=== PATIENT | male | born 1955 | race Caucasian/White ===

== ENCOUNTER 2024-05-04 18:49 | Inpatient (IN) | payer MEDICARE, SELFPAY ==
[2024-05-04] VITALS (12 sets, daily range): BP systolic 90–147; BP diastolic 61–101; PULSE 63–91; RESP 12–20; TEMP 36.3–36.8; O2SAT 90–100; BMI 18.3; BMI 17.1
[2024-05-04 19:29] LABS: Allen Test Positive; Base Excess -2 mmol/L (-2 to +2); Bicarbonate 22.1 mmol/L (22-26); Blood Gas Specimen Type ART; Mode Not entered; O2 Delivery Device Room Air; PO2 69 mmHG (75-100); SITE R Radial; SO2 94 % (95-99); Total Carbon Dioxide 23 mmol/L; pCO2 33.9 mmHg (35-45); pH 7.42 (7.35-7.45)
[2024-05-04 19:29] LABS: Absolute Lymphocyte Count 1.73 X10^3/uL (0.83-4.51); Absolute Neutrophil Count 7.8 X10^3/uL (2.0-7.7); Basophil# 0.06 X10^3/uL; Basophil% 0.6 % (0-1); Eosinophil# 0.08 X10^3/uL; Eosinophils% 0.8 % (0-5); Hematocrit 47.6 % (40-54); Hemoglobin 15.4 g/dL (13.0-16.5); Lymphocyte # 1.73 X10^3/ul (0.83-4.51); Lymphocyte % 16.5 % (19-41); Mean Corp Hgb Conc 32.4 g/dL (32-36); Mean Corpuscular Volume 89.6 fL (80-94); Mean Platelet Vol. 10.5 fl (6.2-12.0); Monocyte# 0.84 X10^3/uL; NRBC Flagged by Analyzer 0 % (0-5); Neutrophil # 7.75 X10^3/uL (2.7-7.7); Neutrophil % 73.6 % (47-70); Platelet Count 233 K/mm3 (150-450); RBC Distribution Width CV 13.9 % (11.6-14.6); RBC Distribution Width SD 45.2 fl (35.1-43.9); Red Blood Count 5.31 M/mm3 (4.6-6.2); White Blood Count 10.5 K/mm3 (4.4-11.0)
[2024-05-04 19:45] LABS: International Normalized Ratio 1.1; Partial Thromboplast Time 25.8 Seconds (24.1-36.2)
[2024-05-04 19:53] LABS: ALB/GLOB Ratio 1.3 RATIO (0.9-2.4); AST(SGOT) 21 U/L (15-37); Alanine Aminotransfer ALT/SGPT 19 U/L (16-61); Albumin, Serum 3.7 g/dL (3.2-5.0); Alkaline Phosphatase 70 U/L (45-117); Anion Gap 9 (5-15); BUN 18 mg/dL (7-18); BUN/Creat Ratio 13.5 RATIO (10-20); Calcium,Total 9.2 mg/dL (8.5-10.1); Chloride 103 mmol/L (98-107); Creatinine, Serum 1.33 mg/dL (0.70-1.30); EST Glomerular Filtration Rate 56 mL/min (>60); Est Glom Filt Rate - Afr Amer 68 mL/min (>60); Estimated Creatinine Clearance 40.49 ml/min; Globulin 2.9 g/dL (2.2-4.2); Glucose 109 mg/dL (74-106); Potassium 4.2 mmol/L (3.5-5.1); Protein, Total 6.6 g/dL (6.4-8.2); Sodium Level 137 mmol/L (136-145); Troponin-I HS (w/2H Reflex) 160 pg/mL (3.0-78.0)
[2024-05-04 20:00] LABS: D-Dimer Quantitative (DVT/PE) 0.27 FEU/ug/m (0.27-0.49)
[2024-05-04 20:16] LABS: Lactic Acid 2.9 mmol/L (0.4-1.9)
[2024-05-04 21:25] LABS: Reflex Troponin-HS? (from REC) Y
[2024-05-04] MEDS: Heparin Injection (Vial) 5,000 UNIT/ML VIAL 3500 UNIT IV (22:03)
[2024-05-04 22:04] LABS: Troponin-I HS 169 pg/mL (3.0-78.0)
[2024-05-04 22:23] LABS: International Normalized Ratio 1.1; Partial Thromboplast Time 26.6 Seconds (24.1-36.2); Prothrombin Time (Protime)PT. 14.2 SECONDS (11.7-14.9)
[2024-05-04] MEDS: HEPARIN/D5w 25,000 UNITS 25,000 UNITS/250 ML IV.SOLN. 7 UNITS CONT INF (22:39)
[2024-05-04 23:25] LABS: Reflex Lactate? Y
[2024-05-04] MEDS: Aspirin 81 MG TAB.CHEW PO (23:39)
[2024-05-04] MEDS: Atorvastatin Calcium 80 MG Tablet PO (23:39)
[2024-05-04] MEDS: Clopidogrel Bisulfate 75 MG Tablet PO (23:39)
[2024-05-05] VITALS (7 sets, daily range): BP systolic 92–131; BP diastolic 59–68; PULSE 47–74; RESP 15–18; TEMP 36.4–36.5; O2SAT 93–99
[2024-05-05 00:14] LABS: Lactic Acid 2.3 mmol/L (0.4-1.9)
[2024-05-05 02:26] LABS: Troponin-I HS 176 pg/mL (3.0-78.0)
[2024-05-05 03:41] LABS: Reflex Lactate? Y
[2024-05-05 07:07] LABS: Hematocrit 45.3 % (40-54); Hemoglobin 14.5 g/dL (13.0-16.5); Mean Corpuscular Hgb 28.7 pg (27.0-32.0); Mean Corpuscular Volume 89.5 fL (80-94); Mean Platelet Vol. 9.4 fl (6.2-12.0); Platelet Count 216 K/mm3 (150-450); RBC Distribution Width CV 13.9 % (11.6-14.6); RBC Distribution Width SD 45.7 fl (35.1-43.9); Red Blood Count 5.06 M/mm3 (4.6-6.2); White Blood Count 8.1 K/mm3 (4.4-11.0)
[2024-05-05] MEDS: Ipratropium/Albuterol Sulfate 3 ML AMPUL.NEB INHALATION ×3 (07:16→19:26)
[2024-05-05] MEDS: Budesonide Respules 0.5 MG/2 ML AMPUL.NEB. INHALATION ×2 (07:16→19:26)
[2024-05-05 08:45] LABS: ALB/GLOB Ratio 1.2 RATIO (0.9-2.4); AST(SGOT) 24 U/L (15-37); Alanine Aminotransfer ALT/SGPT 20 U/L (16-61); Albumin, Serum 3.2 g/dL (3.2-5.0); Alkaline Phosphatase 62 U/L (45-117); Anion Gap 10 (5-15); BUN 21 mg/dL (7-18); BUN/Creat Ratio 21.4 RATIO (10-20); Chloride 104 mmol/L (98-107); Cholesterol 156 mg/dL (200); Creatinine, Serum 0.98 mg/dL (0.70-1.30); EST Glomerular Filtration Rate 80 mL/min (>60); Est Glom Filt Rate - Afr Amer 97 mL/min (>60); Estimated Creatinine Clearance 51.44 ml/min; Globulin 2.7 g/dL (2.2-4.2); Glucose 76 mg/dL (74-106); High Density Lipoprotein 82 mg/dL; Potassium 4.4 mmol/L (3.5-5.1); Protein, Total 5.9 g/dL (6.4-8.2); Sodium Level 137 mmol/L (136-145); Triglycerides 47 mg/dL; Very Low Density Lipoprotein 9 mg/dL (5-40)
[2024-05-05 08:50] LABS: Lactic Acid 1.4 mmol/L (0.4-1.9)
[2024-05-05 09:19] LABS: Partial Thromboplast Time 97.4 Seconds (24.1-36.2)
[2024-05-05] MEDS: Aspirin 81 MG TAB.CHEW PO (11:06)
[2024-05-05 16:17] LABS: Partial Thromboplast Time 38.2 Seconds (24.1-36.2)
[2024-05-05] MEDS: Heparin Injection (Vial) 5,000 UNIT/ML VIAL IV (16:46)
[2024-05-05] MEDS: Ensure Plus High Protein 120 ML LIQUID PO ×2 (18:08→21:11)
[2024-05-05] MEDS: Atorvastatin Calcium 80 MG Tablet PO (21:09)
[2024-05-05 23:16] LABS: Partial Thromboplast Time 49.4 Seconds (24.1-36.2)
[2024-05-06] VITALS (7 sets, daily range): BP systolic 97–116; BP diastolic 67–89; PULSE 54–73; RESP 16–18; TEMP 36.4–36.6; O2SAT 94–98
[2024-05-06 06:21] LABS: Partial Thromboplast Time 77.5 Seconds (24.1-36.2)
[2024-05-06] MEDS: Ipratropium/Albuterol Sulfate 3 ML AMPUL.NEB INHALATION ×3 (06:29→18:51)
[2024-05-06] MEDS: Budesonide Respules 0.5 MG/2 ML AMPUL.NEB. INHALATION ×2 (06:29→18:51)
[2024-05-06] MEDS: Aspirin 81 MG TAB.CHEW PO (09:30)
[2024-05-06] MEDS: Ensure Plus High Protein 120 ML LIQUID PO ×3 (09:31→22:14)
[2024-05-06] MEDS: HEPARIN/D5w 25,000 UNITS 25,000 UNITS/250 ML IV.SOLN. 7 UNITS CONT INF (12:35)
[2024-05-06 12:37] LABS: Partial Thromboplast Time 52.5 Seconds (24.1-36.2)
[2024-05-06 18:54] LABS: Partial Thromboplast Time 48.8 Seconds (24.1-36.2)
[2024-05-06] MEDS: Atorvastatin Calcium 80 MG Tablet PO (22:14)
[2024-05-07] VITALS (10 sets, daily range): BP systolic 97–138; BP diastolic 56–82; PULSE 47–85; RESP 16; TEMP 36.4–36.5; O2SAT 92–100
[2024-05-07 01:51] LABS: Partial Thromboplast Time 73.5 Seconds (24.1-36.2)
[2024-05-07] MEDS: Aspirin 81 MG TAB.CHEW PO (05:36)
[2024-05-07 06:49] LABS: Absolute Lymphocyte Count 1.07 X10^3/uL (0.83-4.51); Absolute Neutrophil Count 5.5 X10^3/uL (2.0-7.7); Basophil# 0.05 X10^3/uL; Basophil% 0.7 % (0-1); Eosinophil# 0.15 X10^3/uL; Hematocrit 45.1 % (40-54); Hemoglobin 14.7 g/dL (13.0-16.5); Lymphocyte # 1.07 X10^3/ul (0.83-4.51); Lymphocyte % 14.1 % (19-41); Mean Corp Hgb Conc 32.6 g/dL (32-36); Mean Corpuscular Hgb 29.2 pg (27.0-32.0); Mean Corpuscular Volume 89.5 fL (80-94); Mean Platelet Vol. 10.1 fl (6.2-12.0); Monocyte# 0.83 X10^3/uL; Monocyte% 10.9 % (0-10); NRBC Flagged by Analyzer 0 % (0-5); Neutrophil # 5.46 X10^3/uL (2.7-7.7); Neutrophil % 71.8 % (47-70); Platelet Count 204 K/mm3 (150-450); RBC Distribution Width CV 14.2 % (11.6-14.6); RBC Distribution Width SD 46.1 fl (35.1-43.9); Red Blood Count 5.04 M/mm3 (4.6-6.2); White Blood Count 7.6 K/mm3 (4.4-11.0)
[2024-05-07] MEDS: Budesonide Respules 0.5 MG/2 ML AMPUL.NEB. INHALATION (07:07)
[2024-05-07] MEDS: Ipratropium/Albuterol Sulfate 3 ML AMPUL.NEB INHALATION ×2 (07:07→13:03)
[2024-05-07 07:47] LABS: Anion Gap 8 (5-15); BUN 19 mg/dL (7-18); BUN/Creat Ratio 22.5 RATIO (10-20); Calcium,Total 9.4 mg/dL (8.5-10.1); Chloride 106 mmol/L (98-107); Creatinine, Serum 0.84 mg/dL (0.70-1.30); EST Glomerular Filtration Rate 95 mL/min (>60); Est Glom Filt Rate - Afr Amer 115 mL/min (>60); Estimated Creatinine Clearance 60.01 ml/min; Glucose 98 mg/dL (74-106); Potassium 4.4 mmol/L (3.5-5.1); Sodium Level 139 mmol/L (136-145)
[2024-05-07] MEDS: 0.9% Normal Saline (1000mL) 1,000 ML 150 ML IV (09:50)
== END 2024-05-07 16:49 | disposition home or self-care (01) | DRG 287 ==
LOC: ED 21:42 → PCU 21:54
PROVIDERS: Internal Medicine; Admitting Provider Internal Medicine; Emergency Provider Emergency Medicine; Referring Provider Emergency Medicine; Visit Provider Student in an Organized Health Care Education/Training Program
DX: I25.10 Atherosclerotic heart disease of native coronary artery without angina pectoris (principal); E44.0 Moderate protein-calorie malnutrition; Z68.1 Body mass index [BMI] 19.9 or less, adult; J44.9 Chronic obstructive pulmonary disease, unspecified; E80.7 Disorder of bilirubin metabolism, unspecified; R55 Syncope and collapse; Z79.51 Long term (current) use of inhaled steroids; Z87.891 Personal history of nicotine dependence
CPT/HCPCS: 36415; 36600; 70450; 71046; 80048; 80053; 80061; 82803; 83605; 84443; 84484; 85025; 85027; 85379; 85610; 85730; 93005; 93306; 93454; 94640; 97802; 99152; 99153; 99285; J7030; Q9967; A4216; C1769; C1894; J3490

== ENCOUNTER 2024-05-17 07:02 | Day surgery (SDC) | payer MEDICARE, SELFPAY ==
[2024-05-16 11:49] VITALS: BMI 16.9
--- OUTSIDE RECORDS SUMMARY | 2024-05-17 07:21 | XMS RPT_ITS | CCD ---
Author Organization 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 Name Role Phone LilaChristine peres Unavailable Unavailable PROVIDER, UNKNOWN Unavailable Unavailable Xavier Bravo Unavailable Unavailable PCP, NONE Primary Care Unavailable RO SEVILLA Attending Unavailable PHYSICIAN, NONE Primary Care Physician Unavailab Zina Burleson Unavailable Unavailable Unavailable Unavailable Primary Care Provider Unavailabl e Unavailable Primary Care Provider Unavailabl e Unavailable Primary Care Provider Unavailabl e Sandip Chavez DO Unavailable Sherri Hemphill Unavailable RAPAKA, EDUARDA Attending Unavailable RAPAKA, EDUARDA Attending Unavailable Wiggers DO, Salazar B Primary Care Provider GISELA HSU MD Attending Unavailable NO FAMILY PHYSICIAN, 837 Primary Care Unavail able MARGARET PLASCENCIA MD Attending Unavailable NO FAMILY PHYSICIAN, 837 Primary Care Unavail able SAWYER ELLISON, JIM Consulting Unavailable EASTON LOERA DO Admitting Unavailable Wiggers DO, Salazar B Primary Care Provider [phone] SUREKHA MENSAH Attending Unavailable Eduarda Felix MD Unavailable WIGGERS, SALAZAR B Primary Care Unavailable RAPAKA, EDUARDA Attending Unavailable WIGGERS, SALAZAR B Primary Care Unavailable RAPAKA, EDUARDA Attending Unavailable Unavailable Primary Care Provider Unavailabl e RAPAKA, EDUARDA Referring Unavailable WIGGERS, SALAZAR B Primary Care Unavailable RAPAKA, EDAURDA Referring Unavailable WIGGERS, SALAZAR B Primary Care Unavailable WIGGERS, SALAZAR B Attending Unavailable WIGGERS, SALAZAR B Primary Care Unavailable WIGGERS, SALAZAR B Referring Unavailable WIGGERS, SALAZAR B Primary Care Unavailable Florencio MARADIAGA, Roula Lackey Unavailable Allergies Allergy Classification Reported Allergen(s) Allergy Type Date of Onset Reaction(s) Facility (20 sources) Bacitracin; Translations: [Bacitracin OINT] Drug Allergy 0 Rash [facility] (4 sources) Bacitracin; Translations: [BACITRACIN] Drug Allergy 0 [facility] (1 source) Sulfonamides (Antibiotic); Translations: [SULFA (SULFONAMIDE ANTIBIOTICS)] Propensity to adverse reactions to drug (disorder) 9 [facility] 3 Repository (1 source) NEOMYCIN-BACITRAC IN-POLYMYXIN; Translations: [NEOMYCIN-BACITRA ANN-MARIE-POLYMYXIN] Propensity to adverse reactions to drug (disorder) 9 [facility] 3 Repository Medications Current Medications Medication Drug Class(es) Dates Sig (Normalized) Sig (Original) [id number] 200 actuat albuterol 0.09 mg/actuat metered dose inhaler (20 sources) beta2-Adrenergic Agonist Start: 05-02-2023 take 2 puff(s) by inhalation every four hours as needed for wheezing albuterol HFA (PROAIR HFA) 90 mcg/actuation inhaler Indications: Pulmonary emphysema, unspecified emphysema type (HCC) 2 Puffs every 4 hours as needed for wheezing/shortness of breath. Take as directed 17 g 5 05/02/2023 Active Start: 06-30-2021 take 2 puff(s) by mo uth every four hours Albuterol Sulfate HFA 108 (90 Base) MCG/ACT Inhalation Aerosol Solution inhale 2 puffs by mouth every 4 hours if needed Quantity: 1 Refills: 3 Ordered: 30-Jun-2021 Zina Jain Start : 30-Jun-2021 Active Start: 12-23-2020 End: 05-02-2023 take 2 puff(s) by inhalation every four hours as needed for wheezing albuterol HFA (PROAIR HFA) 90 mcg/actuation inhaler Indications: Pulmonary emphysema, unspecified emphysema type (HCC) 2 Puffs every 4 hours as needed for wheezing/shortness of breath. Take as directed 25.5 g 1 12/23/2020 10/22/2021 Discontinued Start: 01-20-2020 End: 12-23-2020 take 2 puff(s) by inhalation every six hours as needed for wheezing albuterol HFA (PROAIR HFA) 90 mcg/actuation inhaler 2 Puffs every 6 hours as needed for Wheezing/Shortness of Breath. Take as directed 3 Inhaler 01/20/2020 12/23/2020 Discontinued Albuterol 0.63 m g/3 mL (0.021%) inhalation solution Comment on above: 2 Puffs every 4 hour s as needed for wheezing/shortness of breath. Take as directed albuterol 0.833 mg/ml / ipratropium bromide 0.167 mg/ml inhalation solution (20 sources) Anticholinergic, beta2-Adrenergic Agonist Start: 023 take 3 mL by inhalation every six hours as needed ipratropium-albut jyoti (DUONEB) 0.5 mg-3 mg(2.5 mg base)/3 mL nebu Inhale 3 mL as instructed every 6 hours as needed for wheezing/shortnes s of breath. 120 Each 3 01/31/2023 Active Start: 11-09-2021 End: 01-27-2023 take 3 mL by inhalation every six hours as needed ipratropium-albuterol (DUONEB) 0.5 mg-3 mg(2.5 mg base)/3 mL nebu Inhale 3 mL as instructed every 6 hours as needed for wheezing/shortness of breath. 120 Vial 3 11/09/2021 01/27/2023 Discontinued Comment on above: Inhale 3 mL as instr ucted every 6 hours as needed for wheezing/shortness of breath. albuterol MDI (90 mcg/inh) CFC free inhalation aerosol (1 source) Start: take 2 puff(s) by inhalation every four hours albuterol MDI (90 mcg/inh) CFC free inhalation aerosol 2 puff(s), Inhalation, q4h, # 1 EA, 0 Refill(s) Start Date: 07/19/17 Status: Ordered amoxicillin 875 mg / clavulanate 125 mg oral tablet (2 sources) Penicillin-class Antibacterial Start: End: take 1 tablet by mouth twice daily amoxicillin-clavu lanate potassium (AUGMENTIN) 875-125 mg per tablet Take 1 tablet by mouth two times a day for 7 days. 14 tablet 0 10/31/2023 11/07/2023 Active Start: 05-08-2023 Amoxicillin-cl avulanate 875 mg-125 mg oral tablet Comment on above: Take 1 tablet by [facility] two times a day for 7 days. aspirin 81 mg oral tablet (1 source) Platelet Aggregation Inhibitor, Nonsteroidal Anti-inflammatory Drug take 1 capsule by mouth once daily aspirin 81 mg cap Take 81 mg by mouth once daily. From [facility] Active Breo Ellipta 200 mcg-25 mcg/inh inhalation powder (1 source) Start: 04-05-20 Breo Ellipta 200 mcg-25 mcg/inh inhalation powder 0 Refill(s) Start Date: 04/05/20 Status: Ordered cephalexin 500 mg oral capsule (1 source) Cephalosporin Antibacterial Start: 02-09-20 End: 02-14-20 take 1 capsule by mouth four times daily cephALEXin (KEFLEX) 500 mg capsule Indications: Cellulitis of skin Take 1 capsule by mouth four times daily for 5 days. 20 capsule 0 02/08/2022 02/13/2022 Active Comment on above: Take 1 capsule by [facility] four times daily for 5 days. enteric contrast (will be provided with radiology test) (1 source) Start: 03-16-20 End: 03-17-20 enteric contrast (will be provided with radiology test) Indications: Complicated unilateral incarcerated femoral hernia For CT ABD/PEL W IVCON Routine order Administer, As Directed One Time Only, via Oral, Rectal, both Oral and Rectal, Enteric Tube, Stoma or Indwelling Catheter, Enteric Contrast as designated per enteric contrast guidelines 1 Each 0 03/16/2023 03/17/2023 Active Comment on above: For CT ABD/PEL W IVC ON Routine order Administer, As Directed One Time Only, via Oral, Rectal, both Oral and Rectal, Enteric Tube, Stoma or Indwelling Catheter, Enteric Contrast as designated per enteric contrast guidelines 30 actuat fluticasone furoate 0.2 mg/actuat / vilanterol 0.025 mg/actuat dry powder inhaler (20 sources) Corticosteroid, beta2-Adrenergic Agonist Start: 11-13-19 End: 10-31-19 24 fluticasone-vilanter ol (BREO ELLIPTA) 200-25 mcg/dose inhaler Indications: Pulmonary emphysema, unspecified emphysema type (HCC) , Ex-smoker USE 1 INHALATION DAILY INSTRUCTED 3 Each 3 10/31/2023 Active Start: 11-04-2021 fluticasone-vi lanterol (BREO ELLIPTA) 200-25 mcg/dose inhaler Indications: Pulmonary emphysema, unspecified emphysema type (HCC) , Ex-smoker Inhale 1 Inhalation as instructed once daily. 180 Each 3 11/04/2021 Active Start: 10-22-2021 take 1 dose by inhal ation once daily fluticasone-vilanterol (BREO ELLIPTA) 200-25 mcg/dose inhaler Indications: Pulmonary emphysema, unspecified emphysema type (HCC) , Ex-smoker Inhale 1 Inhalation as instructed once daily. 1 Each 5 10/22/2021 Active Start: 06-30-2021 take 1 puff(s) by in halation once daily Breo Ellipta 200-25 MCG/INH Inhalation Aerosol Powder Breath Activated INHALE 1 PUFFS Daily Quantity: 1 Refills: 0 Ordered: 30-Jun-2021 Zina Jain Start : 30-Jun-2021 Active Start: 04-13-2021 End: 10-22-2021 take 1 dose by inhalation once daily BREO ELLIPTA 200-25 mcg/dose inhaler Indications: Pulmonary emphysema, unspecified emphysema type (HCC) , Ex-smoker USE 1 INHALATION DAILY INSTRUCTED 1 Each 5 04/13/2021 10/22/2021 Discontinued Start: 04-08-2020 End: 04-13-2021 fluticasone-vilanterol (BREO ELLIPTA) 200-25 mcg/dose inhaler Indications: Pulmonary emphysema, unspecified emphysema type (HCC) , Ex-smoker Inhale 1 Inhalation as instructed once daily. 3 Each 3 04/08/2020 04/13/2021 Discontinued Comment on above: Inhale 1 Inhalation as instructed once daily. USE 1 INHALATION LUPIS LY INSTRUCTED Gentamicin Sulfate (RESIDENTIAL) (1 source) Start: End: apply 1 dose into the eye(s) once daily gentamicin 0.3% ophthalmic ointment Dose = 0.5 in, Eyes, both, 6x/Day, X 7 day(s), # 3.5 gram(s), 0 Refill(s), Iritis Start Date: 05/06/21 Stop Date: 05/13/21 Status: Ordered iv contrast (will be provided with radiology test) (1 source) Start: End: iv contrast (will be provided with radiology test) Indications: Complicated unilateral incarcerated femoral hernia CT ABD/PEL -Inject, intravenously, once for 1 dose.No IV access, insert saline lock prior to the beginning of sedation, infusion, injection of imaging exam. Discontinue saline lock post exam. If Pt. has a central line or IVAD, may access for administration according to line specific nursing protocol. Once exam is complete flush line and de-access according to line specific nursing protocol in the CT contrast administration guidelines link. 1 Each 0 03/16/2023 03/17/2023 Active Comment on above: CT ABD/PEL -Inject, intravenously, once for 1 dose.No IV access, insert saline lock prior to the beginning of sedation, infusion, injection of imaging exam. Discontinue saline lock post exam. If Pt. has a central line or IVAD, may access for administration according to line specific nursing protocol. Once exam is complete flush line and de-access according to line specific nursing protocol in the CT contrast administration guidelines link. tiotropium 0.018 mg inhalation powder (20 sources) Anticholinergic Start: End: take 1 capsule by inhalation once daily tiotropium (SPIRIVA WITH HANDIHALER) 18 mcg inhalation capsule Indications: Pulmonary emphysema, unspecified emphysema type (HCC) INHALE THE CONTENTS OF 1 CAPSULE DAILY INSTRUCTED 90 capsule 3 10/31/2023 Active Start: 11-04-2021 take 1 capsule by in halation once daily tiotropium (SPIRIVA WITH HANDIHALER) 18 mcg inhalation capsule Indications: Pulmonary emphysema, unspecified emphysema type (HCC) Inhale 1 capsule as instructed once daily. 90 capsule 3 11/04/2021 Active Start: 10-22-2021 take 1 capsule by in halation once daily tiotropium (SPIRIVA WITH HANDIHALER) 18 mcg inhalation capsule Indications: Pulmonary emphysema, unspecified emphysema type (HCC) Inhale 1 capsule as instructed once daily. 30 capsule 5 10/22/2021 Active Start: 08-12-2021 End: 10-22-2021 take 1 capsule by inhalation once daily SPIRIVA WITH HANDIHALER 18 mcg inhalation capsule Indications: Pulmonary emphysema, unspecified emphysema type (HCC) INHALE THE CONTENTS OF 1 CAPSULE ONCE DAILY INSTRUCTED. USE WITH HANDIHALER 90 capsule 3 08/12/2021 10/22/2021 Discontinued Start: 04-08-2020 End: 08-12-2021 take 1 capsule by inhalation once daily tiotropium (SPIRIVA WITH HANDIHALER) 18 mcg inhalation capsule Indications: Pulmonary emphysema, unspecified emphysema type (HCC) Inhale 1 capsule as instructed once daily. Use with HandiHaler. 90 capsule 3 12/23/2020 08/12/2021 Discontinued Start: 04-05-2020 Spiriva HandiH aler 18 mcg inhalation capsule 0 Refill(s) Start Date: 04/05/20 Status: Ordered Comment on above: Inhale 1 capsule as instructed once daily. INHALE THE CONTENTS OF 1 CAPSULE ONCE DAILY INSTRUCTED. USE WITH HANDIHALER INHALE THE CONTENTS OF 1 CAPSULE DAILY INSTRUCTED traMADol hydrochloride 50 mg oral tablet (1 source) Opioid Agonist Start: 05-06-2021 End: 05-09-2021 Ultram 50 mg oral tablet Dose : 50 mg = 1 tab(s), PO, q6-8hr, PRN as needed for pain, X 3 day(s), # 12 tab(s), 0 Refill(s), 05/09/21 0:09:00 EDT, Iritis, 54.5 Start Date: 05/06/21 Stop Date: 05/09/21 Status: Ordered Triamcinolone (20 sources) Corticosteroid TRIAMCINOLONE AC ETONIDE TOPICAL Apply 0.5 % to affected area. Cream As needed Active TRIAMCINOLONE AC ETONIDE TOPICAL Apply 0.5 % to affected area. cream 0 Active Comment on above: Apply 0.5 % to affec adin area. cream Completed/Discontinued Medications Medication Drug Class(es) Dates Sig (Normalized) Sig (Original) azithromycin 250 mg oral tablet (16 sources) Macrolide Antimicrobial Start: 10-20-2022 End: 05-02-2023 azithromycin (ZITHROMAX) 250 mg tablet Take 2 tabs on the first day, then one tab daily for 4 days. 6 tablet 0 01/10/2023 05/02/2023 Discontinued Start: 06-30-2021 Azithromycin 2 50 MG Oral Tablet TAKE 2 TABLETS ON DAY 1 THEN TAKE 1 TABLET A DAY FOR 4 DAYS. Quantity: 1 Refills: 0 Ordered: 30-Jun-2021 Zina Jain Start : 30-Jun-2021 Active Comment on above: Take 2 tabs on the irst day, then one tab daily for 4 days. methylPREDNISolone 4 MG Oral Tablet Therapy Pack (4 sources) Start: methylPREDNISolone 4 MG Oral Tablet Therapy Pack Take as directed per pharmacy Quantity: 1 Refills: 1 Ordered: 30-Jun-2021 Zina Jain Start : 30-Jun-2021 Active pantoprazole 40 mg delayed release oral tablet (4 sources) Proton Pump Inhibitor Start: take 1 tablet by mouth once daily Pantoprazole Sodium 40 MG Oral Tablet Delayed Release TAKE 1 TABLET BY MOUTH EVERY DAY Quantity: 30 Refills: 3 Ordered: 30-Jun-2021 Zina Jain Start : 30-Jun-2021 Active predniSONE 10 mg oral tablet (20 sources) Start: End: take 1 tablet by mouth once daily predniSONE (DELTASONE) 10 mg tablet Take 1 tablet by mouth once daily. 30 tablet 1 05/02/2023 03/19/2024 Discontinued Start: 01-10-2023 End: 05-02-2023 predniSONE (DELTASONE) 10 mg tablet Take 4 pills daily for 4 days, Then 3 pills daily for 4 days, Then 2 pills daily for 4 days, Then 1 pill daily for 4 days, Then stop. 40 tablet 0 01/10/2023 05/02/2023 Discontinued Start: 06-07-2022 End: 01-10-2023 take 1 tablet by mouth once daily predniSONE (DELTASONE) 10 mg tablet Indications: Chronic obstructive pulmonary disease, unspecified COPD type (HCC) Take 1 tablet by mouth once daily. 30 tablet 2 10/20/2022 01/10/2023 Discontinued Start: 10-22-2021 End: 10-20-2022 predniSONE (DELTASONE) 10 mg tablet Take 4 tabs daily for 4 days, 3 tabs daily for 4 days, 2 tabs daily for 4 days and 1 tab daily for 4 days 40 tablet 0 10/22/2021 10/20/2022 Discontinued PredniSONE 20 mg oral tablet Comment on above: Take 4 tabs daily fo r 4 days, 3 tabs daily for 4 days, 2 tabs daily for 4 days and 1 tab daily for 4 days Take 1 tablet by basil th once daily. Take 4 pills daily f or 4 days, Then 3 pills daily for 4 days, Then 2 pills daily for 4 days, Then 1 pill daily for 4 days, Then stop. roflumilast 0.25 mg oral tablet (4 sources) Phosphodiesterase 4 Inhibitor Start: 10-21-19 End: 01-11-20 take 1 tablet by mouth once daily roflumilast (DALIRESP) 250 mcg tablet Take 1 tablet (250 mcg) by mouth once daily. 30 tablet 0 10/20/2022 01/10/2023 Discontinued Comment on above: Take 1 tablet (250 m cg) by mouth once daily. Problems Active Problems Problem Classification Problem Date Documented Da te Episodic/Chronic Acute bronchitis (1 source) Acute bronchitis; Translations: [Acute bronchitis, unspecified] 11-01-2023 Episodic Asthma (20 sources) Asthma; Translations: [Asthma, unspecified type, unspecified] Onset: 2 10-22-2021 Chronic Chronic obstructive pulmonary disease and bronchiectasis (20 sources) Chronic obstructive pulmonary disease, unspecified; Translations: [Chronic obstructive lung disease] Onset: 8 01-18-2020 Chronic Coagulation and hemorrhagic disorders (1 source) Finding related to bruising; Translations: [Spontaneous ecchymoses] 03-16-2023 Episodic Diabetes mellitus without complication (1 source) Hyperglycemia; Translations: [Hyperglycemia, unspecified] 04-04-2023 Episodic Esophageal disorders (20 sources) Gastroesophageal reflux disease; Translations: [Esophageal reflux] Onset: 2 10-22-2021 Chronic Hyperplasia of prostate (11 sources) Benign prostatic hypertrophy with outflow obstruction; Translations: [Benign prostatic hyperplasia with lower urinary tract symptoms] Onset: 3 04-04-2023 Chronic Immunizations and screening for infectious disease (1 source) Viral screening status; Translations: [Encounter for screening for other viral diseases] 04-04-2023 Episodic Lymphadenitis (3 sources) Mediastinal lymphadenopathy; Translations: [Localized enlarged lymph nodes] Episodic Malaise and fatigue (1 source) Fatigue; Translations: [Other fatigue] 03-16-2023 Episodic Open wounds of extremities (2 sources) Laceration without foreign body of left index finger without damage to nail, initial encounter; Translations: [Laceration without foreign body of left index finger without damage to nail, initial encounter] Onset: 4 Episodic Other aftercare (1 source) Post-discharge follow-up; Translations: [Encounter for follow-up examination after completed treatment for conditions other than malignant neoplasm] Episodic Other gastrointestinal disorders (20 sources) Irritable bowel syndrome; Translations: [Irritable bowel syndrome without diarrhea] Onset: 2 01-18-2020 Chronic Other lower respiratory disease (7 sources) Multiple nodules of lung; Translations: [Other nonspecific abnormal finding of lung field] Episodic Other lower respiratory disease (15 sources) Nodule of lung; Translations: [Solitary pulmonary nodule] Onset: 3 Episodic Other lower respiratory disease (2 sources) Cough; Translations: [Cough] 04-02-2021 Episodic Other lower respiratory disease (2 sources) Solitary pulmonary nodule; Translations: [Lung nodule] Onset: 3 Episodic Other skin disorders (1 source) Eruption; Translations: [Rash and other nonspecific skin eruption] Episodic Other upper respiratory infections (1 source) Viral upper respiratory tract infection; Translations: [Acute upper respiratory infection, unspecified] 03-25-2021 Episodic Pneumonia (except that caused by tuberculosis or sexually transmitted disease) (2 sources) Bacterial pneumonia; Translations: [Unspecified bacterial pneumonia] Episodic Respiratory failure; insufficiency; arrest (adult) (2 sources) Acute respiratory failure; Translations: [Acute respiratory failure with hypoxia] Episodic Screening and history of mental health and substance abuse codes (13 sources) Ex-smoker; Translations: [Personal history of nicotine dependence] Episodic Skin and subcutaneous tissue infections (1 source) Cellulitis of skin; Translations: [Cellulitis, unspecified] Episodic Unclassified (2 sources) Acute cough; Translations: [Acute cough] Onset: 3 Past or Other Problems Problem Classification Problem Date Documented Date Episodic/Chronic Abdominal hernia (11 sources) Complicated femoral hernia; Translations: [Unilateral femoral hernia, with obstruction, without gangrene, not specified as recurrent] Onset: 06-29-2023 03-16-2023 Episodic Allergic reactions (20 sources) Dermatitis, unspecified; Translations: [Inflammatory dermatosis] Onset: 08-29-2018 Resolved: 06-29-2023 12-24-2020 Episodic Inflammation; infection of eye (except that caused by tuberculosis or sexually transmitteddisease) (20 sources) Iridocyclitis; Translations: [Unspecified iridocyclitis] Onset: 05-06-2021 Episodic Nonspecific chest pain (20 sources) Chest pain; Translations: [Chest pain, unspecified] Onset: 01-17-2020 Resolved: 06-29-2023 01-18-2020 Episodic Other liver diseases (9 sources) Large liver; Translations: [Hepatomegaly, not elsewhere classified] Onset: 06-29-2023 04-04-2023 Episodic Other liver diseases (1 source) Hepatomegaly, not elsewhere classified; Translations: [Hepatomegaly] Onset: 06-29-2023 Episodic Other lower respiratory disease (20 sources) Dyspnea on exertion; Translations: [Shortness of breath] Onset: 01-18-2020 Resolved: 06-29-2023 01-18-2020 Episodic Other lower respiratory disease (2 sources) Other nonspecific abnormal finding of lung field; Translations: [Lung nodules] Onset: 05-02-2023 Episodic Other screening for suspected conditions (not mental disorders or infectious disease) (11 sources) Patient encounter status; Translations: [Encounter for screening for cardiovascular disorders] Onset: 07-04-2023 03-16-2023 Episodic Results Test Name Value Interpretation Reference Range Facility [facility] 03-19-2024 CNOV Office Visit (PULMGR ) -- SARABJIT LEACH ([id number]) 1955 M DEF Date Time Provider Department 03/19/24 10:00 AM EDUARDA FELIX PULMGR During your visit today, we recorded the following information about you: Temperature Pulse Respiration Blood pressure 97.7 degrees 69/minute 16/minute 112/75 Weight Height 54.7 kg 1.753 m Anna Clemens 03/19/2024 10:00 AM Signed 03/19/2024 PULM COPD ASSESSMENT TEST (CAT) SCORE Cough 1 Phlegm 0 Chest tightness 3 When walking uphill or flight of steps 5 Activities at home 5 Leaving home despite lung condition 0 Sleeping 5 Energy 3 Total Score 22 Eduarda Felix MD 03/19/2024 1:12 PM Signed Respiratory [place] [facility] established patient follow-up note SERVICE DATE: 03/19/2024 PRIMARY CARE PHYSICIAN: Salazar Stallworth DO COMMUNICATION WILL BE SENT VIA SHARED MEDICAL RECORDS OR US MAIL. SUBJECTIVE HPI:Sarabjit Leach is a 68 year old male here for follow appointment for COPD and lung nodules. Routine visit and past visit reviewed. Patient is currently on a Breo Ellipta and the Spiriva and as needed albuterol. Also has a DuoNebs at home. Continues to have significant shortness of breath. States that he is using albuterol at least 5-6 times a day. Using the DuoNebs only when he is very sick. Denies any fever chills or night sweats. Has a some cough with minimal phlegm production. Denies any fever chills or night sweats. He was on prednisone in the past but stopped using it as he did not notice any difference. 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 Follow up in future anticipated. Discussed with patient. SOCIAL HISTORY: Social History Tobacco Use Smoking status: Former Current packs/day: 0.00 Average packs/day: 1.5 packs/day for 48.0 years (72.0 ttl pk-yrs) Types: Cigarettes Start date: 1966 Quit date: 2015 Years since quittin.6 Smokeless tobacco: Never Vaping Use Vaping status: Never Used Substance Use Topics Alcohol use: No Comment: quit in 1981 Drug use: No MEDICATIONS: Prior to Admission Medications (Not in a hospital admission) tiotropium (SPIRIVA WITH HANDIHALER) 18 mcg inhalation capsule INHALE THE CONTENTS OF 1 CAPSULE DAILY INSTRUCTED fluticasone-vilanterol (BREO ELLIPTA) 200-25 mcg/dose inhaler USE 1 INHALATION DAILY INSTRUCTED albuterol HFA (PROAIR HFA) 90 mcg/actuation inhaler 2 Puffs every 4 hours as needed for wheezing/shortness of breath. Take as directed ipratropium-albuterol (DUONEB) 0.5 mg-3 mg(2.5 mg base)/3 mL nebu Inhale 3 mL as instructed every 6 hours as needed for wheezing/shortness of breath. TRIAMCINOLONE ACETONIDE TOPICAL Apply 0.5 % to affected area. Cream As needed predniSONE (DELTASONE) 10 mg tablet Take 1 tablet by mouth once daily. (Patient not taking: Reported on 03/19/2024) CURRENT ALLERGIES: ALLERGIES Allergen Reactions Bacitracin Rash REVIEW OF SYSTEMS Constitutional:NO EVIDENCE OF ACUTE DISTRESS HEENT:Negative for frequent or significant headaches RESPIRATORY: Dyspnea, Shortness of breath CARDIOVASCULAR: Decreasing exercise tolerence, Cough, Shortness of breath GASTROINTESTINAL: Negative for abdominal discomfort, blood in stools or black stools or change in bowel habits GENITOURINARY: No history of dysuria, frequency or incontinence ENVIRONMENTAL TEST TECHNICIAN: NA MUSCULOSKELETAL: Negative for joint pain or swelling, back pain or muscle pain. NEUROLOGIC:Negative for focal numbness or weakness, headaches and dizziness or syncope. SKIN:Negative for lesions, rash, and itching. PSYCHIATRIC: Negative for sleep disturbance, mood disorder and recent psychosocial stressors. HEMATOLOGIC/LYMPHATIC/IMMU NOLOGIC:{HEMATOLOGY/LYMPHA TIC/IMMUNOLO ENDOCRINE: Negative for cold or heat intolerance, polyuria, polydipsia and goiter. The remainder of the ROS was negative. PHYSICAL EXAMINATION: VITAL SIGNS: BP 112/75 Pulse 69 Temp 97.7 Resp 16 Ht 5' 9 (1.75m) Wt 120 lb 8 oz (54.7kg) SpO2 93% BMI 17.79 kg/(m2). General appearance: well appearing, alert, and in no acute distress Skin: skin color, texture, turgor normal, no rashes or lesions Eyes: Anicteric sclera. Pupils are equally round and reactive to light. Extraocular movements are intact. ENT: No oral or nasal erythema, bleeding, lesions, striae Heme/Lymph:Negative Lungs: diminished BS b/l, no wheezing or rhonchi Heart: RRR without murmur, gallop, or rubs. No ectopy GI: Normal abdominal exam Musculoskeletal: Extremities normal. No deformities, edema, or skin discoloration. Good capillary refill. Psych: no history of psychiatric problems Neuro: Gait normal. Reflexes normal and symmetric. Sensation grossly intact. DATA: Vaccines as noted EMR Diagnostic tests reviewed for today's visit: Labs: CBC with diff: WBC 9.34 06/29/2023 RBC 4.98 06/29/2023 HGB 14.7 12 (more content not included)... [facility] CNPNon 01-10-2024 CNPN Telephone (PULMGR) -- SARABJIT LEACH ([id number]) 1955 M DEF Date Time Provider Department 01/10/24 EDUARDA FELIX PULMGR During your visit today, we recorded the following information about you: Nora Freire 01/10/2024 3:35 PM Signed Patient said he got a msg to r/s his January appt with Dr. Felix. He r/s in Feb. Wants to know if he is due for another CT scan. Please call him at [phone]. Ok to leave . Eduarda Felix MD 01/11/2024 4:28 PM Signed Reschedule appointment for a CT chest in April Elmira Pham MA 01/13/2024 2:45 PM Signed PT IS SCHEDULED FOR 05/09/[address] SCAN Allergies As of Date: 01/10/2024 Noted Allergy Reaction BACITRACIN 01/19/2020 2 - Rash Date Reviewed: 10/31/2023 Reviewed by: Elmira Pham MA - Fully Assessed Reason for Visit: CT question [Other] Primary Visit Diagnosis:Lung nodule [R91.1] Order(s):CT CHEST WO BILLON [[id number]] Order #: [id number] FUTURE Prescriptions as of 01/13/2024 - tiotropium (SPIRIVA WITH HANDIHALER) 18 mcg inhalation capsule INHALE THE CONTENTS OF 1 CAPSULE DAILY INSTRUCTED - fluticasone-vilanterol (BREO ELLIPTA) 200-25 mcg/dose inhaler USE 1 INHALATION DAILY INSTRUCTED - predniSONE (DELTASONE) 10 mg tablet Take 1 tablet by mouth once daily. - albuterol HFA (PROAIR HFA) 90 mcg/actuation inhaler 2 Puffs every 4 hours as needed for wheezing/shortness of breath. Take as directed - ipratropium-albuterol (DUONEB) 0.5 mg-3 mg(2.5 mg base)/3 mL nebu Inhale 3 mL as instructed every 6 hours as needed for wheezing/shortness of breath. - TRIAMCINOLONE ACETONIDE TOPICAL Apply 0.5 % to affected area. 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 Irritable bowel syndrome [K58.9] 12/03/2021 Hepatomegaly [R16.0] 06/29/2023 Benign localized prostatic hyperplasia with low*06/29/2023 Pulmonary nodule [R91.1] 06/29/2023 Unilateral femoral hernia without obstruction o*06/29/2023 Elevated PSA [R97.20] 07/04/2023 Encounter Status:Closed by ELMIRA PHAM on 01/13/24 [facility] CNCOon 10-31-2023 CNCO Letter Text [facility] CNOVon 10-31-2023 CNOV Office Visit (PULMGR ) -- SARABJIT LEACH ([id number]) 1955 M DEF Date Time Provider Department 10/31/23 1:50 PM EDUARDA FELIX PULMGR During your visit today, we recorded the following information about you: Temperature Pulse Respiration Blood pressure 97.4 degrees 97/minute 16/minute 93/71 Weight Height 52.2 kg 1.753 m Elmira Pham MA 10/31/2023 1:27 PM Signed 10/31/2023 PULM COPD ASSESSMENT TEST (CAT) SCORE Cough 3 Phlegm 4 Chest tightness 4 When walking uphill or flight of steps 5 Activities at home 0 Leaving home despite lung condition 0 Sleeping 5 Energy 4 Total Score 25 Eduarda Felix MD 11/01/2023 4:22 PM Signed [facility] [place] [facility] established patient follow-up note SERVICE DATE: 10/31/2023 PRIMARY CARE PHYSICIAN: Salazar Stallworth DO COMMUNICATION WILL BE SENT VIA SHARED MEDICAL RECORDS OR US MAIL. SUBJECTIVE HPI:Sarabjit Leach is a 68 year old male here for follow appointment for COPD. Routine visit and past visit reviewed. Patient states that he woke up Matt morning feeling sick and has severe throat pain. Feels hot and cold but did not check his temperature. Also has a cough and is bringing up green phlegm and has been feeling more short of breath. Feels like he cannot breathe or take deep breaths. He is currently on a Breo and the Spiriva and as needed albuterol and remains on 10 mg of prednisone. He recently had a CT chest and comes in for follow-up Follow up in future anticipated. Discussed with patient. SOCIAL HISTORY: Social History Tobacco Use Smoking status: Former Packs/day: 1.50 Years: 48.00 Additional pack years: 0.00 Total pack years: 72.00 Types: Cigarettes Quit date: 2014 Years since quittin.2 Smokeless tobacco: Never Vaping Use Vaping Use: Never used Substance Use Topics Alcohol use: No Comment: quit in 1981 Drug use: No MEDICATIONS: Prior to Admission Medications (Not in a hospital admission) tiotropium (SPIRIVA WITH HANDIHALER) 18 mcg inhalation capsule INHALE THE CONTENTS OF 1 CAPSULE DAILY INSTRUCTED fluticasone-vilanterol (BREO ELLIPTA) 200-25 mcg/dose inhaler USE 1 INHALATION DAILY INSTRUCTED predniSONE (DELTASONE) 10 mg tablet Take 1 tablet by mouth once daily. albuterol HFA (PROAIR HFA) 90 mcg/actuation inhaler 2 Puffs every 4 hours as needed for wheezing/shortness of breath. Take as directed ipratropium-albuterol (DUONEB) 0.5 mg-3 mg(2.5 mg base)/3 mL nebu Inhale 3 mL as instructed every 6 hours as needed for wheezing/shortness of breath. TRIAMCINOLONE ACETONIDE TOPICAL Apply 0.5 % to affected area. cream CURRENT ALLERGIES: ALLERGIES Allergen Reactions Bacitracin Rash REVIEW OF SYSTEMS Constitutional:NO EVIDENCE OF ACUTE DISTRESS HEENT:Negative for frequent or significant headaches, No changes in hearing or vision, no nose bleeds or other nasal problems RESPIRATORY: Cough; moist, productive with yellow, green sputum, Dyspnea CARDIOVASCULAR: Negative for chest pain, leg swelling or palpitations. GASTROINTESTINAL: Negative for abdominal discomfort, blood in stools or black stools or change in bowel habits GENITOURINARY: No history of dysuria, frequency or incontinence ENVIRONMENTAL TEST TECHNICIAN: NA MUSCULOSKELETAL: Negative for joint pain or swelling, back pain or muscle pain. NEUROLOGIC:Negative for focal numbness or weakness, headaches and dizziness or syncope. SKIN:Negative for lesions, rash, and itching. PSYCHIATRIC: Negative for sleep disturbance, mood disorder and recent psychosocial stressors. HEMATOLOGIC/LYMPHATIC/IMMU NOLOGIC:{HEMATOLOGY/LYMPHA TIC/IMMUNOLO ENDOCRINE: Negative for cold or heat intolerance, polyuria, polydipsia and goiter. The remainder of the ROS was negative. PHYSICAL EXAMINATION: VITAL SIGNS: BP 93/71 Pulse 97 Temp 97.4 Resp 16 Ht 5' 9 (1.75m) Wt 115 lb (52.2kg) SpO2 92% BMI 16.97 kg/(m2). General appearance: well appearing, alert, and in no acute distress Skin: skin color, texture, turgor normal, no rashes or lesions Eyes: Anicteric sclera. Pupils are equally round and reactive to light. Extraocular movements are intact. ENT: No oral or nasal erythema, bleeding, lesions, striae Heme/Lymph:Negative Lungs: very diminished BS b/l no wheezing or rhonchi Heart: RRR without murmur, gallop, or rubs. No ectopy GI: Normal abdominal exam Musculoskeletal: Extremities normal. No deformities, edema, or skin discoloration. Good capillary refill. Psych: no history of psychiatric problems, no history of depression Neuro: Gait normal. Reflexes normal and symmetric. Sensation grossly intact. DATA: Vaccines as noted EMR Diagnostic tests reviewed for today's visit: Labs: CBC with diff: WBC 9.34 06/29/2023 RBC 4.98 06/29/2023 HGB 14.7 06/29/2023 Hematocrit 45.6 06/29/2023 MCV 91.6 06/29/2023 MCH 29.5 06/29/2023 MCHC 32.2 06/29/2023 RDW-CV 14.7 06/29/2023 (more content not included)... [facility] CT CHEST WO IVCONon 10-27-19 CT CHEST WO IVCON * * *Final Report* * * DATE OF EXAM: Oct 27 2023 3:16PM [facility] 0541 - CT CHEST WO IVCON / PROCEDURE REASON: Lung nodules * * * * Physician Interpretation * * * * EXAMINATION: CHEST CT WITHOUT CONTRAST CLINICAL HISTORY: Lung nodule Technique: Spiral CT acquisition of the chest from the thoracic inlet to the upper abdomen without contrast. MQ: [id number] CT Radiation dose: Integrated Dose-length product (DLP) for this visit = 131 mGy*cm CT Dose Reduction Employed: mAs-kVp adjusted based on patient size-age Comparison: Chest CT April 22, 2023, September 29, 2022, October 12, 2021 and May 02, 2020 RESULT: Limitations: None. Lines, tubes, and devices: None. Lung parenchyma and airways: Severe emphysematous changes. No areas of consolidation. Central airways are patent. Lung nodules: -Stellate nodule right upper lobe measuring 1.4 x 0.6 cm decreased in size compared to prior CT of April 22, 2023. -New 6 mm nodule left upper lobe (4:46). -Stable 6 mm irregular shaped nodule left upper lobe (4:62 Pleural space: No pleural effusion. No pleural thickening. Lower neck, lymph nodes, and mediastinum: The imaged thyroid gland is normal. No lymphadenopathy in the supraclavicular, axillary, mediastinal, or hilar regions. Heart, pericardium, and thoracic vessels: The thoracic aorta and main pulmonary artery are normal in caliber. The cardiac chambers are normal in size. No coronary artery atherosclerotic calcifications are noted, although the study is not optimized for coronary assessment. No pericardial effusion or thickening. Bones and soft tissues: No destructive bone lesion. Chest wall is unremarkable. Upper abdomen: No abnormality in the imaged upper abdomen. District Medical Examiner (topogram) images: No additional findings. IMPRESSION: There is a new 6 mm nodule in the left upper lobe. A follow-up chest CT in 6 months is recommended to assess for stability of this nodule. Stellate nodule in the right upper lobe measuring 1.4 cm decreased in size compared with prior chest CT. Severe emphysematous changes. ACTIONABLE RESULT: FOLLOW-UP Acuity: Actionable Findings: Thoracic-Lung nodules Routing code: RI_1 Recommendation: CT Chest WO IVCON Time Frame: 3-6 months COMMUNICATION: Results will be communicated with the ordering provider via [employer] staff message or phone message by [facility] within 2 business days of report finalization. --END OF FINDING-- Linotype Machinist: ARNOLD Transcribe Date/Time: Nov 01 2023 9:30A Dictated by : RENÉE GIBBONS MD This examination was interpreted and the report reviewed and electronically signed by: RENÉE GIBBONS MD on Nov 01 2023 9:43AM EST [id number] ACTIONABLE Invalid Interpretation Code [facility] Aerosol Treatmenton 10-12-19 24 Aerosol Treatment RT Aerosol Therapy E ntered On: 10/12/2023 7:33 EDT Performed On: 10/12/2023 7:33 EDT by Judy Lino CRT Aerosol Therapy Aerosol Delivery Device : Small volume nebulizer Aerosol Treatment Route : Mouth piece Cough : Occasional Juyd Lino CRT - 10/12/2023 7:54 EDT Pre and Post Tx Assessment Aerosol Post Treatment grid KAREN : Clear, Diminished RUL : Clear, Diminished RML : Clear, Diminished LLL : Clear, Diminished RLL : Clear, Diminished Judy Lino CRT - 10/12/2023 8:22 EDT Respiratory Treatment Response Aerosol : Unchanged breath sounds Annie Lino CRTca - 10/12/2023 8:22 EDT Annie Lino CRTca - 10/12/2023 8:22 EDT Aerosol Pre Treatment grid KAREN : Clear, Diminished RUL : Clear, Diminished RML : Clear, Diminished LLL : Clear, Diminished RLL : Clear, Diminished Zoie SHARMA, Judy - 10/12/2023 7:54 EDT RT Aerosol Therapy Pre/Post GRID RT Aerosol Post RT Aerosol Pre Heart Rate Monitored : 47 bpm (LOW) 45 bpm (LOW) Respiratory Rate : 18 br/min 18 br/min SpO2 : 97 % 95 % Zoie SHARED SERVICES AND OUTSOURCING MANAGER, Judy - 10/12/2023 8:22 EDT Zoie SHARED SERVICES AND OUTSOURCING MANAGER, Judy - 10/12/2023 7:54 EDT Education Responsible Learner/s Present : Discharge To: Home Independently Performed by: Loli Santiago RN - 10/10/2023 17:00 Barriers to Learning : None evident TeachBack Methodology : Explanation Zoie SHARMA, Judy - 10/12/2023 7:33 EDT Respiratory Therapy Charges Respiratory Therapy [place] Charges : Aerosol Treatment [place] Charges Complete? : Yes Zoie SHARMA, Judy - 10/12/2023 7:33 EDT [facility] Inpatient Patient Summaryon 10-12-2023 Inpatient Patient Summary [facility] Discharge Instructions [address] [place] [address] (Patient Copy) Name: SARABJIT LEACH : 1955 Diagnosis: Chest pain; Elevated troponin Allergies: No Known Medication Allergies Registration Date: 10/10/23 [facility]#: [id number] Current Date Time: 10/12/2023 12:09:44 Address: [address] [place] [id number] Primary Care Provider: Name: NO FAMILY PHYSICIAN, [phone] Phone: Thank you for choosing [facility] for your care. You are very important to us. Our goal is to demonstrate our high quality medical care and provide you with a very good patient experience. You may receive a survey about our service. Please take the time to complete the survey and return it so we can continue to enhance our service. Thank you again for allowing [facility] to care for your medical needs. If you have any questions about your care or follow up information please contact your doctor. Follow-up Instructions The following Appointments have been made for you: Please Note: the first letters listed in the order is the location code, followed by the appointment date, and scheduled provider Future Appointments No Future Appointments Scheduled Provider Follow Ups: With: Address: When: LEE MIKE, Gastroenterology [address], [address] [place] [address] Business (1) Within 5 to 7 days If you have had an intravenous catheter (IV) during your stay, keep the dressing dry and do not remove it from the site for at least 24 hours or as instructed by your provider to prevent problems. Medication Information Only Take The Medicines On This List. Keep This List and Bring It To Your Next Appointment. Medicines To Take At Home: Medicine Name (Generic Name) Amount to Take How to Take it How Often to Take it Additional Instructions Next Dose Due Breo Ellipta 200 mcg-25 mcg/inh inhalation powder (fluticasone-vilanterol) 1 puffs Inhalation DAILY Protonix 40 mg oral delayed release tablet * (pantoprazole) 40 mg By Mouth DAILY Spiriva HandiHaler 18 mcg inhalation capsule (tiotropium) 18 mcg Inhalation DAILY Understanding your home medicine is important to keeping you healthy. If you are taking medications that are not on the preceding list, please call your doctor to see if you are to continue taking that medication. It is important that you do not skip or make up doses. If you are ordered an antibiotic, finish taking all the medicine unless your doctor tells you otherwise. Call your doctor if you have any questions or problems. Take the medicine list with you to all follow up appointments. Patient education materials, if any, will display below Gastroesophageal Reflux Disease (GERD): Care Instructions Overview Gastroesophageal reflux disease (GERD) is the backward flow of stomach acid into the esophagus. The esophagus is the tube that leads from your throat to your stomach. A one-way valve prevents the stomach acid from backing up into this tube. But when you have GERD, this valve does not close tightly enough. This can also cause pain and swelling in your esophagus. (This is called esophagitis.) If you have mild GERD symptoms including heartburn, you may be able to control the problem with antacids or vcol-loo-tzgoecu medicine. You can also make lifestyle changes to help reduce your symptoms. These include changing your diet and eating habits, such as not eating late at night and losing weight. Follow-up care is a smith part of your treatment and safety. Be sure to make and go to all appointments, and call your doctor if you are having problems. It's also a good idea to know your test results and keep a list of the medicines you take. How can you care for yourself at home? ? Take your medicines exactly as prescribed. Call your doctor if you think you are having a problem with your medicine. ? Your doctor may recommend myrp-pgf-wuwzsnj medicine. For mild or occasional indigestion, antacids, such as Tums, Gaviscon, Mylanta, or Maalox, may help. Your doctor also may recommend agkw-vsf-kktudgi acid reducers, such as famotidine (Pepcid AC), cimetidine (Tagamet HB), or omeprazole (Prilosec). Read and follow all instructions on the label. If you use these medicines often, talk with your doctor. ? Change your eating habits. ? It's best to eat several small meals instead of two or three large meals. ? After you eat, wait 2 to 3 hours before you lie down. ? Avoid foods that make your symptoms worse. These may include chocolate, mint, alcohol, pepper, spicy foods, high-fat foods, or drinks with caffeine in them, such as tea, coffee, jeff, or energy drinks. If your symptoms are worse after you eat a certain food, you may want to stop eating it to see if your symptoms get better. ? Do not smoke or chew tobacco. Smoking can make GERD worse. If you need help quitting, talk to yo (more content not included)... [facility] Nursing Clinical Noteon 03-[address] Plascencia in room to see patient 0949 Assumed patient care, received report from RN. Patient resting in bed comfortably with IV fluids infusing. A&Ox3 but is very STEBBINS, patient states he has off and on chest discomfort, like heartburn, denies any sob or dizziness, no other complaints or needs verbalized at this time. on case monitor, no distress noted. Plan for today: IVF, monitor labs and vs, rest, see consulting MD, discharge planning and safety Full Assessment completed and charted. Patient took all medications without any issues No questions or concerns at this time. safety measures in place, call light within reach, will continue to monitor. [facility] Nursing Clinical Note 21:31- Pt resting in bed, AOX3 on room air, lung sounds are clear, heart sounds regular, pt very tired tonight, T-BAND site is dry and intact. call light within reach instructed to call for assistance. [facility] Sales Support Coordinator Detailson 2023 Sales Support Coordinator Details Sales Support Coordinator Details Entered On: 10/12/2023 1:04 EDT Performed On: 10/12/2023 1:04 EDT by Lyla Hahn Sales Support Coordinator Details Transport Mode Order Detail EV : Wheelchair Isolation Precautions RTF : Communication CONSTANT Order, 10/12/2023 08:00:00 EDT, Constant Order, Check PLT count on Day 2 after initiation of Heparin or Lovenox, Notify Physician if PLTs less than 100,000 Repeat PLT count every 3 days., Ordered Communication CONSTANT Order, 10/11/2023 14:29:00 EDT, Constant Order, Check with Supercharger Mechanic, before administering any medication containing Metformin (including Glucophage, Glucovance, Avandamet), Ordered Oxygen Therapy, 10/11/2023 14:29:00 EDT, Nasal Cannula, 3-5L, PRN, for chest pain. If patient smokes or has known COPD, use 2 liters per minute, Ordered Post Procedure Location of Care, 10/11/2023 14:29:00 EDT, Medical Unit, Medical, Ordered Level of Care Order, 10/10/2023 13:27:00 EDT, Medical Outpatient with Observation Services, FRANCISCO JAVIER ELLISON, ELIDIA JOHNSON, Ordered Transfer Care of Patient to Attending, 10/10/2023 13:27:00 EDT, Upon discharge from the ED, all continued medications and orders become the responsibility of the admitting/attending physician., Ordered Communication CONSTANT Order, 10/10/2023 13:26:00 EDT, Constant Order, If patient is unable to take oral aspirin, Discontinue (delete) the oral aspirin order, go to CARD Acute ST Elevation TX STEMI Orderset in the order navigation tree, view excluded components (lightbulb icon), o..., Ordered Communication CONSTANT Order, 10/10/2023 13:26:00 EDT, Constant Order, STAT EKG for Chest Pain, STAT ABGs for Acute Respiratory Distress, STAT Potassium/Magnesium for any significant change in condition/rhythm, Ordered Communication CONSTANT Order, 10/10/2023 13:26:00 EDT, Constant Order, Current ACLS Provider may, Initiate [employer] Advanced Cardiac Life support Algorithm per patient code status, Ordered Oxygen Therapy, 10/10/2023 13:26:00 EDT, Nasal Cannula, Constant Order, 2 to 5 L PRN (If patient has COPD, oxygen at 2 L NC), Ordered Misc Nutrition Task to Nursing, 10/10/2023 11:22:00 EDT, Constant Order, NPO, Ordered Isolation Precaution Order Detail EV : NONE IV Order Detail - EV : Yes Oxygen Order Detail EV : No Order Detail EV : No Pacemaker Order Detail : 0 Sales Support Coordinator Details Review Status : Reviewed, no changes Nurse Collects Blood Specimens : No Lyla Hahn - 10/12/2023 1:04 EDT [facility] Comment on above: Order Comment: Order entered secondary to admission Utilization Review Noteon Utilization Review Note OBS ordered for chest pain & elevated troponin-OBS appropriate S/P CARDIAC CATH. DISCHARGE WRITTEN. DC 2 HOURS POST PROCEDURE IF CRITERIA MET. DC PLAN HOME. ED UM TO FOLLOW. DC PER CARDIOLOGY. PENDING ATTENDING. ED UM TO FOLLOW. Pt is not DCtonight. Does nto have a ride home (lives in [place]). In am he will be given a lift to his car, but can not DC him to his car today as he should not drive. His car is in [place]. DISCHARGED 12:32 [facility] Aerosol Treatmenton 10-11-19 24 Aerosol Treatment RT Aerosol Therapy E ntered On: 10/11/2023 19:58 EDT Performed On: 10/11/2023 19:58 EDT by Reddy Porras RRT Aerosol Therapy Aerosol Delivery Device : Small volume nebulizer Aerosol Treatment Route : Mouth piece Procedure Start Time : 10/11/2023 19:58 EDT Cough : Non-Productive Reddy Porras RRT - 10/11/2023 19:58 EDT Education Responsible Learner/s Present : Discharge To: Home Independently Performed by: Loli Santiago RN - 10/10/2023 17:00 Barriers to Learning : None evident TeachBack Methodology : Explanation Reddy Porras RRT - 10/11/2023 19:58 EDT Respiratory Therapy Charges Respiratory Therapy [place] Charges : Aerosol Treatment [place] Charges Complete? : Yes Reddy Porras RRT - 10/11/2023 19:58 EDT [facility] Aerosol Treatment RT Aerosol Therapy E ntered On: 10/11/2023 7:31 EDT Performed On: 10/11/2023 7:29 EDT by Juaquin Joshua RRT Aerosol Estephanie Aerosol Delivery Device : Small volume nebulizer Aerosol Treatment Route : Mouth piece Cough : Non-Productive Juaquin Joshua RRT - 10/11/2023 7:31 EDT Pre and Post Tx Assessment Additional Information : Pt. unavailable post.tx. Juaquin Joshua RRT - 10/11/2023 7:47 EDT Juaquin Joshua RRT - 10/11/2023 7:47 EDT Aerosol Pre Treatment grid KAREN : Diminished RUL : Diminished RML : Diminished LLL : Diminished RLL : Diminished Juaquin Joshua RRT - 10/11/2023 7:31 EDT RT Aerosol Therapy Pre/Post GRID RT Aerosol Pre Heart Rate Monitored : 51 bpm (LOW) Respiratory Rate : 20 br/min SpO2 : 95 % O2 Lpm : 0 Juaquin Joshua RRT - 10/11/2023 7:31 EDT Education Responsible Learner/s Present : Discharge To: Home Independently Performed by: Loli Santiago RN - 10/10/2023 17:00 Barriers to Learning : None evident TeachBack Methodology : Explanation Tres CARMELAJuaquinLesli - 10/11/2023 7:31 EDT Respiratory Therapy Charges Respiratory Therapy [place] Charges : Aerosol Treatment [place] Charges Complete? : Yes Toniojarred CASEY Juaquin R. - 10/11/2023 7:31 EDT Normal [facility] BASICMETAon 10-11-2023 Calcium [Mass/Vol] 9.0 mg/dL Normal 8.7-10.4 [facility] Comment on above: Performed By: #### 1 30874, [id number], [id number] ####[facility] [address] [place] [address] Medical Director: Jeremias Garcia MD Chloride [Moles/Vol] 107 mmol/L Normal 98-107 [facility] Comment on above: Performed By: #### 1 06853, 031341, [id number] ####[facility] [address]preqcc[address] [place] [address] Medical Director: Jeremias Garcia MD CO2 [Moles/Vol] 28.0 mmol/L Normal 20.0-31.0 [facility] Comment on above: Performed By: #### 1 68473, 431883, [id number] ####[facility] [address] [place] [address] Medical Director: Jeremias Garcia MD Creatinine [Mass/Vol] 0.9 mg/dL Normal 0.6-1.1 [facility] Comment on above: Performed By: #### 1 49513, 116282, [id number] ####[facility] [address] [place] [address] Medical Director: Jeremias Garcia MD GFR AA >60 Normal [facility] Comment on above: Result Comment: Afri can Haitian GFR Calc Medical judgement is necessary to interpret GFR. The calculated GFR may not accurately reflect renal status in patients >70 years, women, acutely ill hospitalized patients and patients with acute renal failure or known renal disease. The MDRD GFR formula is valid only for adults greater than 18 years of age. Note: Creatinine clearance (not GFR) should be used for drug dosing. Performed By: #### 1 70823, 983965, [id number] ####[facility] [address] [place] [address] Medical Director: Jeremias Garcia MD Glomerular Filtration Rate >60 Normal [facility] Comment on above: Result Comment: Non- GFR Calc Medical judgement is necessary to interpret GFR. The calculated GFR may not accurately reflect renal status in patients >70 years, women, acutely ill hospitalized patients and patients with acute renal failure or known renal disease. The MDRD GFR formula is valid only for adults greater than 18 years of age. Note: Creatinine clearance (not GFR) should be used for drug dosing. Performed By: #### 1 88473, 428292, [id number] ####[facility] [address] [place], [place] [id number]) [phone] Director: Jeremias Garcia MD Glucose [Mass/Vol] 83 mg/dL Normal 74-106 [facility] Comment on above: Performed By: #### 1 51205, 501597, 5802475 ####[facility] [address] [place], [place] [id number]) [phone] Director: Jeremias Garcia MD Osmolality [Osmolality] 281 mosm/kg Normal 275-295 [facility] Comment on above: Performed By: #### 1 31572, 160954, [id number] ####[facility] [address]gcowsm[address] [place] [address] Medical Director: Jeremias Garcia MD Potassium [Moles/Vol] 4.9 mmol/L Normal 3.5-5.1 [facility] Comment on above: Performed By: #### 1 59132, 895592, [id number] ####[facility] [address]fz[address] [place] [address] Medical Director: Jeremias Garcia MD Sodium [Moles/Vol] 140 mmol/L Normal 135-145 [facility] Comment on above: Performed By: #### 1 35703, 375676, 7781825 ####[facility] [address]kntt[address] [place] [address] Medical Director: Jeremias Garcia MD Urea nitrogen [Mass/Vol] 18 mg/dL Normal 9-23 [facility] Comment on above: Result Comment: - Ve nipuncture should occur prior to N-Acetyl Cysteine (NAC) or Metamizole (Sulpyrine) administration due to the potential for falsely depressed results. - Blood samples from some patients with monoclonal gammopathies may produce falsely elevated results Performed By: #### 1 34817, 986180, [id number] ####[facility] [address] [place], [place] [address] Medical Director: Jeremias Garcia MD Urea nitrogen/Creatinine [Mass ratio] 20.0 mg/mg Normal [facility] Comment on above: Performed By: #### 1 17279, 650820, 4158649 ####[facility] [address]mpllc826[address] [place] [address] Medical Director: Jeremias Garcia MD Bedreston 10-11-2023 Bedrest Bedrest Entered On: 10/11/2023 20:21 EDT Performed On: 10/11/2023 16:50 EDT by Ivelisse Santos RN Bedrest Bedrest Initiated : 10/11/2023 14:40 EDT Time on Bedrest : 3 hours Bedrest Details : Postprocedure bedrest per physician order Ivelisse Santos RN - 10/11/2023 20:21 EDT Normal [facility] CBCNDon 10-11-2023 Erythrocyte distribution width (RBC) [Ratio] 14.5 % Normal 11.5-14.5 [facility] Comment on above: Performed By: #### 1 67335, 631361, 6661768 ####[facility] [address] [place], [place] [id number]) [phone] Director: Jeremias Garcia MD Hematocrit (Bld) [Volume fraction] 44.4 % Normal 41.0-52.0 [facility] Comment on above: Performed By: #### 1 48664, 219252, 2373876 ####[facility] [address] [place], [place] [address] Medical Director: Jeremias Garcia MD Hemoglobin (Bld) [Mass/Vol] 14.6 g/dL Normal 13.5-17.5 [facility] Comment on above: Performed By: #### 1 39556, 741160, 0611054 ####[facility] [address] [place], [place] [id number]) [phone] Director: Jeremias Garcia MD Instr WBC ND 7.3 Normal [facility] Comment on above: Performed By: #### 1 39417, 032047, 5794415 ####[facility] [address] [place], [place] [address] [facility] Director: Jeremias Garcia MD MCH (RBC) [Entitic mass] 29.5 pg Normal 27.0-34.0 [facility] Comment on above: Performed By: #### 1 75939, 050777, 1521658 ####[facility] [address] [place] [id number]) [phone] Director: Jeremias Garcia MD MCHC (RBC) [Mass/Vol] 32.9 g/dL Normal 32.0-37.0 [facility] Comment on above: Performed By: #### 1 85225, 697621, 7819082 ####[facility] [address] [place] [id number]) [phone] Director: Jeremias Garcia MD MCV (RBC) [Entitic vol] 89.8 fL Normal 80.0-100.0 [facility] Comment on above: Performed By: #### 1 86664, 218673, 9229805 ####[facility] [address]kfsbsbr30278 [place] [address] Medical Director: Jeremias Garcia MD Platelet 195 x10 Normal 150-450 [facility] Comment on above: Performed By: #### 1 68590, 901667, 5448390 ####[facility] [address]ufac[address] [place] [address] Medical Director: Jeremias Garcia MD Platelet mean volume (Bld) [Entitic vol] 8.4 fL Normal 7.4-10.4 [facility] Comment on above: Performed By: #### 1 96212, 562224, 7068676 ####[facility] [address]qlas[address] [place] [address] [facility] Director: Jeremias Garcia MD RBC 4.95 x10 Normal 4.70-6.10 [facility] Comment on above: Result Comment: Note : RBC morphology is normal unless otherwise stated. Evaluation performed only if differential is requested. Performed By: #### 1 75494, 030122, [id number] ####[facility] [address]du364[address] [place] [address] Medical Director: Jeremias Garcia MD WBC 7.3 x10 Normal 4.5-11.0 [facility] Comment on above: Performed By: #### 1 10769, 668307, 3675402 ####[facility] [address] [place] [address] Medical Director: Jeremias Garcia MD Cardiac Catheterization-Repo rton 10-11-2023 Cardiac Catheterization-Repo rt Patient: SARABJIT LEACH Age: 68 years Sex: Male : 1955 Associated Diagnoses: None Author: DEXTER MONTES MD Wrapper Layer: Dexter Montes MD Stock Crane Operator: None Preprocedure Diagnosis: Chest pain Postprocedure Diagnosis: Chest pain Indication: 68-year-old man with multiple cardiac risk factors presenting with chest pain syndrome and borderline troponin elevation. Heart cath therefore recommended. Procedure: After informed consent was obtained, the patient was brought to the cardiac Fig Bar Machine Operator. He was prepped and draped in the usual sterile fashion. The right radial area was anesthetized with 2% Xylocaine solution. A 6 Malay vascular sheath was inserted into the right radial artery using Seldinger technique with no difficulty. Diagnostic coronary angiography was performed using JL 3.5 catheter to image the left coronary and a JR4 catheter to image the right coronary artery. The JR4 catheter was used to perform left heart catheterization. The patient tolerated the procedure well and there were no complications. Following the procedure, the vascular sheath was removed and hemostasis obtained using a radial band. The patient was transferred to the recovery area in stable condition. Findings: [Fluoroscopy demonstrates mild calcification of the coronary tree.] Left main: No significant disease LAD: No significant disease Left circumflex: No significant disease Right coronary artery: Large dominant vessel. No significant disease. Left heart catheterization: LVEDP measures 6 mmHg. Left ventricular angiography not performed. No gradient across aortic valve upon pullback. Complications: None Estimated Blood Loss: Minimal Catheter/Drains: None Specimen obtained: None Conclusions: 1. Angiographically normal coronary arteries. 2. Normal LVEDP. Normal [facility] LIPID PNLon 10-11-2023 Calculated LDL Cholesterol 96 mg/dL Normal 60-130 [facility] Comment on above: Order Comment: 12 ho ur fasting, if not done within the last 6 months Result Comment: <100 mg/dl Optimal 100-129 mg/dl Near Optimal 130-159 mg/dl Borderline High 160-189 mg/dl High >=190 mg/dl Very High Performed By: #### 1 87854, 556018, [id number] ####[facility] [address] [place] [address] Medical Director: Jeremias Garcia MD Cholesterol [Mass/Vol] 184 mg/dL Normal 100-200 [facility] Comment on above: Order Comment: 12 ho ur fasting, if not done within the last 6 months Result Comment: Itzel puncture should occur prior to N-Acetyl Cysteine (NAC) or Metamizole (Sulpyrine) administration due to the potential for falsely depressed results. Performed By: #### 1 30086, 884967, 4244010 ####[facility] [address] [place] [address] Medical Director: Jeremias Garcia MD Cholesterol in HDL [Mass/Vol] 71 mg/dL High 40-60 [facility] Comment on above: Order Comment: 12 ho ur fasting, if not done within the last 6 months Result Comment: Dire ct HDL Venipuncture should occur prior to metamizole (sulpyrine) administration due to the potential for falsely depressed results Performed By: #### 1 07540, 192432, 1083540 ####[facility] [address] [place] [address] Medical Director: Jeremias Garcia MD Total Chol/HDL Chol Ratio 2.6 Normal [facility] Comment on above: Order Comment: 12 ho ur fasting, if not done within the last 6 months Performed By: #### 1 43952, 556200, [id number] ####[facility] [address] [place], [place] [address] Medical Director: Jeremias Garcia MD Triglyceride [Mass/Vol] 85 mg/dL Normal 30-150 [facility] Comment on above: Order Comment: 12 ho ur fasting, if not done within the last 6 months Result Comment: - Ve nipuncture should occur prior to N-Acetyl Cysteine (NAC) or Metamizole (Sulpyrine) administration due to the potential for falsely depressed results - Use of this assay is not recommended for patients being treated with etamsylate because it causes falsely decreased results Performed By: #### 1 51006, 415631, [id number] ####[facility] [address] [place] [address] Medical Director: Jeremias Garcia MD Nursing Clinical Noteon 09-22 Nursing Clinical Note Patient found stable and safe. Patient has c/o mild to moderate CP that waxes and wanes and has only mildly improved since arriving to ED. Patient states his CP is a dull, aching to occasional burning that does not radiate and is mildly affected by cold weather. Patient has no current c/o nausea, vomiting, diarrhea, weakness, dizziness, headache, vision changes or SOB. Patient assessment completed and AM medications administered. Patient has no further questions or concerns at this time. Patient left in stable and safe condition. 13:55 - Patient off unit to cardiac cath in stable and safe condition. 14:40 - Patient returned from cardiac cath in stable and safe condition. Patient on bedrest for 2 hours per post catheter protocol. R wrist Tband in place with no bleeding at site. Patient's BP low but stable and patient is asymptomatic. RN will continue to monitor per protocol. Patient remains in stable and safe condition. 15:55 - RN attempted to remove Tband, however patient still has bleeding at the site. Tband reinflated per protocol. VS improving. Patient remains in stable and safe condition. 16:50 - RN removed patient's Tband per protocol. Patient has no current bleeding at site. Patient educated on signs and symptoms to monitor for bleeding. Patient receptive of information. Patient's VS remain stable. Patient remains in stable and safe condition. Normal [facility] Sales Support Coordinator Detailson 2023 Sales Support Coordinator Details Sales Support Coordinator Details Entered On: 10/11/2023 0:52 EDT Performed On: 10/11/2023 0:52 EDT by Scar Jones RN Sales Support Coordinator Details Transport Mode Order Detail EV : Wheelchair Isolation Precautions RTF : Communication CONSTANT Order, 10/12/2023 08:00:00 EDT, Constant Order, Check PLT count on Day 2 after initiation of Heparin or Lovenox, Notify Physician if PLTs less than 100,000 Repeat PLT count every 3 days., Ordered Level of Care Order, 10/10/2023 13:27:00 EDT, Medical Outpatient with Observation Services, FRANCISCO JAVIER ELLISON, ELIDIA JOHNSON trop, Ordered Transfer Care of Patient to Attending, 10/10/2023 13:27:00 EDT, Upon discharge from the ED, all continued medications and orders become the responsibility of the admitting/attending physician., Ordered Communication CONSTANT Order, 10/10/2023 13:26:00 EDT, Constant Order, STAT EKG for Chest Pain, STAT ABGs for Acute Respiratory Distress, STAT Potassium/Magnesium for any significant change in condition/rhythm, Ordered Communication CONSTANT Order, 10/10/2023 13:26:00 EDT, Constant Order, Current ACLS Provider may, Initiate [employer] Advanced Cardiac Life support Algorithm per patient code status, Ordered Communication CONSTANT Order, 10/10/2023 13:26:00 EDT, Constant Order, If patient is unable to take oral aspirin, Discontinue (delete) the oral aspirin order, go to CARD Acute ST Elevation TX STEMI Orderset in the order navigation tree, view excluded components (lightbulb icon), o..., Ordered Consult Physician, 10/10/2023 13:26:00 EDT, SAWYER ELLISON, JIM, positive troponin, Completed Oxygen Therapy, 10/10/2023 13:26:00 EDT, Nasal Cannula, Constant Order, 2 to 5 L PRN (If patient has COPD, oxygen at 2 L NC), Ordered [facility] Task to Nursing, 10/10/2023 11:22:00 EDT, Constant Order, NPO, Ordered Isolation Precaution Order Detail EV : NONE IV Order Detail - EV : No Oxygen Order Detail EV : No Order Detail EV : No Pacemaker Order Detail : 0 Sales Support Coordinator Details Review Status : Reviewed, no changes Nurse Collects Blood Specimens : No Scar Jones RN - 10/11/2023 0:52 EDT Normal [facility] Comment on above: Order Comment: Order entered secondary to admission Pharmacy Clinical Interventi ons-Texton 10-11-2023 Pharmacy Clinical Interventions-Text Pharmacy Clinical Interventions Entered On: 10/11/2023 15:08 EDT Performed On: 10/11/2023 15:06 EDT by Ranulfo Slaughter RPh Intervention Type Pharmacy : Discharge Med Rec Review Pharmacy Order Initiated By : Pharmacist Clinical Importance Pharmacy : Potentially major Prescriber Response Pharmacy : Accepted Patient Clinical Outcome Pharmacy : Avoided potential risk Pharmacist Intervention Time : 30 Pharmacy Additional Information : 10/10 mds- patient presented to [facility] with chest pain, positive troponin, sob, pleuritic pain x 3-4 days. meds added: protonix, sent to [facility]. no meds changed or stopped. lovenox will be stopped after cath. ef 55-60%. patient okay to be discharged home per pharmacy perspective. Ranulfo Slaughter RPh - 10/11/2023 15:06 EDT Normal [facility] Progress Note-Physiciantheresa Progress Note-Physician SARABJIT LEACH :1955 Registration Date:10/10/2023 Subjective Patient seen and examined, still complains of chest pain which she described as burning, not related to food, no shortness of breath, his vitals are stable. Objective Vitals & Measurements T: 36.6 ?C (Oral) TMIN: 36.4 ?C (Oral) TMAX: 36.6 ?C (Oral) HR: 70 (Monitored) RR: 16 BP: 99/65 SpO2: 94% WT: 53.7 kg WT: 53 kg (Dosing) BMI: 17.48 Physical Exam Physical Examination: General: Alert and oriented, No acute distress. HENT: Normocephalic, Normal hearing, Oral mucosa is moist. Respiratory: Lungs are clear to auscultation, Respirations are non-labored, Breath sounds are equal, No chest wall tenderness. Cardiovascular: Normal rate, Regular rhythm, No murmur, No edema. Gastrointestinal: Soft, Non-tender, Non-distended, Normal bowel sounds. Musculoskeletal: Normal range of motion, Normal strength. Neurologic: Alert, Oriented, Normal motor function, No focal deficits. Cognition and Speech: Oriented, Speech clear and coherent. Psychiatric: Cooperative, Appropriate mood & affect. Medications Inpatient acetaminophen, 650 mg= 2 tabs, ORAL, [id number], PRN acetaminophen, 650 mg= 2 tabs, ORAL, [id number], PRN acetaminophen, 650 mg= 2 tabs, ORAL, [id number], PRN arformoterol(Brovana), 15 mcg= 2 mL, Inhalation, BID RESPIRATORY aspirin, 81 mg= 1 tabs, ORAL, DAILY WITH BREAKFAST budesonide(Pulmicort 0.5mg/2ml), 0.5 mg= 2 mL, Inhalation, BID RESPIRATORY enoxaparin, 50 mg= 0.5 mL, 1 mg/kg, Subcutaneous, [id number] melatonin, 5 mg= 1 tabs, ORAL, [id number], PRN morphine, 2 mg= 1 mL, IV Push, Q5MIN, PRN naloxone = Narcan, 0.4 mg= 1 mL, IV Push, PRN, PRN nitroglycerin, 0.4 mg= 1 tabs, Sublingual, Q5MIN, PRN revefenacin, 175 mcg= 3 mL, Inhalation, DAILY RESPIRATORY sodium chloride(Saline Flush), 3 mL, IV Push, [id number] sodium chloride(Saline Flush), 3 mL, IV Push, PRN, PRN Lab Results Test Name Test Result Date/Time BUN 18 mg/dL 10/11/2023 06:02 EDT Na 140 mmol/L 10/11/2023 06:02 EDT K4.9 mmol/L 10/11/2023 06:02 EDT Chloride 107 mmol/L 10/11/2023 06:02 EDT CO2, venous 28.0 mmol/L 10/11/2023 06:02 EDT Glucose 83 mg/dL 10/11/2023 06:02 EDT Creatinine 0.9 mg/dL 10/11/2023 06:02 EDT Estimated Creatinine Clearance 76.37 mL/min 10/11/2023 08:32 EDT Calcium 9.0 mg/dL 10/11/2023 06:02 EDT Cholesterol 184 mg/dL 10/11/2023 06:02 EDT Triglycerides 85 mg/dL 10/11/2023 06:02 EDT HDL Cholesterol 71 mg/dL 10/11/2023 06:02 EDT Calculated LDL Cholesterol 96 mg/dL 10/11/2023 06:02 EDT Total Chol/HDL Chol Ratio 2.6 10/11/2023 06:02 EDT BUN/Creat Ratio 20.0 10/11/2023 06:02 EDT Calculated Osmolality 281 mOsm/kg 10/11/2023 06:02 EDT Troponin HS 6 Hr 95 pg/mL 10/10/2023 16:47 EDT Delta Troponin 6 Hr 2 pg/mL 10/10/2023 16:47 EDT Glomerular Filtration Rate >60 mL/min/1.73m? 10/11/2023 06:02 EDT GFR AA >60 10/11/2023 06:02 EDT WBC 7.3 x103/uL 10/11/2023 06:02 EDT RBC 4.95 x106/uL 10/11/2023 06:02 EDT HGB 14.6 g/dL 10/11/2023 06:02 EDT HCT 44.4 % 10/11/2023 06:02 EDT MCV 89.8 fL 10/11/2023 06:02 EDT MCH 29.5 pg 10/11/2023 06:02 EDT MCHC 32.9 g/dL 10/11/2023 06:02 EDT RDW 14.5 % 10/11/2023 06:02 EDT Platelet 195 x103/uL 10/11/2023 06:02 EDT MPV 8.4 fL 10/11/2023 06:02 EDT Assessment/Plan Atypical Chest Pain Positive Troponin - Echo reviewed, await cardiology recommendations - continue with asa, statin until evaluated by cardiology -If cleared by cardiology will add PPI and need to follow-up with GI outpatient COPD - at baseline, continue home rx Full Code [1] Admission H & P; ALEX MCINTYRE MD 10/10/2023 19:08 EDT Normal [facility] SDOH Screening Assessment - Texton 10-11-2023 SDOH Screening Assessment - Text Social Determinants of Health Screening Assessment Entered On: 10/11/2023 13:18 EDT Performed On: 10/11/2023 13:18 EDT by Mary Cain Social Determinants of Health (SDOH) - screen 1. Is the patient agreeable to providing responses to the SDOH Screening Assessment? : Yes Responses obtained from : Patient Mary Cain - 10/11/2023 13:18 EDT Social Determinants of Health (SDOH) - assessment 2. What is your living situation? : I have a steady place to live 3. Within the past 12 months, the food you bought just didn't last and you didn't have money to get more? : No 4. Within the past 12 months, you worried that your food would run out before you got money to buy more? : No 5. In the past 12 months has, the electric, gas, oil, or water company threatened to shut off services to your home? : No 6. In the past 12 months, has lack of reliable transportation kept you from medical appointments? : No 7. In the past 12 months, has lack of reliable transportation kept you from meetings, work, or getting things needed for daily living? : No 8. How hard is it for you to pay for your prescriptions? : Not hard at all 9. If for any reason you need help with day-to-day activities such as bathing, preparing meals, shopping, managing finances, etc., do you get the help you need? : Don't need help Is the patient an Ambulatory patient type? : No Does the patient agree with the above consent? : Yes Mary Cain - 10/11/2023 13:18 EDT Normal [facility] Social Work/Care Mgmt Assess ment-Texton 10-11-2023 Social Work/Care Mgmt Assessment-Text Social Work/Case Management Assessment Entered On: 10/11/2023 13:21 EDT Performed On: 10/11/2023 13:18 EDT by Mary Cain CM/SW Assessment Reason for Referral : Discharge Planning Working Diagnosis from Physician Note : CP-pleuritic, SOB, elevated troponin, COPD Advanced Directive : Pt has not requested information about Advance Directive Social Determinants of Health : None Identified History of Mental Health : No History of Substance Abuse : No Do You Feel Safe At Home : Yes History of Abuse or Trauma? : No Patient Goal(s) at Discharge : Home Patient Agreeable to Follow-Up Appointment : No Anticipate Home Health Care : No Mary Cain - 10/11/2023 13:18 EDT Progress Note Discharge Disposition : Home Impression needs have been identified / Documentation completed: : Progress Note completed by Social Work and/or Care Mgmt. Will continue to follow in areas of identified need. Ensure your note includes the following: : Progress Note : KIMANI met with 68 y/o male pt who is currently in observation with c/o SOB. Pt lives alone in a trailer with 3 steps to enter. Pt does not have a PCP currently and he does have the list at bedside. He has a nebulizer and inhaler, but denies any other current dme use. He is independent in care and manages his own personal affairs. He has a sister and her family in the area. He has prescription coverage and does not have advanced directives. Pt denies any homegoing needs. A. Discharge Plan: Home independently. Pt denies needs. B. DME required at discharge: No C. Who the discharge plan has been discussed with: Patient D. Transportation needed at discharge: No E. Barriers to discharge: Medical clearance F. Handoff to whom: N/A Mary HARMAN - 10/11/2023 13:21 EDT Normal [facility] APTTon 10-10-2023 aPTT Coag (Bld) [Time] 28.4 s Normal 27.0-38.0 [facility] Comment on above: Result Comment: APTT Interpretation: This test has not been validated to monitor heparin therapy. APTT test is used as an initial test for suspected bleeding disorder. Anti-Xa UFH test is used to monitor heparin therapy. Performed By: #### C D:[id number], [id number], [id number], 367155, [id number], [id number] ####[facility] [address] [place] [address] Medical Director: Jeremias Garcia MD AUTO DIFFon 10-10-2023 Baso Count 0.09 x1000 Normal 0.00-0.20 [facility] Comment on above: Performed By: #### C D:[id number], [id number], [id number], 778636, [id number], [id number] ####[facility] [address] [place] [address] Medical Director: Jeremias Garcia MD Basos % 0.8 % Normal [facility] Comment on above: Performed By: #### C D:[id number], 432159, 9859340, 624348, 193716, 049922 ####[facility] [address] [place] [address] Medical Director: Jeremias Garcia MD Eos Count 0.20 x1000 Normal 0.00-0.50 [facility] Comment on above: Performed By: #### C D:[id number], 612167, 0469901, 342913, 644778, 266428 ####[facility] [address] [place] [address] Medical Director: Jeremias Garcia MD Eosinophils/100 WBC (Bld) 1.8 % Normal [facility] Comment on above: Performed By: #### C D:[id number], 465029, 3524074, 655104, 340763, 551571 ####[facility] [address] [place] [address] Medical Director: Jeremias Garcia MD Lymph Count 1.12 x1000 Low 1.20-4.80 [facility] Comment on above: Performed By: #### C D:[id number], 309286, 5087049, 182602, 225525, 041835 ####[facility] [address] [place] [address] Medical Director: Jeremias Garcia MD Lymphocytes/100 WBC (Bld) 9.8 % Normal [facility] Comment on above: Performed By: #### C D:[id number], 203508, 0444914, 444751, 831922, 020685 ####[facility] [address] [place] [address] Medical Director: Jeremias Garcia MD [place] Count 0.70 x1000 Normal 0.10-1.00 [facility] Comment on above: Performed By: #### C D:[id number], 425281, 1417982, 459715, 914901, 333963 ####[facility] [address] [place] [address] Medical Director: Jeremias Garcia MD Monocytes/100 WBC (Bld) 6.1 % Normal [facility] Comment on above: Performed By: #### C D:[id number], 299237, 4707861, 613157, 140072, 960892 ####[facility] [address] [place] [address] Medical Director: Jeremias Garcia MD Neutrophil Count (ANC) 9.32 x1000 High 1.40-8.80 [facility] Comment on above: Performed By: #### C D:[id number], 602651, 4308325, 789875, 967452, 624344 ####[facility] [address] [place] [address] Medical Director: Jeremias Garcia MD Neutrophils/100 WBC (Bld) 81.5 % Normal [facility] Comment on above: Performed By: #### C D:[id number], 701266, 7119534, 383192, 560543, 136307 ####[facility] [address] [place], [place] [address] Medical Director: Jeremias Garcia MD Aerosol Treatmenton 10-10-19 Aerosol Treatment RT Aerosol Therapy E ntered On: 10/10/2023 20:24 EDT Performed On: 10/10/2023 20:01 EDT by Jennifer Rizvi CRT Aerosol Estephanie Aerosol Delivery Device : Small volume nebulizer Aerosol Treatment Route : Mouth piece Suction : None Cough : None Jennifer Rizvi CRT - 10/10/2023 20:23 EDT Education Responsible Learner/s Present : Discharge To: Home Independently Performed by: Loli Santiago RN - 10/10/2023 17:00 Barriers to Learning : None evident TeachBack Methodology : Explanation Jennifer Rizvi CRT - 10/10/2023 20:23 EDT Respiratory Therapy Charges Respiratory Therapy [place] Charges : Aerosol Treatment [place] Charges Complete? : Yes Jennifer Rizvi CRT - 10/10/2023 20:23 EDT Normal [facility] Basic Admission Informationo n 10-10-2023 Basic Admission Information Basic Admission Information Entered On: 10/10/2023 18:39 EDT Performed On: 10/10/2023 18:38 EDT by Gogo De Santiago Admission Height/Weight Height/Length Measured : 175.26 cm(Converted to: 5.75 ft, 69.00 in) Height/Length Dosing : 175.26 cm(Converted to: 5.75 ft, 69.00 in) Weight Measured : 53.7 kg(Converted to: 118 lb 6 oz, 118.388 lb) Weight Dosing : 53 kg(Converted to: 1,869.520 oz, 116.845 lb) BSA Measured : 1.62 BSA Dosing : 1.61 Body Mass Index Measured : 17.48 kg/m2 Body Mass Index Dosing : 17 Weight Measured Type of Scale : Bed Scale (digital) Last Documented Height/Length : Height/Length Dosin.26 cm 10/10/23 10:40:00 Height/Length Estimated: No results available. Height/Length Measured: No results available. Last Documented Weight and Type of Scale Used : Weight Measured Type of Scale: Standing Scale 10/10/23 10:40:00 Weight Dosin kg 10/10/23 10:40:00 Weight Measured: No results available. Gogo De Santiago - 10/10/2023 18:38 EDT Belongings Valuables/Belongings Grid Valuables at Bedside Clothes : Jacket, Pants, Shirt, Shoes, Undergarments Gogo De Santiago - 10/10/2023 18:43 EDT Normal [facility] Comment on above: Order Comment: Order entered secondary to admission COMPMETAon 10-10-2023 Albumin [Mass/Vol] 3.2 g/dL Low 3.4-5.0 [facility] Comment on above: Performed By: #### 1 68275, 503449, 7517104, 032907, CD:[id number] #### [facility] [address] [place], [place] [address] Underwriting Consultant: Jeremias Garcia MD Albumin/Globulin [Mass ratio] 1.2 {ratio} Normal [facility] Comment on above: Performed By: #### 1 65965, 381447, 2693939, 040663, CD:[id number] #### [facility] [address] [place], [place] [address] Underwriting Consultant: Jeremias Garcia MD Alk Phos 70 unit/L Normal 45-117 [facility] Comment on above: Performed By: #### 1 73816, 163717, 5777991, 354090, CD:[id number] #### [facility] [address] [place] [address] Underwriting Consultant: Jeremias Garcia MD Bilirubin [Mass/Vol] 0.80 mg/dL Normal 0.30-1.20 [facility] Comment on above: Result Comment: Use of this assay is not recommended for patients undergoing treatment with eltrombopag due to the potential for falsely elevated results. Performed By: #### 1 68001, 135396, 8722978, 931749, CD:[id number] #### [facility] [address] [place] [address] Underwriting Consultant: Jeremias Garcia MD Calcium [Mass/Vol] 8.9 mg/dL Normal 8.7-10.4 [facility] Comment on above: Performed By: #### 1 39324, 693636, 1635576, 420276, CD:[id number] #### [facility] [address] [place] [address] Underwriting Consultant: Jeremias Garcia MD Chloride [Moles/Vol] 108 mmol/L High 98-107 [facility] Comment on above: Performed By: #### 1 07583, 161072, 2401298, 004514, CD:[id number] #### [facility] [address] [place] [address] Underwriting Consultant: Jeremias Garcia MD CO2 [Moles/Vol] 27.0 mmol/L Normal 20.0-31.0 [facility] Comment on above: Performed By: #### 1 99861, 250140, 9246805, 401931, CD:[id number] #### [facility] [address] [place] [address] Underwriting Consultant: Jeremias Garcia MD Creatinine [Mass/Vol] 0.8 mg/dL Normal 0.6-1.1 [facility] Comment on above: Performed By: #### 1 82388, 930414, 0436623, 323706, CD:[id number] #### [facility] [address] [place] [address] Underwriting Consultant: Jeremias Garcia MD GFR AA >60 Normal [facility] Comment on above: Result Comment: Afri can Haitian GFR Calc Medical judgement is necessary to interpret GFR. The calculated GFR may not accurately reflect renal status in patients >70 years, women, acutely ill hospitalized patients and patients with acute renal failure or known renal disease. The MDRD GFR formula is valid only for adults greater than 18 years of age. Note: Creatinine clearance (not GFR) should be used for drug dosing. Performed By: #### 1 02694, 494685, 5747652, 330015, CD:[id number] #### [facility] [address] [place] [address] Underwriting Consultant: Jeremias Garcia MD Globulin (S) [Mass/Vol] 2.6 g/dL Normal [facility] Comment on above: Performed By: #### 1 39647, 311349, 7160889, 161280, CD:[id number] #### [facility] [address] [place] [address] Underwriting Consultant: Jeremias Garcia MD Glomerular Filtration Rate >60 Normal [facility] Comment on above: Result Comment: Non- GFR Calc Medical judgement is necessary to interpret GFR. The calculated GFR may not accurately reflect renal status in patients >70 years, women, acutely ill hospitalized patients and patients with acute renal failure or known renal disease. The MDRD GFR formula is valid only for adults greater than 18 years of age. Note: Creatinine clearance (not GFR) should be used for drug dosing. Performed By: #### 1 04106, 131748, 5711111, 571734, CD:[id number] #### [facility] [address] [place] [address] Underwriting Consultant: Jeremias Garcia MD Glucose [Mass/Vol] 86 mg/dL Normal 74-106 [facility] Comment on above: Performed By: #### 1 33677, 517058, 4101377, 225994, CD:[id number] #### [facility] [address] [place] [address] Underwriting Consultant: Jeremias Garcia MD GOT 25 unit/L Normal 15-37 [facility] Comment on above: Performed By: #### 1 70879, 265622, 0344249, 442239, CD:[id number] #### [facility] [address] [place] [address] Underwriting Consultant: Jeremias Garcia MD GPT 18 unit/L Normal 10-49 [facility] Comment on above: Performed By: #### 1 88903, 869043, 0331720, 097729, CD:[id number] #### [facility] [address] [place] [address] Underwriting Consultant: Jeremias Garcia MD Osmolality [Osmolality] 285 mosm/kg Normal 275-295 [facility] Comment on above: Performed By: #### 1 24931, 428900, 0239293, 693775, CD:[id number] #### [facility] [address] [place] [address] Underwriting Consultant: Jeremias Garcia MD Potassium [Moles/Vol] 4.4 mmol/L Normal 3.5-5.1 [facility] Comment on above: Performed By: #### 1 45123, 825812, 2189611, 502888, CD:[id number] #### [facility] [address] [place] [address] Underwriting Consultant: Jeremias Garcia MD Protein [Mass/Vol] 5.8 g/dL Normal 5.7-8.2 [facility] Comment on above: Result Comment: Tota l Protein results may be increased in patients receiving dextran as a blood volume turret lathe tender Performed By: #### 1 05798, 747007, 5001702, 238757, CD:[id number] #### [facility] [address] [place] [address] Underwriting Consultant: Jeremias Garcia MD Sodium [Moles/Vol] 142 mmol/L Normal 135-145 [facility] Comment on above: Performed By: #### 1 75840, 961384, 3634786, 532275, CD:[id number] #### [facility] [address] [place] [address] Underwriting Consultant: Jeremias Garcia MD Urea nitrogen [Mass/Vol] 21 mg/dL Normal 9-23 [facility] Comment on above: Result Comment: - Ve nipuncture should occur prior to N-Acetyl Cysteine (NAC) or Metamizole (Sulpyrine) administration due to the potential for falsely depressed results. - Blood samples from some patients with monoclonal gammopathies may produce falsely elevated results Performed By: #### 1 26507, 573598, 3433368, 952156, CD:[id number] #### [facility] [address] [place] [address] Underwriting Consultant: Jeremias Garcia MD Urea nitrogen/Creatinine [Mass ratio] 26.2 mg/mg Normal [facility] Comment on above: Performed By: #### 1 12119, 741253, 1457159, 356571, CD:[id number] #### [facility] [address] [place] [address] Underwriting Consultant: Jeremias Garcia MD COVID-19 Molecular SWEDon SARS-CoV-2 (COVID-19) RNA BLANCA+probe Ql (Unsp spec) Negative Normal Negative [facility] Comment on above: Result Comment: This assay is designed to detect the RdRp target of SARS-CoV-2 using rapid molecular isothermal amplification technology. A Negative result does not preclude the possibility of COVID 19 infection since the adequacy of sample collection and/or low viral burden may result in the presence of viral nucleic acids below the analytical sensitivity of this test method. Test results should be used along with other clinical and laboratory data in making the diagnosis. This testing was performed in the [facility] laboratory located at [[facility] [address]] Performed By: #### 1 07796, 574188, 4020278, 660170, CD:[id number] #### [facility] [address] [place] [address] Underwriting Consultant: Jeremias Garcia MD Consult Reporton 10-10-2023 Consult Report Patient: VINCE LEACH Age: 68 years Sex: Male : 1955 Associated Diagnoses: None Author: ROSA PERRY, [facility] Consult Note IMPRESSION: Chest pain Shortness of breath COPD, Emphysema PLAN: Chest pain: Initial troponin elevated at 100. Patient continues to report chest pain 4/10. EKG without acute changes. Plan for echocardiogram. Continue to trend troponin. Plan for possible cardiac catheterization tomorrow. Will start therapeutic lovenox. Hold morning dose 10/11/23 for potential cardiac catheterization. --- Reason for Consult: Chest pain HPI: 68 year old male with a history of COPD, Emphysema, asthma admitted to the hospital with constant left sided chest pain and shortness of breath over the last 2 days. Currently rates pain 4/10, pain is located left side of chest and midsternal. Pain does not otherwise radiate. Pain is constant. He chronically has worsening shortness of breath with activity. Of note patient was hospitalized in [place] in 2019, at that time had echo and stress test that he was told were okay. He denies history of CHF, CAD/TX MEDS: Medications (13) Active Scheduled: (3) ASPIRIN EC 81MG TAB 81 mg 1 tabs, ORAL, DAILY WITH BREAKFAST ENOXAPARIN 40MG/0.4ML INJ 40 mg 0.4 mL, Subcutaneous, QHS SODIUM CHLORIDE SYR/VIAL 10ML 3 mL, IV Push, [id number] Continuous: (0) PRN: (10) ACETAMINOPHEN 325 MG TAB 650 mg 2 tabs, ORAL, [id number] ACETAMINOPHEN 325 MG TAB 650 mg 2 tabs, ORAL, [id number] ACETAMINOPHEN 325 MG TAB 650 mg 2 tabs, ORAL, [id number] MELATONIN 5MG TAB 5 mg 1 tabs, ORAL, QHS/[id number] MorPHINE 2MG/1ML INJ 2 mg 1 mL, IV Push, Q5MIN NALOXONE 0.4MG/1ML INJ 0.4 mg 1 mL, IV Push, PRN NITROGLYCERIN 0.4MG SL TABLET 0.4 mg 1 tabs, Sublingual, Q5MIN PERFLUTREN 2 ML INJ 2 ML, IV Push, PRN SODIUM CHLORIDE SYR/VIAL 10ML 3 mL, IV Push, PRN SODIUM CHLORIDE SYR/VIAL 10ML 8 mL, IV Push, PRN PMH: Emphysema COPD Asthma FMH: Noncontributory SOCIAL: Denies alcohol use Previous smoker, stopped 10 years ago ROS: Constitutional: Negative unless noted in HPI Eyes: Negative unless noted in HPI EMNT: Negative unless noted in HPI CV: As noted in HPI Pulm: Negative unless noted in HPI GI: Negative unless noted in HPI : Negative unless noted in HPI Heme: Negative unless noted in HPI Endo: Negative unless noted in HPI Neuro: Negative unless noted in HPI PHYSICAL EXAM: Vital Signs (last 24 hrs) Last Charted Heart Rate Peripheral 60 bpm (OCT 09 10:40) Resp Rate 13 br/min (OCT 09 12:00) SBP 117 mmHg (OCT 09 12:00) DBP 66 mmHg (OCT 09 12:00) General: Stable, with no apparent distress. Neck: No JVD CV: Bradycardic. Normal s1,s2 Lungs: Diminished bilaterally Abdomen: Benign. Extremities: No edema noted ECG/Telemetry: EKG sinus bradycardia Radiology: CXR no acute process Labs (Last four charted values) WBC H 11.4 (OCT 09) Hgb 14.4 (OCT 09) Hct 44.0 (OCT 09) Plt 214 (OCT 09) Na 142 (OCT 09) K 4.4 (OCT 09) CO2 27.0 (OCT 09) Cl H 108 (OCT 09) Cr 0.8 (OCT 09) BUN 21 (OCT 09) Glucose Random 86 (OCT 09) Ca 8.9 (OCT 09) INR 1.1 (OCT 09) Troponin HS 0 Hr: 100 pg/mL Critical (10/10/23 10:58:00) I personally performed a face to face evaluation of the patient, and agree with the assessment and plan created by EDGARDO LEE CNP. My findings are below. 68-year-old male with history of COPD who is admitted with complaints of chest pain which describes a burning pain in the midepigastrium as well as some atypical pain along the left breast. He states the pain is constant with waxing waning nature and there is no aggravating relieving factors. Denies any nausea vomiting syncope loss of conscious function swelling. States this is different from his COPD exacerbations. ECG shows sinus Amalia no acute ischemic changes. His troponin is elevated at 100. Patient's chest pain has both typical atypical features EKG with no ischemic changes however patient has burning pain which may be an anginal equivalent with mildly elevated troponin therefore would proceed with left heart catheterization to like the coronary artery. If heart catheterization is negative then patient would warrant further GI workup and evaluation. Normal [facility] ED Adult Data - Texton 10-09 ED Adult Data - Text ED Adult Data Enter ed On: 10/10/2023 11:49 EDT Performed On: 10/10/2023 10:27 EDT by Mariya Friedman RN Arrival Information Referral Source ED : Home [facility] Mode of Arrival : Car / Walk-In Mariya Friedman RN - 10/10/2023 11:47 EDT Screening-General Meds Triage : NA Accept Blood Products if Necessary : Yes Immunizations Current : Unknown Last Tetanus : Unknown Currently or : Not Applicable Mariya Friedman RN - 10/10/2023 11:47 EDT Depression Screening Patient able to verbalize? : Yes Feeling Down, Depressed, Hopeless : Not at all Little Interest - Pleasure in Activities : Not at all Initial Depression Screen Score : 0 Depression Screening Score 0 : No IP Pt being evaluated or treated for BH conditions : No Mariya Friedman RN - 10/10/2023 11:47 EDT Screening-Safety Abuse/Violence Concerns? : Patient denies Does the patient have a medically restricted extremity? : No Mariya Friedman RN - 10/10/2023 11:47 EDT Problem List Problem List obtained from : Patient Mariya Friedman RN - 10/10/2023 11:47 EDT (As Of: 10/10/2023 11:49:16 EDT) Problems(Active) COPD (chronic obstructive pulmonary disease) (SNOMED CT :06226976 ) Name of Problem: COPD (chronic obstructive pulmonary disease) ; Recorder: Carline Márquez RN; Confirmation: Confirmed ; Classification: Medical ; Code: [id number] ; Contributor System: Alset Wellen ; Last Updated: 03/28/2023 15:42 EDT ; Life Cycle Date: 03/28/2023 ; Life Cycle Status: Active ; Vocabulary: Thompson SCI CT Diagnoses(Active) Chest pain - Pleuritic Date: 10/10/2023 ; Diagnosis Type: Reason For Visit ; Confirmation: Confirmed ; Clinical Dx: Chest pain - Pleuritic ; Classification: Medical ; Clinical Service: Non-Specified ; Code: PNED ; Probability: 0 ; Diagnosis Code: [id number] Shortness of breath Date: 10/10/2023 ; Diagnosis Type: Reason For Visit ; Confirmation: Confirmed ; Clinical Dx: Shortness of breath ; Classification: Medical ; Clinical Service: Non-Specified ; Code: PNED ; Probability: 0 ; Diagnosis Code: [id number] Procedure History ED Devices Present on Arrival To ED : None Urinary Catheter Present on Admit to ED : No Mariya Friedman RN - 10/10/2023 11:47 EDT - Procedure History (As Of: 10/10/2023 11:49:16 EDT) Social History Does pt have any alcohol,drugs or tobacco : No Do you consume Alcohol : No Social History obtained from : Patient Mariya Friedman RN - 10/10/2023 11:47 EDT Social History (As Of: 10/10/2023 11:49:16 EDT) Alcohol: Denies Alcohol Use (Last Updated: 10/10/2023 11:48:42 EDT by Mariya Friedman RN ) Tobacco: Denies Tobacco Use (Last Updated: 10/10/2023 11:48:43 EDT by Mariya Friedman RN ) Substance Abuse: Denies Substance Abuse (Last Updated: 10/10/2023 11:48:44 EDT by Mariya Friedman RN ) Infection Screening Travel outside of [place] States within past 21 days? : No Positive COVID test in the last 10 days? : No Exposure to and/or close contact with a person who has a laboratory-confirmed COVID test within the last 48 hours. : No Coronavirus New Symptoms w/o Cause : Yes Mariya Friedman RN - 10/10/2023 11:47 EDT Normal [facility] ED Discharge Educationon ED Discharge Education Normal [facility] ED Emergency Severity Index Adult-Texton 10-10-2023 ED Emergency Severity Index Adult-Text MISAEL - Adult Entered On: 10/10/2023 10:40 EDT Performed On: 10/10/2023 10:40 EDT by Keli Scott RN DCP GENERIC CODE Visit Reason : sob, pleuritic pain x 3-4 days Tracking Triage Date/Time : 10/10/2023 10:40 EDT Tracking Reg Status : Requested Tracking Acuity : 2-Emergent Tracking Group : [facility] Tracking Keli Scott RN - 10/10/2023 10:40 EDT Normal [facility] ED Nrsing Adlt Triage Sep Sc rning - Texton 10-10-2023 ED Nrsing Adlt Triage Sep Scrning - Text ED Nursing Adult Triage Sepsis Screening Tool Entered On: 10/10/2023 10:40 EDT Performed On: 10/10/2023 10:40 EDT by Keli Scott RN Adult Sepsis Screening Sepsis Infection Screening ED : No Keli Scott RN - 10/10/2023 10:40 EDT Normal [facility] ED Patient Summaryon 024 ED Patient Summary [facility] Emergency Department Discharge Instructions [address] [place] [address] (Patient Copy) Name: SARABJIT LEACH : 1955 Allergies: No Known Medication Allergies Diagnosis: Chest pain; Elevated troponin Visit Date: 10/10/2023 10:27:31 Current Date Time: 10/10/2023 17:28:18 Address: [address] [place] [address] Primary Care Provider: Name: NO FAMILY PHYSICIAN, 837 Phone: Emergency Department Care Providers: Primary Physician: ALEX MCINTYRE MD Thank you for choosing [facility] for your emergency care. You are very important to us. Our goal is to demonstrate our high quality medical care, and provide you with a very good patient experience. You may receive a survey about our service. Please take the time to complete the survey and return it so we can continue to enhance our service. Thank you again for allowing the [facility] Emergency Department to care for your medical needs. If you have questions about your care or follow up information please contact us at [phone]. Follow-Up Instructions SARABJIT LEACH has been given these follow-up instructions: Patient Education Materials SARABJIT LEACH has been given the following patient education materials: BEFORE YOU LEAVE Set up your [facility] [employer] account! [employer] is a secure, online health management tool that connects you to portions of your hospital-based electronic medical record, allowing you to see test results, manage appointments, access discharge care instructions and much more. You can access [employer] from a computer, tablet or smartphone. Enrollment/registration is required. If you do not have a [employer] account, please provide us with an email address before you leave so that we may set up an account for you. New to [employer]! You may now securely connect some of the health management apps you use (e.g., fitness trackers, dietary trackers, etc.) to your health record in [facility] [employer]. This new feature provides expanded access to your health and wellness data, which will help you and your care team make informed decisions about your health care. If you are interested in using a health management dalila not currently connected to [employer], contact a District Attorney at [phone] or [email or web address]. We will determine if the dalila meets the technical requirements to connect to [facility] [employer] and assure the security of your private health information. Medication Information SARABJIT LEACH has been given the following medication information: No Discharge Medications. Understanding your home medicine is important to keeping you healthy. If you are taking medications that are not on the preceding list, please call your doctor to see if you are to continue that medication. It is important that you do not skip or make up doses. If you are ordered an antibiotic, finish taking all the medicine, unless your doctor tells you otherwise. Call your doctor if you have questions or problems. Take the medicine list with you to all follow up appointments. If you or a loved one is struggling with a mental health or substance abuse issue, please call [facility] at [phone] or the National Suicide Prevention Lifeline at . ISIERRA JAMES, have received the follow-up provider(s) list, medication information and patient education materials/instructions and have verbalized understanding. Patient Signature Date Time Provider Signature Date Time Normal [facility] ED Physician Reporton 2023 ED Physician Report SARABJIT LEACH :1955 Registration Date:10/10/2023 Basic Information Time Seen: [] Arrival Mode: Walk-In [] History Source: Patient _ _ [] History limitation: None [] History of Present Illness Patient presents to ED complaining of chest pain. He said it started last night and was a little bit worse this morning. He said it feels like a burning in the center of his chest. No nausea vomiting. He does also complain of shortness of breath. He has a history of COPD and congestive heart failure. He said most of his stuff is done at the [facility] but he was frustrated with his doctor so he wanted to come here instead. He was seen at [facility] about a year ago for similar scenario and had an elevated troponin at that time. He said they wanted to keep him but he did not want to stay at that time. He said he has a nodule on his lung and [facility] does not seem concerned about it so he wants another opinion about that. He is alert and oriented resting comfortably in the bed in no acute distress at this time. Review of Systems ROS negative as otherwise stated above in HPI Physical Exam Vitals & Measurements Initial: T: 36.8 ?C (Oral) HR: 60 (Peripheral) BP: 96/64 RR: 18 SpO2: 93% O2 Therapy: Room air WT: 53 kg (Dosing) Latest: HR: 55 (Monitored) BP: 114/74 RR: 16 SpO2: 96% Time Seen: [] Vital Signs: [Per nurse's notes.] General: [Alert] Skin: [Warm, dry, no rash.] Head: [Normocephalic, atraumatic.] Neck: [Supple, trachea midline.] Eye: [Pupils are equal, round and reactive to light, extraocular movements are intact, normal conjunctiva.] Ears, nose, mouth and throat: [Tympanic membranes clear, oral mucosa moist.] Cardiovascular: [Regular rate and rhythm, no murmur.] Respiratory: [Lungs are diminished bilaterally respirations are non-labored, breath sounds are equal.] Chest wall: [No tenderness, no deformity.] Gastrointestinal: [Soft, nontender, non distended, normal bowel sounds.] MSK: 5 out of 5 muscle strength x 4 extremities Lymphatics: [No lymphadenopathy.] Psychiatric: [Cooperative, appropriate mood & affect.] Neurological: [Alert and oriented to person, place, time, and situation, no focal neurological deficit observed.] Procedure HEART SCORE History: Moderately suspicious: 1 EKG: Normal: 0 Age: Greater than 65: 2 Risk Factors: 1-2 risk factors: 1 (risk factors: DM, HTN, HLP, smoker, obesity, family history) Initial Troponin: Greater 3x normal limit: 2 Total: []6 Medical Decision Making Patient's labs show an elevated troponin at 100. 2-hour troponin 97. Given the fact that he is having chest pain and an elevated troponin he will be admitted for further care. I spoke to Dr. Mcintyre who will admit the patient for further care. Patient said his pain is not too bad at this time. He is comfortable with care plan for admission. Reexamination/Reevaluation Systolic Blood Pressure: 114 mmHg Diastolic Blood Pressure: 74 mmHg Temperature Oral: 36.8 degC Heart Rate Monitored: 55 bpm Low Respiratory Rate: 16 br/min Mean Arterial Pressure, Cuff: 86 mmHg SpO2: 96 % Oxygen Therapy: Room air Peripheral Pulse Rate: 60 bpm Weight Dosin kg Discharge/Plan *Discharge Disposition Level of Care Order - Ordered -- 10/10/2023 13:27:00 EDT, Medical Outpatient with Observation Services, FRANCISCO JAVIER ELLISON, ELIDIA JOHNSON elevated trop Assessment This Visit Diagnosis Chest pain R07.9 Elevated troponin R79.89 Orders: APTT, STAT, 10/10/2023 11:22:00 EDT CBCWD, STAT, 10/10/2023 11:22:00 EDT COMPMETA, STAT, 10/10/2023 11:22:00 EDT COVID-19 Molecular SWED, STAT, 10/10/2023 11:46:00 EDT, Specimen type: HELICOPTER TECHNICIAN Swab EKG ER, 10/10/2023 11:22:00 EDT, Chest Pain, Cart, Heart Meds Unknown at this time, STAT, No EKG/[place] Requested Level of Care Order, 10/10/2023 13:27:00 EDT, Medical Outpatient with Observation Services, FRANCISCO JAVIER ELLISON, ELIDIA JOHNSON elevated trop Misc Nutrition Task to Nursing, 10/10/2023 11:22:00 EDT, Constant Order, NPO Peripheral IV Insertion, 10/10/2023 11:22:00 EDT PT INR, STAT, 10/10/2023 11:22:00 EDT RAP FLU A AND B(RAPID INFLUENZA A AND B ANTIGEN TEST), STAT, 10/10/2023 11:46:00 EDT, Specimen type: HELICOPTER TECHNICIAN Swab Request for Bed Placement, 10/10/2023 13:27:00 EDT, Medical, Outpatient with Observation Services, FRANCISCO JAVIER ELLISON, ELIDIA JOHNSON elevated trop Resuscitation Status, Resuscitation Status: Full Code, Discussed With: Patient, 10/10/2023 13:27:00 EDT Saline Lock, Saline Lock, added with Flush Order, Constant Order Telemetry, Reason for Telemetry Chest pain, Constant Order, CM Telemetry Transfer Care of Patient to Attending, 10/10/2023 13:27:00 EDT, Upon discharge from the ED, all continued medications and orders become the responsibility of the admitting/attending physician. TROPONIN HS 0HR, STAT, 10/10/2023 11:22:00 EDT TROPONIN HS 2HR, TIMED STUDY, 10/10/2023 13:22:00 EDT TROPONIN HS 6HR, TIMED STUDY, (more content not included)... Normal [facility] ED Progress Noteon ED Progress Note Pt arrived from home with c/o SOB, pleuretic CP, heartburn for the past 2-3 days. States hx of COPD, CHF, asthma, former smoker. Pt AOX3 but very STEBBINS. Labs, swabs, EKG obtained, IV placed. MD at bedside. Pt bradycardic on monitor, MD notified. Report given to Loli OROZCO Pt to the floor with transport Normal [facility] ED Triage Adult-Texton 10-09 ED Triage Adult-Text ED Triage Entered O n: 10/10/2023 10:41 EDT Performed On: 10/10/2023 10:40 EDT by Keli Scott RN Triage (As Of: 10/10/2023 10:41:11 EDT) Problems(Active) COPD (chronic obstructive pulmonary disease) (SNOMED CT :91943911 ) Name of Problem: COPD (chronic obstructive pulmonary disease) ; Recorder: Carline Márquez RN; Confirmation: Confirmed ; Classification: Medical ; Code: [id number] ; Contributor System: Alset Wellen ; Last Updated: 03/28/2023 15:42 EDT ; Life Cycle Date: 03/28/2023 ; Life Cycle Status: Active ; Vocabulary: [place] AcquisitionOMED CT Diagnoses(Active) Chest pain - Pleuritic Date: 10/10/2023 ; Diagnosis Type: Reason For Visit ; Confirmation: Confirmed ; Clinical Dx: Chest pain - Pleuritic ; Classification: Medical ; Clinical Service: Non-Specified ; Code: PNED ; Probability: 0 ; Diagnosis Code: [id number] Shortness of breath Date: 10/10/2023 ; Diagnosis Type: Reason For Visit ; Confirmation: Confirmed ; Clinical Dx: Shortness of breath ; Classification: Medical ; Clinical Service: Non-Specified ; Code: PNED ; Probability: 0 ; Diagnosis Code: [id number] (As Of: 10/10/2023 10:41:12 EDT) Allergies (Active) No Known Medication Allergies Estimated Onset Date: Unspecified ; Created By: Carline Márquez RN; Reaction Status: Active ; Category: Drug ; Substance: No Known Medication Allergies ; Type: Allergy ; Updated By: Carline Márquez RN; Reviewed Date: 03/28/2023 15:42 EDT Vitals/Ht/Wt Temperature Oral : 36.8 degC Pulse Rate : 60 bpm Respiratory Rate : 18 br/min Systolic Blood Pressure : 96 mmHg Diastolic Blood Pressure : 64 mmHg SpO2 : 93 % (LOW) Oxygen Therapy : Room air Pain Symptoms : Yes Numeric Pain Scale : 4 = Moderate Pain VAS Pain Scale Age : VAS (8 yrs & older) Height/Length Dosing : 175.26 cm(Converted to: 5.75 ft, 69.00 in) Weight Measured Type of Scale : Standing Scale Weight Dosing : 53 kg(Converted to: 1,869.520 oz, 116.845 lb) Body Mass Index Dosing : 17 Keli Scott RN - 10/10/2023 10:40 EDT Normal [facility] HEMOon 10-10-2023 DIFF? No Normal [facility] Comment on above: Performed By: #### C D:[id number], 968837, 3052222, 309975, 774961, 488118 ####[facility] [address] [place] [address] Medical Director: Jeremias Garcia MD Erythrocyte distribution width (RBC) [Ratio] 14.6 % High 11.5-14.5 [facility] Comment on above: Performed By: #### C D:[id number], 726941, 3614403, 890180, 244017, 179113 ####[facility] [address] [place] [address] Medical Director: Jeremias Garcia MD Hematocrit (Bld) [Volume fraction] 44.0 % Normal 41.0-52.0 [facility] Comment on above: Performed By: #### C D:[id number], 994733, 0676846, 421470, 973848, 484637 ####[facility] [address] [place] [address] Medical Director: Jeremias Garcia MD Hemoglobin (Bld) [Mass/Vol] 14.4 g/dL Normal 13.5-17.5 [facility] Comment on above: Performed By: #### C D:[id number], 517653, 8883814, 452024, 415532, 461541 ####[facility] [address] [place] [address] Medical Director: Jeremias Garcia MD Instr WBC 11.4 Normal [facility] Comment on above: Performed By: #### C D:[id number], 811671, 5683347, 233348, 762983, 503678 ####[facility] [address] [place] [address] Medical Director: Jeremias Garcia MD MCH (RBC) [Entitic mass] 29.5 pg Normal 27.0-34.0 [facility] Comment on above: Performed By: #### C D:[id number], 124807, 8838816, 910312, 218110, 942844 ####[facility] [address] [place] [address] Medical Director: Jeremias Garcia MD MCHC (RBC) [Mass/Vol] 32.7 g/dL Normal 32.0-37.0 [facility] Comment on above: Performed By: #### C D:[id number], 120330, 6664046, 859217, 153518, 635867 ####[facility] [address] [place] [address] Medical Director: Jeremias Garcia MD MCV (RBC) [Entitic vol] 90.2 fL Normal 80.0-100.0 [facility] Comment on above: Performed By: #### C D:[id number], 224628, 6095713, 738193, 482384, 813570 ####[facility] [address] [place] [address] Medical Director: Jeremias Garcia MD MDW 16.46 Normal 13.98-20.00 [facility] Comment on above: Result Comment: MDW Interpretation: - For adults age 18-89 in ED, MDW >20.0 may be associated with a higher risk of Sepsis during the first 12 hours of hospital admission. - The predictive value of MDW for identifying Sepsis in patients with hematological abnormalities has not been established. - Interpret with caution when immature granulocytes, variant lymphs, or blast cells are noted on the differential. - Confirm patient age is within intended use population (18-89 years) for MDW. - For ED adults suspected of Sepsis, MDW less than or equal to 20.0 does not rule out Sepsis or the risk of Sepsis. Performed By: #### C D:[id number], 468350, 1608927, 161866, 783729, 245174 ####[facility] [address] [place] [address] Medical Director: Jeremias Garcia MD Nucleated RBC 0 /100WBC Normal [facility] Comment on above: Performed By: #### C D:[id number], 116620, 9810978, 587813, 572904, 260030 ####[facility] [address] [place] [address] Medical Director: Jeremias Garcia MD Platelet 214 x10 Normal 150-450 [facility] Comment on above: Performed By: #### C D:[id number], 768910, 7317651, 373614, 408610, 922195 ####[facility] [address] [place] [address] Medical Director: Jeremias Garcia MD Platelet mean volume (Bld) [Entitic vol] 8.5 fL Normal 7.4-10.4 [facility] Comment on above: Performed By: #### C D:[id number], 218722, 6161022, 735823, 090990, 385273 ####[facility] [address] [place] [address] Medical Director: Jeremias Garcia MD RBC 4.88 x10 Normal 4.70-6.10 [facility] Comment on above: Result Comment: Note : RBC morphology is normal unless otherwise stated. Evaluation performed only if differential is requested. Performed By: #### C D:[id number], 442085, 4400602, 122516, 406452, 217523 ####[facility] [address] [place] [address] Medical Director: Jeremias Garcia MD WBC 11.4 x10 High 4.5-11.0 [facility] Comment on above: Performed By: #### C D:521482580, 300125, 6829907, 676117, 900411, 655719 ####[facility] [address] [place] [address] Medical Director: Jeremias Garcia MD Nursing Clinical Noteon 09-22 Nursing Clinical Note Photo taken by: Loli Santiago RN Nursing unit: 1 CAILIN Attending: Francisco Javier Wound Present on admission: yes General location of wound: right foot Pressure Injury: Yes If Pressure injury, further documentation will be located in the WO documentation photos Missing Attachment 2023-10-10 17:41:54 can be viewed in source system Missing Attachment 2023-10-10 17:41:54 can be viewed in source system Normal [facility] Sales Support Coordinator Detailson 2023 Sales Support Coordinator Details Sales Support Coordinator Details Entered On: 10/10/2023 17:46 EDT Performed On: 10/10/2023 17:45 EDT by Loli Santiago RN Sales Support Coordinator Details Transport Mode Order Detail EV : Wheelchair Isolation Precautions RTF : Communication CONSTANT Order, 10/12/2023 08:00:00 EDT, Constant Order, Check PLT count on Day 2 after initiation of Heparin or Lovenox, Notify Physician if PLTs less than 100,000 Repeat PLT count every 3 days., Ordered Level of Care Order, 10/10/2023 13:27:00 EDT, Medical Outpatient with Observation Services, FRANCISCO JAIVER ELLISON, ALEX, ELIDIA elevated trop, Ordered Transfer Care of Patient to Attending, 10/10/2023 13:27:00 EDT, Upon discharge from the ED, all continued medications and orders become the responsibility of the admitting/attending physician., Ordered Communication CONSTANT Order, 10/10/2023 13:26:00 EDT, Constant Order, STAT EKG for Chest Pain, STAT ABGs for Acute Respiratory Distress, STAT Potassium/Magnesium for any significant change in condition/rhythm, Ordered Communication CONSTANT Order, 10/10/2023 13:26:00 EDT, Constant Order, Current ACLS Provider may, Initiate [employer] Advanced Cardiac Life support Algorithm per patient code status, Ordered Communication CONSTANT Order, 10/10/2023 13:26:00 EDT, Constant Order, If patient is unable to take oral aspirin, Discontinue (delete) the oral aspirin order, go to CARD Acute ST Elevation TX STEMI Orderset in the order navigation tree, view excluded components (lightbulb icon), o..., Ordered Consult Physician, 10/10/2023 13:26:00 EDT, SAWYER ELLISON, JIM, positive troponin, Completed Oxygen Therapy, 10/10/2023 13:26:00 EDT, Nasal Cannula, Constant Order, 2 to 5 L PRN (If patient has COPD, oxygen at 2 L NC), Ordered Misc Nutrition Task to Nursing, 10/10/2023 11:22:00 EDT, Constant Order, NPO, Ordered Isolation Precaution Order Detail EV : NONE IV Order Detail - EV : No Oxygen Order Detail EV : No Order Detail EV : No Pacemaker Order Detail : 0 Sales Support Coordinator Details Review Status : Initial Review Nurse Collects Blood Specimens : Chiquita Santiago RN, Loli - 10/10/2023 17:45 EDT Normal [facility] Comment on above: Order Comment: Order entered secondary to admission PT INRon 10-10-2023 INR Coag (PPP) [Relative time] 1.1 {INR} Normal [facility] Comment on above: Result Comment: INR Reference Range: Normal reference range for INR on patients not on anticoagulant therapy: 0.9-1.1 General therapeutic range for patients on anticoagulant therapy: 2.0-3.5 Performed By: #### 1 12141, 922377, 9922095, 278421, [id number] #### [facility] [address] [place] [address] Underwriting Consultant: Jeremias Garcia MD Protime Patient 12.0 seconds Normal 9.8-12.8 [facility] Comment on above: Performed By: #### 1 43960, 645057, 3285839, 381421, [id number] #### [facility] [address] [place] [address] Underwriting Consultant: Jeremias Garcia MD Pharmacy Clinical Interventi ons-Texton 10-10-2023 Pharmacy Clinical Interventions-Text Pharmacy Clinical Interventions Entered On: 10/10/2023 11:32 EDT Performed On: 10/10/2023 11:31 EDT by Beckie López CPhT Interventions Intervention Type Pharmacy : Medication history Pharmacy Order Initiated By : [employer] Clinical Importance Pharmacy : Potentially minor Prescriber Response Pharmacy : Corrected prior to contact Patient Clinical Outcome Pharmacy : Avoided potential risk Pharmacist Intervention Time : 45 Pharmacy Additional Information : updated med list wiht pt unable [facility] unsure which spiriva pt on Beckie López CPhT - 10/10/2023 11:31 EDT Normal [facility] RAP FLU A AND Bon 10-10-2023 Rapid Influenza A Antigen Test Negative Normal [facility] Comment on above: Result Comment: A po sitive Rapid Influenza A Antigen Test indicates the presence of Influenza A. This is a screening test only and should be correlated with the patient's clinical symptoms. Performed By: #### 5 [id number] ####[facility] [address] [place] [address] Medical Director: Jeremias Garcia MD Rapid Influenza B Antigen Test Negative Normal [facility] Comment on above: Result Comment: A po sitive Rapid Influenza B Antigen Test indicates the presence of Influenza B. This is a screening test only and should be correlated with the patients's clinical symptoms. Performed By: #### 5 017761 ####[facility] [address] [place] [address] Medical Director: Jeremias Garcia MD RFAB INT QC Present Normal [facility] Comment on above: Performed By: #### 5 252504 ####[facility] [address] [place] [address] Medical Director: Jeremias Garcia MD TROPONIN HS 0HRon 10-10-2023 Troponin HS 0 Hr 100 pg/mL Critically abnormal -53 [facility] Comment on above: Result Comment: Crit ical Result(s) called at: 12:44:46 on 10/10/2023 by: Christine delgado, RBR to: sn Specimens from some individuals with pathologically high gamma globulin levels may demonstrate depressed troponin values Performed By: #### 1 41285, 443986, 3674771, 471844, [id number] #### [facility] [address] [place] [address] Underwriting Consultant: Jeremias Garcia MD TROPONIN HS 2HRon 10-10-2023 Delta Troponin 2 Hr 3 pg/mL Normal 0-14 [facility] Comment on above: Result Comment: The term acute myocardial infarction should be used when there is acute myocardial injury with clinical evidence of acute myocardial ischemia and the rise or fall of serial Troponin HS values (delta troponin) greater than or equal to 15 pg/mL with at least one Troponin HS value above the 99th percentile reference range Performed By: #### C D:[id number] ####[facility] [address] [place], [place] [address] Medical Director: Jeremias Garcia MD Troponin HS 2 Hr 97 pg/mL Critically abnormal -53 [facility] Comment on above: Result Comment: Crit ical Result(s) called at: 14:42:33 on 10/10/2023 by: Isis delgado, RBR to: KR Specimens from some individuals with pathologically high gamma globulin levels may demonstrate depressed troponin values Performed By: #### C D:[id number] ####[facility] [address] [place], [place] [address] Medical Director: Jeremias Garcia MD TROPONIN HS 6HRon 10-10-2023 Delta Troponin 6 Hr 2 pg/mL Normal 0-14 [facility] Comment on above: Result Comment: The term acute myocardial infarction should be used when there is acute myocardial injury with clinical evidence of acute myocardial ischemia and the rise or fall of serial Troponin HS values (delta troponin) greater than or equal to 15 pg/mL with at least one Troponin HS value above the 99th percentile reference range Performed By: #### C D:[id number] #### [facility] [address] [place] [address] Underwriting Consultant: Jeremias Garcia MD Troponin HS 6 Hr 95 pg/mL Critically abnormal 3-53 [facility] Comment on above: Result Comment: Crit ical Result(s) called at: 18:22:15 on 10/10/2023 by: Shayla Hood rechecked, RBR to: ON 1DOU Specimens from some individuals with pathologically high gamma globulin levels may demonstrate depressed troponin values Performed By: #### C D:[id number] #### [facility] [address] [place] [address] Underwriting Consultant: Jeremias Garcia MD XR CHEST PORTABLEon 10-10-19 XR CHEST PORTABLE CXR Chest portable u [facility] CLINICAL HISTORY: CHEST PAIN, Comparison: None Findings: No consolidation, pneumothorax, pleural fluid, or vascular congestion is seen. Heart size and mediastinal contours are within normal limits for age and projection. No acute skeletal abnormality. Mild calcification of aorta. Question background of emphysema. Suspect bilateral cervical ribs. IMPRESSION: No acute cardiopulmonary process. Electronically signed by: Italo Meek MD 10/10/2023 12:04 PM EDT Technologist: EB Dictated By: ITALO MEEK MD Signed By: ITALO MEEK MD Signed Out: 10/10/23 12:04:21 Normal [facility] CBC W Auto Differential pane l (Bld)on 06-29-2023 Basophils (Bld) [#/Vol] 0.08 10*3/uL Normal <0.11 [facility] Comment on above: Order Comment: Speci men Type: BLOOD SPECIMEN Ordering Facility: [facility] Address: [address] [place] [address] Performed By: #### 5 7021-8 #### [facility] CLIA [id number] [address] [place] [address] [place] Basophils/100 WBC (Bld) 0.9 % Normal [facility] Comment on above: Order Comment: Speci men Type: BLOOD SPECIMEN Ordering Facility: [facility] Address: [address] [place] [address] Performed By: #### 5 7021-8 #### [facility] CLIA [id number] [address] Differential cell count method Nom (Bld) Auto Normal [facility] Comment on above: Order Comment: Speci men Type: BLOOD SPECIMEN Ordering Facility: [facility] Address: [address] [place] [address] Performed By: #### 5 7021-8 #### [facility] CLIA [id number] [address] Eosinophils (Bld) [#/Vol] 0.25 10*3/uL Normal <0.46 [facility] Comment on above: Order Comment: Speci men Type: BLOOD SPECIMEN Ordering Facility: [facility] Address: [address] [place] [address] Performed By: #### 5 7021-8 #### [facility] CLIA [id number] [address] Eosinophils/100 WBC (Bld) 2.7 % Normal [facility] Comment on above: Order Comment: Speci men Type: BLOOD SPECIMEN Ordering Facility: [facility] Address: [address] [place] [address] Performed By: #### 5 7021-8 #### [facility] CLIA [id number] [address] Erythrocyte distribution width (RBC) [Ratio] 14.7 % Normal 11.5-15.0 [facility] Comment on above: Order Comment: Speci men Type: BLOOD SPECIMEN Ordering Facility: [facility] Address: [address] [place] [address] Performed By: #### 5 7021-8 #### [facility] CLIA [id number] [address] Hematocrit (Bld) [Volume fraction] 45.6 % Normal 39.0-51.0 [facility] Comment on above: Order Comment: Speci men Type: BLOOD SPECIMEN Ordering Facility: [facility] Address: [address] [place] [address] Performed By: #### 5 7021-8 #### [facility] CLIA [id number] [address] [place] Hemoglobin (Bld) [Mass/Vol] 14.7 g/dL Normal 13.0-17.0 [facility] Comment on above: Order Comment: Speci men Type: BLOOD SPECIMEN Ordering Facility: [facility] Address: [address] [place] [address] Performed By: #### 5 7021-8 #### [facility] CLIA [id number] [address] [place] Immature granulocytes (Bld) [#/Vol] 0.05 10*3/uL Normal <0.10 [facility] Comment on above: Order Comment: Speci men Type: BLOOD SPECIMEN Ordering Facility: [facility] Address: [address] [place] [address] Performed By: #### 5 7021-8 #### [facility] CLIA [id number] [address] [place] Immature granulocytes/100 WBC (Bld) 0.5 % Normal [facility] Comment on above: Order Comment: Speci men Type: BLOOD SPECIMEN Ordering Facility: [facility] Address: [address] [place], [place] [address] Performed By: #### 5 7021-8 #### [facility] CLIA [id number] 1 [place] [address] [place] Lymphocytes (Bld) [#/Vol] 1.52 10*3/uL Normal 1.00-4.00 [facility] Comment on above: Order Comment: Speci men Type: BLOOD SPECIMEN [facility] Address: [address] [place] [address] Performed By: #### 5 7021-8 #### [facility] CLIA [id number] [address] Lymphocytes/100 WBC (Bld) 16.3 % Normal [facility] Comment on above: Order Comment: Speci men Type: BLOOD SPECIMEN [facility]ing Facility: [facility] Address: [address] [place] [address] Performed By: #### 5 7021-8 #### [facility] CLIA [id number] [address] MCH (RBC) [Entitic mass] 29.5 pg Normal 26.0-34.0 [facility] Comment on above: Order Comment: Speci men Type: BLOOD SPECIMEN [facility] Address: [address] [place] [address] Performed By: #### 5 7021-8 #### [facility] CLIA [id number] [address] MCHC (RBC) [Mass/Vol] 32.2 g/dL Normal 30.5-36.0 [facility] Comment on above: Order Comment: Speci men Type: BLOOD SPECIMEN [facility] Address: [address] [place] [address] Performed By: #### 5 7021-8 #### [facility] CLIA [id number] [address] MCV (RBC) [Entitic vol] 91.6 fL Normal 80.0-100.0 [facility] Comment on above: Order Comment: Speci men Type: BLOOD SPECIMEN [facility] Address: [address] [place] [address] Performed By: #### 5 7021-8 #### [facility] CLIA [id number] [address] Monocytes (Bld) [#/Vol] 0.88 10*3/uL High <0.87 [facility] Comment on above: Order Comment: Speci men Type: BLOOD SPECIMEN [facility] Address: [address] [place] [address] Performed By: #### 5 7021-8 #### [facility] CLIA [id number] [address] [place] Monocytes/100 WBC (Bld) 9.4 % Normal [facility] Comment on above: Order Comment: Speci men Type: BLOOD SPECIMEN [facility] Address: [address] [place] [address] Performed By: #### 5 7021-8 #### [facility] CLIA [id number] [address] [place] [address] [place] Neutrophils (Bld) [#/Vol] 6.56 10*3/uL Normal 1.45-7.50 [facility] Comment on above: Order Comment: Speci men Type: BLOOD SPECIMEN [facility] Address: [address] [place] [address] Performed By: #### 5 7021-8 #### [facility] CLIA [id number] [address] [place] Neutrophils/100 WBC (Bld) 70.2 % Normal [facility] Comment on above: Order Comment: Speci men Type: BLOOD SPECIMEN [facility] Address: [address] [place] [address] Performed By: #### 5 7021-8 #### [facility] CLIA [id number] [address] [place] Nucleated RBC (Bld) [#/Vol] 10*3/uL Normal <0.01 [facility] Comment on above: Order Comment: Speci men Type: BLOOD SPECIMEN [facility] Address: [address] [place] [address] Performed By: #### 5 7021-8 #### [facility] CLIA [id number] [address] [place] Nucleated RBC/100 WBC (Bld) [Ratio] 0.0 /100 WBC Normal [facility] Comment on above: Order Comment: Speci men Type: BLOOD SPECIMEN [facility] Address: [address] [place] [address] Performed By: #### 5 7021-8 #### [facility] CLIA [id number] [address] Platelet mean volume (Bld) [Entitic vol] 10.2 fL Normal 9.0-12.7 [facility] Comment on above: Order Comment: Speci men Type: BLOOD SPECIMEN [facility] Address: [address] [place] [address] Performed By: #### 5 7021-8 #### [facility] CLIA [id number] [address] [place] Platelets (Bld) [#/Vol] 261 10*3/uL Normal 150-400 [facility] Comment on above: Order Comment: Speci men Type: BLOOD SPECIMEN [facility] Address: [address] [place] [address] Performed By: #### 5 7021-8 #### [facility] CLIA [id number] [address] RBC (Bld) [#/Vol] 4.98 10*6/uL Normal 4.20-6.00 [facility] Comment on above: Order Comment: Speci men Type: BLOOD SPECIMEN [facility] Address: [address] [place] [address] Performed By: #### 5 7021-8 #### [facility] CLIA [id number] [address] WBC (Bld) [#/Vol] 9.34 10*3/uL Normal 3.70-11.00 [facility] Comment on above: Order Comment: Speci men Type: BLOOD SPECIMEN [facility] Address: [address] [place] [address] Performed By: #### 5 7021-8 #### [facility] CLIA [id number] [address] CNOVon 06-29-2023 CNOV Office Visit ([facility]) -- SARABJIT LEACH ([id number]) 1955 M DEF Date Time Provider Department 06/29/23 8:20 AM SALAZAR STALLWORTHMAC During your visit today, we recorded the following information about you: Temperature Pulse Blood pressure Weight 97.6 degrees 64/minute 100/68 52.6 kg Height 1.753 m Salazar Stallworth DO 06/29/2023 9:05 AM Signed Today's Plan 1) we will help you to schedule with general surgeon for hernia repair 2) help to schedule with urology 3) help to schedule US liver due to enlargement 4) help to schedule lung biopsy. Salazar Stallworth DO 06/29/2023 9:22 AM Signed Salazar Stallworth DO Board Certified Internal Medicine, Lipidology, Metabolic Medicine and Lifestyle Medicine [facility] Date of Evaluation: 06/29/2023 Patient Name: Sarabjit Leach : 1955 IMPRESSION: This is a 68 year old male with self admitted poor lifetime memory presents for follow up on a number of issues. He has not yet accomplished management goals since last visit. I have asked our discharge staff to work with him to obtain all suggested referrals and testing. ASSESSMENT/PLAN (J44.1) COPD exacerbation (HCC) (primary encounter diagnosis) Comment: No change in plan at this time. (K41.90) Non-recurrent unilateral femoral hernia without obstruction or gangrene Comment: scheduling today with general surgeon (R16.0) Hepatomegaly Comment: scheduling today for liver ultrasound Plan: CBC + DIFF, COMP METABOLIC PANEL (N40.1) Benign localized prostatic hyperplasia with lower urinary tract symptoms (LUTS) Comment: noted an elevated PSA in 2008 and again 2018. Recommend recheck and scheduling today with urology Plan: PSA/PROSTSPECAG DIAG, URINALYSIS, WITH MICROSCOPIC (R91.1) Pulmonary nodule Comment: follow with pulmonology. Patient had requested biopsy in April but he did not schedule. Will help with scheduling today. Salazar Stallworth DO Chief Complaint: Patient presents with: Follow Up Subjective Mr. Leach is a 68 year old male who presents for a number of issues. HPI Reports he continues to have with symptomatic femoral hernia with RLQ abdominal pain radiating into right groin. Has not yet seen surgeon or accomplished US liver. Denies N/V/D/C Presents for COPD management. Reports compliance with medication. Denies any side effects. Breathing improved with prednisone. Following with pulmonology. Denies any wheezing, excessive cough, inability to expectorate mucous, SOBOE or SOB. Reports he does have issues with completely emptying bladder and poor stream. Has not yet scheduled with urology. Related he has had elevated PSA in past. PAST MEDICAL HISTORY Diagnosis Date Asthma Chronic obstructive pulmonary disease (COPD) (HCC) GERD (gastroesophageal reflux disease) ALLERGIES Allergen Reactions Bacitracin Rash Social History Tobacco Use Smoking status: Former Packs/day: 1.50 Years: 48.00 Additional pack years: 0.00 Total pack years: 72.00 Types: Cigarettes Quit date: 2014 Years since quittin.9 Smokeless tobacco: Never Vaping Use Vaping Use: Never used Substance Use Topics Alcohol use: No Comment: quit in 1981 Drug use: No Current Outpatient Medications Medication Sig tiotropium (SPIRIVA WITH HANDIHALER) 18 mcg inhalation capsule INHALE THE CONTENTS OF 1 CAPSULE DAILY INSTRUCTED fluticasone-vilanterol (BREO ELLIPTA) 200-25 mcg/dose inhaler USE 1 INHALATION DAILY INSTRUCTED predniSONE (DELTASONE) 10 mg tablet Take 1 tablet by mouth once daily. albuterol HFA (PROAIR HFA) 90 mcg/actuation inhaler 2 Puffs every 4 hours as needed for wheezing/shortness of breath. Take as directed ipratropium-albuterol (DUONEB) 0.5 mg-3 mg(2.5 mg base)/3 mL nebu Inhale 3 mL as instructed every 6 hours as needed for wheezing/shortness of breath. TRIAMCINOLONE ACETONIDE TOPICAL Apply 0.5 % to affected area. cream No current facility-administered medications for this visit. I have confirmed and edited as necessary the chief complaint, medications, past medical, family and social histories obtained by others. REVIEW OF SYSTEMS PAIN ASSESSMENT: Negative for pain, history of chronic pain, or current treatment for a chronic pain condition. GENERAL: No weight loss, malaise or fevers RESPIRATORY: Negative for cough, hemoptysis, wheezing, COPD, dyspnea or shortness of breath CARDIOVASCULAR: Negative for chest pain, leg swelling, hypertension, CHF or palpitations GI: No nausea, vomiting, or diarrhea : Positive for decreased stream Objective BP 100/68 Pulse 64 Temp 97.6 Ht 5' 9 (1.75m) Wt 116 lb (52.6kg) SpO2 100% BMI 17.12 kg/(m2). Last BP 06/29/23 : 100/68 06/23/23 : 112/62 05/02/23 : 100/60 Last Wt 06/29/23 : 52.6 kg (116 lb) 06/23/23 : 52.6 kg (116 lb) 05/02/23 : 50.3 kg (1 (more content not included)... Normal [facility] CNPNon 06-29-2023 CNPN Telephone ([facility]) -- SARABJIT LEACH ([id number]) 1955 M DEF Date Time Provider Department 06/29/23 IAN TERESA ([facility]) [facility] During your visit today, we recorded the following information about you: Ian Teresa 06/29/2023 10:18 AM Signed Received request for lung biopsy at [facility]. Sending to radiologist for approval. Ian Teresa 06/29/2023 11:[address] Sharath Saenz---- I talked to Dr. Felix, and she has ordered a repeat CT, and then we will see. Allergies As of Date: 06/29/2023 Noted Allergy Reaction BACITRACIN 01/19/2020 2 - Rash Date Reviewed: 06/29/2023 Reviewed by: Salazar Stallworth DO - Fully Assessed Reason for Visit: Scheduling [3921] Cmt: Lung Biopsy Prescriptions as of 06/29/2023 - tiotropium (SPIRIVA WITH HANDIHALER) 18 mcg inhalation capsule INHALE THE CONTENTS OF 1 CAPSULE DAILY INSTRUCTED - fluticasone-vilanterol (BREO ELLIPTA) 200-25 mcg/dose inhaler USE 1 INHALATION DAILY INSTRUCTED - predniSONE (DELTASONE) 10 mg tablet Take 1 tablet by mouth once daily. - albuterol HFA (PROAIR HFA) 90 mcg/actuation inhaler 2 Puffs every 4 hours as needed for wheezing/shortness of breath. Take as directed - ipratropium-albuterol (DUONEB) 0.5 mg-3 mg(2.5 mg base)/3 mL nebu Inhale 3 mL as instructed every 6 hours as needed for wheezing/shortness of breath. - TRIAMCINOLONE ACETONIDE TOPICAL Apply 0.5 % to affected area. 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/2021 Irritable bowel syndrome [K58.9] 12/03/2021 Hepatomegaly [R16.0] 06/29/2023 Benign localized prostatic hyperplasia with low*06/29/2023 Pulmonary nodule [R91.1] 06/29/2023 Unilateral femoral hernia without obstruction o*06/29/2023 Encounter Status:Closed by IAN TERESA on 06/29/23 [facility] Comprehensive metabolic 2000 panelon 06-29-2023 Albumin [Mass/Vol] 4.0 g/dL Normal 3.9-4.9 [facility] Comment on above: Order Comment: Speci men Type: BLOOD SPECIMEN [facility] Address: [address] [place] [address] Performed By: #### 2 4323-8, 2856-1 #### [facility] CLIA [id number] [address] ALP [Catalytic activity/Vol] 72 U/L Normal 38-113 [facility] Comment on above: Order Comment: Speci men Type: BLOOD SPECIMEN [facility] Address: [address] [place] [address] Performed By: #### 2 432-8, 2856-1 #### [facility] CLIA [id number] [address] ALT With P-5'-P [Catalytic activity/Vol] 16 U/L Normal 10-54 [facility] Comment on above: Order Comment: Speci men Type: BLOOD SPECIMEN [facility] Address: [address] [place] [address] Performed By: #### 2 432-8, 2856-1 #### [facility] CLIA [id number] [address] Anion gap [Moles/Vol] 8 mmol/L Low 9-18 [facility] Comment on above: Order Comment: Speci men Type: BLOOD SPECIMEN [facility] Address: [address] [place] [address] Performed By: #### 2 4323-8, 2856-1 #### [facility] CLIA [id number] [address] OF [facility] AST With P-5'-P [Catalytic activity/Vol] 24 U/L Normal 14-40 [facility] Comment on above: Order Comment: Speci men Type: BLOOD SPECIMEN [facility] Address: [address] [place] [address] Performed By: #### 2 4323-8, 2856-1 #### [facility] CLIA [id number] [address] [place] Bilirubin [Mass/Vol] 0.4 mg/dL Normal 0.2-1.3 [facility] Comment on above: Order Comment: Speci men Type: BLOOD SPECIMEN [facility] Address: [address] [place] [address] Performed By: #### 2 4323-8, 2856-1 #### [facility] CLIA [id number] [address] [place] [address] [place] Calcium [Mass/Vol] 9.3 mg/dL Normal 8.5-10.2 [facility] Comment on above: Order Comment: Speci men Type: BLOOD SPECIMEN [facility] Address: [address] [place] [address] Performed By: #### 2 4323-02, 2856-07 #### [facility] CLIA [id number] [address] [place] [address] [place] Chloride [Moles/Vol] 104 mmol/L Normal 97-105 [facility] Comment on above: Order Comment: Speci men Type: BLOOD SPECIMEN [facility] Address: [address] [place] [address] Performed By: #### 2 8, 2856-07 #### [facility] CLIA [id number] [address] [place] [address] [place] CO2 [Moles/Vol] 29 mmol/L Normal 22-30 [facility] Comment on above: Order Comment: Speci men Type: BLOOD SPECIMEN [facility] Address: [address] [place] [address] Performed By: #### 2 8, 2856-07 #### [facility] CLIA [id number] [address] [place] [address] [place] Creatinine [Mass/Vol] 0.80 mg/dL Normal 0.73-1.22 [facility] Comment on above: Order Comment: Speci men Type: BLOOD SPECIMEN [facility] Address: [address] [place] [address] Performed By: #### 2 4328, 2856-1 #### [facility] CLIA [id number] [address] [place] [address] [place] Creatinine and Glomerular filtration rate.predicted panel (S/P/Bld) 95 mL/min/1.73m??? Normal >=60 [facility] Comment on above: Order Comment: [place] Type: BLOOD SPECIMEN [facility] Address: [address] [place] [address] Result Comment: Tanika mated Glomerular Filtration Rate (eGFR) is calculated using the 2020 CKD-EPI creatinine equation. This equation utilizes serum creatinine, sex, and age as parameters. The creatinine assay has traceable calibration to isotope dilution-mass spectrometry. Refer to KDIGO guidelines for clinical interpretation. In patients with unstable renal function, e.g. those with acute kidney injury, the eGFR may not accurately reflect actual GFR. Performed By: #### 2 4323-8, 2857-1 #### [facility] CLIA [id number] [address] [place] [address] [place] Glucose [Mass/Vol] 83 mg/dL Normal 74-99 [facility] Comment on above: Order Comment: [place] Type: BLOOD SPECIMEN [facility] Address: [address] [place] [address] Result Comment: The [place] Diabetes Association (ADA) provides guidance for cutoff values for fasting glucose and random glucose. The ADA defines fasting as no caloric intake for at least 8 hours. Fasting plasma glucose results between 100 to 125 mg/dL indicate increased risk for diabetes (prediabetes). Fasting plasma glucose results greater than or equal to 126 mg/dL meet the criteria for diagnosis of diabetes. In the absence of unequivocal hyperglycemia, results should be confirmed by repeat testing. In a patient with classic symptoms of hyperglycemia or hyperglycemic crisis, random plasma glucose results greater than or equal to 200 mg/dL meet the criteria for diagnosis of diabetes. Reference: Standards of Medical Care in Diabetes 2016, [place] [employer] Association. Diabetes Care. 2016.39(Suppl 1). Performed By: #### 2 4323-8, 2857-1 #### [facility] CLIA [id number] [address] [place] [address] [place] Potassium [Moles/Vol] 4.6 mmol/L Normal 3.7-5.1 [facility] Comment on above: Order Comment: Speci men Type: BLOOD SPECIMEN [facility] Address: [address] [place] [address] Performed By: #### 2 4323-8, 285-1 #### [facility] CLIA [id number] [address] [place] Protein [Mass/Vol] 6.6 g/dL Normal 6.3-8.0 [facility] Comment on above: Order Comment: Speci men Type: BLOOD SPECIMEN [facility] Address: [address] [place] [address] Performed By: #### 2 4323-8, 285-1 #### [facility] CLIA [id number] [address] [place] [address] [place] Sodium [Moles/Vol] 141 mmol/L Normal 136-144 [facility] Comment on above: Order Comment: Speci men Type: BLOOD SPECIMEN [facility] Address: [address] [place] [address] Performed By: #### 2 4323-8, 2856-1 #### [facility] CLIA [id number] [address] [place] [address] [place] Urea nitrogen [Mass/Vol] 17 mg/dL Normal 9-24 [facility] Comment on above: Order Comment: Speci men Type: BLOOD SPECIMEN [facility] Address: [address] [place] [address] Performed By: #### 2 4323-8, 285-1 #### [facility] CLIA [id number] [address] [place] [address] [place] PSA SerPl-mCncon 06-29-2023 Prostate specific Ag [Mass/Vol] 7.13 ng/mL High <2.60 [facility] Comment on above: Order Comment: Speci men Type: BLOOD SPECIMEN [facility] Address: [address] [place] [address] Result Comment: Tota l PSA test methodology used is the Electrochemiluminescence Immunoassay by [employer]. Total PSA values by differing methodologies cannot be interchanged. For an individual patient, the significance of a PSA level should be interpreted in a broad clinical context, including age, race, family history, digital rectal exam, prostate size, results of prior testing (prostate biopsy, free PSA, PCA3), and use of 5-alpha reductase inhibitors. Considering the high incidence of asymptomatic cancer in the general population that may not pose an ultimate risk to a patient, the decision to recommend urological evaluation or prostate biopsy should be individualized after consideration of all these factors. REFERENCE: Diane Hairston M.D., M.P.H., French Shen M.D., Ph.D., Bal Pendleton M.D., Isis Erickson, M.P.H., Mariam Tena, Sc.D. Effect of Verification Bias on Screening for Prostate Cancer by Measurement of Prostatic Specific Antigen. N Engl J Med 2003,349:335-42. Performed By: #### 2 4323-8, 2857-1 #### [id number] [address] [place] [address] OF [facility] CNOVon 06-23-2023 CNOV Office Visit ([facility] ) -- SARABJIT LEACH ([id number]) 1955 M DEF Date Time Provider Department 06/23/23 10:40 AM EDUARDA FELIX [facility] During your visit today, we recorded the following information about you: Blood pressure Weight Height 112/62 52.6 kg 1.753 m Eduarda Felix MD 06/23/2023 11:58 AM [facility] [place] [facility] established patient follow-up note SERVICE DATE: 06/23/2023 PRIMARY CARE PHYSICIAN: No primary care provider on file. COMMUNICATION WILL BE SENT VIA SHARED MEDICAL RECORDS OR US MAIL. SUBJECTIVE HPI:Sarabjit Leach is a 68 year old male here for follow appointment for COPD. Routine visit and past visit reviewed. Patient was last seen in the office on April around . Comes in for a follow-up. States that his symptoms significantly improved after starting 10 mg of prednisone daily. He is currently on a Breo and Spiriva and as needed albuterol and 10 mg of prednisone. Still continues to have cough with as little phlegm production. Denies any fever chills or night sweats. He has a right upper lobe a stable lung nodule. Patient requested for biopsy in the last visit and order placed but was never scheduled. Denies any weight loss. Denies any other symptoms. Follow up in future anticipated. Discussed with patient. SOCIAL HISTORY: Social History Tobacco Use Smoking status: Former Packs/day: 1.50 Years: 48.00 Additional pack years: 0.00 Total pack years: 72.00 Types: Cigarettes Quit date: 2014 Years since quittin.9 Smokeless tobacco: Never Vaping Use Vaping Use: Never used Substance Use Topics Alcohol use: No Comment: quit in 1981 Drug use: No MEDICATIONS: Prior to Admission Medications (Not in a hospital admission) tiotropium (SPIRIVA WITH HANDIHALER) 18 mcg inhalation capsule INHALE THE CONTENTS OF 1 CAPSULE DAILY INSTRUCTED fluticasone-vilanterol (BREO ELLIPTA) 200-25 mcg/dose inhaler USE 1 INHALATION DAILY INSTRUCTED predniSONE (DELTASONE) 10 mg tablet Take 1 tablet by mouth once daily. albuterol HFA (PROAIR HFA) 90 mcg/actuation inhaler 2 Puffs every 4 hours as needed for wheezing/shortness of breath. Take as directed ipratropium-albuterol (DUONEB) 0.5 mg-3 mg(2.5 mg base)/3 mL nebu Inhale 3 mL as instructed every 6 hours as needed for wheezing/shortness of breath. TRIAMCINOLONE ACETONIDE TOPICAL Apply 0.5 % to affected area. cream CURRENT ALLERGIES: ALLERGIES Allergen Reactions Bacitracin Rash REVIEW OF SYSTEMS Constitutional:NO EVIDENCE OF ACUTE DISTRESS HEENT:Negative for frequent or significant headaches RESPIRATORY: Cough; moist, productive with white sputum, Dyspnea CARDIOVASCULAR: Negative for chest pain, leg swelling or palpitations. GASTROINTESTINAL: Negative for abdominal discomfort, blood in stools or black stools or change in bowel habits GENITOURINARY: No history of dysuria, frequency or incontinence ENVIRONMENTAL TEST TECHNICIAN: NA MUSCULOSKELETAL: Negative for joint pain or swelling, back pain or muscle pain. NEUROLOGIC:Negative for focal numbness or weakness, headaches and dizziness or syncope. SKIN:Negative for lesions, rash, and itching. PSYCHIATRIC: Negative for sleep disturbance, mood disorder and recent psychosocial stressors. HEMATOLOGIC/LYMPHATIC/IMMU NOLOGIC:{HEMATOLOGY/LYMPHA TIC/IMMUNOLO ENDOCRINE: Negative for cold or heat intolerance, polyuria, polydipsia and goiter. The remainder of the ROS was negative. PHYSICAL EXAMINATION: VITAL SIGNS: BP 112/62 Ht 5' 9 (1.75m) Wt 116 lb (52.6kg) BMI 17.12 kg/(m2). General appearance: well appearing, alert, and in no acute distress Skin: skin color, texture, turgor normal, no rashes or lesions Eyes: Anicteric sclera. Pupils are equally round and reactive to light. Extraocular movements are intact. ENT: No oral or nasal erythema, bleeding, lesions, striae Heme/Lymph:Negative Lungs: Diminished breath sounds bilaterally. No wheezing or rhonchi Heart: RRR without murmur, gallop, or rubs. No ectopy GI: Normal abdominal exam Musculoskeletal: Extremities normal. No deformities, edema, or skin discoloration. Good capillary refill. Psych: no history of psychiatric problems Neuro: Gait normal. Reflexes normal and symmetric. Sensation grossly intact. DATA: Vaccines as noted EMR Diagnostic tests reviewed for today's visit: Labs: CBC with diff: WBC 8.46 03/16/2023 RBC 4.93 03/16/2023 HGB 14.3 03/16/2023 Hematocrit 44.0 03/16/2023 MCV 89.2 03/16/2023 MCH 29.0 03/16/2023 MCHC 32.5 03/16/2023 RDW-CV 14.1 03/16/2023 Platelet Count 223 03/16/2023 MPV 9.9 03/16/2023 Neutrophils % 82.1 10/05/2022 Lymphocytes % 8.6 10/05/2022 Monocytes % 6.6 10/05/2022 Basophils % 0.7 10/05/2022 Abs Neut (Segs + Bands) 9.96 10/05/2022 Abs [place] 0.80 10/05/2022 Abs Eosin 0.21 10/05/2022 Abs Baso 0.09 10/05/2022 CT chest: 04/22/23: IMPRESSION: Severe emphysema with mild (more content not included)... Normal [facility] CNOVon 05-02-2023 CNOV Office Visit (PULMJM ) -- SARABJIT LEACH ([id number]) 1955 M DEF Date Time Provider Department 05/02/23 10:40 AM [facility] During your visit today, we recorded the following information about you: Pulse Blood pressure Weight Height 79/minute 100/60 50.3 kg 1.753 m Eduarda Felix MD 05/02/2023 12:46 PM Signed Respiratory [place] [facility] established patient follow-up note SERVICE DATE: 05/02/2023 PRIMARY CARE PHYSICIAN: No primary care provider on file. COMMUNICATION WILL BE SENT VIA SHARED MEDICAL RECORDS OR US MAIL. SUBJECTIVE HPI:Sarabjit Leach is a 67 year old male here for follow appointment for COPD. Routine visit and past visit reviewed. Patient comes in for follow-up after recent CT scan. Patient states that he has not been feeling well for the last couple of days. Feels very weak and tired. Denies any fever but states that he feels very cold. He is currently on Breo and Spiriva. Also on DuoNebs and albuterol. Feels very SOB and has dyspnea on minimal exertion. Salad from He recently had a CT chest done which showed a stable right upper lobe lung nodule 1.2 cm spiculated. Patient states that he feels very weak and tired and is getting very short of breath on minimal exertion. States that he might go to the emergency room to get admitted in the hospital. Follow up in future anticipated. Discussed with patient. SOCIAL HISTORY: Social History Tobacco Use Smoking status: Former Packs/day: 1.50 Years: 48.00 Additional pack years: 0.00 Total pack years: 72.00 Types: Cigarettes Quit date: 2015 Years since quittin.7 Smokeless tobacco: Never Vaping Use Vaping Use: Never used Substance Use Topics Alcohol use: No Comment: quit in 1981 Drug use: No MEDICATIONS: Prior to Admission Medications (Not in a hospital admission) ipratropium-albuterol (DUONEB) 0.5 mg-3 mg(2.5 mg base)/3 mL nebu Inhale 3 mL as instructed every 6 hours as needed for wheezing/shortness of breath. azithromycin (ZITHROMAX) 250 mg tablet Take 2 tabs on the first day, then one tab daily for 4 days. predniSONE (DELTASONE) 10 mg tablet Take 4 pills daily for 4 days, Then 3 pills daily for 4 days, Then 2 pills daily for 4 days, Then 1 pill daily for 4 days, Then stop. fluticasone-vilanterol (BREO ELLIPTA) 200-25 mcg/dose inhaler USE 1 INHALATION DAILY INSTRUCTED TRIAMCINOLONE ACETONIDE TOPICAL Apply 0.5 % to affected area. cream SPIRIVA WITH HANDIHALER 18 mcg inhalation capsule INHALE THE CONTENTS OF 1 CAPSULE DAILY INSTRUCTED albuterol HFA (PROAIR HFA) 90 mcg/actuation inhaler 2 Puffs every 4 hours as needed for wheezing/shortness of breath. Take as directed CURRENT ALLERGIES: ALLERGIES Allergen Reactions Bacitracin Rash REVIEW OF SYSTEMS Constitutional:NO EVIDENCE OF ACUTE DISTRESS. Feels very tired HEENT:Negative for frequent or significant headaches RESPIRATORY: Dyspnea, Shortness of breath CARDIOVASCULAR: Decreasing exercise tolerence, Negative for chest pain, leg swelling or palpitations. GASTROINTESTINAL: Negative for abdominal discomfort, blood in stools or black stools or change in bowel habits GENITOURINARY: No history of dysuria, frequency or incontinence ENVIRONMENTAL TEST TECHNICIAN: NA MUSCULOSKELETAL: Negative for joint pain or swelling, back pain or muscle pain. NEUROLOGIC:Negative for focal numbness or weakness, headaches and dizziness or syncope. SKIN:Negative for lesions, rash, and itching. PSYCHIATRIC: Negative for sleep disturbance, mood disorder and recent psychosocial stressors. HEMATOLOGIC/LYMPHATIC/IMMU NOLOGIC:{HEMATOLOGY/LYMPHA TIC/IMMUNOLO ENDOCRINE: Negative for cold or heat intolerance, polyuria, polydipsia and goiter. The remainder of the ROS was negative. PHYSICAL EXAMINATION: VITAL SIGNS: Ht 5' 9 (1.75m) Wt 111 lb (50.3kg) BMI 16.38 kg/(m2). General appearance: Thin, alert, and in no acute distress Skin: skin color, texture, turgor normal, no rashes or lesions Eyes: Anicteric sclera. Pupils are equally round and reactive to light. Extraocular movements are intact. ENT: No oral or nasal erythema, bleeding, lesions, striae Heme/Lymph:Negative Lungs: Very diminished breath sounds bilaterally, no wheezing or rhonchi Heart: RRR without murmur, gallop, or rubs. No ectopy GI: Normal abdominal exam Musculoskeletal: Extremities normal. No deformities, edema, or skin discoloration. Good capillary refill. Psych: no history of psychiatric problems Neuro: Gait normal. Reflexes normal and symmetric. Sensation grossly intact. DATA: Vaccines as noted EMR Diagnostic tests reviewed for today's visit: Labs: CBC with diff: WBC 8.46 03/16/2023 RBC 4.93 03/16/2023 HGB 14.3 03/16/2023 Hematocrit 44.0 03/16/2023 MCV 89.2 03/16/2023 MCH 29.0 03/16/2023 MCHC 32.5 03/16/2023 RDW-CV 14.1 03/16/2023 Platelet Count 223 03/16/2023 MPV 9.9 03/16/2023 (more content not included)... [facility] 05-02-2023 [facility] Telephone ([facility]) -- SARABJIT LEACH ([id number]) 1955 M DEF Date Time Provider Department 05/02/23 EDUARDA FELIX [facility] During your visit today, we recorded the following information about you: Lemuel Duckworth MA 05/02/2023 2:48 PM Signed Sent message to [facility] [employer] [place] for scheduling of Imaging Guided Biopsy of lung to be done in [place]. Lemuel Duckworth MA Allergies As of Date: 05/02/2023 Noted Allergy Reaction BACITRACIN 01/19/2020 2 - Rash Date Reviewed: 05/02/2023 Reviewed by: Garret Abreu MA - Fully Assessed Reason for Visit: FYI-No Action Needed [265] Prescriptions as of 05/02/2023 - predniSONE (DELTASONE) 10 mg tablet Take 1 tablet by mouth once daily. - albuterol HFA (PROAIR HFA) 90 mcg/actuation inhaler 2 Puffs every 4 hours as needed for wheezing/shortness of breath. Take as directed - ipratropium-albuterol (DUONEB) 0.5 mg-3 mg(2.5 mg base)/3 mL nebu Inhale 3 mL as instructed every 6 hours as needed for wheezing/shortness of breath. - fluticasone-vilanterol (BREO ELLIPTA) 200-25 mcg/dose inhaler USE 1 INHALATION DAILY INSTRUCTED - TRIAMCINOLONE ACETONIDE TOPICAL Apply 0.5 % to affected area. 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] 05/06/2021 Irritable bowel syndrome [K58.9] 12/03/2021 Encounter Status:Closed by LEMUEL DUCKWORTH on 05/02/[address] [facility] [address] CHEST WO IVCONon 04-22-20 [facility] AUTO DIFFon 03-28-2023 Baso Count 0.10 x1000 Normal 0.00-0.20 [facility] Comment on above: Performed By: #### 1 86311, 127589, 7308100, 729928, CD:[id number] #### [facility] [address] [place] [address] 77884 Underwriting Consultant: Jeremias Garcia MD Basos % 0.9 % Normal [facility] Comment on above: Performed By: #### 1 28384, 059038, 4057935, 043993, CD:[id number] #### [facility] [address] [place] [address] 39972 Underwriting Consultant: Jeremias Garcia MD Eos Count 0.20 x1000 Normal 0.00-0.50 [facility] Comment on above: Performed By: #### 1 05642, 579083, 8350901, 472326, CD:[id number] #### [facility] [address] [place] [address] 70510 Underwriting Consultant: Jeremias Garcia MD Eosinophils/100 WBC (Bld) 2.0 % Normal [facility] Comment on above: Performed By: #### 1 99027, 463636, 7818812, 618773, CD:[id number] #### [facility] [address] [place] [address] 79552 Underwriting Consultant: Jeremias Garcia MD Lymph Count 1.30 x1000 Normal 1.20-4.80 [facility] Comment on above: Performed By: #### 1 29966, 310836, 0588001, 539351, CD:[id number] #### [facility] [address] [place] [address] 05167 Underwriting Consultant: Jeremias Garcia MD Lymphocytes/100 WBC (Bld) 15.4 % Normal [facility] Comment on above: Performed By: #### 1 80295, 088114, 6165726, 721417, CD:[id number] #### [facility] [address] [place] [address] 33725 Underwriting Consultant: Jeremias Garcia MD [place] Count 0.70 x1000 Normal 0.10-1.00 [facility] Comment on above: Performed By: #### 1 53851, 068314, 0898399, 121069, CD:[id number] #### [facility] [address] [place] [address] 85094 Underwriting Consultant: Jeremias Garcia MD Monocytes/100 WBC (Bld) 9.1 % Normal [facility] Comment on above: Performed By: #### 1 90934, 818852, 2163848, 273497, CD:[id number] #### [facility] [address] [place] [address] 17682 Underwriting Consultant: Jeremias Garcia MD Neutrophil Count (ANC) 6.00 x1000 Normal 1.40-8.80 [facility] Comment on above: Performed By: #### 1 85448, 665684, 1763871, 376775, CD:[id number] #### [facility] [address] [place] [address] 12885 Underwriting Consultant: Jeremias Garcia MD Neutrophils/100 WBC (Bld) 72.6 % Normal [facility] Comment on above: Performed By: #### 1 54655, 377109, 1588203, 723585, CD:[id number] #### [facility] [address] [place] [address] 96974 Underwriting Consultant: MD CHRISTINA HernandezMETAotriny 03-28-2023 Albumin [Mass/Vol] 3.6 g/dL Normal 3.4-5.0 [facility] Comment on above: Performed By: #### 1 06490, 971711, 3774936, 040614, CD:[id number] #### [facility] [address] [place] [address] 10690 Underwriting Consultant: Jreemias Garcia MD Albumin/Globulin [Mass ratio] 1.4 {ratio} Normal [facility] Comment on above: Performed By: #### 1 82344, 657632, 6759675, 786149, CD:[id number] #### [facility] [address] [place] [address] Underwriting Consultant: Jeremias Garcia MD Alk Phos 78 unit/L Normal 45-117 [facility] Comment on above: Performed By: #### 1 60661, 866892, 5717965, 049498, CD:[id number] #### [facility] [address] [place] [address] 59762 Underwriting Consultant: Jeremias Garcia MD Bilirubin [Mass/Vol] 0.50 mg/dL Normal 0.20-1.00 [facility] Comment on above: Result Comment: Use of this assay is not recommended for patients undergoing treatment with eltrombopag due to the potential for falsely elevated results. Performed By: #### 1 04130, 964644, 3843964, 726926, CD:[id number] #### [facility] [address] [place] [address] 08953 Underwriting Consultant: Jeremias Garcia MD Calcium [Mass/Vol] 8.8 mg/dL Normal 8.5-10.5 [facility] Comment on above: Performed By: #### 1 83436, 150874, 8367705, 690773, CD:[id number] #### [facility] [address] [place] [address] 02641 Underwriting Consultant: Jeremias Garcia MD Chloride [Moles/Vol] 105 mmol/L Normal 100-109 [facility] Comment on above: Performed By: #### 1 32235, 982509, 3718639, 362353, CD:[id number] #### [facility] [address] [place] [address] 74145 Underwriting Consultant: Jeremias Garcia MD CO2 [Moles/Vol] 27.8 mmol/L Normal 21.0-32.0 [facility] Comment on above: Performed By: #### 1 07480, 253198, 4201123, 498335, CD:[id number] #### [facility] [address] [place] [address] Underwriting Consultant: Jeremias Garcia MD Creatinine [Mass/Vol] 1.0 mg/dL Normal 0.7-1.3 [facility] Comment on above: Performed By: #### 1 75876, 032472, 1217159, 335207, CD:[id number] #### [facility] [address] [place] [address] Underwriting Consultant: Jeremias Garcia MD Globulin (S) [Mass/Vol] 2.5 g/dL Normal [facility] Comment on above: Performed By: #### 1 23188, 970608, 0892304, 276963, CD:[id number] #### [facility] [address] [place] [address] 32400 Underwriting Consultant: Jeremias Garcia MD Glucose [Mass/Vol] 92 mg/dL Normal 72-100 [facility] Comment on above: Result Comment: Itzel puncture should occur prior to sulfasalazine administration due to the potential for falsely depressed results. Venipuncture should occur prior to sulfapyridine administration due to the potential falsely elevated results. Baseline assay values before administration of sulfasalazine and sulfapyridine therapy would not be affected. Performed By: #### 1 37340, 585594, 2498584, 709103, CD:[id number] #### [facility] [address] [place] [address] 18728 Underwriting Consultant: Jeremias Garcia MD GOT 23 unit/L Normal 15-37 [facility] Comment on above: Result Comment: Itzel puncture should occur prior to sulfasalazine administration due to the potential for falsely depressed results. Baseline assay values before administration of sulfasalazine and sulfapyridine therapy would not be affected. Performed By: #### 1 21534, 824811, 6742366, 958642, CD:[id number] #### [facility] [address] [place] [address] Underwriting Consultant: Jeremias Garcia MD GPT 21 unit/L Normal 16-63 [facility] Comment on above: Result Comment: Itzel puncture should occur prior to sulfasalazine administration due to the potential for falsely depressed results. Baseline assay values before administration of sulfasalazine and sulfapyridine therapy would not be affected. Performed By: #### 1 16995, 131654, 9747824, 644467, CD:[id number] #### [facility] [address] [place] [address] 88586 Underwriting Consultant: Jeremias Garcia MD Osmolality [Osmolality] 284 mosm/kg Normal 275-295 [facility] Comment on above: Performed By: #### 1 21923, 461382, 5352725, 656220, CD:[id number] #### [facility] [address] [place] [address] 14041 Underwriting Consultant: Jeremias Garcia MD Potassium [Moles/Vol] 4.0 mmol/L Normal 3.5-5.1 [facility] Comment on above: Performed By: #### 1 21097, 190432, 2580230, 340730, CD:[id number] #### [facility] [address] [place] [address] 53136 Underwriting Consultant: Jeremias Garcia MD Protein [Mass/Vol] 6.1 g/dL Normal 6.0-8.5 [facility] Comment on above: Performed By: #### 1 76008, 033030, 1164026, 176711, CD:[id number] #### [facility] [address] [place] [address] 98351 Underwriting Consultant: Jeremias Garcia MD Sodium [Moles/Vol] 142 mmol/L Normal 135-145 [facility] Comment on above: Performed By: #### 1 39991, 459606, 4590747, 832754, CD:[id number] #### [facility] [address] [place] [address] 24266 Underwriting Consultant: Jeremias Garcia MD Urea nitrogen [Mass/Vol] 16 mg/dL Normal 10-20 [facility] Comment on above: Performed By: #### 1 54709, 211816, 5813029, 415846, CD:[id number] #### [facility] [address] [place], [place] [id number] Underwriting Consultant: Jeremias Garcia MD Urea nitrogen/Creatinine [Mass ratio] 16.0 mg/mg Normal [facility] Comment on above: Performed By: #### 1 35859, 628567, 2826861, 409903, CD:[id number] #### [facility] [address] [place] [address] Underwriting Consultant: Jeremias Garcia MD CT ANGIO CHESTon 03-28-2023 CT ANGIO CHEST ADDENDUM #1 Results were called to ordering provider at 5:09 PM Central time. Electronically signed by: Serg Amaya MD 03/28/2023 5:11 PM CDT ORIGINAL REPORT PROCEDURE: CT CHEST ANGIOGRAPHY WITH IV CONTRAST, 03/28/2023 4:33 PM CDT CLINICAL INDICATION: Right side chest pain, sob. h/o nodules;PAIN. COMPARISON: None TECHNIQUE: Postcontrast helical CT acquisition performed from the level of the lung apices to the adrenal glands with coronal and sagittal reformats including MIP coronal and sagittal reformatted images. CT Dose reduction techniques were utilized for this examination with 1 or more of the following: Automated exposure control and/or adjustment of the mA or kV according to patient size, and/or use of iterative reconstruction technique. IV Contrast: Nonionic iodinated contrast. Complications: None. FINDINGS: Pulmonary arteries:No evidence of pulmonary embolus identified. Mediastinum: No lymphadenopathy. No significant pericardial effusion. Lungs: Vague density in the right upper lobe measuring up to 1.5 cm x 0.9 cm, cannot exclude adjacent spiculation or scarring. Diffuse emphysema. No pleural effusions or pneumothoraces. Upper Abdomen: Large amount of contrast refluxes into the IVC extends into the right renal vein as well as hepatic venous system outlining majority of the hepatic small branch veins. Appearance is highly suspicious for marked right-sided heart failure or markedly decreased cardiac output. Clinical correlation and further correlation is advised for etiology. Bones: No acute displaced fracture. IMPRESSION: Large amount of contrast refluxes into the IVC extends into the right renal vein as well as hepatic venous system outlining majority of the hepatic small branch veins. Appearance is highly suspicious for marked right-sided heart failure or markedly decreased cardiac output. Clinical correlation and further correlation is advised for etiology. 12 mm nodular density within the upper lobe may reflect suspicious right pulmonary nodule. Malignancy is possible given the appearance. Per Fleischner Society Guidelines, consider a non-contrast Chest CT at 3 months, a PET/CT, or tissue sampling. These guidelines do not apply to immunocompromised patients and patients with cancer. Follow up in patients with significant comorbidities as clinically warranted. For lung cancer screening, adhere to Lung-RADS guidelines. Reference: Radiology. 2017; 284(1):228-43. Diffuse emphysema. Electronically signed by: Serg Amaya MD 03/28/2023 4:44 PM CDT Technologist: TK Dictated By: SERG AMAYA MD Signed By: SERG AMAYA MD Signed Out: 03/28/23 18:11:20 Normal [facility] ED Adult Data - Texton 03-28 ED Adult Data - Text ED Adult Data Enter ed On: 03/28/2023 15:52 EDT Performed On: 03/28/2023 15:30 EDT by Carline Márquez RN Arrival Information Information Given by : Patient Referral Source ED : Home [facility] Mode of Arrival : Car / Walk-In Carline Márquez RN - 03/28/2023 15:51 EDT Screening-General Meds Triage : NA Accept Blood Products if Necessary : Unknown/Other Immunizations Current : Unknown Last Tetanus : Unknown Status : N/A Carline Márquez RN - 03/28/2023 15:51 EDT Depression Screening Patient able to verbalize? : Yes Feeling Down, Depressed, Hopeless : Not at all Little Interest - Pleasure in Activities : Not at all Initial Depression Screen Score : 0 Depression Screening Score 0 : No IP Pt being evaluated or treated for BH conditions : No Carline Márquez RN - 03/28/2023 15:51 EDT Screening-Safety Abuse/Violence Concerns? : Patient denies Does the patient have a medically restricted extremity? : Carline James RN - 03/28/2023 15:51 EDT Problem List Problem List obtained from : Patient Carline Márquez RN - 03/28/2023 15:51 EDT (As Of: 03/28/2023 15:52:36 EDT) Problems(Active) COPD (chronic obstructive pulmonary disease) (SNOMED CT :84810604 ) Name of Problem: COPD (chronic obstructive pulmonary disease) ; Recorder: Carline Márquez RN; Confirmation: Confirmed ; Classification: Medical ; Code: [id number] ; Contributor System: [employer] ; Last Updated: 03/28/2023 15:42 EDT ; Life Cycle Date: 03/28/2023 ; Life Cycle Status: Active ; Vocabulary: SNOMED CT Diagnoses(Active) Back pain Date: 03/28/2023 ; Diagnosis Type: Reason For Visit ; Confirmation: Confirmed ; Clinical Dx: Back pain ; Classification: Medical ; Clinical Service: Non-Specified ; Code: PNED ; Probability: 0 ; Diagnosis Code: [id number] Procedure History ED Devices Present on Arrival To ED : None Urinary Catheter Present on Admit to ED : No Carline Márquez RN - 03/28/2023 15:51 EDT - Procedure History (As Of: 03/28/2023 15:52:36 EDT) Social History Does pt have any alcohol,drugs or tobacco : No Do you consume Alcohol : No Social History obtained from : Patient Carline Márquez RN - 03/28/2023 15:51 EDT Social History (As Of: 03/28/2023 15:52:36 EDT) Infection Screening Last Physical Overnight Location of the Patient : Personal Residence Travel outside [place] within past 30 days : No Exposure AND/OR close contact with a person under investigation or laboratory-confirmed COVID-19 individual within 14 days of symptom onset AND/OR any of the following: : No Do you live/work in a high risk situation (congregated living, hemodialysis, infusion clinic, detention, assisted living, chcf, homeless halfway, etc.)? : No Carline Márquez RN - 03/28/2023 15:51 EDT Normal [facility] ED Discharge Educationon ED Discharge Education Orthopedics and Rheumatology Shoulder Pain: Care Instructions Your Care Instructions You can hurt your shoulder by using it too much during an activity, such as fishing or baseball. It can also happen as part of the everyday wear and tear of getting older. Shoulder injuries can be slow to heal, but your shoulder should get better with time. Your doctor may recommend a sling to rest your shoulder. If you have injured your shoulder, you may need testing and treatment. Follow-up care is a smith part of your treatment and safety. Be sure to make and go to all appointments, and call your doctor if you are having problems. It's also a good idea to know your test results and keep a list of the medicines you take. How can you care for yourself at home? ? Take pain medicines exactly as directed. ? If the doctor gave you a prescription medicine for pain, take it as prescribed. ? If you are not taking a prescription pain medicine, ask your doctor if you can take an [id number] medicine. ? Do not take two or more pain medicines at the same time unless the doctor told you to. Many pain medicines contain acetaminophen, which is Tylenol. Too much acetaminophen (Tylenol) can be harmful. ? If your doctor recommends that you wear a sling, use it as directed. Do not take it off before your doctor tells you to. ? Put ice or a cold pack on the sore area for 10 to 20 minutes at a time. Put a thin cloth between the ice and your skin. ? If there is no swelling, you can put moist heat, a heating pad, or a warm cloth on your shoulder. Some doctors suggest alternating between hot and cold. ? Rest your shoulder for a few days. If your doctor recommends it, you can then begin gentle exercise of the shoulder, but do not lift anything heavy. When should you call for help? Call 911 anytime you think you may need emergency care. For example, call if: ? You have chest pain or pressure. This may occur with: ? Sweating. ? Shortness of breath. ? Nausea or vomiting. ? Pain that spreads from the chest to the neck, jaw, or one or both shoulders or arms. ? Dizziness or lightheadedness. ? A fast or uneven pulse. After calling 911, chew 1 adult-strength aspirin. Wait for an ambulance. Do not try to drive yourself. ? Your arm or hand is cool or pale or changes color. Call your doctor now or seek immediate medical care if: ? You have signs of infection, such as: ? Increased pain, swelling, warmth, or redness in your shoulder. ? Red streaks leading from a place on your shoulder. ? Pus draining from an area of your shoulder. ? Swollen lymph nodes in your neck, armpits, or groin. ? A fever. Watch closely for changes in your health, and be sure to contact your doctor if: ? You cannot use your shoulder. ? Your shoulder does not get better as expected. Where can you learn more? Go to https://www.[employer].net /patientEd Enter H996 in the search box to learn more about Shoulder Pain: Care Instructions. Current as of: September 30, 2021 Content Version: 13.3 ? [employer]. Care instructions adapted under license by your healthcare professional. If you have questions about a medical condition or this instruction, always ask your healthcare professional. [employer] disclaims any warranty or liability for your use of this information. [facility] ED Emergency Severity Index Adult-Texton 03-28-2023 ED Emergency Severity Index Adult-Text MISAEL - Adult Entered On: 03/28/2023 15:41 EDT Performed On: 03/28/2023 15:30 EDT by Carline Márquez RN DCP GENERIC CODE Tracking Group : Carline Crain RN - 03/28/2023 15:41 EDT Tracking Triage Date/Time : 03/28/2023 15:41 EDT Tracking Acuity : 3-Urgent Carline Márquez RN - 03/28/2023 16:05 EDT Tracking Reg Status : Requested Visit Reason : upper back and shoulder pain [facility] ED Nrsing Adlt Triage Sep Sc rning - Texton 03-28-2023 ED Nrsing Adlt Triage Sep Scrning - Text ED Nursing Adult Triage Sepsis Screening Tool Entered On: 03/28/2023 15:41 EDT Performed On: 03/28/2023 15:30 EDT by Carline Márquez RN Adult Sepsis Screening Sepsis Infection Screening ED : No Carline Márquez RN - 03/28/2023 15:41 EDT [facility] ED Patient Summaryon 023 ED Patient Summary [facility] Emergency Department Discharge Instructions [address] [place] [address] (Patient Copy) Name: LEACH SARABJIT : 1955 Allergies: No Known Medication Allergies Diagnosis: Shoulder pain Visit Date: 03/28/2023 15:28:36 Current Date Time: 03/28/2023 20:50:14 Address: [address] [place] [id number] Primary Care Provider: Name: NO FAMILY PHYSICIAN, 837 Phone: Emergency Department Care Providers: Primary Physician: GISELA HSU MD Thank you for choosing [facility] for your emergency care. You are very important to us. Our goal is to demonstrate our high quality medical care, and provide you with a very good patient experience. You may receive a survey about our service. Please take the time to complete the survey and return it so we can continue to enhance our service. Thank you again for allowing the [facility] Emergency Department to care for your medical needs. If you have questions about your care or follow up information please contact us at [phone]. Follow-Up Instructions SARABJIT LEACH has been given these follow-up instructions: With: Address: When: ENRRIQUE COLMENARES, Cardiology [address] [facility], [address] [place] [address] Business (1) Within 1 to 2 days Patient Education Materials SARABJIT LEACH has been given the following patient education materials: Shoulder Pain: Care Instructions Your Care Instructions You can hurt your shoulder by using it too much during an activity, such as fishing or baseball. It can also happen as part of the everyday wear and tear of getting older. Shoulder injuries can be slow to heal, but your shoulder should get better with time. Your doctor may recommend a sling to rest your shoulder. If you have injured your shoulder, you may need testing and treatment. Follow-up care is a smith part of your treatment and safety. Be sure to make and go to all appointments, and call your doctor if you are having problems. It's also a good idea to know your test results and keep a list of the medicines you take. How can you care for yourself at home? ? Take pain medicines exactly as directed. ? If the doctor gave you a prescription medicine for pain, take it as prescribed. ? If you are not taking a prescription pain medicine, ask your doctor if you can take an vzwc-tkq-zryaqex medicine. ? Do not take two or more pain medicines at the same time unless the doctor told you to. Many pain medicines contain acetaminophen, which is Tylenol. Too much acetaminophen (Tylenol) can be harmful. ? If your doctor recommends that you wear a sling, use it as directed. Do not take it off before your doctor tells you to. ? Put ice or a cold pack on the sore area for 10 to 20 minutes at a time. Put a thin cloth between the ice and your skin. ? If there is no swelling, you can put moist heat, a heating pad, or a warm cloth on your shoulder. Some doctors suggest alternating between hot and cold. ? Rest your shoulder for a few days. If your doctor recommends it, you can then begin gentle exercise of the shoulder, but do not lift anything heavy. When should you call for help? Call 911 anytime you think you may need emergency care. For example, call if: ? You have chest pain or pressure. This may occur with: ? Sweating. ? Shortness of breath. ? Nausea or vomiting. ? Pain that spreads from the chest to the neck, jaw, or one or both shoulders or arms. ? Dizziness or lightheadedness. ? A fast or uneven pulse. After calling 911, chew 1 adult-strength aspirin. Wait for an ambulance. Do not try to drive yourself. ? Your arm or hand is cool or pale or changes color. Call your doctor now or seek immediate medical care if: ? You have signs of infection, such as: ? Increased pain, swelling, warmth, or redness in your shoulder. ? Red streaks leading from a place on your shoulder. ? Pus draining from an area of your shoulder. ? Swollen lymph nodes in your neck, armpits, or groin. ? A fever. Watch closely for changes in your health, and be sure to contact your doctor if: ? You cannot use your shoulder. ? Your shoulder does not get better as expected. Where can you learn more? Go to https://www.[employer].net /patientEd Enter H996 in the search box to learn more about Shoulder Pain: Care Instructions. Current as of: September 30, 2021 Content Version: 13.3 ? [employer]. Care instructions adapted under license by your healthcare professional. If you have questions about a medical condition or this instruction, always ask your healthcare professional. [employer] disclaims any warranty or liability for your use of this information. (more content not included)... [facility] ED Physician Reporton 2022 ED Physician Report SARABJIT LEACH :1955 Registration Date:03/28/2023 Basic Information Chief complaint of chest and shoulder pain. History of Present Illness Patient presents with RIGHT shoulder and right lateral chest pain for the past 5 days or so. The pain is worse when he takes a deep breath. He denies any traumatic injury. He has a history of smoking and was diagnosed with COPD about 3 years ago. He says he is concerned that he may have lung cancer. They have been watching multiple lung nodules and his physicians have expressed concern although he has never had a biopsy. Physical Exam Vitals & Measurements Initial: T: 36.5 ?C (Oral) HR: 68 (Peripheral) BP: 124/67 RR: 18 SpO2: 96% O2 Therapy: Room air General: Awake, alert, no acute distress. Well developed, appears stated age. Skin: Warm, dry, and intact. Appropriate color for ethnicity. Head: Normocephalic and atraumatic. Hair is of normal texture. Eyes: Conjunctivae are clear without exudates or hemorrhage. Sclera is non-icteric. Cardiovascular: Regular rate and rhythm, right lateral chest wall tenderness Respiratory: The chest wall is symmetric. No signs of respiratory distress. Abdomen: Soft and without distention. No tenderness to palpation. Musculoskeletal: Upper and lower extremities are without deformity. No tenderness. Neurological: Awake, alert, normal speech. Gait is normal. Psychiatric: Appropriate mood and affect. Normal judgement and insight Medical Decision Making Differential diagnosis includes: Acute TX, pulmonary embolism, lung CTA, pneumonia, musculoskeletal pain Reexamination/Reevaluation Patient's lab work returned an elevated troponin although 2-hour delta troponin was unchanged. He is denying having left-sided chest pain. He has some pain very laterally on the right and in the right shoulder. I suspect his troponin may be chronically elevated due to the lack of change. proBNP was mildly elevated at 480. It is CT angio of the chest which showed no pulmonary embolism. It did show the concerning pulmonary nodule which she had mention. It also showed reflux of contrast into the hepatic venous system. The results were discussed with him and I consulted cardiology, Dr. Mejias. He recommended admission however the patient states that he just started a new job and he does not feel he can be admitted. I discussed with him twice and I recommended that he would be admitted. I explained with he could have an issue with his heart which could lead to permanent disability or . He understands these risks and still wishes to be discharged AGAINST MEDICAL ADVICE. He will be given follow-up information to cardiology. He will follow-up with his welt maker as well. All of the patient's concerns that were expressed to me during this visit have been addressed and immediate life threatening emergencies have been ruled out. All questions that the patient had were answered to the best of my ability prior to leaving the facility. The patient was instructed to return to the ER in the event of new, or worsening, or concerning symptoms. The patient verbally expressed a clear understanding of the diagnosis and the instructions. Dictation software was used to complete this note and may contain unintentional level vial curvature gauger errors. Systolic Blood Pressure: 124 mmHg Diastolic Blood Pressure: 67 mmHg Temperature Oral: 36.5 degC Respiratory Rate: 18 br/min SpO2: 96 % Oxygen Therapy: Room air Peripheral Pulse Rate: 68 bpm Discharge/Plan *Discharge Disposition ED Discharge to Home - Ordered -- 03/28/2023 19:34:00 EDT, Constant Order Patient Education Shoulder Pain Follow Up With When Contact Information ENRRIQUE COLMENARES, Cardiology Within 1 to 2 days [address] [facility] [address] [place] [address] Business (1) Additional Instructions: Assessment This Visit Diagnosis Shoulder pain M25.519 Orders: diclofenac(diclofenac sodium (= Voltaren) 25 mg oral delayed release tablet), 25 mg= 1 tabs, ORAL, [id number], PRN CBCWD(CBC WITH DIFF), STAT, 03/28/2023 15:49:00 EDT COMPMETA(CMP), STAT, 03/28/2023 15:49:[address] ANGIO CHEST, 03/28/2023 15:50:00 EDT, STAT, PAIN, Right side chest pain, sob. h/o nodules, Cart ED Discharge to Home, 03/28/2023 19:34:00 EDT, Constant Order EKG, 03/28/2023 15:54:00 EDT, Chest Pain, Cart, Heart Meds Unknown at this time, GERALDINE, No EKG/[place] Requested proBNP, STAT, 03/28/2023 17:53:00 EDT PT INR, STAT, 03/28/2023 15:49:00 EDT TROPONIN HS 2HR, TIMED STUDY, 03/28/2023 19:43:00 EDT TROPONIN HS 6HR, TIMED STUDY, 03/28/2023 23:43:00 EDT TROPONIN HS SINGLE DRAW, STAT, 03/28/2023 15:49:00 EDT Problem List/Past Medical History Ongoing COPD (chronic obstructive pulmonary disease) Allergies No Known Medication Allergies Lab Results Chemistry LATEST RESULTS BUN 03/28/23 16:00 16 Na 03/28/23 16:00 142 K 03/28/23 16:00 4.0 Chloride 03/28/23 16:00 105 (more content not included)... [facility] ED Progress Noteon 3 ED Progress Note 1530 pt presents to ED ambulatory from home with c/o upper back/right shoulder pain x1 week. states recent lung nodule dx that he was told might be cancerous. denies known fall or injury/ c/o 7/10 pain on arrival. denies all other sx at this time. VSS. a/ox3. Dr. sHu in to assess. IV placed, blood work obtained and sent IVF infusing without difficulty 1800 rpt blood work obtained and sent 1830 pt medicated x1 for pain per MD order 1905 report given to ASHWINI Rosas 1915 Assumed care of pt. Preparing to move pt back to room to prepar for possible admission. Dr Hsu waiting for cardiology. Pt denies chest pain but states rt upper back pain that is worse with breathing 1930 After speaking with cardiology , Dr Hsu spoke with pt and recommended admission. Pt states I can't I just started a new job Dr Hsu explained the severity and risks associated but pt wants to leave AMA. 1945 RN explained again the seriousness of his condition and pt still adamant about leaving. Signed out AMA. Given copies of his test results as he states he has a scheduled appointment tomorrow to have testing done per PMD. Pt given prescription for pain med and encouraged strongly to follow up or to return irf worsen. Currently has stable vitals and no complaints. Signed AMA and ambulated to exit without difficulty [facility] ED Triage Adult-Texton 03-28 ED Triage Adult-Text ED Triage Entered O n: 03/28/2023 15:43 EDT Performed On: 03/28/2023 15:30 EDT by Carline Márquez RN Triage (As Of: 03/28/2023 15:43:40 EDT) Problems(Active) COPD (chronic obstructive pulmonary disease) (SNOMED CT :64586954 ) Name of Problem: COPD (chronic obstructive pulmonary disease) ; Recorder: Carline Márquez RN; Confirmation: Confirmed ; Classification: Medical ; Code: [id number] ; Contributor System: [employer] ; Last Updated: 03/28/2023 15:42 EDT ; Life Cycle Date: 03/28/2023 ; Life Cycle Status: Active ; Vocabulary: SNOMED CT Diagnoses(Active) Back pain Date: 03/28/2023 ; Diagnosis Type: Reason For Visit ; Confirmation: Confirmed ; Clinical Dx: Back pain ; Classification: Medical ; Clinical Service: Non-Specified ; Code: PNED ; Probability: 0 ; Diagnosis Code: [id number] (As Of: 03/28/2023 15:43:40 EDT) Allergies (Active) No Known Medication Allergies Estimated Onset Date: Unspecified ; Created By: Carline Márquez RN; Reaction Status: Active ; Category: Drug ; Substance: No Known Medication Allergies ; Type: Allergy ; Updated By: Carline Márquez RN; Reviewed Date: 03/28/2023 15:42 EDT Vitals/Ht/Wt Temperature Oral : 36.5 degC Pulse Rate : 68 bpm Respiratory Rate : 18 br/min Systolic Blood Pressure : 124 mmHg Diastolic Blood Pressure : 67 mmHg SpO2 : 96 % Oxygen Therapy : Room air Pain Symptoms : Yes Numeric Pain Scale : 7 = Severe Pain VAS Pain Scale Age : VAS (8 yrs & older) Height/Length Dosing : 175 cm(Converted to: 5.74 ft, 68.90 in) Weight Measured Type of Scale : Patient Stated Weight Patient Stated Weight : 53 kg(Converted to: 1,869.52 oz, 116.85 lb) Carline Márquez RN - 03/28/2023 15:41 EDT [facility] HEMOon 03-28-2023 DIFF? No [facility] Comment on above: Performed By: #### 1 34086, 255044, [id number], [id number], [id number] #### [facility] [address] [place] [address] Underwriting Consultant: Jeremias Garcia MD Erythrocyte distribution width (RBC) [Ratio] 15.2 % High 11.5-14.5 [facility] Comment on above: Performed By: #### 1 73383, 738662, 6516564, 420740, CD:[id number] #### [facility] [address] [place] [address] Underwriting Consultant: Jeremias Garcia MD Hematocrit (Bld) [Volume fraction] 43.6 % Normal 41.0-52.0 [facility] Comment on above: Performed By: #### 1 02223, 680355, 5489491, 764607, CD:[id number] #### [facility] [address] [place] [address] Underwriting Consultant: Jeremias Garcia MD Hemoglobin (Bld) [Mass/Vol] 14.4 g/dL Normal 13.5-17.5 [facility] Comment on above: Performed By: #### 1 20136, 347360, 4310646, 247715, CD:[id number] #### [facility] [address] [place] [address] Underwriting Consultant: Jeremias Garcia MD Instr WBC 8.2 Normal [facility] Comment on above: Performed By: #### 1 04865, 393389, 9769670, 406941, [id number] #### [facility] [address] [place] [address] Underwriting Consultant: Jeremias Garcia MD MCH (RBC) [Entitic mass] 29.4 pg Normal 27.0-34.0 [facility] Comment on above: Performed By: #### 1 43413, 890445, 8914413, 504297, CD:[id number] #### [facility] [address] [place] [address] Underwriting Consultant: Jeremias Garcia MD MCHC (RBC) [Mass/Vol] 33.1 g/dL Normal 32.0-37.0 [facility] Comment on above: Performed By: #### 1 20962, 156339, 5099314, 487110, CD:[id number] #### [facility] [address] [place] [address] Underwriting Consultant: Jeremias Garcia MD MCV (RBC) [Entitic vol] 88.9 fL Normal 80.0-100.0 [facility] Comment on above: Performed By: #### 1 14565, 161582, 2028817, 402821, [id number] #### [facility] [address] [place] [address] Underwriting Consultant: Jeremias Garcia MD Nucleated RBC 0 /100WBC Normal [facility] Comment on above: Performed By: #### 1 66826, 162829, 8735561, 080719, CD:[id number] #### [facility] [address] [place] [address] Underwriting Consultant: Jeremias Garcia MD Platelet 246 x10 Normal 150-450 [facility] Comment on above: Performed By: #### 1 70436, 919693, 6853467, 319159, CD:[id number] #### [facility] [address] [place] [address] Underwriting Consultant: Jeremias Garcia MD Platelet mean volume (Bld) [Entitic vol] 8.2 fL Normal 7.4-10.4 [facility] Comment on above: Performed By: #### 1 21086, 372884, 6602899, 989216, CD:[id number] #### [facility] [address] [place] [address] Underwriting Consultant: Jeremias Garcia MD RBC 4.90 x10 Normal 4.70-6.10 [facility] Comment on above: Result Comment: Note : RBC morphology is normal unless otherwise stated. Evaluation performed only if differential is requested. Performed By: #### 1 57301, 267448, 3921525, 152994, CD:[id number] #### [facility] [address] [place] [address] Underwriting Consultant: Jeremias Garcia MD WBC 8.2 x10 Normal 4.5-11.0 [facility] Comment on above: Performed By: #### 1 76327, 684341, 1400152, 941730, CD:[id number] #### [facility] [address] [place] [address] Underwriting Consultant: Jeremias Garcia MD KETOROLAC 30MG/1ML INJon KETOROLAC 30MG/1ML INJ PRN Response Entered On: 03/28/2023 20:48 EDT Performed On: 03/28/2023 19:31 EDT by Kathe Velazquez RN Intervention Information: ketorolac Performed by Carline Márquez RN on 03/28/2023 18:31:00 EDT ketorolac = Toradol,15mg IV Push,Left Antecubital [place] PRN Medication Response PRN Medication used for : Pain PRN Medication Effectiveness : Yes PRN Response Pain Scales : Numeric (8yrs & older) Numeric Pain Scale Age : Numeric (8yrs & older) Actual time of reassessment : No (not needed time is correct) Kathe Velazquez RN - 03/28/2023 20:47 EDT Numeric Pain Scale Numeric Pain Scale : 3 = Mild Pain Numeric Pain Score : 3 Kathe Velazquez RN - 03/28/2023 20:47 EDT Normal [facility] Comment on above: Order Comment: do no t exceed 60mg/24hrs for patients over 65, 120mg/24hr for patients 65 or younger; PT INRon 03-28-2023 INR Coag (PPP) [Relative time] 1.1 {INR} Normal [facility] Comment on above: Result Comment: INR Reference Range: Normal reference range for INR on patients not on anticoagulant therapy: 0.9-1.1 General therapeutic range for patients on anticoagulant therapy: 2.0-3.5 Performed By: #### 1 83223, 893193, 8211094, 564022, CD:[id number] #### [facility] [address] [place] [address] Underwriting Consultant: Jeremias Garcia MD Protime Patient 12.4 seconds Normal 9.8-12.8 [facility] Comment on above: Performed By: #### 1 77430, 273524, 8659075, 044010, CD:[id number] #### [facility] [address] [place] [address] Underwriting Consultant: Jeremias Garcia MD TROPONIN HS 2HRon 03-28-2023 Delta Troponin 2 Hr 2 pg/mL Normal 0-14 [facility] Comment on above: Result Comment: The term acute myocardial infarction should be used when there is acute myocardial injury with clinical evidence of acute myocardial ischemia and the rise or fall of serial Troponin HS values (delta troponin) greater than or equal to 15 pg/mL with at least one Troponin HS value above the 99th percentile reference range Performed By: #### C [id number] #### [facility] [address] [place] [address] Underwriting Consultant: Jeremias Garcia MD Troponin HS 2 Hr 142 pg/mL Critically abnormal 78 [facility] Comment on above: Result Comment: tye weller, called to mis [place],03/28/2023 18:47:18 EDT Performed By: #### C [id number] #### [facility] [address] [place] [address] Underwriting Consultant: Jeremias Garcia MD TROPONIN HS SINGLE DRAWon Troponin HS Single Draw 140 pg/mL Critically abnormal -78 [facility] Comment on above: Result Comment: tye weller, called to mis Michael,03/28/2023 16:52:50 EDT Performed By: #### 1 12105, 444575, 0101019, 535106, [id number] #### [facility] [address] [place] [address] Underwriting Consultant: Jeremias Garcia MD proBNPon 03-28-2023 Natriuretic peptide B (Bld) [Mass/Vol] 480 pg/mL High 0-124 [facility] Comment on above: Result Comment: Acut e CHF Rule-in: less than 50 yrs old greater than or equal to 450 pg/ml greater than 50 yrs old greater than or equal to 900 pg/ml Performed By: #### 2 [id number] #### [facility] [address] [place] [address] Underwriting Consultant: Jeremias Garcia MD CBC panel Auto (Bld)on 03-16 Erythrocyte distribution width (RBC) [Ratio] 14.1 % 11.5 - 15.0 % [facility] Hematocrit (Bld) [Volume fraction] 44.0 % 39.0 - 51.0 % [facility] Hemoglobin (Bld) [Mass/Vol] 14.3 g/dL 13.0 - 17.0 g/dL [facility] MCH (RBC) [Entitic mass] 29.0 pg 26.0 - 34.0 pg [facility] MCHC (RBC) [Mass/Vol] 32.5 g/dL 30.5 - 36.0 g/dL [facility] MCV (RBC) [Entitic vol] 89.2 fL 80.0 - 100.0 fL [facility] Nucleated RBC (Bld) [#/Vol] <0.01 k/uL [facility] Platelet mean volume (Bld) [Entitic vol] 9.9 fL 9.0 - 12.7 fL [facility] Platelets (Bld) [#/Vol] 223 10*3/uL 150 - 400 k/uL [facility] RBC (Bld) [#/Vol] 4.93 10*6/uL 4.20 - 6.0 0 m/uL [facility] WBC (Bld) [#/Vol] 8.46 10*3/uL 3.70 - 11.00 k/uL [facility] Comprehensive metabolic 2000 panelon 03-16-2023 Albumin [Mass/Vol] 4.0 g/dL 3.9 - 4.9 g/dL [facility] ALP [Catalytic activity/Vol] 74 U/L 38 - 113 U/L [facility] ALT With P-5'-P [Catalytic activity/Vol] 16 U/L 10 - 54 U/L [facility] Anion gap [Moles/Vol] 6 mmol/L Low 9 - 18 mmol/L [facility] AST With P-5'-P [Catalytic activity/Vol] 22 U/L 14 - 40 U/L [facility] Bilirubin [Mass/Vol] 0.7 mg/dL 0.2 - 1 .3 mg/dL [facility] Calcium [Mass/Vol] 9.1 mg/dL 8.5 - 10. 2 mg/dL [facility] Chloride [Moles/Vol] 102 mmol/L 97 - 10 5 mmol/L [facility] CO2 [Moles/Vol] 28 mmol/L 22 - 30 mmol/L [facility] Creatinine [Mass/Vol] 0.86 mg/dL 0.73 - 1.22 mg/dL [facility] Estimated Glomerular Filtration Rate 94 mL/min/1.73m >=60 mL/min/1.73 m [facility] Glucose [Mass/Vol] 82 mg/dL 74 - 99 mg/dL [facility] Potassium [Moles/Vol] 4.5 mmol/L 3.7 - 5.1 mmol/L [facility] Protein [Mass/Vol] 6.3 g/dL 6.3 - 8.0 g/dL [facility] Sodium [Moles/Vol] 136 mmol/L 136 - 144 mmol/L [facility] Urea nitrogen [Mass/Vol] 18 mg/dL 9 - 24 mg/dL [facility] TSH BLDon 03-16-2023 TSH Qn 1.680 m[IU]/L 0.270 - 4.200 mIU/L [facility] CNCOon 01-10-20[address]CO [address] [facility] [place] PET/CT SKULL-THIGH INITIA Ishmael 07-08-2022 [facility] No Panel Informationon 12-03 [facility] CORONAVIRUS 2019 BY PCRon SARS-CoV-2 (COVID-19) RNA BLANCA+probe Ql (Unsp spec) Detected Abnormal Not Detected [facility] Comment on above: Result Comment: . This assay is designed to detect the N, ORF1ab and/or S genes of SARS-CoV-2 via nucleic acid amplification. A Negative (NOT DETECTED) result does not preclude 2019-nCoV infection since the adequacy of sample collection and/or low viral burden may result in presence of viral nucleic acids below the clinical sensitivity of this test method. Negative (NOT DETECTED) result should not be used as the sole basis for treatment or other patient management decisions. Rather negative results should be combined with clinical observations, patient history, and epidemiological information to make patient management decisions. Fact sheet for providers: https://www.fda.gov/media/004827/download Fact sheet for patients: https://www.fda.gov/media/961476/download This test has received FDA Emergency Use Authorization (EUA) and has been verified by [facility] ([facility]). This test is only authorized for the duration of time that circumstances exist to justify the authorization of the emergency use of in vitro diagnostic tests for the detection of SARS-CoV-2 virus and/or diagnosis of COVID-19 infection under section 564(b)(1) of the Act, 21 U.S.C. 360bbb-3(b)(1), unless the authorization is terminated or revoked sooner. [facility] is certified under CLIA-88 as qualified to perform high complexity testing. Testing is performed in the [facility] laboratories located at [address] [place] [address]. Performed By: #### C OV19 #### [place] [address] DATE OF SYMPTOM ONSET [YYYYMMDD]? [id number] Normal [facility] Comment on above: Performed By: #### C OV19 #### [place] [address] Covid 19 Resultson 1 SARS-CoV-2 (COVID-19) RNA BLANCA+probe Ql (Unsp spec) POSITIVE COVID-19 Test Coronaviruses are common world-wide and are the cause of many common colds. SARS-COV2 is a new coronavirus that began circulating worldwide in 2019 so we are calling it COVID-19. It has been estimated that four out of five patients with COVID-19 will recover at home without the need for medical attention. Symptoms of COVID-19 may include cough, fever, shortness of breath, loss of taste or smell and other flu-like symptoms including chills, sore muscles, sore throat, and headache. Severe illness is more common in older people and people with other health problems such as high blood pressure, obesity, and immune system problems. If the test is positive, you have COVID-19. You will be contacted by the ordering physicians office and instructed to remain on home isolation, in accordance with CDC guidelines. You may also be contacted by the [facility] to see if any of your close contacts may have been exposed to the virus and need to quarantine. If the test is negative, you likely do not have COVID-19 at this time, but you still may have a different illness that can spread to other people (like Influenza, or the Flu) and could still be at risk for getting COVID-19. We recommend that you stay away from other people to limit the spread of illness until your symptoms are improving and you are fever-free for 24 hours without the use of fever lowering medications such as acetaminophen or ibuprofen. No test is 100% accurate so if you are still concerned you may have COVID-19, talk to your doctor about the need to continue to stay away from others. Medicines Unless your provider told you not to use the following: Acetaminophen (Tylenol and others) is generally safe. Anti-inflammatory medications, such as Ibuprofen (Advil or Motrin) or Naproxen (Aleve) can also be used. Gauz-pbh-ldjwerh cough and cold medicines can be used according to the instructions on the package. Some cyio-nkd-alrraht medicines also contain acetaminophen. Make sure you are not taking more than your recommended dose. For those not hospitalized, there is no specific treatment available for this illness. Antibiotics do not treat Coronaviruses. Follow-Up Follow up with your doctor by scheduling a virtual visit or consider follow-up at one of our urgent care fever clinics. If you are having difficulty breathing, or are very weak and having difficulty standing, this is a medical emergency. Call 911 or have someone take you to the nearest emergency room immediately. If possible, wear a facemask. Additional guidance from the CDC for patients who tested POSITIVE for COVID-19 How to isolate: Isolate yourself in a specific room at home and limit your contact with others. Use a separate bathroom from other members of the household, when possible. Leave home only to get essential medical care. Do not go to work, school or public areas. Avoid using public transportation, ride-sharing, or taxis. Restrict contact with pets and other animals. If you must care for your pet or be around animals while you are sick, wash your hands before and after your interaction and wear a facemask. Make sure that shared spaces in the home have good airflow, such as by an air conditioner or an opened window, weather permitting. Personal Hygiene Procedures: Wear a face mask when in the same room as other people or pets. If a face mask interferes with your breathing, others should wear a mask when sharing space with you. Frequent hand-washing: wash your hands with soap and water for at least 20 seconds. If soap and water are not available, use alcohol-based hand pier hand. Avoid touching your eyes, nose, and mouth with unwashed hands. Household Hygiene Procedures: Avoid sharing personal household items such as dishes, glassware, cups, eating utensils, towels or bedding with other people or pets in your home. After use, these items should be washed with soap and hot water. Disinfect all high-touch surfaces every day with antibacterial cleaning solutions such as Lysol wipes, bleach, cleansers, etc. High-touch surfaces include tabletops, doorknobs, bathroom fixtures, toilets, phones, keyboards, tablets and bedside tables. Immediately clean any surfaces that may have blood, poop or body fluids on them, using antibacterial cleaning solutions such as Lysol wipes, bleach, cleansers, etc. If clothing or bedding come into contact with blood, poop or body fluids, they should be washed immediately. Follow the directions on the laundry detergent and clothing labels but hot water is recommended when possible. Stopping home isolation precautions: If possible, consult your doctor before stopping home isolation precautions. According to the CDC, you can discontinue home isolation precautions when you have met both of these criteria: Your fever and respiratory symptoms have been gone for 24 david (more content not included)... Normal [facility] CORONAVIRUS 2019 BY PCRon Lab Specimen Source Nasal, Nasopharyngeal Normal [facility] Comment on above: Performed By: #### C OV19 #### [facility] [id number] [place] [address] Coronavirus 2019 RNA by PCR, Symptomaticon 06-30-2021 Date and time of symptom onset [id number] [facility]: Coronavirus 2019 RNA by PCR, Symptomatic Detected Abnormal See Below [facility] leonarda Work Phone: Comment on above: SOURCE: Nasal, Nasop haryngealReference Range: Not Detected.This assay is designed to detect the N, ORF1ab and/or S genes of SARS-CoV-2 via nucleic acid amplification. A Negative (NOT DETECTED) result does not preclude 2019-nCoV infection since the adequacy of sample collection and/or low viral burden may result in presence of viral nucleic acids below the clinical sensitivity of this test method. Negative (NOT DETECTED) result should not be used as the sole basis for treatment or other patient management decisions. Rather negative results should be combined with clinical observations, patient history, and epidemiological information to make patient management decisions.Fact sheet for providers: https://www.fda.gov/media/942700/downloadFact sheet for patients: https://www.fda.gov/media/454198/downloadThis test has received FDA Emergency Use Authorization (EUA) and has been verified by [facility] ([facility]). This test is only authorized for the duration of time that circumstances exist to justify the authorization of the emergency use of in vitro diagnostic tests for the detection of SARS-CoV-2 virus and/or diagnosis of COVID-19 infection under section 564(b)(1) of the Act, 21 U.S.C. 360bbb-3(b)(1), unless the authorization is terminated or revoked sooner. [facility] is certified under CLIA-88 as qualified to perform high complexity testing. Testing is performed in the [facility] laboratories located at [address] [place] [address]. Office Visit (Family Medicin e)on 06-30-2021 Follow-up visit Diagnoses/Problems Encounter for preventive health examination (V70.0) (Z00.00) COPD (chronic obstructive pulmonary disease) (496) (J44.9) GERD (gastroesophageal reflux disease) (530.81) (K21.9) Orders COPD (chronic obstructive pulmonary disease) Start: Azithromycin 250 MG Oral Tablet; TAKE 2 TABLETS ON DAY 1 THEN TAKE 1 TABLET A DAY FOR 4 DAYS Coronavirus 2019 RNA by PCR, Symptomatic; Status:Complete; Done: [id number] 03:22PM RESIDENT IN CONGREGATE CARE SETTING? : No ICU? : No HOSPITALIZED (OR PLANNED TO BE ADMITTED)? : No EMPLOYED IN HEALTHCARE? : No FIRST COVID NASAL SWAB TEST? : Unknown Symptom 2 : Cough Symptom 1 : Runny nose/Congestion DATE OF SYMPTOM ONSET? : [id number] IS THE PATIENT SYMPTOMATIC DEFINED BY THE CDC (FEVER>100, NEW WORSENING COUGH OR SHORTNESS OF BREATH, NEW LOSS OF TASTE OR SMELL, SORE THROAT, DIARRHEA, BODY ACHES/MALAISE, HEADACHE, NAUSEA/VOMITING, OR RUNNY NOSE/CONGESTION)? : Yes Start: methylPREDNISolone 4 MG Oral Tablet Therapy Pack; Take as directed per pharmacy Xray Chest 2 View PA + Lateral; Status:Hold For - Scheduling; Requested for:30Jun2021; Radiologist to Determine Optimal Study : Y What are the patient's signs and symptoms? : cough GERD (gastroesophageal reflux disease) Start: Pantoprazole Sodium 40 MG Oral Tablet Delayed Release; TAKE 1 TABLET BY MOUTH EVERY DAY Health Maintenance Complete Blood Count; Status:Active; Requested for:64Cbf8836; Comprehensive Metabolic Panel; Status:Active; Requested for:57Kfl1425; Hemoglobin A1C; Status:Active; Requested for:48Lmj7572; Lipid Panel; Status:Active; Requested for:79Xuh4313; TSH WITH REFLEX TO FREE T4 IF ABNORMAL; Status:Active; Requested for:71Qpf9115; SocHx: Former heavy cigarette smoker (20-39 per day) Tobacco Use Screening; Status:Complete; Done: 42Zlp3291 Patient Discussion/Summary - Follow up in 3 months or sooner if needed - Frequent hand washing - Will contact you with test results within 24 hours of receiving - Self quarantine until test results are returned - May use OTC medications to ease symptom discomfort. Patient also advised to increase rest / fluid intake (water, gatorade, poweraide), eat a healthy diet, and take a multivitamin, and avoid smoke and other irritants. - Follow up with Primary Care Physician - Seek care for any worsening of symptoms, seek emergency care for any chest pain, severe shortness of breath, or temperature > 103 F If test for covid 19 is positive, quarantine for 10 days from the start of symptoms as well as free of fever for more than 24 hours and without worsening respiratory symptoms. [facility] Coronavirus Information Line: 7-628-1YLPUXR ( ). Provider Impressions Discussed home care and signs and symptoms requiring further treatment with patient. Patient was given time to ask questions and all questions were answered. Patient states understanding and agreement of treatment plan. Chief Complaint Patient presents today for shortness of breath, lungs burn, esophagus lira. History of Present Illness - Symptoms: chills this morning, runny nose off and on, nausea since the weekend, cough, fatigue, shortness of breath worse than usual, pain right side of chest to back - Length of Symptoms: 3 days - Denies: vomiting - Factors that effect symptoms: - Related Information: acid reflux worse for several months Review of Systems As stated in HPI, as well as: Eyes: no blurred vision and no eyesight problems. Neck: no mass(es) and no swelling. Cardiovascular: no intermittent leg claudication, no lower extremity edema, no palpitations and no syncope. Gastrointestinal: no abdominal pain, no blood in stools, no constipation, no diarrhea, no melena, no rectal pain and no vomiting. Genitourinary: no dysuria, no change in urinary frequency, no urinary hesitancy and no feelings of urinary urgency. Musculoskeletal: no arthralgias, no back pain and no myalgias. Neurological: no difficulty walking, no limb weakness, no numbness and no tingling. Psychiatric: no personality change. Surgical History History of Cholecystectomy History of Tonsillectomy Social History Former heavy cigarette smoker (20-39 per day) (V15.82) (Z87.891) Quit Date: 2014 Allergies Bacitracin OINT Recorded By: Lefty Jacobs; 06/30/2021 2:48:34 PM Current Meds Medication NameInstructionReason Albuterol Sulfate HFA 108 (90 Base) MCG/ACT Inhalation Aerosol Solutioninhale 2 puffs by mouth every 4 hours if neededExertional shortness of breath Breo Ellipta 200-25 MCG/INH Inhalation Aerosol Powder Breath ActivatedINHALE 1 PUFFS DailyExertional shortness of breath Spiriva HandiHaler 18 MCG Inhalation CapsuleINHALE THE CONTENTS OF 1 CAPSULE ONCE DAILYExertional shortness of breath Vitals Vital Signs Recorded: 31Gdv7248 02:42PM Xoaxtfhfzgz02.4 F Heart Rate88 Txtcuwuvmdq15 Sqpvtfsd995 Perceyzqq77 Height5 ft 9 in Pefgdo776 lb B (more content not included)... Normal [facility] XR Chest PA and Lateralon IMPRESSION: Hyperinflation/COPD. Stable exam. No acute findings. Linotype Machinist: ARNOLD Transcribe Date/Time: Apr 02 2021 8:54P Dictated by : BUCK GRIFFITH MD This examination was interpreted and the report reviewed and electronically signed by: BUCK GRIFFITH MD on Apr 02 2021 8:55PM [facility] DIVISION OF RADIOLOGY * * *Final Report* * * DATE OF EXAM: Apr 02 2021 8:33PM WOX 5291 - XR CHEST 2V FRONTAL/LAT / PROCEDURE REASON: multiple diagnoses * * * * Physician Interpretation * * * * CHEST X-RAY CLINICAL HISTORY: Left-sided chest pain, cough TECHNIQUE: Upright frontal and lateral views. COMPARISON: 03/25/2021 RESULT: Heart/mediastinum: Within normal limits. Lungs/pleura: Hyperinflation. No lung opacities or pleural effusion. Bones/soft tissues: Unremarkable. Lines/tubes/devices: None visualized. DIVISION OF RADIOLOGY Provider, [facility] - 04/02/2021 * * *Final Report* * * DATE OF EXAM: Apr 02 2021 8:33PM WOX 5291 - XR CHEST 2V FRONTAL/LAT / PROCEDURE REASON: multiple diagnoses * * * * Physician Interpretation * * * * CHEST X-RAY CLINICAL HISTORY: Left-sided chest pain, cough TECHNIQUE: Upright frontal and lateral views. COMPARISON: 03/25/2021 RESULT: Heart/mediastinum: Within normal limits. Lungs/pleura: Hyperinflation. No lung opacities or pleural effusion. Bones/soft tissues: Unremarkable. Lines/tubes/devices: None visualized. IMPRESSION IMPRESSION: Hyperinflation/COPD. Stable exam. No acute findings. Linotype Machinist: [facility] Transcribe Date/Time: Apr 02 2021 8:54P Dictated by : BUCK GRIFFITH MD This examination was interpreted and the report reviewed and electronically signed by: BUCK GRIFFITH MD on Apr 02 2021 8:55PM EST [facility] Radiology Study observation (narrative) [facility] XR Chest PA and LateralOrder ed By: Ccf Provider on 04-02-2021 [facility] XR Chest PA and Lateralon IMPRESSION: No acute radiographic abnormality. Findings consistent with COPD. Linotype Machinist: PSCB Transcribe Date/Time: Mar 25 2021 10:56A Dictated by : CARRI NOBLE MD This examination was interpreted and the report reviewed and electronically signed by: CARRI NOBLE MD on Mar 25 2021 10:59AM EST DIVISION OF RADIOLOGY * * *Final Report* * * DATE OF EXAM: Mar 25 2021 10:50AM WOX 5291 - XR CHEST 2V FRONTAL/LAT / PROCEDURE REASON: Viral URI * * * * Physician Interpretation * * * * EXAMINATION: CHEST RADIOGRAPH (2 VIEW FRONTAL & LATERAL) CLINICAL HISTORY: Viral URI MQ: XC2_6 EXAM DATE/TIME: 03/25/2021 10:50 AM COMPARISON: 12/23/2020 RESULT: Lines, tubes, and devices: None. Lungs and pleura: No focal consolidation, pleural effusion or pneumothorax. Symmetric bilateral lower lobe nodular densities compatible with nipple shadows. Hyperinflation and paucity of lung markings. Cardiomediastinal silhouette: Stable Bones and soft tissues: No acute osseous abnormality. DIVISION OF RADIOLOGY Provider, [facility] - 03/25/2021 * * *Final Report* * * DATE OF EXAM: Mar 25 2021 10:50AM WOX 5291 - XR CHEST 2V FRONTAL/LAT / PROCEDURE REASON: Viral URI * * * * Physician Interpretation * * * * EXAMINATION: CHEST RADIOGRAPH (2 VIEW FRONTAL & LATERAL) CLINICAL HISTORY: Viral URI MQ: XC2_6 EXAM DATE/TIME: 03/25/2021 10:50 AM COMPARISON: 12/23/2020 RESULT: Lines, tubes, and devices: None. Lungs and pleura: No focal consolidation, pleural effusion or pneumothorax. Symmetric bilateral lower lobe nodular densities compatible with nipple shadows. Hyperinflation and paucity of lung markings. Cardiomediastinal silhouette: Stable Bones and soft tissues: No acute osseous abnormality. IMPRESSION IMPRESSION: No acute radiographic abnormality. Findings consistent with COPD. Linotype Machinist: ARNOLD Transcribe Date/Time: Mar 25 2021 10:56A Dictated by : CARRI NOBLE MD This examination was interpreted and the report reviewed and electronically signed by: CARRI NOBLE MD on Mar 25 2021 10:59AM EST [facility] Radiology Study observation (narrative) [facility] XR Chest PA and LateralOrder ed By: Ccf Provider on 03-25-2021 [facility] XR Chest PA and Lateralon IMPRESSION: 1. Patchy focal densities throughout the LEFT lung and the RIGHT lung base. This may represent infiltrate. However this should be followed to ensure clearing and to exclude any underlying process. 2. Underlying COPD and emphysematous changes Linotype Machinist: ARNOLD Transcribe Date/Time: Nov 21 2020 5:42P Dictated by : AMIE MAN DO This examination was interpreted and the report reviewed and electronically signed by: AMIE MAN DO on Nov 21 2020 5:44PM EST DIVISION OF RADIOLOGY * * *Final Report* * * DATE OF EXAM: Nov 21 2020 5:40PM WOX 5291 - XR CHEST 2V FRONTAL/LAT / PROCEDURE REASON: multiple diagnoses * * * * Physician Interpretation * * * * EXAMINATION: CHEST RADIOGRAPH (2 VIEW FRONTAL & LATERAL) CLINICAL HISTORY: Asthma with COPD with exacerbation (HCC) Asthma with COPD with exacerbation (HCC) MQ: XC2_6 EXAM DATE/TIME: 11/21/2020 5:40 PM COMPARISON: Chest x-ray 01/18/2020 RESULT: Lines, tubes, and devices: None. Lungs and pleura: Lungs are hyperexpanded. Moderate amount of patchy focal densities throughout the midportion of the LEFT lung. There may also be some focal consolidation in the RIGHT lung base. Decrease in the vascularity peripherally in the lungs compatible with chronic lung changes. Cardiomediastinal silhouette: Normal cardiomediastinal silhouette. Bones and soft tissues: Unremarkable. DIVISION OF RADIOLOGY Provider, Patt [facility] - 11/21/2020 * * *Final Report* * * DATE OF EXAM: Nov 21 2020 5:40PM WOX 5291 - XR CHEST 2V FRONTAL/LAT / PROCEDURE REASON: multiple diagnoses * * * * Physician Interpretation * * * * EXAMINATION: CHEST RADIOGRAPH (2 VIEW FRONTAL & LATERAL) CLINICAL HISTORY: Asthma with COPD with exacerbation (HCC) Asthma with COPD with exacerbation (HCC) MQ: XC2_6 EXAM DATE/TIME: 11/21/2020 5:40 PM COMPARISON: Chest x-ray 01/18/2020 RESULT: Lines, tubes, and devices: None. Lungs and pleura: Lungs are hyperexpanded. Moderate amount of patchy focal densities throughout the midportion of the LEFT lung. There may also be some focal consolidation in the RIGHT lung base. Decrease in the vascularity peripherally in the lungs compatible with chronic lung changes. Cardiomediastinal silhouette: Normal cardiomediastinal silhouette. Bones and soft tissues: Unremarkable. IMPRESSION IMPRESSION: 1. Patchy focal densities throughout the LEFT lung and the RIGHT lung base. This may represent infiltrate. However this should be followed to ensure clearing and to exclude any underlying process. 2. Underlying COPD and emphysematous changes Linotype Machinist: PSCB Transcribe Date/Time: Nov 21 2020 5:42P Dictated by : AMIE MAN DO This examination was interpreted and the report reviewed and electronically signed by: AMIE MAN DO on Nov 21 2020 5:44PM EST [facility] Radiology Study observation (narrative) [facility] XR Chest PA and LateralOrder ed By: Ccvikki Provider on 11-21-2020 [facility] US ABD RIGHT UPPER QUADRANTo n 06-04-2020 US ABD RIGHT UPPER QUADRANT Final Report DATE OF EXAM: Jun 04 2020 10:21AM [id number] - US ABD RIGHT UPPER QUADRANT / PROCEDURE REASON: Liver lesion Physician Interpretation EXAMINATION: RIGHT UPPER QUADRANT ULTRASOUND CLINICAL HISTORY: Hypodensity in the dome of the liver of unclear etiology. This could be correlat ed with ultrasound to evaluate for possible cyst. (Seen on LDCT 05/02/20) TECHNIQUE: Sonography of the right upper quadrant was performed. Images were obtained and stored in a permanent archive. MQ: URUQ_2 COMPARISON: CT of the chest dated 05/02/2020 RESULT: Pancreas: Normal sonographic appearance. Portions obscured: tail Liver: Echotexture: Normal, homogeneous. Echogenicity: Normal Surface contour: Smooth Lesions: There is a cyst containing septation within the liver, measuring approximately 1.3 x 1.0 x 1.4 cm, corresponding to the abnormality seen on prior chest CT.. Biliary: No intrahepatic biliary duct dilation. CBD: 0.6 cm at the hilum. Gallbladder: Prior cholecystectomy Right Kidney: No hydronephrosis. The right kidney measures approximately 9.8 cm. Ascites: None. IMPRESSION: Cyst containing septation within liver, measuring approximately 1.4 cm, corresponding to abnormality seen on prior chest CT. Status post cholecystectomy. Linotype Machinist: ARNOLD Transcribe Date/Time: Jun 04 2020 10:25A Dictated by : RAFIA TRISTAN MD This examination was interpreted and the report reviewed and electronically signed by: RAFIA TRISTAN MD on Jun 04 2020 10:28AM EST Normal [facility] CT LUNG SCREENING WO IVCONon 05-02-2020 CT LUNG SCREENING WO IVCON Final Report DATE OF EXAM: May 02 2020 10:36AM [facility] 0562 - CT LUNG SCREENING WO IVCON / PROCEDURE REASON: Encounter for screening for malignant neoplasm of respiratory organs Physician Interpretation EXAMINATION: CHEST CT WITHOUT CONTRAST (LOW-DOSE CT LUNG CANCER SCREENING PROTOCOL) CLINICAL HISTORY: Lung cancer LDCT screening ? absence of signs or symptoms of lung cancer. Technique: Spiral CT acquisition of the chest from the thoracic inlet to the upper abdomen without contrast. MQ: CTLCS_6 Patient characteristics: Gimj-lx-Pqlmk: 1955; Age at exam: 64 years Gender: Male Lung Disease: Asymptomatic (no signs or symptoms of lung disease) Number of Pack Years: 72 Current smoker (=0) or Number of Years since Quit: 5 Ordering provider and NPI: DANIELA ADDISON [id number] Interpreting radiologist and NPI: [place] [id number] Exam acquisition parameters: Exam Date: 05/02/2020 10:36 AM Site: [facility] CT System Quality Process Engineer: Siemens CT System Model: Somatom Tehnologii obratnyh zadach Tube Current-Time (mA-sec): 97 Peak Voltage (kV): 100 Scan Time (sec): 3.14 Scan Volume (z-length, cm): -36.35 Pitch: 1.0 Slice Thickness (mm): 1.5 CT Dose-Length Product: 28.[address] Dose Index: 0.74mGy CT Dose Reduction Method: Automated exposure control(AEC) and iterative recon COMPARISON: None. RESULT: Nodule 1: This solid nodule is located in the right upper lobe posteriorly on slice number 2:50 with an average diameter of 4.0 mm (4.8 mm x 3.6 mm). Lung RADS 2 Other lung nodule comments: Multiple areas of nodularity noted along the left major fissure near the base considered benign. Other findings: Areas of scarring noted particularly medial left upper lobe adjacent to the major fissure, medial right middle lobe, and also at the left lung base posteriorly. Emphysema: Moderate, centrilobular, upper lobe Coronary Artery Calcifications: Circumflex mild; Left Anterior Descending mild; Right Coronary none. Mediastinum: Heart size normal. Trace pericardial effusion. Thoracic aorta not aneurysmally dilated. Pulmonary outflow tract mildly dilated at 3.2 cm in diameter which can be seen in the setting of pulmonary artery hypertension. No significant mediastinal lymph node enlargement. Chest wall/bony structures: No significant additional findings. Limited images through the upper abdomen: Hypodensity anterior right lobe of the liver measuring 1.6 cm in diameter. District Medical Examiner (topogram) images: No significant additional findings. IMPRESSION: LungRADS category: 2 LungRADS modifier: None LungRADS 0 reason: n/a Recommendations: Recommend follow-up low-dose CT scan in 12 months to continue routine screening. Other actionable findings: Hypodensity in the dome of the liver of unclear etiology. This could be correlated with ultrasound to evaluate for possible cyst. Reference: [employer]. Lung CT Screening Reporting and Data System (Lung-RADS). Available at: http://www.acr.org/Quality -Safety/Resources/LungRADS Linotype Machinist: ARNOLD Transcribe Date/Time: May 02 2020 2:10P Dictated by : VALERIO ROWAN MD This examination was interpreted and the report reviewed and electronically signed by: VALERIO ROWAN MD on May 02 2020 2:25PM [facility] CBLon 01-27-2020 CBL . MICRO - Microbiology PROCEDURE: Blood Culture (bacterial) [*1] SOURCE: Blood BODY SITE: COLLECTED DATE/TIME: 01/18/2020 00:49 EDT RECEIVED DATE/TIME: 01/18/2020 08:04 EDT START DATE/TIME: 01/18/2020 08:05 EDT FREE TEXT SOURCE: FINAL REPORTS Final Report [] Verified Date/Time/Personnel: 01/27/2020 08:17 EDT Micrococcus species Isolated from aerobe bottle only. 1 bottle of 2 sets positive Organism is a potential contaminant. Clinical Significance undetermined. Please contact Microbiology if further work-up is required. PRELIMINARY REPORTS Preliminary Report [] Verified Date/Time/Personnel: 01/20/2020 09:45 EDT Micrococcus species Isolated from aerobe bottle only. 1 bottle of 2 sets positive Organism is a potential contaminant. Clinical Significance undetermined. Please contact Microbiology if further work-up is required. Preliminary Report [] Verified Date/Time/Personnel: 01/18/2020 08:59 EDT Culture has been received in lab and is no growth to date. Routine cultures are held for 5 days. STAINS GSAER [] Verified Date/Time/Personnel: 01/19/2020 11:01 EDT Gram Positive Cocci in clusters Performing Locations *1: This test was performed at: [facility], [address] [place] [address], [facility] , [facility] ([place]) Comment on above: Performed By: #### C BC, ADIFF, ANEU, DIMER, LIP, TROP, CMP, GFR, PBNP #### [address] [address] CBLon 01-23-2020 CBL . MICRO - Microbiology PROCEDURE: Blood Culture (bacterial) [*1] SOURCE: Blood BODY SITE: COLLECTED DATE/TIME: 01/18/2020 00:49 EDT RECEIVED DATE/TIME: 01/18/2020 08:04 EDT START DATE/TIME: 01/18/2020 08:05 EDT FREE TEXT SOURCE: FINAL REPORTS Final Report [] Verified Date/Time/Personnel: 01/23/2020 08:59 EDT Blood Culture: No Growth at 5 days. PRELIMINARY REPORTS Preliminary Report [] Verified Date/Time/Personnel: 01/18/2020 08:59 EDT Culture has been received in lab and is no growth to date. Routine cultures are held for 5 days. Performing Locations *1: This test was performed at: [facility], [address] [place] [address], [address] [place] [address] ([place]) Comment on above: Performed By: #### C BC, ADIFF, ANEU, DIMER, LIP, TROP, CMP, GFR, PBNP #### [address] [address] Basic Metabolic Panelon - Anion gap [Moles/Vol] 12 mmol/L Normal 9-18 [facility] Comment on above: Performed By: #### C BCD1 #### [address] [address] Calcium [Mass/Vol] 9.2 mg/dL Normal 8.5-10.2 [facility] Comment on above: Performed By: #### C BCD1 #### [address] [address] Chloride [Moles/Vol] 101 mmol/L Normal 97-105 [facility] Comment on above: Performed By: #### C BCD1 #### [address] [address] CO2 [Moles/Vol] 23 mmol/L Normal 22-30 [facility] Comment on above: Performed By: #### C BCD1 #### [facility] [address] [place], [place] [address] Creatinine [Mass/Vol] 0.84 mg/dL Normal 0.73-1.22 [facility] Comment on above: Performed By: #### C BCD1 #### [facility] [address] [place], [place] [address] Glucose [Mass/Vol] 149 mg/dL High 74-99 [facility] Comment on above: Result Comment: The [employer] (ADA) provides guidance for cutoff values for fasting glucose and random glucose. The ADA defines fasting as no caloric intake for at least 8 hours.Fasting plasma glucose results between 100 to 125 mg/dL indicate increased risk for diabetes (prediabetes). Fasting plasma glucose results greater than or equal to 126 mg/dL meet the criteria for diagnosis of diabetes. In the absence of unequivocal hyperglycemia, results should be confirmed by repeat testing. In a patient with classic symptoms of hyperglycemia or hyperglycemic crisis, random plasma glucose results greater than or equal to 200 mg/dL meet the criteria for diagnosis of diabetes. Reference: Standards of Medical Care in Diabetes 2016; [employer]. Diabetes Care. 2016;39(Suppl 1). Performed By: #### C BCD1 #### [place] [address] Potassium [Moles/Vol] 4.9 mmol/L Normal 3.7-5.1 [facility] Comment on above: Performed By: #### C BCD1 #### [place] [address] Sodium [Moles/Vol] 136 mmol/L Normal 136-144 [facility] Comment on above: Performed By: #### C BCD1 #### [place] [address] Urea nitrogen [Mass/Vol] 18 mg/dL Normal 9-24 [facility] Comment on above: Performed By: #### C BCD1 #### [place] [address] Hemogram/Diffon 01-20-2020 Abs Immature Grans 0.03 thou/cmm Normal 0.00-0.05 [facility] Comment on above: Performed By: #### C BCD1 #### [place] [address] Abs Neut (ANC) 9.01 thou/cmm High 1.78-5.38 [facility] Comment on above: Performed By: #### C BCD1 #### [place] [address] Abs. Baso 0.01 thou/cmm Normal 0.01-0.08 [facility] Comment on above: Result Comment: Smea r scanned; tech agrees with automated differential Performed By: #### C BCD1 #### [facility] [address] [place], [place] [address] Abs. [place] 0.13 thou/cmm Low 0.30-0.82 [facility] Comment on above: Performed By: #### C BCD1 #### [facility] [address] [place], [place] [address] Basophils/100 WBC (Bld) 0.1 % Normal [facility] Comment on above: Performed By: #### C BCD1 #### [facility] [address] [place], [place] [address] Eosinophils (Bld) [#/Vol] 0.00 10*3/uL Low 0.04-0.54 [facility] Comment on above: Performed By: #### C BCD1 #### [facility] [address] [place], [place] [address] Eosinophils/100 WBC (Bld) 0.0 % Normal [facility] Comment on above: Performed By: #### C BCD1 #### [facility] [address] [place], [place] [address] Immature Grans 0.30 % Normal [facility] Comment on above: Performed By: #### C BCD1 #### [facility] [address] [place], [place] [address] Lymphocytes (Bld) [#/Vol] 0.45 10*3/uL Low 0.84-2.85 [facility] Comment on above: Performed By: #### C BCD1 #### [facility] [address] [place], [place] [address] Lymphocytes/100 WBC (Bld) 4.7 % Normal [facility] Comment on above: Performed By: #### C BCD1 #### [facility] [address] [place], [place] [address] Monocytes/100 WBC (Bld) 1.3 % Normal [facility] Comment on above: Performed By: #### C BCD1 #### [address] [address] Seg Neutrophil 93.6 % Normal [facility] Comment on above: Performed By: #### C BCD1 #### [facility] [address] [place], [place] [address] Erythrocyte distribution width (RBC) [Ratio] 13.5 % Normal 11.6-14.4 [facility] Comment on above: Performed By: #### C BCD1 #### [facility] [address] [place], [place] [address] Hematocrit (Bld) [Volume fraction] 43.3 % Normal 40.1-51.0 [facility] Comment on above: Performed By: #### C BCD1 #### [facility] [address] [place] [address] Hemoglobin (Bld) [Mass/Vol] 14.2 g/dL Normal 13.7-17.5 [facility] Comment on above: Performed By: #### C BCD1 #### [facility] [address] [place] [address] MCH (RBC) [Entitic mass] 29.7 pg Normal 25.7-32.2 [facility] Comment on above: Performed By: #### C BCD1 #### [facility] [address] [place] [address] MCHC 32.8 % Normal 32.3-36.5 [facility] Comment on above: Performed By: #### C BCD1 #### [facility] [address] [place] [address] MCV (RBC) [Entitic vol] 90.6 fL Normal 83.2-95.6 [facility] Comment on above: Performed By: #### C BCD1 #### [facility] [address] [place] [address] Platelet mean volume (Bld) [Entitic vol] 11.0 fL Normal 8.7-12.0 [facility] Comment on above: Performed By: #### C BCD1 #### [facility] [address] [place], [place] [address] Platelets (Bld) [#/Vol] 240 10*3/uL Normal 141-365 [facility] Comment on above: Performed By: #### C BCD1 #### [facility] [address] [place], [place] [address] RBC 4.78 mil/cmm Normal 4.63-6.08 [facility] Comment on above: Performed By: #### C BCD1 #### [place] [id number] RDW SD 45.3 fl Normal 36.1-45.8 [facility] Comment on above: Performed By: #### C BCD1 #### [place] [id number] WBC (Bld) [#/Vol] 9.63 10*3/uL High 4.23-9.07 [facility] Comment on above: Performed By: #### C BCD1 #### [place] [id number] MDRD GFRon 01-20-2020 GFR/1.73 sq M.predicted among non-blacks MDRD (S/P/Bld) [Vol rate/Area] mL/min/{1.73_m2} Normal >60mL/min/1 .73m2 [facility] Comment on above: Result Comment: If t he patient is , multiply the result by 1.210. Performed By: #### G FR #### [place] [address] BCIDon 01-19-2020 Acinetobacter baumannii Not Detected Normal Not Detected [facility] ([place]) Comment on above: Performed By: #### C BC, ADIFF, ANEU, DIMER, LIP, TROP, CMP, GFR, PBNP #### [place] [address] [address] BCID Comment See Comment Normal [facility] ([place]) Comment on above: Result Comment: A N ot Detected result for the Film[employer] antimicrobial resistance gene does not indicate susceptibility as multiple mechanisms of resistance to methicillin, vancomycin and carbapenems exist. Identification and susceptibility results to follow. If BCID panel was negative ( Not Detected ) for all targets, this does not exclude a blood stream infection. Our blood culture system detected growth. Species identification and susceptibility testing (if appropriate) to follow. Performed By: #### C BC, ADIFF, ANEU, DIMER, LIP, TROP, CMP, GFR, PBNP #### [place] [address] Lotus albicans Not Detected Normal Not Detected [facility] ([place]) Comment on above: Performed By: #### C BC, ADIFF, ANEU, DIMER, LIP, TROP, CMP, GFR, PBNP #### [place] [address] Lotus glabrata Not Detected Normal Not Detected [facility] ([place]) Comment on above: Performed By: #### C BC, ADIFF, ANEU, DIMER, LIP, TROP, CMP, GFR, PBNP #### [place] [address] Lotus krusei Not Detected Normal Not Detected [facility] ([place]) Comment on above: Performed By: #### C BC, ADIFF, ANEU, DIMER, LIP, TROP, CMP, GFR, PBNP #### [place] [address] Lotus parapsilosis Not Detected Normal Not Detected [facility] ([place]) Comment on above: Performed By: #### C BC, ADIFF, ANEU, DIMER, LIP, TROP, CMP, GFR, PBNP #### [place] [address] Lotus tropicalis Not Detected Normal Not Detected [facility] ([place]) Comment on above: Performed By: #### C BC, ADIFF, ANEU, DIMER, LIP, TROP, CMP, GFR, PBNP #### [place] [address] E. Coli Not Detected Normal Not Detected [facility] ([place]) Comment on above: Performed By: #### C BC, ADIFF, ANEU, DIMER, LIP, TROP, CMP, GFR, PBNP #### [place] [address] Enterobacter cloacae Complex Not Detected Normal Not Detected [facility] ([place]) Comment on above: Performed By: #### C BC, ADIFF, ANEU, DIMER, LIP, TROP, CMP, GFR, PBNP #### [place] [address] [place], [place] [address] Enterobacteriaceae Not Detected Normal Not Detected [facility] ([place]) Comment on above: Performed By: #### C BC, ADIFF, ANEU, DIMER, LIP, TROP, CMP, GFR, PBNP #### [address] [address] Enterococcus Not Detected Normal Not Detected [facility] ([place]) Comment on above: Performed By: #### C BC, ADIFF, ANEU, DIMER, LIP, TROP, CMP, GFR, PBNP #### [address] [address] Haemophilus influenzae Not Detected Normal Not Detected [facility] ([place]) Comment on above: Performed By: #### C BC, ADIFF, ANEU, DIMER, LIP, TROP, CMP, GFR, PBNP #### [address] [address] Klebsiella oxytoca Not Detected Normal Not Detected [facility] ([place]) Comment on above: Performed By: #### C BC, ADIFF, ANEU, DIMER, LIP, TROP, CMP, GFR, PBNP #### [address] [address] Klebsiella pneumoniae Not Detected Normal Not Detected [facility] ([place]) Comment on above: Performed By: #### C BC, ADIFF, ANEU, DIMER, LIP, TROP, CMP, GFR, PBNP #### [address] [address] Listeria monocytogenes Not Detected Normal Not Detected [facility] ([place]) Comment on above: Performed By: #### C BC, ADIFF, ANEU, DIMER, LIP, TROP, CMP, GFR, PBNP #### [address] [address] Neisseria meningitidis Not Detected Normal Not Detected [facility] ([place]) Comment on above: Performed By: #### C BC, ADIFF, ANEU, DIMER, LIP, TROP, CMP, GFR, PBNP #### [address] [address] Protein [Mass/Vol] Not Detected Normal Not Detected [facility] ([place]) Comment on above: Performed By: #### C BC, ADIFF, ANEU, DIMER, LIP, TROP, CMP, GFR, PBNP #### [address] [address] Pseudomonas aeruginosa Not Detected Normal Not Detected [facility] ([place]) Comment on above: Performed By: #### C BC, ADIFF, ANEU, DIMER, LIP, TROP, CMP, GFR, PBNP #### [place] [id number] S. agalactiae Org specific cx Ql (Vag fld) Not Detected Normal Not Detected [facility] ([place]) Comment on above: Performed By: #### C BC, ADIFF, ANEU, DIMER, LIP, TROP, CMP, GFR, PBNP #### [place] [address] Serratia marcescens Not Detected Normal Not Detected [facility] ([place]) Comment on above: Performed By: #### C BC, ADIFF, ANEU, DIMER, LIP, TROP, CMP, GFR, PBNP #### [place] [address] Staphylococcus Not Detected Normal Not Detected [facility] ([place]) Comment on above: Performed By: #### C BC, ADIFF, ANEU, DIMER, LIP, TROP, CMP, GFR, PBNP #### [place] [address] Staphylococcus aureus Not Detected Normal Not Detected [facility] ([place]) Comment on above: Result Comment: If S taphylococcus aureus is Detected , an Infectious Disease physician consult is required on identification. Performed By: #### C BC, ADIFF, ANEU, DIMER, LIP, TROP, CMP, GFR, PBNP #### [place] [address] Streptococcus Not Detected Normal Not Detected [facility] ([place]) Comment on above: Performed By: #### C BC, ADIFF, ANEU, DIMER, LIP, TROP, CMP, GFR, PBNP #### [place] [id number] Streptococcus pneumoniae Not Detected Normal Not Detected [facility] ([place]) Comment on above: Performed By: #### C BC, ADIFF, ANEU, DIMER, LIP, TROP, CMP, GFR, PBNP #### [place] [address] [place], [place] [address] Streptococcus pyogenes Not Detected Normal Not Detected [facility] ([place]) Comment on above: Performed By: #### C BC, ADIFF, ANEU, DIMER, LIP, TROP, CMP, GFR, PBNP #### [place] [address] [place], [place] [address] Coronavirus 2019on 0 SARS-CoV-2 (COVID-19) RNA BLANCA+probe Ql (Unsp spec) Negative Normal [facility] Comment on above: Result Comment: Nega tive for COVID19 (SARS CoV2) by PCR. This test was developed and its performance characteristics determined by [facility]'s [facility] [place]. This test has been authorized by FDA under an Emergency Use Authorization (EUA). This test has been validated in accordance with the FDA's Guidance Document Policy for Diagnostics Testing in Laboratories Certified to Perform High Complexity Testing under CLIA prior to Emergency use Authorization for Coronavirus Disease 2019 during the Public Health Emergency issued on September 22, 2019. Performing Laboratory: [facility] [address] [place] [address] Performed By: #### C D19X #### [place] [address] Troponin T, High Sens.on Troponin T, High Sens. 11 ng/L Normal 0-11 [facility] Comment on above: Result Comment: Laurie ents taking a biotin dose of up to 5 mg/day should refrain from taking biotin for 4 hours prior to sample collection. Patients taking a biotin dose of 5 to 10 mg/day should refrain from taking biotin for 8 hours prior to sample collection. Patients taking a biotin dose > 10 mg/day should consult with their physician or the laboratory prior to having a sample taken. Clinicians should consider biotin interference as a source of error, when clinically suspicious of the laboratory result. Performed By: #### T ROPT #### [place] [address] .Auto Diffon 01-18-2020 Ammonia (P) [Mass/Vol] 0.80 10 3/mcL Normal 0.09-1.40 [facility] ([place]) Comment on above: Performed By: #### C BC, ADIFF, ANEU, DIMER, LIP, TROP, CMP, GFR, PBNP #### [address] [address] Basophils (Bld) [#/Vol] 0.10 10 3/mcL Normal 0.00-0.27 [facility] ([place]) Comment on above: Performed By: #### C BC, ADIFF, ANEU, DIMER, LIP, TROP, CMP, GFR, PBNP #### [address] [address] Basophils/100 WBC (Bld) 0.6 % Normal 0.0-2.5 [facility] ([place]) Comment on above: Performed By: #### C BC, ADIFF, ANEU, DIMER, LIP, TROP, CMP, GFR, PBNP #### [address] [address] Eosinophils (Bld) [#/Vol] 0.10 10 3/mcL Normal 0.00-0.65 [facility] ([place]) Comment on above: Performed By: #### C BC, ADIFF, ANEU, DIMER, LIP, TROP, CMP, GFR, PBNP #### [address] [address] Eosinophils/100 WBC (Bld) 0.9 % Normal 0.0-6.0 [facility] ([place]) Comment on above: Performed By: #### C BC, ADIFF, ANEU, DIMER, LIP, TROP, CMP, GFR, PBNP #### [address] [address] Lymphocytes (Bld) [#/Vol] 0.90 10 3/mcL Normal 0.90-4.32 [facility] ([place]) Comment on above: Performed By: #### C BC, ADIFF, ANEU, DIMER, LIP, TROP, CMP, GFR, PBNP #### [address] [address] Lymphocytes/100 WBC (Bld) 10.4 % Low 20.0-40.0 [facility] ([place]) Comment on above: Performed By: #### C BC, ADIFF, ANEU, DIMER, LIP, TROP, CMP, GFR, PBNP #### [address] [address] Monocytes/100 WBC (Bld) 8.6 % Normal 2.0-13.0 [facility] ([place]) Comment on above: Performed By: #### C BC, ADIFF, ANEU, DIMER, LIP, TROP, CMP, GFR, PBNP #### [address] [address] Neutrophils/100 WBC (Bld) 79.5 % High 50.0-75.0 [facility] ([place]) Comment on above: Performed By: #### C BC, ADIFF, ANEU, DIMER, LIP, TROP, CMP, GFR, PBNP #### [address] [address] Ammonia (P) [Mass/Vol] 0.60 10 3/mcL Normal 0.09-1.40 [facility] ([place]) Comment on above: Performed By: #### C BC, ADIFF, ANEU, DIMER, LIP, TROP, CMP, GFR, PBNP #### [address] [address] Basophils (Bld) [#/Vol] 0.10 10 3/mcL Normal 0.00-0.27 [facility] ([place]) Comment on above: Performed By: #### C BC, ADIFF, ANEU, DIMER, LIP, TROP, CMP, GFR, PBNP #### [address] [address] Basophils/100 WBC (Bld) 0.9 % Normal 0.0-2.5 [facility] ([place]) Comment on above: Performed By: #### C BC, ADIFF, ANEU, DIMER, LIP, TROP, CMP, GFR, PBNP #### [address] [address] Eosinophils (Bld) [#/Vol] 0.10 10 3/mcL Normal 0.00-0.65 [facility] ([place]) Comment on above: Performed By: #### C BC, ADIFF, ANEU, DIMER, LIP, TROP, CMP, GFR, PBNP #### [address] [address] Eosinophils/100 WBC (Bld) 1.6 % Normal 0.0-6.0 [facility] ([place]) Comment on above: Performed By: #### C BC, ADIFF, ANEU, DIMER, LIP, TROP, CMP, GFR, PBNP #### [address] [address] Lymphocytes (Bld) [#/Vol] 1.30 10 3/mcL Normal 0.90-4.32 [facility] ([place]) Comment on above: Performed By: #### C BC, ADIFF, ANEU, DIMER, LIP, TROP, CMP, GFR, PBNP #### [address] [address] Lymphocytes/100 WBC (Bld) 14.3 % Low 20.0-40.0 [facility] ([place]) Comment on above: Performed By: #### C BC, ADIFF, ANEU, DIMER, LIP, TROP, CMP, GFR, PBNP #### [address] [address] Monocytes/100 WBC (Bld) 7.0 % Normal 2.0-13.0 [facility] ([place]) Comment on above: Performed By: #### C BC, ADIFF, ANEU, DIMER, LIP, TROP, CMP, GFR, PBNP #### [address] [address] Neutrophils/100 WBC (Bld) 76.2 % High 50.0-75.0 [facility] ([place]) Comment on above: Performed By: #### C BC, ADIFF, ANEU, DIMER, LIP, TROP, CMP, GFR, PBNP #### [address] [address] .GFRon 01-18-2020 GFR >60 Normal [facility] ([place]) Comment on above: Result Comment: GFR Population mean for , Non- Americans Ages 20-29 = 116 mL/min/1.73 sq.m. Ages 30-39 = 107 mL/min/1.73 sq.m. Ages 40-49 = 99 mL/min/1.73 sq.m. Ages 50-59 = 93 mL/min/1.73 sq.m. Ages 60-69 = 85 mL/min/1.73 sq.m. Ages 70+ = 75 mL/min/1.73 sq.m. Chronic Kidney Disease: Less than 60 mL/min/1.73 square meters End Stage Renal Disease: Less than 15 mL/min/1.73 square meters Performed By: #### C BC, ADIFF, ANEU, DIMER, LIP, TROP, CMP, GFR, PBNP #### [address] [address] GFR Non- >60 Normal [facility] ([place]) Comment on above: Result Comment: GFR Population mean for , Non- Americans Ages 20-29 = 116 mL/min/1.73 sq.m. Ages 30-39 = 107 mL/min/1.73 sq.m. Ages 40-49 = 99 mL/min/1.73 sq.m. Ages 50-59 = 93 mL/min/1.73 sq.m. Ages 60-69 = 85 mL/min/1.73 sq.m. Ages 70+ = 75 mL/min/1.73 sq.m. Chronic Kidney Disease: Less than 60 mL/min/1.73 square meters End Stage Renal Disease: Less than 15 mL/min/1.73 square meters Performed By: #### C BC, ADIFF, ANEU, DIMER, LIP, TROP, CMP, GFR, PBNP #### [address] [address] GFR >60 Normal [facility] ([place]) Comment on above: Result Comment: GFR Population mean for , Non- Americans Ages 20-29 = 116 mL/min/1.73 sq.m. Ages 30-39 = 107 mL/min/1.73 sq.m. Ages 40-49 = 99 mL/min/1.73 sq.m. Ages 50-59 = 93 mL/min/1.73 sq.m. Ages 60-69 = 85 mL/min/1.73 sq.m. Ages 70+ = 75 mL/min/1.73 sq.m. Chronic Kidney Disease: Less than 60 mL/min/1.73 square meters End Stage Renal Disease: Less than 15 mL/min/1.73 square meters Performed By: #### C BC, ADIFF, ANEU, DIMER, LIP, TROP, CMP, GFR, PBNP #### [address] [address] GFR Non- >60 Normal [facility] ([place]) Comment on above: Result Comment: GFR Population mean for , Non- Americans Ages 20-29 = 116 mL/min/1.73 sq.m. Ages 30-39 = 107 mL/min/1.73 sq.m. Ages 40-49 = 99 mL/min/1.73 sq.m. Ages 50-59 = 93 mL/min/1.73 sq.m. Ages 60-69 = 85 mL/min/1.73 sq.m. Ages 70+ = 75 mL/min/1.73 sq.m. Chronic Kidney Disease: Less than 60 mL/min/1.73 square meters End Stage Renal Disease: Less than 15 mL/min/1.73 square meters Performed By: #### C BC, ADIFF, ANEU, DIMER, LIP, TROP, CMP, GFR, PBNP #### [address] [address] .NEUABSon 01-18-2020 Neutrophils (Bld) [#/Vol] 7.00 10 3/mcL Normal 2.25-8.10 [facility] ([place]) Comment on above: Performed By: #### C BC, ADIFF, ANEU, DIMER, LIP, TROP, CMP, GFR, PBNP #### [address] [address] Neutrophils (Bld) [#/Vol] 7.00 10 3/mcL Normal 2.25-8.10 [facility] ([place]) Comment on above: Performed By: #### C BC, ADIFF, ANEU, DIMER, LIP, TROP, CMP, GFR, PBNP #### [address] [address] APTTon 01-18-2020 aPTT Coag (Bld) [Time] 47.1 s High 25.0-35.0 [facility] ([place]) Comment on above: Result Comment: For Heparin anticoagulation therapy, the recommended therapeutic range is: 54-77 seconds (APTT Correlation with Anti-Xa therapeutic range of 0.3-0.7 units/ml). PLEASE REFERENCE THE PHARMACY PROTOCOL FOR DOSING. Performed By: #### C BC, ADIFF, ANEU, DIMER, LIP, TROP, CMP, GFR, PBNP #### [place] [address] aPTT Coag (Bld) [Time] Heparin IV [facility] ([place]) Comment on above: Performed By: #### C BC, ADIFF, ANEU, DIMER, LIP, TROP, CMP, GFR, PBNP #### [place] [address] aPTT Coag (Bld) [Time] Heparin IV [facility] ([place]) Comment on above: Performed By: #### C BC, ADIFF, ANEU, DIMER, LIP, TROP, CMP, GFR, PBNP #### [place] [id number] aPTT Coag (Bld) [Time] 57.6 s High 25.0-35.0 [facility] ([place]) Comment on above: Result Comment: For Heparin anticoagulation therapy, the recommended therapeutic range is: 54-77 seconds (APTT Correlation with Anti-Xa therapeutic range of 0.3-0.7 units/ml). PLEASE REFERENCE THE PHARMACY PROTOCOL FOR DOSING. Performed By: #### C BC, ADIFF, ANEU, DIMER, LIP, TROP, CMP, GFR, PBNP #### [place] [phone] aPTT Coag (Bld) [Time] Heparin IV [facility] ([place]) Comment on above: Performed By: #### C BC, ADIFF, ANEU, DIMER, LIP, TROP, CMP, GFR, PBNP #### [address] [address] aPTT Coag (Bld) [Time] 30.0 s Normal 25.0-35.0 [facility] ([place]) Comment on above: Result Comment: For Heparin anticoagulation therapy, the recommended therapeutic range is: 54-77 seconds (APTT Correlation with Anti-Xa therapeutic range of 0.3-0.7 units/ml). PLEASE REFERENCE THE PHARMACY PROTOCOL FOR DOSING. Performed By: #### C BC, ADIFF, ANEU, DIMER, LIP, TROP, CMP, GFR, PBNP #### [address] [address] BMPon 01-18-2020 Creatinine [Mass/Vol] 0.85 mg/dL Normal 0.60-1.40 [facility] ([place]) Comment on above: Performed By: #### C BC, ADIFF, ANEU, DIMER, LIP, TROP, CMP, GFR, PBNP #### [address] [address] Urea nitrogen/Creatinine [Mass ratio] 22.4 ratio High 10.0-22.0 [facility] ([place]) Comment on above: Performed By: #### C BC, ADIFF, ANEU, DIMER, LIP, TROP, CMP, GFR, PBNP #### [address] [address] Calcium [Mass/Vol] 8.5 mg/dL Normal 8.4-10.1 [facility] ([place]) Comment on above: Performed By: #### C BC, ADIFF, ANEU, DIMER, LIP, TROP, CMP, GFR, PBNP #### [address] [address] Chloride [Moles/Vol] 105 mmol/L Normal 98-110 [facility] ([place]) Comment on above: Performed By: #### C BC, ADIFF, ANEU, DIMER, LIP, TROP, CMP, GFR, PBNP #### [address] [address] CO2 [Moles/Vol] 31 mmol/L Normal 22-32 [facility] ([place]) Comment on above: Performed By: #### C BC, ADIFF, ANEU, DIMER, LIP, TROP, CMP, GFR, PBNP #### [address] [address] Electrolyte Balance 4.0 mEq/L Normal 4.0-15.0 [facility] ([place]) Comment on above: Performed By: #### C BC, ADIFF, ANEU, DIMER, LIP, TROP, CMP, GFR, PBNP #### [address] [address] Glucose [Mass/Vol] 94 mg/dL Normal 82-115 [facility] ([place]) Comment on above: Performed By: #### C BC, ADIFF, ANEU, DIMER, LIP, TROP, CMP, GFR, PBNP #### [address] [address] Potassium [Moles/Vol] 4.1 mmol/L Normal 3.5-5.0 [facility] ([place]) Comment on above: Performed By: #### C BC, ADIFF, ANEU, DIMER, LIP, TROP, CMP, GFR, PBNP #### [address] [address] Sodium [Moles/Vol] 140 mmol/L Normal 136-145 [facility] ([place]) Comment on above: Performed By: #### C BC, ADIFF, ANEU, DIMER, LIP, TROP, CMP, GFR, PBNP #### [address] [address] Urea nitrogen [Mass/Vol] 19.0 mg/dL Normal 8.0-22.0 [facility] ([place]) Comment on above: Performed By: #### C BC, ADIFF, ANEU, DIMER, LIP, TROP, CMP, GFR, PBNP #### [address] [address] CBCon 01-18-2020 Erythrocyte distribution width (RBC) [Ratio] 14.1 % Normal 11.5-15.5 [facility] ([place]) Comment on above: Performed By: #### C BC, ADIFF, ANEU, DIMER, LIP, TROP, CMP, GFR, PBNP #### [address] [address] Hematocrit (Bld) [Volume fraction] 45.2 % Normal 40.0-52.0 [facility] ([place]) Comment on above: Performed By: #### C BC, ADIFF, ANEU, DIMER, LIP, TROP, CMP, GFR, PBNP #### [place] [address] Hemoglobin (Bld) [Mass/Vol] 15.4 G/dL Normal 13.0-17.5 [facility] ([place]) Comment on above: Performed By: #### C BC, ADIFF, ANEU, DIMER, LIP, TROP, CMP, GFR, PBNP #### [place] [phone] MCH (RBC) [Entitic mass] 30.4 pg Normal 27.0-33.0 [facility] ([place]) Comment on above: Performed By: #### C BC, ADIFF, ANEU, DIMER, LIP, TROP, CMP, GFR, PBNP #### [place] [phone] MCHC (RBC) [Mass/Vol] 34.1 G/dL Normal 32.0-36.0 [facility] ([place]) Comment on above: Performed By: #### C BC, ADIFF, ANEU, DIMER, LIP, TROP, CMP, GFR, PBNP #### [place] [phone] MCV (RBC) [Entitic vol] 89.0 fL Normal 81.0-100.0 [facility] ([place]) Comment on above: Performed By: #### C BC, ADIFF, ANEU, DIMER, LIP, TROP, CMP, GFR, PBNP #### [place] [address] Platelet mean volume (Bld) [Entitic vol] 8.0 fL Normal 6.4-10.5 [facility] ([place]) Comment on above: Performed By: #### C BC, ADIFF, ANEU, DIMER, LIP, TROP, CMP, GFR, PBNP #### [address] [address] Platelets (Bld) [#/Vol] 202 10 3/mcL Normal 150-450 [facility] ([place]) Comment on above: Performed By: #### C BC, ADIFF, ANEU, DIMER, LIP, TROP, CMP, GFR, PBNP #### [address] [address] RBC (Bld) [#/Vol] 5.08 10 6/mcL Normal 4.50-6.00 [facility] ([place]) Comment on above: Performed By: #### C BC, ADIFF, ANEU, DIMER, LIP, TROP, CMP, GFR, PBNP #### [address] [address] WBC (Bld) [#/Vol] 8.80 10 3/mcL Normal 4.50-10.80 [facility] ([place]) Comment on above: Performed By: #### C BC, ADIFF, ANEU, DIMER, LIP, TROP, CMP, GFR, PBNP #### [address] [address] Erythrocyte distribution width (RBC) [Ratio] 14.5 % Normal 11.5-15.5 [facility] ([place]) Comment on above: Performed By: #### C BC, ADIFF, ANEU, DIMER, LIP, TROP, CMP, GFR, PBNP #### [place] [address] Hematocrit (Bld) [Volume fraction] 49.6 % Normal 40.0-52.0 [facility] ([place]) Comment on above: Performed By: #### C BC, ADIFF, ANEU, DIMER, LIP, TROP, CMP, GFR, PBNP #### [place] [phone] Hemoglobin (Bld) [Mass/Vol] 16.4 G/dL Normal 13.0-17.5 [facility] ([place]) Comment on above: Performed By: #### C BC, ADIFF, ANEU, DIMER, LIP, TROP, CMP, GFR, PBNP #### [address] [address] MCH (RBC) [Entitic mass] 30.1 pg Normal 27.0-33.0 [facility] ([place]) Comment on above: Performed By: #### C BC, ADIFF, ANEU, DIMER, LIP, TROP, CMP, GFR, PBNP #### [address] [address] MCHC (RBC) [Mass/Vol] 33.1 G/dL Normal 32.0-36.0 [facility] ([place]) Comment on above: Performed By: #### C BC, ADIFF, ANEU, DIMER, LIP, TROP, CMP, GFR, PBNP #### [address] [address] MCV (RBC) [Entitic vol] 91.0 fL Normal 81.0-100.0 [facility] ([place]) Comment on above: Performed By: #### C BC, ADIFF, ANEU, DIMER, LIP, TROP, CMP, GFR, PBNP #### [address] [address] Platelet mean volume (Bld) [Entitic vol] 8.1 fL Normal 6.4-10.5 [facility] ([place]) Comment on above: Performed By: #### C BC, ADIFF, ANEU, DIMER, LIP, TROP, CMP, GFR, PBNP #### [address] [address] Platelets (Bld) [#/Vol] 244 10 3/mcL Normal 150-450 [facility] ([place]) Comment on above: Performed By: #### C BC, ADIFF, ANEU, DIMER, LIP, TROP, CMP, GFR, PBNP #### [address] [address] RBC (Bld) [#/Vol] 5.44 10 6/mcL Normal 4.50-6.00 [facility] ([place]) Comment on above: Performed By: #### C BC, ADIFF, ANEU, DIMER, LIP, TROP, CMP, GFR, PBNP #### [address] [address] WBC (Bld) [#/Vol] 9.10 10 3/mcL Normal 4.50-10.80 [facility] ([place]) Comment on above: Performed By: #### C BC, ADIFF, ANEU, DIMER, LIP, TROP, CMP, GFR, PBNP #### [address] [address] CMPon 01-18-2020 Albumin/Globulin [Mass ratio] 0.9 {ratio} Normal 0.9-1.6 [facility] ([place]) Comment on above: Performed By: #### C BC, ADIFF, ANEU, DIMER, LIP, TROP, CMP, GFR, PBNP #### [address] [address] ALP [Catalytic activity/Vol] 85 U/L Normal 38-126 [facility] ([place]) Comment on above: Performed By: #### C BC, ADIFF, ANEU, DIMER, LIP, TROP, CMP, GFR, PBNP #### [address] [address] ALT [Catalytic activity/Vol] 28 U/L Normal 12-55 [facility] ([place]) Comment on above: Performed By: #### C BC, ADIFF, ANEU, DIMER, LIP, TROP, CMP, GFR, PBNP #### [address] [address] AST [Catalytic activity/Vol] 25 U/L Normal 8-34 [facility] ([place]) Comment on above: Performed By: #### C BC, ADIFF, ANEU, DIMER, LIP, TROP, CMP, GFR, PBNP #### [address] [address] Bili Total 0.5 mg/dL Normal 0.2-1.2 [facility] ([place]) Comment on above: Result Comment: Use of this assay is not recommended for patients undergoing treatment with eltrombopag due to the potential for falsely elevated results. Performed By: #### C BC, ADIFF, ANEU, DIMER, LIP, TROP, CMP, GFR, PBNP #### [address] [address] Creatinine [Mass/Vol] 0.89 mg/dL Normal 0.60-1.40 [facility] ([place]) Comment on above: Performed By: #### C BC, ADIFF, ANEU, DIMER, LIP, TROP, CMP, GFR, PBNP #### [address] [address] Globulin (S) [Mass/Vol] 4.1 G/dL High 1.5-3.8 [facility] ([place]) Comment on above: Performed By: #### C BC, ADIFF, ANEU, DIMER, LIP, TROP, CMP, GFR, PBNP #### [address] [address] Protein [Mass/Vol] 7.8 G/dL Normal 6.0-8.5 [facility] ([place]) Comment on above: Performed By: #### C BC, ADIFF, ANEU, DIMER, LIP, TROP, CMP, GFR, PBNP #### [address] [address] Urea nitrogen/Creatinine [Mass ratio] 22.5 ratio High 10.0-22.0 [facility] ([place]) Comment on above: Performed By: #### C BC, ADIFF, ANEU, DIMER, LIP, TROP, CMP, GFR, PBNP #### [address] [address] Albumin [Mass/Vol] 3.7 G/dL Normal 3.2-4.8 [facility] ([place]) Comment on above: Performed By: #### C BC, ADIFF, ANEU, DIMER, LIP, TROP, CMP, GFR, PBNP #### [address] [address] Calcium [Mass/Vol] 8.7 mg/dL Normal 8.4-10.1 [facility] ([place]) Comment on above: Performed By: #### C BC, ADIFF, ANEU, DIMER, LIP, TROP, CMP, GFR, PBNP #### [address] [address] Chloride [Moles/Vol] 101 mmol/L Normal 98-110 [facility] ([place]) Comment on above: Performed By: #### C BC, ADIFF, ANEU, DIMER, LIP, TROP, CMP, GFR, PBNP #### [address] [address] CO2 [Moles/Vol] 29 mmol/L Normal 22-32 [facility] ([place]) Comment on above: Performed By: #### C BC, ADIFF, ANEU, DIMER, LIP, TROP, CMP, GFR, PBNP #### [address] [address] Electrolyte Balance 7.0 mEq/L Normal 4.0-15.0 [facility] ([place]) Comment on above: Performed By: #### C BC, ADIFF, ANEU, DIMER, LIP, TROP, CMP, GFR, PBNP #### [address] [address] Glucose [Mass/Vol] 80 mg/dL Low 82-115 [facility] ([place]) Comment on above: Performed By: #### C BC, ADIFF, ANEU, DIMER, LIP, TROP, CMP, GFR, PBNP #### [address] [address] Potassium [Moles/Vol] 3.9 mmol/L Normal 3.5-5.0 [facility] ([place]) Comment on above: Performed By: #### C BC, ADIFF, ANEU, DIMER, LIP, TROP, CMP, GFR, PBNP #### [address] [address] Sodium [Moles/Vol] 137 mmol/L Normal 136-145 [facility] ([place]) Comment on above: Performed By: #### C BC, ADIFF, ANEU, DIMER, LIP, TROP, CMP, GFR, PBNP #### [address] [address] Urea nitrogen [Mass/Vol] 20.0 mg/dL Normal 8.0-22.0 [facility] ([place]) Comment on above: Performed By: #### C BC, ADIFF, ANEU, DIMER, LIP, TROP, CMP, GFR, PBNP #### Dante [address] [address] Comprehensive Metabolic Pane ishmael 01-18-2020 Albumin [Mass/Vol] 4.0 g/dL Normal 3.9-4.9 [facility] Comment on above: Performed By: #### C MP #### [facility] [address] [place], [place] [address] ALP [Catalytic activity/Vol] 70 U/L Normal 38-113 [facility] Comment on above: Performed By: #### C MP #### [address] [address] ALT [Catalytic activity/Vol] 19 U/L Normal 10-54 [facility] Comment on above: Performed By: #### C MP #### [address] [address] Anion gap [Moles/Vol] 11 mmol/L Normal 9-18 [facility] Comment on above: Performed By: #### C MP #### [address] [address] AST [Catalytic activity/Vol] 27 U/L Normal 14-40 [facility] Comment on above: Performed By: #### C MP #### [address] [address] Bilirubin [Mass/Vol] 0.3 mg/dL Normal 0.2-1.3 [facility] Comment on above: Performed By: #### C MP #### [address] [address] Calcium [Mass/Vol] 9.1 mg/dL Normal 8.5-10.2 [facility] Comment on above: Performed By: #### C MP #### [facility] [address] [place], [place] [address] Chloride [Moles/Vol] 101 mmol/L Normal 97-105 [facility] Comment on above: Performed By: #### C MP #### [address] [address] CO2 [Moles/Vol] 28 mmol/L Normal 22-30 [facility] Comment on above: Performed By: #### C MP #### [facility] [address] [place], [place] [address] Creatinine [Mass/Vol] 0.79 mg/dL Normal 0.73-1.22 [facility] Comment on above: Performed By: #### C MP #### [facility] [address] [place], [place] [address] Glucose [Mass/Vol] 99 mg/dL Normal 74-99 [facility] Comment on above: Result Comment: The [place] [employer] (ADA) provides guidance for cutoff values for fasting glucose and random glucose. The ADA defines fasting as no caloric intake for at least 8 hours.Fasting plasma glucose results between 100 to 125 mg/dL indicate increased risk for diabetes (prediabetes). Fasting plasma glucose results greater than or equal to 126 mg/dL meet the criteria for diagnosis of diabetes. In the absence of unequivocal hyperglycemia, results should be confirmed by repeat testing. In a patient with classic symptoms of hyperglycemia or hyperglycemic crisis, random plasma glucose results greater than or equal to 200 mg/dL meet the criteria for diagnosis of diabetes. Reference: Standards of Medical Care in Diabetes 2016; [place] [employer]. Diabetes Care. 2016;39(Suppl 1). Performed By: #### C MP #### [facility] [address] [place], [place] [address] Potassium [Moles/Vol] 4.1 mmol/L Normal 3.7-5.1 [facility] Comment on above: Performed By: #### C MP #### [facility] [address] [place], [place] [address] Protein [Mass/Vol] 6.8 g/dL Normal 6.3-8.0 [facility] Comment on above: Performed By: #### C MP #### [facility] [address] [place], [place] [address] Sodium [Moles/Vol] 140 mmol/L Normal 136-144 [facility] Comment on above: Performed By: #### C MP #### [facility] [address] [place], [place] [address] Urea nitrogen [Mass/Vol] 15 mg/dL Normal 9-24 [facility] Comment on above: Performed By: #### C MP #### [facility] [address] [place] [address] Hemogram/Diffon 01-18-2020 Abs Immature Grans 0.02 thou/cmm Normal 0.00-0.05 [facility] Comment on above: Performed By: #### C BCD1 #### [facility] [address] [place] [address] Abs Neut (ANC) 5.33 thou/cmm Normal 1.78-5.38 [facility] Comment on above: Performed By: #### C BCD1 #### [facility] [address] [place] [address] Abs. Baso 0.04 thou/cmm Normal 0.01-0.08 [facility] Comment on above: Performed By: #### C BCD1 #### [place] [address] Abs. [place] 0.89 thou/cmm High 0.30-0.82 [facility] Comment on above: Performed By: #### C BCD1 #### [place] [address] Basophils/100 WBC (Bld) 0.5 % Normal [facility] Comment on above: Performed By: #### C BCD1 #### [place] [address] Eosinophils (Bld) [#/Vol] 0.14 10*3/uL Normal 0.04-0.54 [facility] Comment on above: Performed By: #### C BCD1 #### [facility] [address] [place] [address] Eosinophils/100 WBC (Bld) 1.7 % Normal [facility] Comment on above: Performed By: #### C BCD1 #### [facility] [address] [place] [address] Erythrocyte distribution width (RBC) [Ratio] 14.0 % Normal 11.6-14.4 [facility] Comment on above: Performed By: #### C BCD1 #### [address], [place] [address] Hematocrit (Bld) [Volume fraction] 48.0 % Normal 40.1-51.0 [facility] Comment on above: Performed By: #### C BCD1 #### [facility] [address] [place] [address] Hemoglobin (Bld) [Mass/Vol] 15.5 g/dL Normal 13.7-17.5 [facility] Comment on above: Performed By: #### C BCD1 #### [facility] [address] [place] [address] Immature Grans 0.20 % Normal [facility] Comment on above: Performed By: #### C BCD1 #### [place] [address] Lymphocytes (Bld) [#/Vol] 1.60 10*3/uL Normal 0.84-2.85 [facility] Comment on above: Performed By: #### C BCD1 #### [place] [address] Lymphocytes/100 WBC (Bld) 20.0 % Normal [facility] Comment on above: Performed By: #### C BCD1 #### [place] [address] MCH (RBC) [Entitic mass] 29.3 pg Normal 25.7-32.2 [facility] Comment on above: Performed By: #### C BCD1 #### [place] [address] MCHC 32.3 % Normal 32.3-36.5 [facility] Comment on above: Performed By: #### C BCD1 #### [place] [address] MCV (RBC) [Entitic vol] 90.7 fL Normal 83.2-95.6 [facility] Comment on above: Performed By: #### C BCD1 #### [place] [address] Monocytes/100 WBC (Bld) 11.1 % Normal [facility] Comment on above: Performed By: #### C BCD1 #### [facility] [address] [place], [place] [address] Platelet mean volume (Bld) [Entitic vol] 10.2 fL Normal 8.7-12.0 [facility] Comment on above: Performed By: #### C BCD1 #### [facility] [address] [place], [place] [address] Platelets (Bld) [#/Vol] 252 10*3/uL Normal 141-365 [facility] Comment on above: Performed By: #### C REBECCAD1 #### [facility] [address] [place], [place] [address] RBC 5.29 mil/cmm Normal 4.63-6.08 [facility] Comment on above: Performed By: #### C REBECCAD1 #### [facility] [address] [place], [place] [address] RDW SD 46.7 fl High 36.1-45.8 [facility] Comment on above: Performed By: #### C REBECCAD1 #### [facility] [address] [place], [place] [address] Seg Neutrophil 66.5 % Normal [facility] Comment on above: Performed By: #### C REBECCAD1 #### [facility] [address] [place], [place] [address] WBC (Bld) [#/Vol] 8.02 10*3/uL Normal 4.23-9.07 [facility] Comment on above: Performed By: #### C REBECCAD1 #### [facility] [address] [place], [place] [address] MGon 01-18-2020 Magnesium [Mass/Vol] 2.3 mg/dL Normal 1.6-2.4 [facility] ([place]) Comment on above: Performed By: #### C BC, ADIFF, ANEU, DIMER, LIP, TROP, CMP, GFR, PBNP #### [address] [address] NM MYOCARDIAL SPECT STRESS/R ESTon 01-18-2020 NM MYOCARDIAL SPECT STRESS/REST ORIGINAL NM MYOCARDIAL SPECT STRESS/REST CLINICAL STATEMENT: cp TECHNIQUE: Regadenoson dose:0.4 mg Radiopharmaceutical (rest): Tc-99m Sestamibi IV Dose:7 mCi Radiopharmaceutical (stress): Tc-99m Sestamibi Dose:21 mCi SPECT acquisition and processing Reconstruction and reorientation of SPECT images into short axis, vertical and horizontal long axis planes Quantitative LVEF assessment COMPARISON:None REPORT:Low-dose CT scan done for attenuation correction shows minimal coronary calcification and aortic calcification. Rotating planar images do not show any patient motion artifact. Perfusion SPECT images show reversible perfusion defect along the inferior wall which resolves on attenuation correction. No fixed defect noted. Tid ratio 1.21 Gated SPECT images show normal LV systolic function and wall thickening. There is septal hypokinesis. LVEF calculated at 60%, EDV 88 mL IMPRESSION: 1. No evidence of Lexiscan-induced myocardial ischemia 2. No evidence of prior myocardial infarction 3. Septal hypokinesis, calculated LVEF is 60%, EDV 88 mL 4. No prior study for comparison Interpreted By: Sharath Mauricio MD Preliminary Report By: Jesus Shaffer Electronically Signed By: Sharath Mauricio MD Dictated Date: 01/18/2020 2:03:22 PM Prelim Date: 01/18/2020 2:10:26 PM Sign Date: 01/18/2020 3:24:45 PM Ordering Provider:Piero Damon [facility] ([place]) PBNPon 01-18-2020 Natriuretic peptide B (Bld) [Mass/Vol] 245 pg/mL Normal 0-900 [facility] ([place]) Comment on above: Result Comment: NT-p roBNP results of less than 300 pg/mL effectively rules out acute congestive heart failure with 99% negative predictive value. Performed By: #### C BC, ADIFF, ANEU, DIMER, LIP, TROP, CMP, GFR, PBNP #### [address] [address] PHOSon 01-18-2020 Phosphate [Mass/Vol] 3.3 mg/dL Normal 2.5-4.5 [facility] ([place]) Comment on above: Performed By: #### C BC, ADIFF, ANEU, DIMER, LIP, TROP, CMP, GFR, PBNP #### [address] [address] PROon 01-18-2020 INR Coag (PPP) [Relative time] 1.0 {INR} Normal [facility] ([place]) Comment on above: Result Comment: The [employer] [employer] (CHEST, 1992, 102:[id number]) recommended therapeutic range for oral anticoagulant therapy is: LOW RISK: Prophylaxis of venous thrombosis INR: 2.0-3.0 Treatment of pulmonary embolism 2.0-3.0 Prevention of systemic embolism 2.0-3.0 HIGH RISK: Mechanical prosthetic valves 2.5-3.5 Performed By: #### C BC, ADIFF, ANEU, DIMER, LIP, TROP, CMP, GFR, PBNP #### [address] [address] PT Coag (PPP) [Time] 11.9 s Normal 9.0-14.6 [facility] ([place]) Comment on above: Result Comment: Effe ctive 02/06/08, Protime results may be affected by some antibiotics (i.e. Ciprofloxacin, Azithromycin, Bactrim) which may potentiate the action of oral anticoagulants, with further increases in Protime/INR. Performed By: #### C BC, ADIFF, ANEU, DIMER, LIP, TROP, CMP, GFR, PBNP #### [address] [address] TROPon 01-18-2020 Troponin I.cardiac [Mass/Vol] 0.070 ng/mL High 0.000-0.040 [facility] ([place]) Comment on above: Result Comment: Trop onin I reference range: 0.00-0.040 ng/mL Negative and non-diagnostic. >0.040 ng/mL Consistent with cardiac damage, increased clinical risk and possibility of myocardial infarction. Serial measurements, a rise & fall in test results, clinical history, appropriate symptoms and/or ECG changes may help assess possibility of TX. *Other non-acute coronary syndrome conditions such as CHF, myocarditis, pulmonary emboli, sepsis and cardiac surgery could result in myocardial damage and increased troponin levels. Performed By: #### C BC, ADIFF, ANEU, DIMER, LIP, TROP, CMP, GFR, PBNP #### [address] [address] TROPIon 01-18-2020 Troponin I.cardiac [Mass/Vol] 0.083 ng/mL High 0.000-0.040 [facility] ([place]) Comment on above: Result Comment: Trop onin I reference ranges (04/01/14): 0.00-0.040 ng/mL Negative and non-diagnostic. >0.040 ng/mL Consistent with cardiac damage, increased clinical risk and possibility of myocardial infarction. Serial measurements, a rise & fall in test results, clinical history, appropriate symptoms and/or ECG changes may help assess possibility of TX. *Other non-acute coronary syndrome conditions such as CHF, myocarditis, pulmonary emboli, sepsis and cardiac surgery could result in myocardial damage and increased troponin levels. Performed By: #### C BC, ADIFF, ANEU, DIMER, LIP, TROP, CMP, GFR, PBNP #### [address] [address] Troponin I.cardiac [Mass/Vol] 0.090 ng/mL High 0.000-0.040 [facility] ([place]) Comment on above: Result Comment: Trop onin I reference ranges (04/01/14): 0.00-0.040 ng/mL Negative and non-diagnostic. >0.040 ng/mL Consistent with cardiac damage, increased clinical risk and possibility of myocardial infarction. Serial measurements, a rise & fall in test results, clinical history, appropriate symptoms and/or ECG changes may help assess possibility of TX. *Other non-acute coronary syndrome conditions such as CHF, myocarditis, pulmonary emboli, sepsis and cardiac surgery could result in myocardial damage and increased troponin levels. Performed By: #### C BC, ADIFF, ANEU, DIMER, LIP, TROP, CMP, GFR, PBNP #### [address] [address] TSHon 01-18-2020 TSH Qn 2.100 mcIU/mL Normal 0.360-3.740 [facility] ([place]) Comment on above: Performed By: #### C BC, ADIFF, ANEU, DIMER, LIP, TROP, CMP, GFR, PBNP #### [address] [address] Troponin T, High Sens.on Troponin T, High Sens. 10 ng/L Normal 0-11 [facility] Comment on above: Result Comment: Laurie ents taking a biotin dose of up to 5 mg/day should refrain from taking biotin for 4 hours prior to sample collection. Patients taking a biotin dose of 5 to 10 mg/day should refrain from taking biotin for 8 hours prior to sample collection. Patients taking a biotin dose > 10 mg/day should consult with their physician or the laboratory prior to having a sample taken. Clinicians should consider biotin interference as a source of error, when clinically suspicious of the laboratory result. Performed By: #### T ROPT #### [place] [address] Troponin T, High Sens. 12 ng/L High 0-11 [facility] Comment on above: Result Comment: Laurie ents taking a biotin dose of up to 5 mg/day should refrain from taking biotin for 4 hours prior to sample collection. Patients taking a biotin dose of 5 to 10 mg/day should refrain from taking biotin for 8 hours prior to sample collection. Patients taking a biotin dose > 10 mg/day should consult with their physician or the laboratory prior to having a sample taken. Clinicians should consider biotin interference as a source of error, when clinically suspicious of the laboratory result. Performed By: #### T ROPT #### [place] [address] UAon 01-18-2020 Color (U) Straw Normal [facility] ([place]) Comment on above: Performed By: #### C BC, ADIFF, ANEU, DIMER, LIP, TROP, CMP, GFR, PBNP #### [address] [address] Glucose (U) [Mass/Vol] Negative Normal Negative [facility] ([place]) Comment on above: Performed By: #### C BC, ADIFF, ANEU, DIMER, LIP, TROP, CMP, GFR, PBNP #### [address] [address] Ketones Ql (U) Negative Normal Neg-Trace [facility] ([place]) Comment on above: Performed By: #### C BC, ADIFF, ANEU, DIMER, LIP, TROP, CMP, GFR, PBNP #### [address] [address] UA Appear Clear Normal Clear [facility] ([place]) Comment on above: Performed By: #### C BC, ADIFF, ANEU, DIMER, LIP, TROP, CMP, GFR, PBNP #### [address] [address] UA Blood Negative Normal Neg-Trace [facility] ([place]) Comment on above: Performed By: #### C BC, ADIFF, ANEU, DIMER, LIP, TROP, CMP, GFR, PBNP #### [address] [address] UA Leuk Est Negative Normal Negative [facility] ([place]) Comment on above: Performed By: #### C BC, ADIFF, ANEU, DIMER, LIP, TROP, CMP, GFR, PBNP #### [address] [address] UA Nitrite Negative Normal Negative [facility] ([place] Comment on above: Performed By: #### C BC, ADIFF, ANEU, DIMER, LIP, TROP, CMP, GFR, PBNP #### [address] [address] UA pH 5.0 Normal 5.0 - 8.0 [facility] ([place]) Comment on above: Performed By: #### C BC, ADIFF, ANEU, DIMER, LIP, TROP, CMP, GFR, PBNP #### [address] [address] UA Protein Negative Normal Negative [facility] ([place]) Comment on above: Performed By: #### C BC, ADIFF, ANEU, DIMER, LIP, TROP, CMP, GFR, PBNP #### [address] [address] UA Spec Grav 1.020 Normal 1.006-1.029 [facility] ([place]) Comment on above: Performed By: #### C BC, ADIFF, ANEU, DIMER, LIP, TROP, CMP, GFR, PBNP #### [address] [address] UA Specimen Type Clean Catch Normal [facility] ([place]) Comment on above: Performed By: #### C BC, ADIFF, ANEU, DIMER, LIP, TROP, CMP, GFR, PBNP #### [address] [address] UA Urobilinogen 0.2 E.U./dL Normal 0.2-1.0 [facility] ([place]) Comment on above: Performed By: #### C BC, ADIFF, ANEU, DIMER, LIP, TROP, CMP, GFR, PBNP #### [address] [address] Urobilinogen Qn (U) Negative Normal Neg-Trace [facility] ([place]) Comment on above: Performed By: #### C BC, ADIFF, ANEU, DIMER, LIP, TROP, CMP, GFR, PBNP #### [address] [address] Venous Blood Gason 0 Base Excess 4.5 mEq/L High -3.0-3.0 [facility] Comment on above: Performed By: #### E DVBG #### [address] [address] HCO3 (Bld) [Moles/Vol] 31.1 mmol/L High 21.0-30.0 [facility] Comment on above: Performed By: #### E DVBG #### [address] [address] PCO2 Venous 55.3 mm Hg Normal 40.6-60.0 [facility] Comment on above: Performed By: #### E DVBG #### [address] [address] pH Venous 7.369 Normal 7.320-7.430 [facility] Comment on above: Performed By: #### E DVBG #### [address] [address] PO2 Venous 23.6 mm Hg Normal 15.9-37.5 [facility] Comment on above: Performed By: #### E DVBG #### [address] [address] XR CHEST 2V FRONTAL/LATon XR CHEST 2V FRONTAL/LAT Final Report DATE OF EXAM: Jan 18 2020 8:18PM AKX [id number] - XR CHEST 2V FRONTAL/LAT / PROCEDURE REASON: Shortness of breath Physician Interpretation EXAMINATION: CHEST RADIOGRAPH (2 VIEW FRONTAL & LATERAL) CLINICAL HISTORY: Shortness of breath MQ: [id number] EXAM DATE/TIME: 01/18/2020 8:18 PM COMPARISON: No relevant prior studies available. RESULT: Lines, tubes, and devices: None. Lungs and pleura: The lungs are hyperinflated. Bilateral upper lung zone areas of asymmetric lucency are noted. There is no confluent infiltrate, pneumothorax, or pleural effusion. Cardiomediastinal silhouette: Normal cardiomediastinal silhouette. Bones and soft tissues: Unremarkable. IMPRESSION: No acute findings radiographically. COPD/emphysema. Linotype Machinist: ARNOLD Transcribe Date/Time: Jan 18 2020 8:38P Dictated by : TAD SWENSON MD This examination was interpreted and the report reviewed and electronically signed by: TAD SWENSON MD on Jan 18 2020 8:40PM EST Normal [facility] .Auto Diffon 01-17-2020 Ammonia (P) [Mass/Vol] 0.70 10 3/mcL Normal 0.15-1.00 [facility] ([place]) Comment on above: Performed By: #### C BC, ADIFF, ANEU, DIMER, LIP, TROP, CMP, GFR, PBNP #### [address] [address] Basophils (Bld) [#/Vol] 0.10 10 3/mcL Normal 0.00-0.19 [facility] ([place]) Comment on above: Performed By: #### C BC, ADIFF, ANEU, DIMER, LIP, TROP, CMP, GFR, PBNP #### [address] [address] Basophils/100 WBC (Bld) 0.4 % Normal 0.0-2.5 [facility] ([place]) Comment on above: Performed By: #### C BC, ADIFF, ANEU, DIMER, LIP, TROP, CMP, GFR, PBNP #### [address] [address] Eosinophils (Bld) [#/Vol] 0.10 10 3/mcL Normal 0.00-0.40 [facility] ([place]) Comment on above: Performed By: #### C BC, ADIFF, ANEU, DIMER, LIP, TROP, CMP, GFR, PBNP #### [address] [address] Eosinophils/100 WBC (Bld) 0.5 % Normal 0.0-7.0 [facility] ([place]) Comment on above: Performed By: #### C BC, ADIFF, ANEU, DIMER, LIP, TROP, CMP, GFR, PBNP #### [address] [address] Lymphocytes (Bld) [#/Vol] 1.10 10 3/mcL Normal 0.77-3.85 [facility] ([place]) Comment on above: Performed By: #### C BC, ADIFF, ANEU, DIMER, LIP, TROP, CMP, GFR, PBNP #### [address] [address] Lymphocytes/100 WBC (Bld) 8.3 % Low 10.0-50.0 [facility] ([place]) Comment on above: Performed By: #### C BC, ADIFF, ANEU, DIMER, LIP, TROP, CMP, GFR, PBNP #### [address] [address] Monocytes/100 WBC (Bld) 5.3 % Normal 1.7-13.0 [facility] ([place]) Comment on above: Performed By: #### C BC, ADIFF, ANEU, DIMER, LIP, TROP, CMP, GFR, PBNP #### [address] [address] Neutrophils/100 WBC (Bld) 85.5 % High 37.0-80.0 [facility] ([place]) Comment on above: Performed By: #### C BC, ADIFF, ANEU, DIMER, LIP, TROP, CMP, GFR, PBNP #### [address] [address] .GFRon 01-17-2020 GFR 70 ml/min/1.73sqm Normal [facility] ([place]) Comment on above: Result Comment: GFR Population mean for , Non- Americans Ages 20-29 = 116 mL/min/1.73 sq.m. Ages 30-39 = 107 mL/min/1.73 sq.m. Ages 40-49 = 99 mL/min/1.73 sq.m. Ages 50-59 = 93 mL/min/1.73 sq.m. Ages 60-69 = 85 mL/min/1.73 sq.m. Ages 70+ = 75 mL/min/1.73 sq.m. Chronic Kidney Disease: Less than 60 mL/min/1.73 square meters End Stage Renal Disease: Less than 15 mL/min/1.73 square meters Performed By: #### C BC, ADIFF, ANEU, DIMER, LIP, TROP, CMP, GFR, PBNP #### [place] [address] GFR Non- 58 ml/min/1.73sqm Normal [facility] ([place]) Comment on above: Result Comment: GFR Population mean for , Non- Americans Ages 20-29 = 116 mL/min/1.73 sq.m. Ages 30-39 = 107 mL/min/1.73 sq.m. Ages 40-49 = 99 mL/min/1.73 sq.m. Ages 50-59 = 93 mL/min/1.73 sq.m. Ages 60-69 = 85 mL/min/1.73 sq.m. Ages 70+ = 75 mL/min/1.73 sq.m. Chronic Kidney Disease: Less than 60 mL/min/1.73 square meters End Stage Renal Disease: Less than 15 mL/min/1.73 square meters Performed By: #### C BC, ADIFF, ANEU, DIMER, LIP, TROP, CMP, GFR, PBNP #### [address] [address] .NEUABSon 01-17-2020 Neutrophils (Bld) [#/Vol] 11.70 10 3/mcL High 2.85-6.16 [facility] ([place]) Comment on above: Performed By: #### C BC, ADIFF, ANEU, DIMER, LIP, TROP, CMP, GFR, PBNP #### [address] [address] CBCon 01-17-2020 Erythrocyte distribution width (RBC) [Ratio] 14.0 % Normal 11.5-14.5 [facility] ([place]) Comment on above: Performed By: #### C BC, ADIFF, ANEU, DIMER, LIP, TROP, CMP, GFR, PBNP #### [place] [id number] Hematocrit (Bld) [Volume fraction] 47.7 % Normal 42.0-52.0 [facility] ([place]) Comment on above: Performed By: #### C BC, ADIFF, ANEU, DIMER, LIP, TROP, CMP, GFR, PBNP #### [place] [address] Hemoglobin (Bld) [Mass/Vol] 15.7 G/dL Normal 14.0-18.0 [facility] ([place]) Comment on above: Performed By: #### C BC, ADIFF, ANEU, DIMER, LIP, TROP, CMP, GFR, PBNP #### [address] [address] MCH (RBC) [Entitic mass] 29.8 pg Normal 27.0-31.2 [facility] ([place]) Comment on above: Performed By: #### C BC, ADIFF, ANEU, DIMER, LIP, TROP, CMP, GFR, PBNP #### [address] [address] MCHC (RBC) [Mass/Vol] 33.0 G/dL Normal 31.8-35.4 [facility] ([place]) Comment on above: Performed By: #### C BC, ADIFF, ANEU, DIMER, LIP, TROP, CMP, GFR, PBNP #### [place] [id number] MCV (RBC) [Entitic vol] 90.4 fL Normal 80.0-94.0 [facility] ([place]) Comment on above: Performed By: #### C BC, ADIFF, ANEU, DIMER, LIP, TROP, CMP, GFR, PBNP #### [address] [address] Platelet mean volume (Bld) [Entitic vol] 8.2 fL Normal 7.4-10.4 [facility] ([place]) Comment on above: Performed By: #### C BC, ADIFF, ANEU, DIMER, LIP, TROP, CMP, GFR, PBNP #### [address] [address] Platelets (Bld) [#/Vol] 234 10 3/mcL Normal 130-400 [facility] ([place]) Comment on above: Performed By: #### C BC, ADIFF, ANEU, DIMER, LIP, TROP, CMP, GFR, PBNP #### [address] [address] RBC (Bld) [#/Vol] 5.28 10 6/mcL Normal 4.04-6.13 [facility] ([place]) Comment on above: Performed By: #### C BC, ADIFF, ANEU, DIMER, LIP, TROP, CMP, GFR, PBNP #### [address] [address] WBC (Bld) [#/Vol] 13.60 10 3/mcL High 4.60-10.80 [facility] ([place]) Comment on above: Performed By: #### C BC, ADIFF, ANEU, DIMER, LIP, TROP, CMP, GFR, PBNP #### [address] [address] CMPon 01-17-2020 Albumin [Mass/Vol] 3.7 G/dL Normal 3.4-4.8 [facility] ([place]) Comment on above: Performed By: #### C BC, ADIFF, ANEU, DIMER, LIP, TROP, CMP, GFR, PBNP #### [address] [address] Albumin/Globulin [Mass ratio] 1.2 {ratio} Normal 1.1-2.5 [facility] ([place]) Comment on above: Performed By: #### C BC, ADIFF, ANEU, DIMER, LIP, TROP, CMP, GFR, PBNP #### [address] [address] ALP [Catalytic activity/Vol] 76 U/L Normal 40-135 [facility] ([place]) Comment on above: Performed By: #### C BC, ADIFF, ANEU, DIMER, LIP, TROP, CMP, GFR, PBNP #### [address] [address] ALT [Catalytic activity/Vol] 29 U/L Normal 10-35 [facility] ([place]) Comment on above: Performed By: #### C BC, ADIFF, ANEU, DIMER, LIP, TROP, CMP, GFR, PBNP #### [address] [address] AST [Catalytic activity/Vol] 25 U/L Normal 10-40 [facility] ([place]) Comment on above: Performed By: #### C BC, ADIFF, ANEU, DIMER, LIP, TROP, CMP, GFR, PBNP #### [address] [address] Bili Total 0.6 mg/dL Normal 0.2-1.0 [facility] ([place]) Comment on above: Result Comment: Use of this assay is not recommended for patients undergoing treatment with eltrombopag due to the potential for falsely elevated results. Performed By: #### C BC, ADIFF, ANEU, DIMER, LIP, TROP, CMP, GFR, PBNP #### [address] [address] Calcium [Mass/Vol] 9.1 mg/dL Normal 8.4-10.2 [facility] ([place]) Comment on above: Performed By: #### C BC, ADIFF, ANEU, DIMER, LIP, TROP, CMP, GFR, PBNP #### [address] [address] Chloride [Moles/Vol] 101 mmol/L Normal 98-107 [facility] ([place]) Comment on above: Performed By: #### C BC, ADIFF, ANEU, DIMER, LIP, TROP, CMP, GFR, PBNP #### [address] [address] CO2 [Moles/Vol] 32 mmol/L High 23-31 [facility] ([place]) Comment on above: Performed By: #### C BC, ADIFF, ANEU, DIMER, LIP, TROP, CMP, GFR, PBNP #### [address] [address] Creatinine [Mass/Vol] 1.25 mg/dL Normal 0.70-1.30 [facility] ([place]) Comment on above: Performed By: #### C BC, ADIFF, ANEU, DIMER, LIP, TROP, CMP, GFR, PBNP #### [address] [address] Electrolyte Balance 6.0 mEq/L Normal [facility] ([place]) Comment on above: Performed By: #### C BC, ADIFF, ANEU, DIMER, LIP, TROP, CMP, GFR, PBNP #### [address] [address] Globulin (S) [Mass/Vol] 3.2 G/dL Normal [facility] ([place]) Comment on above: Performed By: #### C BC, ADIFF, ANEU, DIMER, LIP, TROP, CMP, GFR, PBNP #### [address] [address] Glucose [Mass/Vol] 140 mg/dL High 80-115 [facility] ([place]) Comment on above: Performed By: #### C BC, ADIFF, ANEU, DIMER, LIP, TROP, CMP, GFR, PBNP #### [address] [address] Potassium [Moles/Vol] 4.2 mmol/L Normal 3.5-5.1 [facility] ([place]) Comment on above: Performed By: #### C BC, ADIFF, ANEU, DIMER, LIP, TROP, CMP, GFR, PBNP #### [address] [address] Protein [Mass/Vol] 6.9 G/dL Normal 6.4-8.2 [facility] ([place]) Comment on above: Performed By: #### C BC, ADIFF, ANEU, DIMER, LIP, TROP, CMP, GFR, PBNP #### [place] [address] [place], [place] [address] Sodium [Moles/Vol] 139 mmol/L Normal 136-145 [facility] ([place]) Comment on above: Performed By: #### C BC, ADIFF, ANEU, DIMER, LIP, TROP, CMP, GFR, PBNP #### [place] [address] [place], [place] [address] Urea nitrogen [Mass/Vol] 24 mg/dL High 7-18 [facility] ([place]) Comment on above: Performed By: #### C BC, ADIFF, ANEU, DIMER, LIP, TROP, CMP, GFR, PBNP #### [address] [address] Urea nitrogen/Creatinine [Mass ratio] 19 ratio Normal 7-27 [facility] ([place]) Comment on above: Performed By: #### C BC, ADIFF, ANEU, DIMER, LIP, TROP, CMP, GFR, PBNP #### [address] [address] [address] ANGIOGRAPHY CHEST W/CONTR Nena 01-17-2020 CT ANGIOGRAPHY CHEST W/CONTRAST ORIGINAL CT PULMONARY ANGIOGRAM WITH IV CONTRAST: with post-processing, volume rendering and 3-D acquisitions. This exam was performed according to our departmental dose optimization program, and includes the following measures where applicable: automated exposure control, adjustment of the mAs and/or kVp according to patient size and/or exam, and an iterative reconstruction algorithm. CLINICAL STATEMENT: chest pain; suspect PE. Dyspnea, weakness for 3 days. Elevated d-dimer. COMPARISON:Chest radiograph 01/07/2017 FINDINGS: There is adequate contrast opacification of the pulmonary arterial vasculature. There is no filling defect or vessel cutoff to indicate pulmonary embolus to the level of the segmental arteries. The pulmonary arteries are normal in size. There is no evidence of right heart strain. The thoracic aorta is normal in caliber, and demonstrates no evidence of dissection. There is no pericardial effusion. No lymphadenopathy is identified. The trachea is normal. There is severe emphysema, bilateral lower lobe predominant. There is no pneumothorax or pleural fluid. There is no acute fracture or aggressive osseous lesion. Limited images of the upper abdomen are noncontributory. IMPRESSION: No pulmonary emboli. Severe emphysema. I have personally reviewed the images of this examination and agree with the resident's findings and interpretation. Interpreted By: Lefty Alves MD Preliminary Report By: Drew Carroll MD Electronically Signed By: Lefty Alves MD Dictated Date: 01/17/2020 8:49:17 PM Prelim Date: 01/17/2020 8:55:04 PM Sign Date: 01/17/2020 9:01:46 PM Ordering Provider:Niko Damon [facility] ([place]) DIMERon 01-17-2020 Fibrin D-dimer FEU IA (Bld) [Mass/Vol] 399 ng/mL D-DU High 0-230 [facility]) Comment on above: Result Comment: The result of the D-Dimer test should be evaluated in the context of all the clinical and laboratory data available. In those instances where the laboratory result does not agree with the clinical evaluation, additional tests should be performed accordingly. If the D-Dimer result is used to exclude DVT or PE, the recommended cutoff value is less than 230 ng/mL. The D-Dimer result should not be used alone to rule in DVT/PE, but should be used in conjunction with a clinical pretest probability (PTP)assessment model to exclude venous thromboembolism (VTE) in outpatients suspected of deep venous thrombosis (DVT) and pulmonary embolism (PE). Performed By: #### C BC, ADIFF, ANEU, DIMER, LIP, TROP, CMP, GFR, PBNP #### [address] [address] LIPon 01-17-2020 Lipase Level 57 U/L Low 73-393 [facility] ([place]) Comment on above: Performed By: #### C BC, ADIFF, ANEU, DIMER, LIP, TROP, CMP, GFR, PBNP #### [place] [address] [place], [place] [address] PBNPon 01-17-2020 Natriuretic peptide B (Bld) [Mass/Vol] 290 pg/mL High 0-125 [facility] ([place]) Comment on above: Result Comment: NT-p roBNP results of less than 300 pg/mL effectively rules out acute congestive heart failure with 99% negative predictive value. Performed By: #### C BC, ADIFF, ANEU, DIMER, LIP, TROP, CMP, GFR, PBNP #### [address] [address] TROPon 01-17-2020 Troponin I.cardiac [Mass/Vol] 0.076 ng/mL High 0.000-0.040 [facility] ([place]) Comment on above: Result Comment: Trop onin I reference range: 0.00-0.040 ng/mL Negative and non-diagnostic. >0.040 ng/mL Consistent with cardiac damage, increased clinical risk and possibility of myocardial infarction. Serial measurements, a rise & fall in test results, clinical history, appropriate symptoms and/or ECG changes may help assess possibility of TX. *Other non-acute coronary syndrome conditions such as CHF, myocarditis, pulmonary emboli, sepsis and cardiac surgery could result in myocardial damage and increased troponin levels. Performed By: #### C BC, ADIFF, ANEU, DIMER, LIP, TROP, CMP, GFR, PBNP #### [address] [address] XR CHEST 2 VIEWSon 0 XR CHEST 2 VIEWS ORIGINAL XR CHEST 2 VIEWS CLINICAL STATEMENT: Chest Pain. History of smoking. COMPARISON: 01/07/2017 FINDINGS: The cardiomediastinal silhouette is within normal limits. Atherosclerotic calcifications of aortic arch noted. The lungs are hyperinflated with increased anteroposterior diameter appreciated on the lateral view with mild diaphragmatic flattening. There is no focal consolidation, vascular congestion, or pleural effusion. No pneumothorax is identified. The thoracic osseous structures are intact. IMPRESSION: Emphysema. No acute cardiopulmonary findings. I have personally reviewed the images of this examination and agree with the resident's findings and interpretation. Interpreted By: Lefty Alves MD Preliminary Report By: Drew Carroll MD Electronically Signed By: Lefty Alves MD Dictated Date: 01/17/2020 8:10:57 PM Prelim Date: 01/17/2020 8:14:03 PM Sign Date: 01/17/2020 8:36:46 PM Ordering Provider:Niko Dureska [facility] ([place]) CR Femur 2+ Views Righton CR Femur 2+ Views Right Patient Name: SARABJIT LEACH Diagnostic Radiology Exam Date/Time 09/25/2018 20:30:46 EST Exam CR Femur 2+ Views Right n Ordering Physician LANDEN NEWTON Accession Number [id number] CPT4 Codes 25116 () Reason For Exam r/o fb Report RIGHT FEMUR CLINICAL INDICATION: Open wound without healing with remote surgery TECHNIQUE: AP and lateral COMPARISON: None. FINDINGS: Old fracture of the femoral neck is noted with metallic fixation in adequate alignment. There is some spurring about the acetabulum. No acute fracture or dislocation is noted. No bone lesion is identified. There is no soft tissue abnormality. No soft tissue gas collection or other radiopaque foreign body is identified. IMPRESSION: No acute abnormality. Report Dictated on Final Dictating Physician: MD CHAMPION JEFFREY Signed Date and Time: 09/25/2018 9:00 pm Signed by: MD CHAMPION JEFFREY Transcribed Date and Time: 09/25/2018 9:01 [facility] CR Chest PA/LATon 09-16-2017 CR Chest PA/LAT Patient Name: SARABJIT LEACH Diagnostic Radiology Exam Date/Time 09/16/2017 16:27:00 EST Exam CR Chest PA/LAT Ordering Physician [id number] CHRISTINE DEWEY Accession Number [id number] CPT4 Codes 30029 () Reason For Exam unexplained weight loss, smoking history Report CHEST, PA and LATERAL: INDICATION: Weight loss COMPARISON: 10/22/2015 PA and lateral views of the chest were obtained. The heart is normal in size. The mediastinal silhouette is normal. The lungs are hyperinflated with flattening of the hemidiaphragms and increase in the retrosternal airspace. There are no effusions or infiltrates. There is no pleural thickening. The osseous structures are unremarkable. IMPRESSION: COPD. No acute process. Negative chest. Report Dictated on Workstation: [id number] Final Dictated: 09/16/2017 4:35 pm Dictating Physician: DO POTTS ALFRED Signed Date and Time: 09/16/2017 4:36 pm Signed by: DO POTTS ALFRED Transcribed Date and Time: 09/16/2017 4:35 Normal [facility] Vital Signs Date Time Vital Sign Value Performing Clinician Facility 03-19-2024 09:53-0400 Body height 175.3 cm Eduarda Felix MD Work Phone: [facility] 03-19-2024 09:53-0400 Body mass index (BMI) [Ratio] 17.79 kg/m2 Eduarda Felix MD Work Phone: [facility] 03-19-2024 09:53-0400 Body temperature 97.7 [degF] Eduarda Felix MD Work Phone: [facility] 03-19-2024 09:53-0400 Body weight 54.66 kg Eduarda Felix MD Work Phone: [facility] 03-19-2024 09:53-0400 Diastolic blood pressure 75 mm[Hg] Eduarda Felix MD Work Phone: [facility] 03-19-2024 09:53-0400 Heart rate 69 /min Eduarda Felix MD Work Phone: [facility] 03-19-2024 09:53-0400 Respiratory rate 16 /min Eduarda Felix MD Work Phone: [facility] 03-19-2024 09:53-0400 SaO2% (BldA) [Mass fraction] 93 % Eduarda Felix MD Work Phone: [facility] 03-19-2024 09:53-0400 Systolic blood pressure 112 mm[Hg] Eduarda Felix MD Work Phone: [facility] 10-31-2023 13:22-0400 Body height 175.3 cm Eduarda Felix MD Work Phone: [facility] 10-31-2023 13:22-0400 Body temperature 97.39 [degF] Eduarda Felix MD Work Phone: [facility] 10-31-2023 13:22-0400 Body weight 52.16 kg Eduarda Felix MD Work Phone: [facility] 10-31-2023 13:22-0400 Diastolic blood pressure 71 mm[Hg] Eduarda Felix MD Work Phone: [facility] 10-31-2023 13:22-0400 Heart rate 97 /min Eduarda Felix MD Work Phone: [facility] 10-31-2023 13:22-0400 Respiratory rate 16 /min Eduarda Felix MD Work Phone: [facility] 10-31-2023 13:22-0400 SaO2% (BldA) [Mass fraction] 92 % Eduarda Felix MD Work Phone: [facility] 10-31-2023 13:22-0400 Systolic blood pressure 93 mm[Hg] Eduarda Felix MD Work Phone: [facility] 06-23-2023 11:07-0500 Body height 175.3 cm Eduarda Felix MD Work Phone: [facility] 06-23-2023 11:07-0500 Body weight 52.62 kg Eduarda Felix MD Work Phone: [facility] 06-23-2023 11:07-0500 Diastolic blood pressure 62 mm[Hg] Eduarda Felix MD Work Phone: [facility] 06-23-2023 11:07-0500 Systolic blood pressure 112 mm[Hg] Eduarda Felix MD Work Phone: [facility] 05-08-2023 17:05-0400 Body temperature 97.52 [degF] Sandip Chavez DO [facility] 05-08-2023 17:05-0400 Body weight 50.3 kg Sandip Chavez DO [facility] 05-08-2023 17:05-0400 Diastolic blood pressure 76 mm[Hg] Sandip Chavez DO [facility] 05-08-2023 17:05-0400 Heart rate 73 /min Sandip Chavez DO [facility] 05-08-2023 17:05-0400 Respiratory rate 20 /min Sandip Chavez DO [facility] 05-08-2023 17:05-0400 SaO2% (BldA) [Mass fraction] 94 % Sandip Chavez DO [facility] 05-08-2023 17:05-0400 Systolic blood pressure 107 mm[Hg] Sandpi Chavez DO [facility] 05-02-2023 11:03-0400 Body height 175.3 cm Eduarda Felix MD Work Phone: [facility] 05-02-2023 11:03-0400 Body weight 50.35 kg Eduarda Felix MD Work Phone: [facility] 05-02-2023 11:03-0400 Diastolic blood pressure 60 mm[Hg] Eduarda Felix MD Work Phone: [facility] 05-02-2023 11:03-0400 Heart rate 79 /min Eduarda Felix MD Work Phone: [facility] 05-02-2023 11:03-0400 SaO2% (BldA) [Mass fraction] 94 % Eduarda Felix MD Work Phone: [facility] 05-02-2023 11:03-0400 Systolic blood pressure 100 mm[Hg] Eduarda Felix MD Work Phone: [facility] 03-16-2023 10:20-0400 Body height 175.3 cm Salazar Wiggers DO Work Phone: [facility] 03-16-2023 10:20-0400 Body temperature 97.39 [degF] Salazar Wiggers DO Work Phone: [facility] 03-16-2023 10:20-0400 Body weight 52.62 kg Salazar Wiggers DO Work Phone: [facility] 03-16-2023 10:20-0400 Diastolic blood pressure 74 mm[Hg] Salazar Wiggers DO Work Phone: [facility] 03-16-2023 10:20-0400 Heart rate 61 /min Salazar Wiggers DO Work Phone: [facility] 03-16-2023 10:20-0400 Respiratory rate 18 /min Salazar Wiggers DO Work Phone: [facility] 03-16-2023 10:20-0400 SaO2% (BldA) [Mass fraction] 98 % Salazar Wiggers DO Work Phone: [facility] 03-16-2023 10:20-0400 Systolic blood pressure 108 mm[Hg] Salazar Wiggers DO Work Phone: [facility] 01-10-2023 08:59-0400 Body height 175.3 cm Eduarda Felix MD Work Phone: [facility] 01-10-2023 08:59-0400 Body temperature 96.69 [degF] Eduarda Felix MD Work Phone: [facility] 01-10-2023 08:59-0400 Body weight 50.8 kg Eduarda Felix MD Work Phone: [facility] 01-10-2023 08:59-0400 Diastolic blood pressure 71 mm[Hg] Eduarda Felix MD Work Phone: [facility] 01-10-2023 08:59-0400 Heart rate 67 /min Eduarda Felix MD Work Phone: [facility] 01-10-2023 08:59-0400 Respiratory rate 13 /min Eduarda Felix MD Work Phone: [facility] 01-10-2023 08:59-0400 SaO2% (BldA) [Mass fraction] 92 % Edurada Felix MD Work Phone: [facility] 01-10-2023 08:59-0400 Systolic blood pressure 107 mm[Hg] Eduarda Felix MD Work Phone: [facility] 10-20-2022 13:18-0400 Body height 175.3 cm Eduarda Felix MD Work Phone: [facility] 10-20-2022 13:18-0400 Body temperature 97 [degF] Eduarda Felix MD Work Phone: [facility] 10-20-2022 13:18-0400 Body weight 53.07 kg Eduarda Felix MD Work Phone: [facility] 10-20-2022 13:18-0400 Diastolic blood pressure 69 mm[Hg] Eduarda Felix MD Work Phone: [facility] 10-20-2022 13:18-0400 Heart rate 54 /min Eduarda Felix MD Work Phone: [facility] 10-20-2022 13:18-0400 Respiratory rate 12 /min Eduarda Felix MD Work Phone: [facility] 10-20-2022 13:18-0400 SaO2% (BldA) [Mass fraction] 95 % Eduarda Felix MD Work Phone: [facility] 10-20-2022 13:18-0400 Systolic blood pressure 102 mm[Hg] Eduarda Felix MD Work Phone: [facility] 06-07-2022 08:38-0500 Body height 175.3 cm Eduarda Felix MD Work Phone: [facility] 06-07-2022 08:38-0500 Body temperature 97.2 [degF] Eduarda Felix MD Work Phone: [facility] 06-07-2022 08:38-0500 Body weight 54.93 kg Eduarda Felix MD Work Phone: [facility] 06-07-2022 08:38-0500 Diastolic blood pressure 69 mm[Hg] Eduarda Felix MD Work Phone: [facility] 06-07-2022 08:38-0500 Heart rate 62 /min Eduarda Felix MD Work Phone: [facility] 06-07-2022 08:38-0500 Respiratory rate 12 /min Eduarda Felix MD Work Phone: [facility] 06-07-2022 08:38-0500 SaO2% (BldA) [Mass fraction] 100 % Eduarda Felix MD Work Phone: [facility] 06-07-2022 08:38-0500 Systolic blood pressure 128 mm[Hg] Eduarda Felix MD Work Phone: [facility] 03-02-2022 08:36-0400 Body height 175.3 cm Eduarda Felix MD Work Phone: [facility] 03-02-2022 08:36-0400 Body temperature 97.3 [degF] Eduarda Felix MD Work Phone: [facility] 03-02-2022 08:36-0400 Body weight 52.62 kg Eduarda Felix MD Work Phone: [facility] 03-02-2022 08:36-0400 Diastolic blood pressure 65 mm[Hg] Eduarda Felix MD Work Phone: [facility] 03-02-2022 08:36-0400 Heart rate 50 /min Eduarda Felix MD Work Phone: [facility] 03-02-2022 08:36-0400 Respiratory rate 16 /min Eduarda Felix MD Work Phone: [facility] 03-02-2022 08:36-0400 SaO2% (BldA) [Mass fraction] 97 % Eduarda Felix MD Work Phone: [facility] 03-02-2022 08:36-0400 Systolic blood pressure 142 mm[Hg] Eduarda Felix MD Work Phone: [facility] 02-08-2022 14:33-0400 Body temperature 97.2 [degF] Baldev Daiello PA-C Work Phone: [facility] 02-08-2022 14:33-0400 Body weight 52.25 kg Baldev Daiello PA-C Work Phone: [facility] 02-08-2022 14:33-0400 Diastolic blood pressure 80 mm[Hg] Baldev Daiello PA-C Work Phone: [facility] 02-08-2022 14:33-0400 Heart rate 58 /min Baldev Daiello PA-C Work Phone: [facility] 02-08-2022 14:33-0400 Respiratory rate 18 /min Baldev Daiello PA-C Work Phone: [facility] 02-08-2022 14:33-0400 SaO2% (BldA) [Mass fraction] 96 % Baldev Daiello PA-C Work Phone: [facility] 02-08-2022 14:33-0400 Systolic blood pressure 136 mm[Hg] Baldev Daiello PA-C Work Phone: [facility] 12-03-2021 10:52-0400 Body height 175.3 cm Eduarda Felix MD Work Phone: [facility] 12-03-2021 10:52-0400 Body temperature 97 [degF] Eduarda Felix MD Work Phone: [facility] 12-03-2021 10:52-0400 Body weight 53.98 kg Eduarda Felix MD Work Phone: [facility] 12-03-2021 10:52-0400 Diastolic blood pressure 60 mm[Hg] Eduarda Felix MD Work Phone: [facility] 12-03-2021 10:52-0400 Heart rate 57 /min Eduarda Felix MD Work Phone: [facility] 12-03-2021 10:52-0400 Respiratory rate 12 /min Eduarda Felix MD Work Phone: [facility] 12-03-2021 10:52-0400 SaO2% (BldA) [Mass fraction] 94 % Eduarda Felix MD Work Phone: [facility] 12-03-2021 10:52-0400 Systolic blood pressure 113 mm[Hg] Eduarda Felix MD Work Phone: [facility] 10-22-2021 10:40-0400 Body height 175.3 cm Eduarda Felix MD Work Phone: [facility] 10-22-2021 10:40-0400 Body temperature 98.01 [degF] Eduarda Felix MD Work Phone: [facility] 10-22-2021 10:40-0400 Body weight 55.52 kg Eduarda Felix MD Work Phone: [facility] 10-22-2021 10:40-0400 Diastolic blood pressure 67 mm[Hg] Eduarda Felix MD Work Phone: [facility] 10-22-2021 10:40-0400 Heart rate 80 /min Eduarda Felix MD Work Phone: [facility] 10-22-2021 10:40-0400 Respiratory rate 20 /min Eduarda Felix MD Work Phone: [facility] 10-22-2021 10:40-0400 SaO2% (BldA) [Mass fraction] 93 % Eduarda Felix MD Work Phone: [facility] 10-22-2021 10:40-0400 Systolic blood pressure 100 mm[Hg] Eduarda Felix MD Work Phone: [facility] 06-30-2021 14:42-0500 Body height 175.26 cm Zina Luna Work Phone: [facility] Work Phone: 06-30-2021 14:42-0500 Body mass index (BMI) [Ratio] 17.87 kg/m2 Zina Luna Work Phone: [facility] Work Phone: 06-30-2021 14:42-0500 Body surface area Derived from formula 1.67 m2 Zina Luna Work Phone: [facility] Work Phone: 06-30-2021 14:42-0500 Body temperature 97.4 [degF] Zina Luna Work Phone: [facility] Work Phone: 06-30-2021 14:42-0500 Body weight 54.89 kg Zina Luna Work Phone: [facility] Work Phone: 06-30-2021 14:42-0500 Diastolic blood pressure 68 mm[Hg] Zina Luna Work Phone: [facility] Work Phone: 06-30-2021 14:42-0500 Heart rate 88 /min Zina Luna [facility] Work Phone: 06-30-2021 14:42-0500 Respiratory rate 18 /min Zina Luna Work Phone: [facility] Work Phone: 06-30-2021 14:42-0500 SaO2% (BldA) [Mass fraction] 91 % Zina Luna Work Phone: [facility] Work Phone: 06-30-2021 14:42-0500 Systolic blood pressure 112 mm[Hg] Zina Luna Work Phone: [facility] Work Phone: 05-05-2021 23:42-0400 Body height 175.3 cm XAVIER MURRAY DO [facility] 05-05-2021 23:42-0400 Body temperature 98.24 [degF] XAVIER MURRAY DO [facility] 05-05-2021 23:42-0400 Body weight 54.5 kg XAVIER MURRAY DO [facility] 05-05-2021 23:42-0400 Diastolic blood pressure 97 mm[Hg] XAVIER MURRAY DO [facility] 05-05-2021 23:42-0400 Heart rate 61 /min XAVIER MURRAY DO [facility] 05-05-2021 23:42-0400 Respiratory rate 20 /min XAVIER MURRAY DO [facility] 05-05-2021 23:42-0400 Systolic blood pressure 174 mm[Hg] XAVIER MURRAY DO [facility] Encounters Encounter Date Encounter Type Care Provider Facility Start: 05-09-2024 [facility] Facility: [facility] Start: 05-09-2024 End: 05-09-2024 Subsequent hospital visit by physician Norah Brice RADIO [facility] Comment on above: Lung nodule [R91.1] Start: 05-08-2024 End: 05-08-2024 ambulatory Roula Matias RN Work Phone: [employer] Start: 05-08-2024 End: 05-08-2024 Home visit Roula Matias RN Work Phone: [employer] Comment on above: Initial phone contac t for Transitional Care Management Start: 03-19-2024 End: 03-19-2024 ambulatory [facility] Facility:[facility] Start: 03-19-2024 End: 03-19-2024 Patient encounter procedure Eduarda Felix MD Work Phone: Pulmonary Comment on above: Pulmonary emphysema, unspecified emphysema type (HCC) (Primary Dx); Lung nodule; Ex-smoker Start: 02-01-2024 End: 02-01-2024 ambulatory [facility] Ambulatory Start: 01-10-2024 Telephone encounter Eduarda dupont MD Work Phone: Pulmonary Comment on above: CT question Start: 10-31-2023 End: 10-31-2023 Patient encounter procedure Eduarda Felix MD Work Phone: Pulmonary Comment on above: Pulmonary emphysema, unspecified emphysema type (HCC) (Primary Dx); Ex-smoker; Lung nodule; Acute bronchitis, unspecified organism Start: 10-31-2023 End: 10-31-2023 ambulatory SALAZAR B [facility] Facility:[facility] Start: 10-27-2023 ambulatory EDUARDA FELIX Facility: [facility] Start: 10-27-2023 End: 10-27-2023 Subsequent hospital visit by physician [facility] 1 (I-Stat) [facility] Comment on above: Lung nodules [R91.8] Start: 10-10-2023 End: 10-12-2023 ambulatory MARGARET PLASCENCIA MD Facility:[id number] Start: 07-14-2023 ambulatory Bal Moyer MD Work Phone: [facility] Start: 07-14-2023 E-mail encounter db lackey caregiver Bal Moyer MD Work Phone: [facility] Start: 06-30-2023 ambulatory Salazar B Wiggers DO Work Phone: [facility] Internal [facility] ([facility]) Comment on above: results Start: 06-30-2023 E-mail encounter db lackey caregiver Salazar Claudia Fernandezggers DO Work Phone: [facility] Start: 06-29-2023 End: 06-29-2023 ambulatory SALAZAR B WIGGERS Facility:[facility] Start: 06-29-2023 End: 06-29-2023 ambulatory SALAZAR B WIGGERS Facility:[facility] Start: 06-23-2023 End: 06-23-2023 ambulatory EDUARDA FELIX Facility:[id number] Start: 06-23-2023 End: 06-23-2023 Patient encounter procedure Eduarda Felix MD Work Phone: [facility] Pulmonary Comment on above: Pulmonary emphysema, unspecified emphysema type (HCC) (Primary Dx); Lung nodules; Ex-smoker; Mediastinal adenopathy Start: 06-15-2023 Refill Eduarda Felix MD Work Phone: Pulmonary Comment on above: Refill Request Start: 05-08-[address] [facility] Start: 05-02-2023 Telephone encounter Eduarda dupont MD Work Phone: [facility] Pulmonary Comment on above: FYI-No Action Needed Start: 05-02-2023 End: 05-02-2023 ambulatory EDUARDA FELIX Facility:[id number] Start: 05-02-2023 End: 05-02-2023 Patient encounter procedure Eduarda Felix MD Work Phone: [facility] Pulmonary Comment on above: Lung nodules (Primar y Dx); Pulmonary emphysema, unspecified emphysema type (HCC); Chronic obstructive pulmonary disease, unspecified COPD type (HCC); Ex-smoker; Mediastinal adenopathy Start: 04-22-2023 End: 04-22-2023 Subsequent hospital visit by physician Ct [facility] Comment on above: Lung nodules [R91.8] Start: 03-28-2023 End: 03-28-2023 Emergency department patient visit GISELA HSU MD Facility:[id number] Start: 03-21-2023 Telephone encounter No Pcp CARAMEL CUTTER MACHINE [facility] ([facility]) Comment on above: Patient Update (Ct a bd/pelvis) Start: 03-17-2023 ambulatory Salazar Stallworth DO Work Phone: [facility] ([facility]) Comment on above: Results Start: 03-17-2023 E-mail encounter fro m caregiver Salazar Stallworth DO Work Phone: [facility] Start: 03-16-2023 End: 03-16-2023 Patient encounter procedure Salazar Stallworth DO Work Phone: [facility] ([facility]) Comment on above: Screening for abdomi nal aortic aneurysm (Primary Dx); Screening for lipid disorders; Abnormal bruising; Pulmonary nodule; Complicated unilateral incarcerated femoral hernia; Other fatigue Start: 01-27-2023 Refill Eduarda Felix MD Work Phone: Pulmonary Comment on above: Refill Request Start: 01-10-2023 End: 01-10-2023 Patient encounter procedure Eduarda Felix MD Work Phone: Pulmonary Comment on above: Chronic obstructive pulmonary disease, unspecified COPD type (HCC) (Primary Dx); COPD exacerbation (HCC); Ex-smoker; Lung nodules Start: 11-11-2022 Refill Eduarda Felix MD Work Phone: Pulmonary Comment on above: Refill Request Start: 10-21-2022 Telephone encounter Eduarda dupont MD Work Phone: Pulmonary Medicine Comment on above: Insurance Authorizat ion Start: 10-20-2022 End: 10-20-2022 Patient encounter procedure Eduarda Felix MD Work Phone: Pulmonary Comment on above: Chronic obstructive pulmonary disease, unspecified COPD type (HCC) (Primary Dx); Lung nodules; Ex-smoker Start: 09-01-2022 ambulatory Isis Mcdaniesl CARAMEL CUTTER MACHINE.CHIEF OF STAFF Work Phone: Pulmonary Medicine Start: 09-01-2022 Telephone encounter Isis Mcdaniels CARAMEL CUTTER MACHINE.CHIEF OF STAFF Work Phone: Pulmonary Medicine Comment on above: Patient Update Start: 07-08-2022 End: 07-08-2022 Subsequent hospital visit by physician Pet Injection [facility] Work Phone: [facility] Comment on above: Lung nodules [R91.8] Start: 06-22-2022 Telephone encounter Eduarda dupont MD Work Phone: Pulmonary Comment on above: Results Start: 06-07-2022 End: 06-07-2022 Patient encounter procedure Eduarda Felix MD Work Phone: Pulmonary Comment on above: Chronic obstructive pulmonary disease, unspecified COPD type (HCC) (Primary Dx); Mediastinal adenopathy; Ex-smoker Start: 03-02-2022 End: 03-02-2022 Patient encounter procedure Eduarda Felix MD Work Phone: Pulmonary Comment on above: Chronic obstructive pulmonary disease, unspecified COPD type (HCC) (Primary Dx); Ex-smoker Start: 02-08-2022 End: 02-08-2022 Office outpatient visit 15 minutes Baldev Greenwood PA-C Work Phone: [facility] [employer] [facility] Comment on above: Cellulitis of skin ( Primary Dx); Rash Start: 01-21-2022 Telephone encounter Eduarda dupont MD Work Phone: Pulmonary Comment on above: Disability Evaluatio n Start: 12-03-2021 End: 12-03-2021 ambulatory Pulm Work Phone: [facility] Comment on above: Spirometry Start: 12-03-2021 End: 12-03-2021 Patient encounter procedure Pulziyad Brice Work Phone: [facility] Comment on above: Chronic obstructive pulmonary disease, unspecified COPD type (HCC) (Primary Dx); Ex-smoker; Acute respiratory failure with hypoxia (HCC) Start: 11-20-2021 Telephone encounter Eduarda dupont MD Work Phone: Pulmonary Comment on above: Patient Question; Re sults Start: 11-20-2021 End: 11-20-2021 Subsequent hospital visit by physician [facility] Comment on above: Bacterial pneumonia [J15.9] Start: 11-18-2021 Telephone encounter Eduarda dupont MD Work Phone: Pulmonary Comment on above: FYI-No Action Needed Start: 11-06-2021 Telephone encounter Eduarda dupont MD Work Phone: Pulmonary Comment on above: Patient Question; Or ders Start: 11-04-2021 Refill Eduarda Felix MD Work Phone: Pulmonary Comment on above: Refill Request Start: 10-22-2021 End: 10-22-2021 Patient encounter procedure Eduarda Felix MD Work Phone: Pulmonary Comment on above: Pulmonary emphysema, unspecified emphysema type (HCC) (Primary Dx); Ex-smoker; Bacterial pneumonia; Hospital discharge follow-up; Acute respiratory failure with hypoxia (HCC) Start: 07-02-2021 Chart Update Zina Huynh i Work Phone: [facility] Work Phone: Start: 06-30-2021 Office outpatient vi sit 25 minutes Zina Luna Work Phone: [facility] Work Phone: Start: 06-30-2021 Patient encounter procedure [facility]: Start: 05-05-2021 End: 05-06-2021 Emergency department patient visit XAVIER MURRAY DO 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] Start: 08-29-2018 Patient encounter procedure NONE PCP Facility:UNKNOWN Start: 09-16-2017 Ambulatory [facility] Procedures Date Procedure Procedure Detail Performing Clinician Start: 04-22-2023 Ct thorax w/o contra st material Eduarda Felix MD Work Phone: Start: 07-08-[address] atten uation skull base mid-thigh Eduarda Felix MD Work Phone: Start: 12-03-2021 Noninvasive ear/puls e oximetry multiple deter Eduarda Felix MD Work Phone: Start: 11-20-2021 Radiologic exam ches t 2 views Eduarda Felix MD Work Phone: Start: 04-02-2021 Radiologic exam ches t 2 views David Hernandez MD Work Phone: Start: 03-25-2021 Radiologic exam ches t 2 views Martínez Bruce APRN.CNP Work Phone: Start: 11-21-2020 Radiologic exam ches t 2 views David Hernandez MD Work Phone: Start: 01-18-2020 Cardiovascular stres s testing XAVIER MURRAY DO Start: 01-18-2020 Echocardiography HODA MURRAY DO Comment on above: EF 55-60% Start: 01-17-2020 CT angiography of ch est with contrast XAVIER MURRAY DO Cholecystectomy XAVIER PEARSON DO Cholecystectomy Zina lakhani Work Phone: Hip region structure (body structure) XAVIER MURRAY DO Tonsillectomy XAVIER MURRAY DO Tonsillectomy Zina Huynh i Work Phone: Plan of Treatment Date Care Activity Detail Author Start: 04-05-2030 Urine microalbumin profile [facility] Start: 06-29-2026 [facility] Start: 03-16-2026 DIABETES SCREEN DIABETES SCREEN [facility] Start: 03-16-2026 [facility] Start: 10-05-2025 DIABETES SCREEN DIABETES SCREEN [facility] Start: 10-26-2024 Screening for malign ant neoplasm of lung Lung Cancer Screening [facility] Start: 10-16-2024 DIABETES SCREEN DIABETES SCREEN [facility] Start: 06-29-2024 Annual PCP Team Prospect Manager viviane Disease Visit Annual PCP Team Chronic Disease Visit [facility] Start: 06-14-2024 End: 06-14-2024 Patient encounter procedure 06/14/2024 10:00 AM EST Office Visit Pulmonary [address] [facility] [address] [place] [address] Liliana Smith, REZA.CHIEF OF STAFF [address] [place] [address] [facility] Pulmonary Comment on above: [facility] Start: 06-14-2024 End: 06-14-2024 ambulatory [facility] Comment on above: [facility] Start: 05-23-2024 End: 05-23-2024 Patient encounter procedure 05/23/2024 10:40 AM EDT Office Visit [facility] Internal Medicine [facility] ([facility]) [address] [facility] [address] [place], [place] [id number] Salazar Stallworth DO [address] [facility] [address] [place] [id number] TCM (NSTEMI AND SYNCOPE WITH LACTIC ACIDOSIS) [facility] Internal Medicine [facility] ([facility]) Comment on above: TCM (NSTEMI AND SYNC OPE WITH LACTIC ACIDOSIS) Start: 05-22-2024 End: 05-22-2024 Patient encounter procedure 05/22/2024 1:20 PM EDT Office Visit [facility] Cardiology [address] [id number] Andrew Herndon MD [address] [place] [address] [place] [id number] Ref; [facility] ED for ILR EvalEKG/eo [facility] Comment on above: Ref; [facility] ED for ILR EvalEKG/eo Start: 05-09-2024 End: 02-09-2025 CT Chest WO contrast [facility] Work Phone: Comment on above: Expected: 05/09/2024 , Expires: 02/09/2025 1 Occurrences starti ng 05/09/2024 until 05/09/2024 Start: 05-09-2024 End: 05-09-2024 Patient encounter procedure RADIO [facility] Comment on above: DR FREDO FELIX Lung nodul e, post chest CT or PET/CT, high suspicion of lung cancer, pre-op imaging Start: 04-22-2024 Influenza vaccination Lung Cancer [place] [facility] Start: 04-22-2024 Screening for malign ant neoplasm of lung Lung Cancer Screening [facility] Start: 03-25-2024 Covid-19 Vaccine ( season) Covid-19 Vaccine ( season) [facility] Start: 03-25-2024 Influenza vaccination [facility] Start: 03-16-2024 ANNUAL PCP TEAM ASSISTANT MANAGER OF OPERATIONS VIVIANE DISEASE VISIT ANNUAL PCP TEAM CHRONIC DISEASE VISIT [facility] Start: 03-13-2024 End: 03-13-2024 Patient encounter procedure 03/13/2024 12:50 PM EDT Office Visit Pulmonary [address] [facility] [address] [place] [id number] Eduarda Felix MD [address] [place] [address] LVM (2) TO CALL AND R/S APPT, 3 month follow up hcc Pulmonary Comment on above: LVM (2) TO CALL AND R/S APPT, 3 month follow up [facility] Start: 09-30-2023 Influenza vaccination LUNG CANCER [facility] Start: 07-25-2023 Advance Directive Discussion Advance Directive Discussion [facility] Start: 07-25-2023 Behavioral Health Screening Behavioral Health Screening [facility] Start: 07-23-2023 End: 07-22-2024 Ct thorax w/o contrast material CT CHEST WO IVCON Radiology Routine Lung nodules Expected: 07/23/2023, Expires: 07/22/2024 [facility] Work Phone: Comment on above: Expected: 07/23/2023 , Expires: 07/22/2024 Start: 06-16-2023 Influenza vaccination LUNG CANCER [facility] Start: 04-22-2023 End: 11-19-2023 Ct thorax w/o contrast material CT CHEST WO IVCON Radiology Routine Lung nodules Expected: 04/22/2023, Expires: 11/19/2023 [facility] Work Phone: Comment on above: Expected: 04/22/2023 , Expires: 11/19/2023 Start: 04-04-2023 End: 06-04-2023 ALBUMIN/CREAT RATIO RND UR ALBUMIN/CREAT RATIO RND UR Lab Routine Hyperglycemia Expected: 04/04/2023, Expires: 06/04/2023 [facility] Work Phone: Comment on above: Expected: 04/04/2023 , Expires: 06/04/2023 Start: 04-04-2023 End: 04-04-2024 SHIVA BY IFA SCREEN SHIVA BY IFA SCREEN Lab Routine Hepatomegaly Expected: 04/04/2023, Expires: 04/04/2024 [facility] Work Phone: Comment on above: Expected: 04/04/2023 , Expires: 04/04/2024 Start: 04-04-2023 End: 06-04-2023 Hemoglobin A1c in Blood HGB A1C Lab Routine Hyperglycemia Expected: 04/04/2023, Expires: 06/04/2023 [facility] Work Phone: Comment on above: Expected: 04/04/2023 , Expires: 06/04/2023 Start: 04-04-2023 End: 06-04-2023 Hepatitis C virus Ab [Presence] in Serum HEPATITIS C ANTIBODY IA WITH CONFIRMATION Lab Routine Special screening examination for viral disease Expected: 04/04/2023, Expires: 06/04/2023 [facility] Work Phone: Comment on above: Expected: 04/04/2023 , Expires: 06/04/2023 Start: 04-04-2023 End: 06-04-2023 LIPID PANEL, NONFASTING LIPID PANEL, NONFASTING Lab Routine Hyperglycemia Expected: 04/04/2023, Expires: 06/04/2023 [facility] Work Phone: Comment on above: Expected: 04/04/2023 , Expires: 06/04/2023 Start: 04-04-2023 End: 06-04-2023 MITOCHONDRIAL ATB W/REFLX TIT MITOCHONDRIAL ATB W/REFLX TIT Lab Routine Hepatomegaly Expected: 04/04/2023, Expires: 06/04/2023 [facility] Work Phone: Comment on above: Expected: 04/04/2023 , Expires: 06/04/2023 Start: 03-25-2023 Covid-19 Vaccine ( season) Covid-19 Vaccine () [facility] Start: 03-25-2023 Influenza vaccination [facility] Start: 03-16-2023 End: 10-23-2023 Lipid 1996 panel - Serum or Plasma LIPID PANEL BASIC Lab Routine Screening for lipid disorders Expected: 03/16/2023, Expires: 05/16/2023 [facility] Work Phone: Comment on above: Expected: 03/16/2023 , Expires: 05/16/2023 Start: 03-16-2023 End: 05-16-2023 Urinalysis complete panel - Urine URINALYSIS WITH MICROSCOPIC, REFLEX CULTURE Lab Routine Abnormal bruising Expected: 03/16/2023, Expires: 05/16/2023 [facility] Work Phone: Comment on above: Expected: 03/16/2023 , Expires: 05/16/2023 Start: 09-16-2022 PROSTATE CANCER SCREENING DISCUSSION PROSTATE CANCER SCREENING DISCUSSION [facility] Start: 07-25-2022 ADVANCE DIRECTIVE DISCUSSION ADVANCE DIRECTIVE DISCUSSION [facility] Start: 07-25-2022 [facility] Start: 03-25-2022 Influenza vaccination [facility] Start: 07-25-2021 ADVANCE DIRECTIVE DISCUSSION ADVANCE DIRECTIVE DISCUSSION [facility] Start: 07-25-2021 DEPRESSION ASSESSMENT DEPRESSION ASS ESSMENT [facility] Start: 05-02-2021 Influenza vaccination LUNG CANCER SC REENING [facility] Start: 03-25-2021 Influenza vaccination INFLUENZA (#1) [facility] Start: 2018 PNEUMOVAX AGE 65 AND OVER WITH 5YR LOOKBACK (#1) PNEUMOVAX AGE 65 AND OVER WITH 5YR LOOKBACK (#1) [facility] Start: 2013 RSV Vaccine (1 - 1-d ose 60+ series) RSV Vaccine (1 - 1-dose 60+ series) [facility] Start: 2013 RSV Vaccine (1 - Ris k 60-74 years 1-dose series) RSV Vaccine (1 - Risk 60-74 years 1-dose series) [facility] Start: 2003 SHINGRIX VACCINE (1 of 2) SHINGRIX VACCINE (1 of 2) [facility] Start: 1998 COLOGUARD (FIT-DNA) COLOGUARD (FIT-D NA) [facility] Start: 1998 Colonoscopy COLONOSCOPY [facility] Start: 1998 COLORECTAL CANCER SCREENING COLORECTAL CANCER SCREENING [facility] Start: [address] COLONOGRAPHY [facility] Start: 1998 FECAL OCCULT BLOOD FECAL OCCULT BLOO D [facility] Start: 1998 Screening for malign ant neoplasm of colon [facility] Start: [address] [facility] Start: 1988 Lipid 1996 panel - S fritz or Plasma Lipid Screening [facility] Start: 1988 Lipid panel Lipid Screening [facility] Start: 1988 LIPID SCREEN LIPID SCREEN [facility] Start: 1983 Zoledronic acid therapy ALPHA- 1 ANTITRYPSIN DEFICIENCY SCREENING [facility] Start: 1971 ANNUAL PCP TEAM ASSISTANT MANAGER OF OPERATIONS VIVIANE DISEASE VISIT ANNUAL PCP TEAM CHRONIC DISEASE VISIT [facility] Start: 1971 Anxiety Screening Anxiety Screening [facility] Start: 1971 Depression Screening Depression Scre ening [facility] Start: 1971 HEPATITIS C SCREENING HEPATITIS C [facility] Start: 1971 Hepatitis C screening Hepatitis C [facility] Start: 1965 Adult depression screening assessment DEPRESSION SCREENING [facility] Start: 1959 Pneumococcal Vaccine : 65+ (1 - PCV) Pneumococcal Vaccine: 65+ (1 - PCV) [facility] Start: 1959 Pneumococcal Vaccine : 65+ (1 of 2 - PCV) Pneumococcal Vaccine: 65+ (1 of 2 - PCV) [facility] Start: 1959 PNEUMOCOCCAL: 65+ (1 - PCV) PNEUMOCOCCAL: 65+ (1 - PCV) [facility] Start: 1958 COVID-19 VACCINE (#1) COVID-19 VACCI NE (#1) [facility] Start: 1958 COVID-19 VACCINE (1) COVID-19 VACCIN E (1) [facility] Start: 1953 COVID-19 VACCINE (#1) COVID-19 VACCI NE (#1) [facility] Start: 1953 ABDOMINAL AORTIC ANEURYSM SCREENING ABDOMINAL AORTIC ANEURYSM SCREENING [facility] Start: 1955 Abdominal aortic aneurysm screening Abdominal Aortic Aneurysm Screening [facility] End: 04-14-2024 Ct abdomen & pelvis w/contrast material CT ABD/PEL W IVCON Radiology Routine Complicated unilateral incarcerated femoral hernia 1 Occurrences starting 03/16/2023 until 04/14/2024 [facility] Work Phone: Comment on above: 1 Occurrences starti ng 03/16/2023 until 04/14/2024 CT Chest WO contrast CT CHEST WO IVCON Radiology Routine Lung nodules 10/27/2023 3:16 PM EDT [facility] Work Phone: End: 07-07-2023 Ct thorax w/o contrast material CT CHEST WO IVCON Radiology Routine Mediastinal adenopathy 1 Occurrences starting 06/07/2022 until 07/07/2023 [facility] Work Phone: Comment on above: 1 Occurrences starti ng 06/07/2022 until 07/07/2023 End: 10-01-2023 Ct thorax w/o contrast material CT CHEST WO IVCON Radiology Routine Lung nodule 1 Occurrences starting 09/01/2022 until 10/01/2023 [facility] Work Phone: Comment on above: 1 Occurrences starti ng 09/01/2022 until 10/01/2023 IMAGING GUIDED BIOPS Y LUNG IMAGING GUIDED BIOPSY LUNG Radiology Routine Lung nodules Ordered: 05/02/2023 [facility] Work Phone: Comment on above: Ordered: 05/02/2023 End: 04-18-2025 LUNG DIFFUSION CAPACITY (DLCO) LUNG DIFFUSION CAPACITY (DLCO) PFT Routine Pulmonary emphysema, unspecified emphysema type (HCC) 1 Occurrences starting 03/19/2024 until 04/18/2025 [facility] Comment on above: 1 Occurrences starti ng 03/19/2024 until 04/18/2025 End: 04-18-2025 LUNG VOLUMES LUNG VOLUMES PFT Routine Pulmonary emphysema, unspecified emphysema type (HCC) 1 Occurrences starting 03/19/2024 until 04/18/2025 [facility] Comment on above: 1 Occurrences starti ng 03/19/2024 until 04/18/2025 End: 04-18-2025 OXIMETRY WITH AMBULATION OXIMETRY WITH AMBULATION PFT Routine Pulmonary emphysema, unspecified emphysema type (HCC) 1 Occurrences starting 03/19/2024 until 04/18/2025 [facility] Comment on above: 1 Occurrences starti ng 03/19/2024 until 04/18/2025 End: 07-22-[address] attenuation skull base mid-thigh NM PET/CT SKULL-THIGH INITIAL Radiology Routine Lung nodules 1 Occurrences starting 06/22/2022 until 07/22/2023 [facility] Work Phone: Comment on above: 1 Occurrences starti ng 06/22/2022 until 07/22/2023 End: 11-21-2022 Radiologic exam chest 2 views XR CHEST 2V FRONTAL/LAT Radiology Routine Bacterial pneumonia 1 Occurrences starting 10/22/2021 until 11/21/2022 [facility] Work Phone: Comment on above: 1 Occurrences starti ng 10/22/2021 until 11/21/2022 Radiologic exam ches t 2 views XR CHEST 2V FRONTAL/LAT Radiology Routine Bacterial pneumonia 11/20/2021 12:14 PM EDT [facility] Work Phone: End: 04-18-2025 SPIROMETRY - BASELINE AND POST DILATOR SPIROMETRY - BASELINE AND POST DILATOR PFT Routine Pulmonary emphysema, unspecified emphysema type (HCC) 1 Occurrences starting 03/19/2024 until 04/18/2025 [facility] Work Phone: Comment on above: 1 Occurrences starti ng 03/19/2024 until 04/18/2025 End: 2024 Ultrasound elastography parenchyma US ELASTOGRAPHY LIVER Radiology Routine Hepatomegaly 1 Occurrences starting 04/04/2023 until 2024 [facility] Work Phone: Comment on above: 1 Occurrences starti ng 04/04/2023 until 2024 End: 2024 US ABD LIVER VASCULAR US ABD LIVER VASCULAR Radiology Routine Hepatomegaly 1 Occurrences starting 04/04/2023 until 2024 [facility] Work Phone: Comment on above: 1 Occurrences starti ng 04/04/2023 until 2024 [facility] Immunizations Immunization Date Immunization Notes Care Provider Meena bravo 04-05-2020 tetanus toxoid, redu william diphtheria toxoid, and acellular pertussis vaccine, adsorbed; Translations: [Boostrix (Tdap)] XAVIER MURRAY DO [facility] Payers Date Payer Category Payer Unknown [id number] 2023 Medicare [facility] AARP MEDICAR E [facility] AARP MEDICARE PPO [id number] 2023-Present [phone] [address] [address] [place] [address] PPO [id number] 2023 Medicare [id number] 2019 Unknown 2019 Unknown MMO MMO [employer] [id number] 2019-Present [phone] [address] [place] [address] PPO [id number] 1953 Unknown [id number] 1953 Unknown [id number] 1953 Unknown [id number] 1953 Unknown [id number] Private Health Insurance [id number] Private Health Insurance Social History Date Type Detail Facility Start: 01-17-2020 End: 03-19-2024 Ex-smoker (finding) [facility] Sex Assigned At [facility] Start: 12-24-2017 End: 01-10-2023 Former heavy cigarette smoker (20-39 per day) Former heavy cigarette smoker (20-39 per day) [facility] Comment on above: Quit Date: 2014; Start: 07-25-1966 End: 07-25-2014 History of tobacco use Current smoker [facility] Start: 07-25-1966 End: 07-25-2014 History of tobacco use Cigarette Smoker [facility] Start: 12-24-2017 End: 03-19-2024 Tobacco use and exposure Smokeless tobacco non-user [facility] Start: 10-22-2021 End: 03-19-2024 Alcohol intake Current non-drinker of alcohol (finding) [facility] Start: 12-24-2017 History SDOH Alcohol Comment quit in 1981 [facility] Start: 1955 Sex Assigned At Male [facility] Start: 10-22-2020 End: 06-16-2022 Exposure to SARS-CoV-2 (event) Not sure [facility] Start: 01-10-2023 End: 03-16-2023 Tobacco use panel [facility] Retired 08/23/2019 P HQ Score 0 [facility] Start: 04-29-2020 Gender identity Identifies as male gender (finding) [facility] Start: 04-29-2020 Sexual orientation Heterosexual (fin ding) [facility] Clinical Notes 01-18-2020 to 05-09-2024 Blanca Chin, (R) - 05/09/2024 12:30 PM Roula Mccarthy RN - 05/08/2024 9:46 AM EDTPatient Eduarda Bergman MD - 03/19/2024 10:14 AM Anna Garza - 03/19/2024 9:59 AM EDT Note Date & Type Note Facility 05-09-2024 History of Present illness Narrative Radiology Service Progress Note PATIENT NAME: Sarabjit Leach DATE OF SERVICE: May 09, 2024 TIME: 12:48 PM PATIENT IDENTITY VERIFICATION COMPLETED USING TWO (2) IDENTIFIERS: Name and Date of confirmed by patient verbally. FALL SCREENING: Has the patient had 2 falls in the last year or 1 fall with injury or currently using an Ambulatory Assistive Device (Walker, Cane, Wheelchair, Crutches, etc.)? No PATIENT GENDER DATA: Male PATIENT RELEVANT IMPLANT DATA REVIEWED: Not Applicable PATIENT PRESENTS WITH AN IMPLANTABLE OR ATTACHED QUILTING MACHINE OPERATOR: No RADIOLOGY DEPARTMENT: CT; Exam(s) Completed: Chest PERIPHERAL IV DATA: Not applicable SIGNED BY: JANEL Graham) May 09, 2024 12:48 PM documented in this encounter [facility] 05-09-2024 Note HNO ID: [id number] Author: BLANCA CHIN RT(R) Service: Radiology Author Type: Technologist Type: Progress Notes Filed: 05/09/2024 12:48 Note Text: Radiology Service Progress Note PATIENT NAME: Sarabjit Leach DATE OF SERVICE: May 09, 2024 TIME: 12:48 PM PATIENT IDENTITY VERIFICATION COMPLETED USING TWO (2) IDENTIFIERS: Name and Date of confirmed by patient verbally. FALL SCREENING: Has the patient had 2 falls in the last year or 1 fall with injury or currently using an Ambulatory Assistive Device (Walker, Cane, Wheelchair, Crutches, etc.)? No PATIENT GENDER DATA: Male PATIENT RELEVANT IMPLANT DATA REVIEWED: Not Applicable PATIENT PRESENTS WITH AN IMPLANTABLE OR ATTACHED QUILTING MACHINE OPERATOR: No RADIOLOGY DEPARTMENT: CT; Exam(s) Completed: Chest PERIPHERAL IV DATA: Not applicable SIGNED BY: JANEL Graham) May 09, 2024 12:48 PM [facility] 05-08-2024 Note HNO ID: [id number] Author: ROULA MATIAS RN Service: ? Author Type: Registered Nurse Type: Progress Notes Filed: 05/08/2024 10:59 Note Text: TRANSITIONAL CARE MANAGEMENT (TCM) COMMUNITY MONITORING PROGRAM - [place] Provider Action/FYI: Discharged 05/07/24, TCM 05/23/24, outside 2 weeks, only wanted to follow-up with Dr. Stallworth (he had a sooner appt, but it was on a day he already had another appt). Roula Matias RN May 08, 2024 10:17 AM SUMMARY: Pt discharged from [facility] on 05/07/24. Admitted for: Syncope TCM Summary: General: Patient reports he he had a syncopal episode and his sister started CPR. 911 was called and patient was taken to [facility]. 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 Prior smoker 50+ years about a pack and a half a day, quit 9 years ago. Patient reports he is still SOB, noted SOB with speech on the phone. He reports with activity he becomes more SOB. He is staying at a friends house and does not have any of his inhalers. Advised to obtain his inhalers and breathing treatments as soon as possible. He stated he was going to go get his inhalers. He was advised to call and scheduled a pulmonary appointment. He sees Dr. Eduarda Feilx. Patient reports he his welt maker phone number and will call and schedule Patient does not use oxygen, suggested to purchase a pulse ox Cardiac Currently denies chest pain, nausea stomach, heart palpitation, anxiety, sweating, dizzy, lightheaded, fainting. He was advised if any of these occur and or SOB worsens he should call 911 or go to the nearest emergency room to seek medical care. He was provided cardiology phone number to call and schedule at [phone]. RN also notified cardiology for an appointment and EP lab for loop recorder (Ivelisse White) for this patient Patient is now scheduled 05/22/24 with EP lab PCP- patient only wanted to schedule with Dr. Stallworth. Provider had a sooner appt (<14 days) but patient had an other appointment on this day. Patient choose to be seen only by him and PCP appointment scheduled on 05/23/24 at 1040 am. Patient provided an opportunity to ask any questions. RN was limited with information since patient was seen at an outside hospital. Obtained as much information as possible. Patient has no additional questions. He verbalized an understanding of all above instructions. In addition, patient introduced to the transitional care management team; explained our purpose, mission, and provided hours of operation, M-F 8-4 PM, excluding holidays. Contact information provided. Patient seen Inpatient VERA Visit? No. Patient seen ICARE Program? No. Contact made with patient: Yes Hi my name is Roula Matias, RN and I am calling from the [facility] on behalf of your PCP, Salazar Stallworth, DO I understand you were recently in the hospital so I am calling to check in with you to ensure you are feeling well now that you?re home. Do you mind if I ask you a few questions related to your hospital stay and well-being Yes Contact with patient post discharge, spoke to patient. Patient identified by name and . Do you feel your health is BETTER, WORSE, or the SAME since leaving the hospital? Same ACTION TAKEN: Patient indicated symptoms are better or same, no action required. Continue outreach. N/A MEDICATIONS: Many patients have questions or concerns about their medications once they are home. Do you have any questions about taking your medications or which medication you should be on? No Do you need any medication refills at this time, including any of the medications you might take only when needed? No ACTION TAKEN: No action required For RNs or Pharmacy completing outreach ONLY, was a medication review completed? Yes Current/Discharged Medications reviewed: Yes Medication List Medication Directions Comments Action/Plan albuterol HFA (PROAIR HFA) 90 mcg/actuation inhaler 2 Puffs every 4 hours as needed for wheezing/shortness of breath. Take as directed aspirin 81 mg cap Take 81 mg by mouth once daily. From [facility] fluticasone-vilanterol (BREO ELLIPTA) 200-25 mcg/dose inhaler USE 1 INHALATION DAILY INSTRUCTED ipratropium-albuterol (DUONEB) 0.5 mg-3 mg(2.5 mg base)/3 mL nebu Inhale 3 mL as instructed every 6 hours as needed for wheezing/shortness of breath. tiotropium (SPIRIVA WITH HANDIHALER) 18 mcg inhalation capsule INHALE THE CONTENTS OF 1 CAPSULE DAILY INSTRUCTED TRIAMCINOLONE ACETONIDE TOPICAL Apply 0.5 % to affected area. Cream As needed Patient not taking: Reported on 05/08/2024 SOCIAL: We would (more content not included)... [facility] 05-08-2024 History of Present illness Narrative TRANSITIONAL CARE MANAGEMENT (TCM) COMMUNITY MONITORING PROGRAM - [place] Provider Action/FYI: Discharged 05/07/24, TCM 05/23/24, outside 2 weeks, only wanted to follow-up with Dr. Stallworth (he had a sooner appt, but it was on a day he already had another appt). Roula Matias RN May 08, 2024 10:17 AM SUMMARY: Pt discharged from [facility] on 05/07/24. Admitted for: Syncope TCM Summary: General: Patient reports he he had a syncopal episode and his sister started CPR. 911 was called and patient was taken to [facility]. 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 Prior smoker 50+ years about a pack and a half a day, quit 9 years ago. Patient reports he is still SOB, noted SOB with speech on the phone. He reports with activity he becomes more SOB. He is staying at a friends house and does not have any of his inhalers. Advised to obtain his inhalers and breathing treatments as soon as possible. He stated he was going to go get his inhalers. He was advised to call and scheduled a pulmonary appointment. He sees Dr. Eduarda Felix. Patient reports he his welt maker phone number and will call and schedule Patient does not use oxygen, suggested to purchase a pulse ox Cardiac Currently denies chest pain, nausea stomach, heart palpitation, anxiety, sweating, dizzy, lightheaded, fainting. He was advised if any of these occur and or SOB worsens he should call 911 or go to the nearest emergency room to seek medical care. He was provided cardiology phone number to call and schedule at [phone]. RN also notified cardiology for an appointment and EP lab for loop recorder (Ivelisse White) for this patient Patient is now scheduled 05/22/24 with EP lab PCP- patient only wanted to schedule with Dr. Stallworth. Provider had a sooner appt (<14 days) but patient had an other appointment on this day. Patient choose to be seen only by him and PCP appointment scheduled on 05/23/24 at 1040 am. Patient provided an opportunity to ask any questions. RN was limited with information since patient was seen at an outside hospital. Obtained as much information as possible. Patient has no additional questions. He verbalized an understanding of all above instructions. In addition, patient introduced to the transitional care management team; explained our purpose, mission, and provided hours of operation, M-F 8-4 PM, excluding holidays. Contact information provided. Patient seen Inpatient VERA Visit? No. Patient seen ICARE Program? No. Contact made with patient: Yes Hi my name is Roula Matias RN and I am calling from the [facility] on behalf of your PCP, Salazar Stallworth, DO I understand you were recently in the hospital so I am calling to check in with you to ensure you are feeling well now that you re home. Do you mind if I ask you a few questions related to your hospital stay and well-being Yes Contact with patient post discharge, spoke to patient. Patient identified by name and . Do you feel your health is BETTER, WORSE, or the SAME since leaving the hospital? Same ACTION TAKEN: Patient indicated symptoms are better or same, no action required. Continue outreach. N/A MEDICATIONS: Many patients have questions or concerns about their medications once they are home. Do you have any questions about taking your medications or which medication you should be on? No Do you need any medication refills at this time, including any of the medications you might take only when needed? No ACTION TAKEN: No action required For RNs or Pharmacy completing outreach ONLY, was a medication review completed? Yes Current/Discharged Medications reviewed: Yes Medication List Medication Directions Comments Action/Plan albuterol HFA (PROAIR HFA) 90 mcg/actuation inhaler 2 Puffs every 4 hours as needed for wheezing/shortness of breath. Take as directed aspirin 81 mg cap Take 81 mg by mouth once daily. From [facility] fluticasone-vilanterol (BREO ELLIPTA) 200-25 mcg/dose inhaler USE 1 INHALATION DAILY INSTRUCTED ipratropium-albuterol (DUONEB) 0.5 mg-3 mg(2.5 mg base)/3 mL nebu Inhale 3 mL as instructed every 6 hours as needed for wheezing/shortness of breath. tiotropium (SPIRIVA WITH HANDIHALER) 18 mcg inhalation capsule INHALE THE CONTENTS OF 1 CAPSULE DAILY INSTRUCTED TRIAMCINOLONE ACETONIDE TOPICAL Apply 0.5 % to affected area. Cream As needed Patient not taking: Reported on 05/08/2024 SOCIAL: We would like to make sure you have what you need so that your basics needs are met - including your personal safety. HEALTH LEADS SCREENING TOOL QUESTIONS: Do you often feel you lack companionship? No Do you ever need help reading or understanding hospital materials? No In the last 12 months, have you changed how you take medications to save money? No In the past 12 months, has lack of transportation kept you from medical appointments, work or getting things you need like food, or supplies? No In the last 12 months, did you ever eat less than you felt you should because there wasn't enough money for food? No During the winter, do you anticipate having a problem paying your heating bill? No In the next 2 months, are you worried you might not have stable housing? No Would you like to speak with a social work outreach team member to help give you support for any of these needs? No It can be normal to feel anxious or down during a time like this. Would you like to talk to a mental health professional about how you have been feeling? No ACTION TAKEN: No action taken DISCHARGE INTRUCTIONS: Your discharge instructions / After Visit Summary (AVS) are important in guiding you through the recovery process. Do you have any questions related to your discharge instructions? No Do you have all the necessary equipment and supplies at home? Yes ACTION TAKEN: No action required WRAP AROUND SERVICES: N/A Patient educated on importance of primary care provider follow up visit as well as specialty provider follow up visits as indicated. Inform the patient that if they have any questions or concerns prior to that appointment, to call their Primary Care Provider 's office right away. Primary care provider first education provided. I would like to help you schedule a hospital follow-up virtual or telephone visit with your PCP. ACTION TAKEN: [facility] Primary Care Provider Visit Scheduled: No - Access only outside 14 day window; appointment scheduled: Yes Roula Matias RN May 08, 2024 10:56 AM documented in this encounter [facility] 05-08-2024 Note Patient Outreach (AG ACM) SARABJIT LEACH ([id number]) 1955 M [facility] Date Time Provider Department 05/08/24 [facility] During your visit today, we recorded the following information about you: Roula Matias, RN 05/08/2024 10:59 AM Signed TRANSITIONAL CARE MANAGEMENT (TCM) COMMUNITY MONITORING PROGRAM - ESTELA Provider Action/FYI: Discharged 05/07/24, TCM 05/23/24, outside 2 weeks, only wanted to follow-up with Dr. Stallworth (he had a sooner appt, but it was on a day he already had another appt). Roula Matias RN May 08, 2024 10:17 AM SUMMARY: Pt discharged from [facility] on 05/07/24. Admitted for: Syncope TCM Summary: General: Patient reports he he had a syncopal episode and his sister started CPR. 911 was called and patient was taken to [facility]. 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 Prior smoker 50+ years about a pack and a half a day, quit 9 years ago. Patient reports he is still SOB, noted SOB with speech on the phone. He reports with activity he becomes more SOB. He is staying at a friends house and does not have any of his inhalers. Advised to obtain his inhalers and breathing treatments as soon as possible. He stated he was going to go get his inhalers. He was advised to call and scheduled a pulmonary appointment. He sees Dr. Eduarda Felix. Patient reports he his welt maker phone number and will call and schedule Patient does not use oxygen, suggested to purchase a pulse ox Cardiac Currently denies chest pain, nausea stomach, heart palpitation, anxiety, sweating, dizzy, lightheaded, fainting. He was advised if any of these occur and or SOB worsens he should call 911 or go to the nearest emergency room to seek medical care. He was provided cardiology phone number to call and schedule at [phone]. RN also notified cardiology for an appointment and EP lab for loop recorder (Ivelisse White) for this patient Patient is now scheduled 05/22/24 with EP lab PCP- patient only wanted to schedule with Dr. Stallworth. Provider had a sooner appt (<14 days) but patient had an other appointment on this day. Patient choose to be seen only by him and PCP appointment scheduled on 05/23/24 at 1040 am. Patient provided an opportunity to ask any questions. RN was limited with information since patient was seen at an outside hospital. Obtained as much information as possible. Patient has no additional questions. He verbalized an understanding of all above instructions. In addition, patient introduced to the transitional care management team; explained our purpose, mission, and provided hours of operation, M-F 8-4 PM, excluding holidays. Contact information provided. Patient seen Inpatient VERA Visit? No. Patient seen ICARE Program? No. Contact made with patient: Yes Hi my name is Roula Matias RN and I am calling from the [facility] on behalf of your PCP, Salazar Stallworth, DO I understand you were recently in the hospital so I am calling to check in with you to ensure you are feeling well now that you?re home. Do you mind if I ask you a few questions related to your hospital stay and well-being Yes Contact with patient post discharge, spoke to patient. Patient identified by name and . Do you feel your health is BETTER, WORSE, or the SAME since leaving the hospital? Same ACTION TAKEN: Patient indicated symptoms are better or same, no action required. Continue outreach. N/A MEDICATIONS: Many patients have questions or concerns about their medications once they are home. Do you have any questions about taking your medications or which medication you should be on? No Do you need any medication refills at this time, including any of the medications you might take only when needed? No ACTION TAKEN: No action required For RNs or Pharmacy completing outreach ONLY, was a medication review completed? Yes Current/Discharged Medications reviewed: Yes Medication List Medication Directions Comments Action/Plan albuterol HFA (PROAIR HFA) 90 mcg/actuation inhaler 2 Puffs every 4 hours as needed for wheezing/shortness of breath. Take as directed aspirin 81 mg cap Take 81 mg by mouth once daily. From [facility] fluticasone-vilanterol (BREO ELLIPTA) 200-25 mcg/dose inhaler USE 1 INHALATION DAILY INSTRUCTED ipratropium-albuterol (DUONEB) 0.5 mg-3 mg(2.5 mg base)/3 mL nebu Inhale 3 mL as instructed every 6 hours as needed for wheezing/shortness of breath. tiotropium (SPIRIVA WITH HANDIHALER) 18 mcg inhalation capsule INHALE THE (more content not included)... [facility] 03-19-2024 Instructions Eduarda Felix MD - 03/19/2024 10:22 AM EDT My Plan and Interventions: 1. Return to office in 3 months. 2. Tests to be ordered today:PFTs 3. New medications today:None 4. Special Instructions:call if has concerns 5. Summary of today's visit: COPD 6. Referrals today: None Copy to Referring physician: yes Thank you for allowing me to participate in this patient's care. documented in this encounter [facility] 03-19-2024 Note HNO ID: [id number] Author: EDUARDA FELIX MD Service: ? Author Type: Physician Type: Progress Notes Filed: 03/19/2024 13:12 Note Text: [facility] established patient follow-up note SERVICE DATE: 03/19/2024 PRIMARY CARE PHYSICIAN: Salazar Stallworth DO COMMUNICATION WILL BE SENT VIA SHARED MEDICAL RECORDS OR US MAIL. SUBJECTIVE HPI:Sarabjit Leach is a 68 year old male here for follow appointment for COPD and lung nodules. Routine visit and past visit reviewed. Patient is currently on a Breo Ellipta and the Spiriva and as needed albuterol. Also has a DuoNebs at home. Continues to have significant shortness of breath. States that he is using albuterol at least 5-6 times a day. Using the DuoNebs only when he is very sick. Denies any fever chills or night sweats. Has a some cough with minimal phlegm production. Denies any fever chills or night sweats. He was on prednisone in the past but stopped using it as he did not notice any difference. 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 Follow up in future anticipated. Discussed with patient. SOCIAL HISTORY: Social History Tobacco Use Smoking status: Former Current packs/day: 0.00 Average packs/day: 1.5 packs/day for 48.0 years (72.0 ttl pk-yrs) Types: Cigarettes Start date: 1966 Quit date: 2014 Years since quittin.6 Smokeless tobacco: Never Vaping Use Vaping status: Never Used Substance Use Topics Alcohol use: No Comment: quit in 1981 Drug use: No MEDICATIONS: Prior to Admission Medications (Not in a hospital admission) tiotropium (SPIRIVA WITH HANDIHALER) 18 mcg inhalation capsule INHALE THE CONTENTS OF 1 CAPSULE DAILY INSTRUCTED fluticasone-vilanterol (BREO ELLIPTA) 200-25 mcg/dose inhaler USE 1 INHALATION DAILY INSTRUCTED albuterol HFA (PROAIR HFA) 90 mcg/actuation inhaler 2 Puffs every 4 hours as needed for wheezing/shortness of breath. Take as directed ipratropium-albuterol (DUONEB) 0.5 mg-3 mg(2.5 mg base)/3 mL nebu Inhale 3 mL as instructed every 6 hours as needed for wheezing/shortness of breath. TRIAMCINOLONE ACETONIDE TOPICAL Apply 0.5 % to affected area. Cream As needed predniSONE (DELTASONE) 10 mg tablet Take 1 tablet by mouth once daily. (Patient not taking: Reported on 03/19/2024) CURRENT ALLERGIES: ALLERGIES Allergen Reactions Bacitracin Rash REVIEW OF SYSTEMS Constitutional:NO EVIDENCE OF ACUTE DISTRESS HEENT:Negative for frequent or significant headaches RESPIRATORY: Dyspnea, Shortness of breath CARDIOVASCULAR: Decreasing exercise tolerence, Cough, Shortness of breath GASTROINTESTINAL: Negative for abdominal discomfort, blood in stools or black stools or change in bowel habits GENITOURINARY: No history of dysuria, frequency or incontinence ENVIRONMENTAL TEST TECHNICIAN: NA MUSCULOSKELETAL: Negative for joint pain or swelling, back pain or muscle pain. NEUROLOGIC:Negative for focal numbness or weakness, headaches and dizziness or syncope. SKIN:Negative for lesions, rash, and itching. PSYCHIATRIC: Negative for sleep disturbance, mood disorder and recent psychosocial stressors. HEMATOLOGIC/LYMPHATIC/IMMUNOLOGIC: {HEMATOLOGY/LYMPHATIC/IMMUNOLO ENDOCRINE: Negative for cold or heat intolerance, polyuria, polydipsia and goiter. The remainder of the ROS was negative. PHYSICAL EXAMINATION: VITAL SIGNS: BP 112/75 Pulse 69 Temp 97.7 Resp 16 Ht 5' 9 (1.75m) Wt 120 lb 8 oz (54.7kg) SpO2 93% BMI 17.79 kg/(m2). General appearance: well appearing, alert, and in no acute distress Skin: skin color, texture, turgor normal, no rashes or lesions Eyes: Anicteric sclera. Pupils are equally round and reactive to light. Extraocular movements are intact. ENT: No oral or nasal erythema, bleeding, lesions, striae Heme/Lymph:Negative Lungs: diminished BS b/l, no wheezing or rhonchi Heart: RRR without murmur, gallop, or rubs. No ectopy GI: Normal abdominal exam Musculoskeletal: Extremities normal. No deformities, edema, or skin discoloration. Good capillary refill. Psych: no history of psychiatric problems Neuro: Gait normal. Reflexes normal and symmetric. Sensation grossly intact. DATA: Vaccines as noted EMR Diagnostic tests reviewed for today's visit: Labs: CBC with diff: WBC 9.34 06/29/2023 RBC 4.98 06/29/2023 HGB 14.7 06/29/2023 Hematocrit 45.6 06/29/2023 MCV 91.6 06/29/2023 MCH 29.5 06/29/2023 MCHC 32.2 06/29/2023 RDW-CV 14.7 06/29/2023 Platelet Count 261 06/29/2023 MPV 10.2 06/29/2023 Neutrophils % 70.2 06/29/2023 Lymphocytes % 16.3 06/29/2023 Monocytes % 9.4 06/29/2023 Eosinophils % 2.7 06/29/2023 Basophils % 0.9 06/29/2023 Abs Neut (Segs + Bands) 6.56 06/29/2023 Abs [place] 0.88 06/29/2023 Abs Eosin 0.25 06/29/2023 Abs Baso 0.08 06/29/2023 CT chest:10/27/23: There is a new 6 mm nodule in the left upper lobe. A follow-up chest CT in 6 months is recommended to assess for stability of this nodule. (more content not included)... [facility] 03-19-2024 History of Present illness Narrative [facility] established patient follow-up note SERVICE DATE: 03/19/2024 PRIMARY CARE PHYSICIAN: Salazar Stallworth, COMMUNICATION WILL BE SENT VIA SHARED MEDICAL RECORDS OR US MAIL. SUBJECTIVE HPI:Sarabjit Leach is a 68 year old male here for follow appointment for COPD and lung nodules. Routine visit and past visit reviewed. Patient is currently on a Breo Ellipta and the Spiriva and as needed albuterol. Also has a DuoNebs at home. Continues to have significant shortness of breath. States that he is using albuterol at least 5-6 times a day. Using the DuoNebs only when he is very sick. Denies any fever chills or night sweats. Has a some cough with minimal phlegm production. Denies any fever chills or night sweats. He was on prednisone in the past but stopped using it as he did not notice any difference. 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 Follow up in future anticipated. Discussed with patient. SOCIAL HISTORY: Social History Tobacco Use Smoking status: Former Current packs/day: 0.00 Average packs/day: 1.5 packs/day for 48.0 years (72.0 ttl pk-yrs) Types: Cigarettes Start date: 1966 Quit date: 2015 Years since quittin.6 Smokeless tobacco: Never Vaping Use Vaping status: Never Used Substance Use Topics Alcohol use: No Comment: quit in 1981 Drug use: No MEDICATIONS: Prior to Admission Medications (Not in a hospital admission) tiotropium (SPIRIVA WITH HANDIHALER) 18 mcg inhalation capsule INHALE THE CONTENTS OF 1 CAPSULE DAILY INSTRUCTED fluticasone-vilanterol (BREO ELLIPTA) 200-25 mcg/dose inhaler USE 1 INHALATION DAILY INSTRUCTED albuterol HFA (PROAIR HFA) 90 mcg/actuation inhaler 2 Puffs every 4 hours as needed for wheezing/shortness of breath. Take as directed ipratropium-albuterol (DUONEB) 0.5 mg-3 mg(2.5 mg base)/3 mL nebu Inhale 3 mL as instructed every 6 hours as needed for wheezing/shortness of breath. TRIAMCINOLONE ACETONIDE TOPICAL Apply 0.5 % to affected area. Cream As needed predniSONE (DELTASONE) 10 mg tablet Take 1 tablet by mouth once daily. (Patient not taking: Reported on 03/19/2024) CURRENT ALLERGIES: ALLERGIES Allergen Reactions Bacitracin Rash REVIEW OF SYSTEMS Constitutional:NO EVIDENCE OF ACUTE DISTRESS HEENT:Negative for frequent or significant headaches RESPIRATORY: Dyspnea, Shortness of breath CARDIOVASCULAR: Decreasing exercise tolerence, Cough, Shortness of breath GASTROINTESTINAL: Negative for abdominal discomfort, blood in stools or black stools or change in bowel habits GENITOURINARY: No history of dysuria, frequency or incontinence ENVIRONMENTAL TEST TECHNICIAN: NA MUSCULOSKELETAL: Negative for joint pain or swelling, back pain or muscle pain. NEUROLOGIC:Negative for focal numbness or weakness, headaches and dizziness or syncope. SKIN:Negative for lesions, rash, and itching. PSYCHIATRIC: Negative for sleep disturbance, mood disorder and recent psychosocial stressors. HEMATOLOGIC/LYMPHATIC/IMMUNOLOGIC: {HEMATOLOGY/LYMPHATIC/IMMUNOLO ENDOCRINE: Negative for cold or heat intolerance, polyuria, polydipsia and goiter. The remainder of the ROS was negative. PHYSICAL EXAMINATION: VITAL SIGNS: BP 112/75 Pulse 69 Temp 97.7 Resp 16 Ht 5' 9 (1.75m) Wt 120 lb 8 oz (54.7kg) SpO2 93% BMI 17.79 kg/(m^2). General appearance: well appearing, alert, and in no acute distress Skin: skin color, texture, turgor normal, no rashes or lesions Eyes: Anicteric sclera. Pupils are equally round and reactive to light. Extraocular movements are intact. ENT: No oral or nasal erythema, bleeding, lesions, striae Heme/Lymph:Negative Lungs: diminished BS b/l, no wheezing or rhonchi Heart: RRR without murmur, gallop, or rubs. No ectopy GI: Normal abdominal exam Musculoskeletal: Extremities normal. No deformities, edema, or skin discoloration. Good capillary refill. Psych: no history of psychiatric problems Neuro: Gait normal. Reflexes normal and symmetric. Sensation grossly intact. DATA: Vaccines as noted EMR Diagnostic tests reviewed for today's visit: Labs: CBC with diff: WBC 9.34 06/29/2023 RBC 4.98 06/29/2023 HGB 14.7 06/29/2023 Hematocrit 45.6 06/29/2023 MCV 91.6 06/29/2023 MCH 29.5 06/29/2023 MCHC 32.2 06/29/2023 RDW-CV 14.7 06/29/2023 Platelet Count 261 06/29/2023 MPV 10.2 06/29/2023 Neutrophils % 70.2 06/29/2023 Lymphocytes % 16.3 06/29/2023 Monocytes % 9.4 06/29/2023 Eosinophils % 2.7 06/29/2023 Basophils % 0.9 06/29/2023 Abs Neut (Segs + Bands) 6.56 06/29/2023 Abs [place] 0.88 06/29/2023 Abs Eosin 0.25 06/29/2023 Abs Baso 0.08 06/29/2023 CT chest:10/27/23: There is a new 6 mm nodule in the left upper lobe. A follow-up chest CT in 6 months is recommended to assess for stability of this nodule. Stellate nodule in the right upper lobe measuring 1.4 cm decreased in size compared with prior chest CT. Severe emphysematous changes. CT chest: 04/22/23: IMPRESSION: Severe emphysema with mild, diffuse bronchiectasis. Stable nodular opacity is seen within the right upper lobe. Other smaller nodular opacities are also stable. Airspace opacities within the lingula have improved in the interval. Secretions within trachea and mainstem bronchi. Prominent, less than 1 cm mediastinal and bilateral hilar lymph nodes, likely reactive. CT chest: 09/29/22: 1. Stellate density in the right upper lobe again noted but it has decreased in size since 06/16/2022 and most likely represents an inflammatory or infectious process. Recommend continued follow-up until it resolves. 2. Several other nodules noted particularly in the left lung which all are fairly stable or decreasing in size. 3. There is a new peribronchial nodule noted in the central portion of the left upper lobe. Would recommend follow-up CT scan in 6 months to reassess this nodule. 4. Stellate and nodular changes at the base of lingula and base left lower lobe. Based on overall appearance of these areas suspect an inflammatory or infectious process. PET scan: 07/08/22: 1. NECK: * NO FDG AVID NEOPLASTIC PROCESS. 2. CHEST: * 0.7 CM INDETERMINATE HYPERMETABOLIC NODULE WITHIN 2.5 X 2 CM SPICULATED PERIBRONCHOVASCULAR RIGHT UPPER LOBE INFILTRATE, AND MILD FDG UPTAKE BY SMALL RIGHT HILAR LYMPH NODE, NEW SINCE 10/12/2021. DIFFERENTIAL POSSIBILITIES INCLUDE DEVELOPING OR RESOLVING PULMONARY INFORMATION/INFECTION/NEOPLASM. SUGGEST PULMONARY CONSULT AND FOLLOW-UP NONCONTRAST CHEST CT IN 3 MONTHS FOR ADDITIONAL EVALUATION. * NON-FDG AVID 0.5 CM RIGHT LOWER LOBE PERIBRONCHOVASCULAR NODULE, 0.5 CM LEFT UPPER LOBE PERIBRONCHOVASCULAR NODULE, LINEAR LEFT UPPER LOBE PERIBRONCHOVASCULAR DENSITY LATERALLY AND 0.5 CM PERIBRONCHOVASCULAR LEFT LOWER LOBE NODULE LATERALLY, BETTER DEMONSTRATED ON RECENT CHEST CT DATED 06/16/2022, PROBABLY INFLAMMATORY IN NATURE. * MILD BIBASILAR LINEAR ATELECTASIS/INFILTRATE (LEFT GREATER THAN RIGHT), MILDLY IMPROVED SINCE 06/16/2022. CT chest: 05/2022: 2. Moderate to advanced emphysematous changes. 1. Interval development of several pulmonary nodules, most pronounced in the right upper lobe. Incidental Finding: Follow-up Acuity: Incidental Finding: Solid >8 mm Routing Code: RI_1 CT chest:10/12/21: 1. Bilateral lower lobe airspace consolidation suggestive of pneumonia. Reactive mediastinal/hilar lymphadenopathy is present. 2. No intraluminal filling defects are seen within the pulmonary arteries to suggest pulmonary artery emboli. Chest xray:10/15/21:Bilateral lower lobe infiltrates concerning for active pneumonia. LDCT: 04/2020: Recommendations: Recommend follow-up low-dose CT scan in 12 months to continue routine screening. Other actionable findings: Hypodensity in the dome of the liver of unclear etiology. This could be correlated with ultrasound to evaluate for possible cyst. Heart echo: PFT:01/2020: IMPRESSION: Spirometry indicates moderately severe obstruction. There is no significant bronchodilator response. There is severe obstruction seen at the level of small airways The TLC is normal. The RV and RV/TLC are elevated indicating air trapping. The diffusing capacity is severely reduced. The diffusing capacity independent of alveolar volume (kCO) is reduced. The presence of a reduced lung diffusing capacity - that does not normalize when measured independent of alveolar volume (kCO) suggests a parenchymal or pulmonary vascular disorder. ASSESSMENT ASSESSMENT/PLAN: 1. Pulmonary emphysema, unspecified emphysema type (HCC) - ICD9: 492.8, ICD10: J43.9 (primary diagnosis) Is currently on a Breo Ellipta and Spiriva and as needed albuterol. Still continues to feel significantly short of breath. States that prednisone did not really help him. Will repeat PFTs to see if he might qualify for lung volume reduction - SPIROMETRY - BASELINE AND POST DILATOR - OXIMETRY WITH AMBULATION - LUNG VOLUMES - LUNG DIFFUSION CAPACITY (DLCO) 2. Lung nodule - ICD9: 793.11, ICD10: R91.[address] scan showed decrease in size of the lung nodule. Will follow-up with repeat CT 3. Ex-smoker - ICD9: V15.82, ICD10: Z87.891 Quit smoking in 2014. Encouraged on smoking cessation Eduarda Felix MD Patient instructions given: See AVS Thank you for allowing me to participate in this patient's care. Patient's questions and concerns were addressed prior to discharge today. Followup discussed. Communication to associated physician sent. SIGNATURE: Eduarda Felix MD PATIENT NAME: Sarabjit Leach DATE: March 19, 2024 TIME: 10:14 AM PAGER/CONTACT #: [phone] documented in this encounter [facility] 03-19-2024 Nurse Note 03/19/2024 PULM COPD ASSESSMENT TEST (CAT) SCORE Cough 1 Phlegm 0 Chest tightness 3 When walking uphill or flight of steps 5 Activities at home 5 Leaving home despite lung condition 0 Sleeping 5 Energy 3 Total Score 22 [facility] 03-19-2024 Nurse Note 03/19/2024 PULM COPD ASSESSMENT TEST (CAT) SCORE Cough 1 Phlegm 0 Chest tightness 3 When walking uphill or flight of steps 5 Activities at home 5 Leaving home despite lung condition 0 Sleeping 5 Energy 3 Total Score 22 documented in this encounter [facility] 01-13-2024 Telephone encounter Note PT IS SCHEDULED FOR 05/09/[address] SCAN [facility] 01-13-2024 Miscellaneous Notes PT IS SCHEDULED FOR 05/09/[address] SCAN Reschedule appointment for a CT chest in April Patient said he got a msg to r/s his January appt with Dr. Felix. He r/s in Feb. Wants to know if he is due for another CT scan. Please call him at [phone]. Ok to leave vm. documented in this encounter [facility] 01-11-2024 Telephone encounter Note Reschedule appointment for a CT chest in April [facility] 01-10-2024 Telephone encounter Note Patient said he got a msg to r/s his January appt with Dr. Felix. He r/s in Feb. Wants to know if he is due for another CT scan. Please call him at [phone]. Ok to leave vm. [facility] 10-31-2023 Naun Felix, Eduarda, MD - 10/31/2023 1:39 PM EDT My Plan and Interventions: 1. Return to office in 3 months. 2. Tests to be ordered today:None 3. New medications today:Augmentin 4. Special Instructions:call if has concerns 5. Summary of today's visit: COPD 6. Referrals today: None Copy to Referring physician: yes Thank you for allowing me to participate in this patient's care. documented in this encounter [facility] 10-31-2023 Note HNO ID: [id number] Author: EDUARDA FELIX MD Service: ? Author Type: Physician Type: Progress Notes Filed: 11/01/2023 16:22 Note Text: Respiratory [facility] established patient follow-up note SERVICE DATE: 10/31/2023 PRIMARY CARE PHYSICIAN: Salazar Stallworth DO COMMUNICATION WILL BE SENT VIA SHARED MEDICAL RECORDS OR US MAIL. SUBJECTIVE HPI:Sarabjit Leach is a 68 year old male here for follow appointment for COPD. Routine visit and past visit reviewed. Patient states that he woke up Matt morning feeling sick and has severe throat pain. Feels hot and cold but did not check his temperature. Also has a cough and is bringing up green phlegm and has been feeling more short of breath. Feels like he cannot breathe or take deep breaths. He is currently on a Breo and the Spiriva and as needed albuterol and remains on 10 mg of prednisone. He recently had a CT chest and comes in for follow-up Follow up in future anticipated. Discussed with patient. SOCIAL HISTORY: Social History Tobacco Use Smoking status: Former Packs/day: 1.50 Years: 48.00 Additional pack years: 0.00 Total pack years: 72.00 Types: Cigarettes Quit date: 2014 Years since quittin.2 Smokeless tobacco: Never Vaping Use Vaping Use: Never used Substance Use Topics Alcohol use: No Comment: quit in 1981 Drug use: No MEDICATIONS: Prior to Admission Medications (Not in a hospital admission) tiotropium (SPIRIVA WITH HANDIHALER) 18 mcg inhalation capsule INHALE THE CONTENTS OF 1 CAPSULE DAILY INSTRUCTED fluticasone-vilanterol (BREO ELLIPTA) 200-25 mcg/dose inhaler USE 1 INHALATION DAILY INSTRUCTED predniSONE (DELTASONE) 10 mg tablet Take 1 tablet by mouth once daily. albuterol HFA (PROAIR HFA) 90 mcg/actuation inhaler 2 Puffs every 4 hours as needed for wheezing/shortness of breath. Take as directed ipratropium-albuterol (DUONEB) 0.5 mg-3 mg(2.5 mg base)/3 mL nebu Inhale 3 mL as instructed every 6 hours as needed for wheezing/shortness of breath. TRIAMCINOLONE ACETONIDE TOPICAL Apply 0.5 % to affected area. cream CURRENT ALLERGIES: ALLERGIES Allergen Reactions Bacitracin Rash REVIEW OF SYSTEMS Constitutional:NO EVIDENCE OF ACUTE DISTRESS HEENT:Negative for frequent or significant headaches, No changes in hearing or vision, no nose bleeds or other nasal problems RESPIRATORY: Cough; moist, productive with yellow, green sputum, Dyspnea CARDIOVASCULAR: Negative for chest pain, leg swelling or palpitations. GASTROINTESTINAL: Negative for abdominal discomfort, blood in stools or black stools or change in bowel habits GENITOURINARY: No history of dysuria, frequency or incontinence ENVIRONMENTAL TEST TECHNICIAN: NA MUSCULOSKELETAL: Negative for joint pain or swelling, back pain or muscle pain. NEUROLOGIC:Negative for focal numbness or weakness, headaches and dizziness or syncope. SKIN:Negative for lesions, rash, and itching. PSYCHIATRIC: Negative for sleep disturbance, mood disorder and recent psychosocial stressors. HEMATOLOGIC/LYMPHATIC/IMMUNOLOGIC: {HEMATOLOGY/LYMPHATIC/IMMUNOLO ENDOCRINE: Negative for cold or heat intolerance, polyuria, polydipsia and goiter. The remainder of the ROS was negative. PHYSICAL EXAMINATION: VITAL SIGNS: BP 93/71 Pulse 97 Temp 97.4 Resp 16 Ht 5' 9 (1.75m) Wt 115 lb (52.2kg) SpO2 92% BMI 16.97 kg/(m2). General appearance: well appearing, alert, and in no acute distress Skin: skin color, texture, turgor normal, no rashes or lesions Eyes: Anicteric sclera. Pupils are equally round and reactive to light. Extraocular movements are intact. ENT: No oral or nasal erythema, bleeding, lesions, striae Heme/Lymph:Negative Lungs: very diminished BS b/l no wheezing or rhonchi Heart: RRR without murmur, gallop, or rubs. No ectopy GI: Normal abdominal exam Musculoskeletal: Extremities normal. No deformities, edema, or skin discoloration. Good capillary refill. Psych: no history of psychiatric problems, no history of depression Neuro: Gait normal. Reflexes normal and symmetric. Sensation grossly intact. DATA: Vaccines as noted EMR Diagnostic tests reviewed for today's visit: Labs: CBC with diff: WBC 9.34 06/29/2023 RBC 4.98 06/29/2023 HGB 14.7 06/29/2023 Hematocrit 45.6 06/29/2023 MCV 91.6 06/29/2023 MCH 29.5 06/29/2023 MCHC 32.2 06/29/2023 RDW-CV 14.7 06/29/2023 Platelet Count 261 06/29/2023 MPV 10.2 06/29/2023 Neutrophils % 70.2 06/29/2023 Lymphocytes % 16.3 06/29/2023 Monocytes % 9.4 06/29/2023 Eosinophils % 2.7 06/29/2023 Basophils % 0.9 06/29/2023 Abs Neut (Segs + Bands) 6.56 06/29/2023 Abs [place] 0.88 06/29/2023 Abs Eosin 0.25 06/29/2023 Abs Baso 0.08 06/29/2023 CT chest:10/27/23: There is a new 6 mm nodule in the left upper lobe. A follow-up chest CT in 6 months is recommended to assess for stability of this nodule. Stellate nodule in the right upper lobe measuring 1.4 cm decreased in size compared with prior chest CT. Severe (more content not included)... [facility] 10-31-2023 History of Present illness Narrative Respiratory [facility] established patient follow-up note SERVICE DATE: 10/31/2023 PRIMARY CARE PHYSICIAN: Salazar Stallworth DO COMMUNICATION WILL BE SENT VIA SHARED MEDICAL RECORDS OR US MAIL. SUBJECTIVE HPI:Sarabjit Leach is a 68 year old male here for follow appointment for COPD. Routine visit and past visit reviewed. Patient states that he woke up Matt morning feeling sick and has severe throat pain. Feels hot and cold but did not check his temperature. Also has a cough and is bringing up green phlegm and has been feeling more short of breath. Feels like he cannot breathe or take deep breaths. He is currently on a Breo and the Spiriva and as needed albuterol and remains on 10 mg of prednisone. He recently had a CT chest and comes in for follow-up Follow up in future anticipated. Discussed with patient. SOCIAL HISTORY: Social History Tobacco Use Smoking status: Former Packs/day: 1.50 Years: 48.00 Additional pack years: 0.00 Total pack years: 72.00 Types: Cigarettes Quit date: 2014 Years since quittin.2 Smokeless tobacco: Never Vaping Use Vaping Use: Never used Substance Use Topics Alcohol use: No Comment: quit in 1981 Drug use: No MEDICATIONS: Prior to Admission Medications (Not in a hospital admission) tiotropium (SPIRIVA WITH HANDIHALER) 18 mcg inhalation capsule INHALE THE CONTENTS OF 1 CAPSULE DAILY INSTRUCTED fluticasone-vilanterol (BREO ELLIPTA) 200-25 mcg/dose inhaler USE 1 INHALATION DAILY INSTRUCTED predniSONE (DELTASONE) 10 mg tablet Take 1 tablet by mouth once daily. albuterol HFA (PROAIR HFA) 90 mcg/actuation inhaler 2 Puffs every 4 hours as needed for wheezing/shortness of breath. Take as directed ipratropium-albuterol (DUONEB) 0.5 mg-3 mg(2.5 mg base)/3 mL nebu Inhale 3 mL as instructed every 6 hours as needed for wheezing/shortness of breath. TRIAMCINOLONE ACETONIDE TOPICAL Apply 0.5 % to affected area. cream CURRENT ALLERGIES: ALLERGIES Allergen Reactions Bacitracin Rash REVIEW OF SYSTEMS Constitutional:NO EVIDENCE OF ACUTE DISTRESS HEENT:Negative for frequent or significant headaches, No changes in hearing or vision, no nose bleeds or other nasal problems RESPIRATORY: Cough; moist, productive with yellow, green sputum, Dyspnea CARDIOVASCULAR: Negative for chest pain, leg swelling or palpitations. GASTROINTESTINAL: Negative for abdominal discomfort, blood in stools or black stools or change in bowel habits GENITOURINARY: No history of dysuria, frequency or incontinence ENVIRONMENTAL TEST TECHNICIAN: NA MUSCULOSKELETAL: Negative for joint pain or swelling, back pain or muscle pain. NEUROLOGIC:Negative for focal numbness or weakness, headaches and dizziness or syncope. SKIN:Negative for lesions, rash, and itching. PSYCHIATRIC: Negative for sleep disturbance, mood disorder and recent psychosocial stressors. HEMATOLOGIC/LYMPHATIC/IMMUNOLOGIC: {HEMATOLOGY/LYMPHATIC/IMMUNOLO ENDOCRINE: Negative for cold or heat intolerance, polyuria, polydipsia and goiter. The remainder of the ROS was negative. PHYSICAL EXAMINATION: VITAL SIGNS: BP 93/71 Pulse 97 Temp 97.4 Resp 16 Ht 5' 9 (1.75m) Wt 115 lb (52.2kg) SpO2 92% BMI 16.97 kg/(m^2). General appearance: well appearing, alert, and in no acute distress Skin: skin color, texture, turgor normal, no rashes or lesions Eyes: Anicteric sclera. Pupils are equally round and reactive to light. Extraocular movements are intact. ENT: No oral or nasal erythema, bleeding, lesions, striae Heme/Lymph:Negative Lungs: very diminished BS b/l no wheezing or rhonchi Heart: RRR without murmur, gallop, or rubs. No ectopy GI: Normal abdominal exam Musculoskeletal: Extremities normal. No deformities, edema, or skin discoloration. Good capillary refill. Psych: no history of psychiatric problems, no history of depression Neuro: Gait normal. Reflexes normal and symmetric. Sensation grossly intact. DATA: Vaccines as noted EMR Diagnostic tests reviewed for today's visit: Labs: CBC with diff: WBC 9.34 06/29/2023 RBC 4.98 06/29/2023 HGB 14.7 06/29/2023 Hematocrit 45.6 06/29/2023 MCV 91.6 06/29/2023 MCH 29.5 06/29/2023 MCHC 32.2 06/29/2023 RDW-CV 14.7 06/29/2023 Platelet Count 261 06/29/2023 MPV 10.2 06/29/2023 Neutrophils % 70.2 06/29/2023 Lymphocytes % 16.3 06/29/2023 Monocytes % 9.4 06/29/2023 Eosinophils % 2.7 06/29/2023 Basophils % 0.9 06/29/2023 Abs Neut (Segs + Bands) 6.56 06/29/2023 Abs [place] 0.88 06/29/2023 Abs Eosin 0.25 06/29/2023 Abs Baso 0.08 06/29/2023 CT chest:10/27/23: There is a new 6 mm nodule in the left upper lobe. A follow-up chest CT in 6 months is recommended to assess for stability of this nodule. Stellate nodule in the right upper lobe measuring 1.4 cm decreased in size compared with prior chest CT. Severe emphysematous changes. CT chest: 04/22/23: IMPRESSION: Severe emphysema with mild, diffuse bronchiectasis. Stable nodular opacity is seen within the right upper lobe. Other smaller nodular opacities are also stable. Airspace opacities within the lingula have improved in the interval. Secretions within trachea and mainstem bronchi. Prominent, less than 1 cm mediastinal and bilateral hilar lymph nodes, likely reactive. CT chest: 09/29/22: 1. Stellate density in the right upper lobe again noted but it has decreased in size since 06/16/2022 and most likely represents an inflammatory or infectious process. Recommend continued follow-up until it resolves. 2. Several other nodules noted particularly in the left lung which all are fairly stable or decreasing in size. 3. There is a new peribronchial nodule noted in the central portion of the left upper lobe. Would recommend follow-up CT scan in 6 months to reassess this nodule. 4. Stellate and nodular changes at the base of lingula and base left lower lobe. Based on overall appearance of these areas suspect an inflammatory or infectious process. PET scan: 07/08/22: 1. NECK: * NO FDG AVID NEOPLASTIC PROCESS. 2. CHEST: * 0.7 CM INDETERMINATE HYPERMETABOLIC NODULE WITHIN 2.5 X 2 CM SPICULATED PERIBRONCHOVASCULAR RIGHT UPPER LOBE INFILTRATE, AND MILD FDG UPTAKE BY SMALL RIGHT HILAR LYMPH NODE, NEW SINCE 10/12/2021. DIFFERENTIAL POSSIBILITIES INCLUDE DEVELOPING OR RESOLVING PULMONARY INFORMATION/INFECTION/NEOPLASM. SUGGEST PULMONARY CONSULT AND FOLLOW-UP NONCONTRAST CHEST CT IN 3 MONTHS FOR ADDITIONAL EVALUATION. * NON-FDG AVID 0.5 CM RIGHT LOWER LOBE PERIBRONCHOVASCULAR NODULE, 0.5 CM LEFT UPPER LOBE PERIBRONCHOVASCULAR NODULE, LINEAR LEFT UPPER LOBE PERIBRONCHOVASCULAR DENSITY LATERALLY AND 0.5 CM PERIBRONCHOVASCULAR LEFT LOWER LOBE NODULE LATERALLY, BETTER DEMONSTRATED ON RECENT CHEST CT DATED 06/16/2022, PROBABLY INFLAMMATORY IN NATURE. * MILD BIBASILAR LINEAR ATELECTASIS/INFILTRATE (LEFT GREATER THAN RIGHT), MILDLY IMPROVED SINCE 06/16/2022. CT chest: 05/2022: 2. Moderate to advanced emphysematous changes. 1. Interval development of several pulmonary nodules, most pronounced in the right upper lobe. Incidental Finding: Follow-up Acuity: Incidental Finding: Solid >8 mm Routing Code: RI_1 CT chest:10/12/21: 1. Bilateral lower lobe airspace consolidation suggestive of pneumonia. Reactive mediastinal/hilar lymphadenopathy is present. 2. No intraluminal filling defects are seen within the pulmonary arteries to suggest pulmonary artery emboli. Chest xray:10/15/21:Bilateral lower lobe infiltrates concerning for active pneumonia. LDCT: 04/2020: Recommendations: Recommend follow-up low-dose CT scan in 12 months to continue routine screening. Other actionable findings: Hypodensity in the dome of the liver of unclear etiology. This could be correlated with ultrasound to evaluate for possible cyst. Heart echo: PFT:01/2020: IMPRESSION: Spirometry indicates moderately severe obstruction. There is no significant bronchodilator response. There is severe obstruction seen at the level of small airways The TLC is normal. The RV and RV/TLC are elevated indicating air trapping. The diffusing capacity is severely reduced. The diffusing capacity independent of alveolar volume (kCO) is reduced. The presence of a reduced lung diffusing capacity - that does not normalize when measured independent of alveolar volume (kCO) suggests a parenchymal or pulmonary vascular disorder. ASSESSMENT ASSESSMENT/PLAN: 1. Pulmonary emphysema, unspecified emphysema type (HCC) - ICD9: 492.8, ICD10: J43.9 (primary diagnosis) Patient is currently on Breo and Spiriva. Also remains on 10 mg of prednisone. Has DuoNebs at home. Using as needed when he is very short of breath. - TIOTROPIUM BROMIDE 18 MCG CAPSULE WITH INHALATION DEVICE - FLUTICASONE FUROATE 200 MCG-VILANTEROL 25 MCG/DOSE INHALATION POWDER 2. Ex-smoker - ICD9: V15.82, ICD10: Z87.891 Quit smoking recently. Encouraged on smoking cessation - FLUTICASONE FUROATE 200 MCG-VILANTEROL 25 MCG/DOSE INHALATION POWDER 3. Lung nodule - ICD9: 793.11, ICD10: R91.[address] chest shows new 6 mm left upper lobe nodule. Previously seen nodule in the right upper lobe decreased in size compared to the last CT. Likely inflammatory etiology. 4. Acute bronchitis, unspecified organism - ICD9: 466.0, ICD10: J20.9 Complaints of throat pain. Tuesday and is coughing up and bringing up a lot of phlegm. Will give a course of antibiotic Augmentin for 7 days. Eduarda Felix MD Patient instructions given: See AVS Thank you for allowing me to participate in this patient's care. Patient's questions and concerns were addressed prior to discharge today. Followup discussed. Communication to associated physician sent. SIGNATURE: Eduarda Felix MD PATIENT NAME: Sarabjit Leach DATE: October 31, 2023 TIME: 1:27 PM PAGER/CONTACT #: [phone] documented in this encounter [facility] 10-31-2023 Nurse Note 10/31/2023 PULM COPD ASSESSMENT TEST (CAT) SCORE Cough 3 Phlegm 4 Chest tightness 4 When walking uphill or flight of steps 5 Activities at home 0 Leaving home despite lung condition 0 Sleeping 5 Energy 4 Total Score 25 documented in this encounter [facility] 10-12-2023 Note Patient Education Isaias tse Cardiovascular Coronary Angiogram: About This Test What is a coronary angiogram? A coronary angiogram is a test to look at the large blood vessels of your heart (coronary arteries). These blood vessels feed blood, oxygen, and nutrients to your heart muscle. Why is this test done? This test is done to check blood flow in your coronary arteries. It can show the size and location of narrowed or blocked sections of an artery. It's done for people who have coronary artery disease, also known as heart disease. The test can show how serious the disease is and how best to treat it. Or it can be done for people who have symptoms of heart disease to find out if there is a problem with the arteries. How is the test done? ? You may get medicine to help you relax. ? A thin tube called a catheter is put into a blood vessel in your groin or wrist. ? You will get a shot to numb the skin where the catheter goes in. You may feel pressure when the doctor moves the catheter through your blood vessel into your heart. ? Dye is put into your coronary arteries through the catheter. Your doctor can see the dye as it moves through the arteries. This lets your doctor look for areas that are narrowed or blocked. ? You may feel hot or flushed for several seconds when the dye is put in. ? If you have a narrowed or blocked artery, the doctor may do an angioplasty or a coronary stent procedure. These procedures make more room for blood to flow. How long does it take? The test may take about 1 hour. But you need time to get ready for the test and time to recover. If you also have angioplasty and possibly a stent placed after the test, the whole procedure may take a few hours. What happens after the test? ? You will stay in a room for at least a few hours to make sure the catheter site starts to heal. You may have a bandage or a compression device on your groin or wrist to prevent bleeding. ? If the catheter was placed in your groin, you will lie in bed with your leg straight for up to a few hours. If the catheter was put in your wrist, you will need to keep your arm still for at least 1 hour. ? You may be able to go home later the same day, or you may need to stay in the hospital overnight. You will get more instructions for what to do at home. ? Drink plenty of fluids for several hours after the test. If you have kidney, heart, or liver disease and have to limit fluids, talk with your doctor before you increase the amount of fluids you drink. Follow-up care is a smith part of your treatment and safety. Be sure to make and go to all appointments, and call your doctor if you are having problems. It's also a good idea to know your test results and keep a list of the medicines you take. Where can you learn more? Go to https://[email or web address].net/patient Ed Enter X053 in the search box to learn more about Coronary Angiogram: About This Test. Current as of: August 03, 2021 Content Version: 13.3 ? [employer]. Care instructions adapted under license by your healthcare professional. If you have questions about a medical condition or this instruction, always ask your healthcare professional. [employer] disclaims any warranty or liability for your use of this information. Gastrointestinal Gastroesophageal Reflux Disease (GERD): Care Instructions Overview Gastroesophageal reflux disease (GERD) is the backward flow of stomach acid into the esophagus. The esophagus is the tube that leads from your throat to your stomach. A one-way valve prevents the stomach acid from backing up into this tube. But when you have GERD, this valve does not close tightly enough. This can also cause pain and swelling in your esophagus. (This is called esophagitis.) If you have mild GERD symptoms including heartburn, you may be able to control the problem with antacids or ynfm-qms-wveajlz medicine. You can also make lifestyle changes to help reduce your symptoms. These include changing your diet and eating habits, such as not eating late at night and losing weight. Follow-up care is a smith part of your treatment and safety. Be sure to make and go to all appointments, and call your doctor if you are having problems. It's also a good idea to know your test results and keep a list of the medicines you take. How can you care for yourself at home? ? Take your medicines exactly as prescribed. Call your doctor if you think you are having a problem with your medicine. ? Your doctor may recommend rogg-eze-rldzruw medicine. For mild or occasional indigestion, antacids, such as Tums, Gaviscon, Mylanta, or Maalox, may help. Your doctor also may recommend skua-yvi-ierkdia acid reducers, such as famotidine (Pepcid AC), cimetidine (Tagamet HB), or omeprazole (Prilosec). Read and follow all instructions on the label. If you use these medicines often, talk with your doctor. ? Change your eating habits. ? It's best to eat several small meals instead of two (more content not included)... [facility] 10-12-2023 Note SARABJIT LEACH :1955 Registration Date:10/10/2023 Admission Information Admit Date/Time:10/10/2023 13:27 EDT Discharge Date 10/12/2023 Admitting Physician - EASTON LOERA DO Attending Physician - THAIS ELLISON, MARGARET Consulting Physician - SAWYER ELLISON, JIM Primary Care Physician - FAMILY PHYSICIAN, [phone] All Diagnoses This Visit Chest pain Chest pain - Pleuritic Elevated troponin Shortness of breath Discharge Medications New pantoprazole (Protonix 40 mg oral delayed release tablet)1 Tabs Oral DAILY. Refills: 0. Unchanged fluticasone-vilanterol (Breo Ellipta 200 mcg-25 mcg/inh inhalation powder)1 Puffs Inhalation DAILY. tiotropium (Spiriva HandiHaler 18 mcg inhalation capsule)1 Capsules Inhalation DAILY. Hospital Course This is 68 years old gentleman who presented to the ED for evaluation of chest pain, in the ED his troponins was elevated, patient started on anticoagulation cardiology recommended cardiac catheterization, his cardiac cath was clean, his symptoms were thought to be noncardiac. Symptoms likely GI related I started him on Protonix daily and advised him to try that for 3 weeks if his symptoms continued then he will need to see GI for possible EGD, referral given, patient understands. Physical Exam Vitals & Measurements T: 36.3 ?C (Oral) TMIN: 36.3 ?C (Oral) TMAX: 36.7 ?C (Oral) HR: 48 (Monitored) RR: 16 BP: 120/ 57 SpO2: 95% Physical Examination: General: Alert and oriented, No acute distress. HENT: Normocephalic, Normal hearing, Oral mucosa is moist. Respiratory: Lungs are clear to auscultation, Respirations are non-labored, Breath sounds are equal, No chest wall tenderness. Cardiovascular: Normal rate, Regular rhythm, No murmur, No edema. Gastrointestinal: Soft, Non-tender, Non-distended, Normal bowel sounds. Musculoskeletal: Normal range of motion, Normal strength. Neurologic: Alert, Oriented, Normal motor function, No focal deficits. Cognition and Speech: Oriented, Speech clear and coherent. Psychiatric: Cooperative, Appropriate mood & affect. Discharge Plan This Visit Diagnosis Chest pain R07.9 Elevated troponin R79.89 Patient Discharge Condition Stable Discharge Disposition Home Diet on Discharge Diet Order - Ordered -- 10/10/2023 13:26:00 EDT, Heart Healthy / with no Caffeine or Decaf [place] Diet Order - Ordered -- 10/10/2023 17:42:00 EDT, Heart Healthy Diet Order - Ordered -- 10/11/2023 14:29:00 EDT, Heart Healthy Patient Education Coronary Angiogram Patient Follow-Up With When Contact Information LEE MIKE, Gastroenterology Within 5 to 7 days [address] [place] [phone]- Business (1) Additional Instructions: [facility] 10-11-2023 Note Nursing Discharge Lloyd mmary Entered On: 10/11/2023 18:05 EDT Performed On: 10/11/2023 18:05 EDT by Ivelisse Santos RN, DC Information Discharged to : Home Reg VTE Warfarin at Discharge : No Ivelisse Santos RN - 10/11/2023 18:05 EDT Education TeachBack Methodology : TeachBack Barriers to Learning : None evident Ivelisse Santos RN - 10/11/2023 18:05 EDT [facility] 10-11-2023 Note Care Continuum Progr ess Note Entered On: 10/11/2023 9:34 EDT Performed On: 10/11/2023 9:33 EDT by Leona Dyer Care Continuum Progress Note PCP : No PCP PCP appointment scheduled : No Navigator Rounding Comments : Met with patient at bedside to assist with scheduling hospital discharge follow up with PCP. Patient has no PCP-provided patient with [facility] list to review Leona Dyer - 10/11/2023 9:33 EDT [facility] 10-10-2023 Note SARABJIT LEACH :1955 Registration Date:10/10/2023 Chief Complaint chest pain History of Present Illness 68 year old male with history of COPD who presents to ER with chest pain. Patient reports substernal and left sided burning chest pain. Not typical of his copd. States he has chronic shortness of breath and santiago, nothing that was worse today. Denies fever,chills. Denies frequent heartburn. Review of Systems 10 system ros negative except as noted in HPI Physical Exam Vitals & Measurements T: 36.4 ?C (Oral) TMIN: 36.4 ?C (Oral) TMAX: 36.8 ?C (Oral) HR: 59 (Monitored) RR: 19 BP: 137/74 SpO2: 96% WT: 53.7 kg WT: 53 kg (Dosing) BMI: 17.48 alert, oriented hard of hearing no pallor moist mucosa lungs diminished but clear cv rrr abd soft nontender ext pulses intact, no synovitis neuro nonfocal Assessment/Plan Atypical Chest Pain Positive Troponin - admitted to observation - cardiology planning cath in am - continue with asa, statin for now - if cath negative add ppi, pursue further gi work up as outpatient COPD - at baseline, continue home rx Full Code Observation admission Problem List/Past Medical History Ongoing COPD (chronic obstructive pulmonary disease) Procedure/Surgical History No qualifying data available. Medications Inpatient acetaminophen, 650 mg= 2 tabs, ORAL, [id number], PRN acetaminophen, 650 mg= 2 tabs, ORAL, [id number], PRN acetaminophen, 650 mg= 2 tabs, ORAL, [id number], PRN aspirin, 81 mg= 1 tabs, ORAL, DAILY WITH BREAKFAST enoxaparin, 50 mg= 0.5 mL, 1 mg/kg, Subcutaneous, ONCE enoxaparin, 50 mg= 0.5 mL, 1 mg/kg, Subcutaneous, [id number] fluticasone-vilanterol(fluticasone -vilanterol 100 mcg-25 mcg inhalation powder), 1 EA, Inhalation, DAILY melatonin, 5 mg= 1 tabs, ORAL, [id number], PRN morphine, 2 mg= 1 mL, IV Push, Q5MIN, PRN naloxone = Narcan, 0.4 mg= 1 mL, IV Push, PRN, PRN nitroglycerin, 0.4 mg= 1 tabs, Sublingual, Q5MIN, PRN perflutren(Definity), 2 mL, IV Push, PRN, PRN sodium chloride(Saline Flush), 3 mL, IV Push, [id number] sodium chloride(Saline Flush), 3 mL, IV Push, PRN, PRN sodium chloride(Saline Flush), 8 mL, IV Push, PRN, PRN tiotropium, 18 mcg, Inhalation, DAILY Home fluticasone-vilanterol(Breo Ellipta 200 mcg-25 mcg/inh inhalation powder), 1 puffs, Inhalation, DAILY tiotropium(Spiriva HandiHaler 18 mcg inhalation capsule), 18 mcg= 1 caps, Inhalation, DAILY Allergies No Known Medication Allergies Social History Alcohol - Denies Alcohol Use Substance Abuse - Denies Substance Abuse Tobacco - Denies Tobacco Use Family History father with multiple strokes Lab Results Test Name Test Result Date/Time BUN 21 mg/dL 10/10/2023 10:58 EDT Na 142 mmol/L 10/10/2023 10:58 EDT K4.4 mmol/L 10/10/2023 10:58 EDT Chloride 108 mmol/L 10/10/2023 10:58 EDT CO2, venous 27.0 mmol/L 10/10/2023 10:58 EDT Glucose 86 mg/dL 10/10/2023 10:58 EDT Creatinine 0.8 mg/dL 10/10/2023 10:58 EDT Estimated Creatinine Clearance 85.92 mL/min 10/10/2023 12:17 EDT Total Protein 5.8 g/dL 10/10/2023 10:58 EDT Calcium 8.9 mg/dL 10/10/2023 10:58 EDT Bilirubin, Total 0.80 mg/dL 10/10/2023 10:58 EDT Alk Phos 70 unit/L 10/10/2023 10:58 EDT GOT 25 unit/L 10/10/2023 10:58 EDT GPT 18 unit/L 10/10/2023 10:58 EDT BUN/Creat Ratio 26.2 10/10/2023 10:58 EDT Calculated Osmolality 285 mOsm/kg 10/10/2023 10:58 EDT Globulin 2.6 g/dL 10/10/2023 10:58 EDT A/G Ratio 1.2 10/10/2023 10:58 EDT ALB 3.2 g/dL 10/10/2023 10:58 EDT Troponin HS 0 Hr 100 pg/mL 10/10/2023 10:58 EDT Troponin HS 2 Hr 97 pg/mL 10/10/2023 12:57 EDT Delta Troponin 2 Hr 3 pg/mL 10/10/2023 12:57 EDT Troponin HS 6 Hr 95 pg/mL 10/10/2023 16:47 EDT Delta Troponin 6 Hr 2 pg/mL 10/10/2023 16:47 EDT Glomerular Filtration Rate >60 mL/min/1.73m? 10/10/2023 10:58 EDT GFR AA >60 10/10/2023 10:58 EDT Protime Patient 12.0 seconds 10/10/2023 10:58 EDT INR 1.1 10/10/2023 10:58 EDT APTT Patient 28.4 seconds 10/10/2023 10:58 EDT WBC 11.4 x103/uL 10/10/2023 10:58 EDT MDW 16.46 10/10/2023 10:58 EDT RBC 4.88 x106/uL 10/10/2023 10:58 EDT HGB 14.4 g/dL 10/10/2023 10:58 EDT HCT 44.0 % 10/10/2023 10:58 EDT MCV 90.2 fL 10/10/2023 10:58 EDT MCH 29.5 pg 10/10/2023 10:58 EDT MCHC 32.7 g/dL 10/10/2023 10:58 EDT RDW 14.6 % 10/10/2023 10:58 EDT Platelet 214 x103/uL 10/10/2023 10:58 EDT MPV 8.5 fL 10/10/2023 10:58 EDT Nucleated RBC 0 /100WBC 10/10/2023 10:58 EDT Lymph % 9.8 % 10/10/2023 10:58 EDT [place] % 6.1 % 10/10/2023 10:58 EDT Neutrophil % 81.5 % 10/10/2023 10:58 EDT Eosin % 1.8 % 10/10/2023 10:58 EDT Basos % 0.8 % 10/10/2023 10:58 EDT Lymph Count 1.12 x1000 10/10/2023 10:58 EDT [place] Count 0.70 x1000 10/10/2023 10:58 EDT Neutrophil Count (ANC) 9.32 x1000 (more content not included)... [facility] 10-10-2023 Note Immunization Screeni ng Entered On: 10/10/2023 17:44 EDT Performed On: 10/10/2023 17:44 EDT by Loli Santiago RN Immunization Screening Immunizations Current : Unknown Last Tetanus : Unknown Influenza Vaccine : No COVID-19 Fully Vaccinated : No Loli Santiago RN - 10/10/2023 17:44 EDT Influenza Immunization Screening Would the patient 18 & over like to receive the Influenza Vaccine? : No Refusal Reason : Concerns re: side effects/safety Loli Santiago RN - 10/10/2023 17:44 EDT [facility] Comment on above: Order Comment: Order entered secondary to inpatient admission. Result Comment: 10-10-2023 Note Communication Log En tered On: 10/10/2023 17:44 EDT Performed On: 10/10/2023 17:44 EDT by Loli Santiago RN Call Log Physician Call Log Physician requesting : ALEX MCINTYRE MD Patient Location : 149 Physician being called : JIM JACQUES MD Reason : Consult Telephone number : [phone] Time Call Placed : 17:39 EST Comment : a/s Loli Santiago RN - 10/10/2023 17:44 EDT [facility] 10-10-2023 Note Communication Log En tered On: 10/10/2023 17:40 EDT Performed On: 10/10/2023 17:37 EDT by Az Williamson Call Log Physician Call Log Physician requesting : ALEX MCINTYRE MD Patient Location : 149 Physician being called : JIM JACQUES MD Reason : Consult Telephone number : [phone] Time Call Placed : 17:39 EST Comment : a/s Az Williamson - 10/10/2023 17:37 EDT [facility] 10-10-2023 Note ED Nursing Discharge Summary Entered On: 10/10/2023 17:28 EDT Performed On: 10/10/2023 17:27 EDT by Janis Serrato RN RI Information [id number] ED IV's : Continue upon transfer ED IV Site Assessment : Yes, Completed in IView ED Vitals Completed : Yes ED Final Assessment Completed : Yes ED Progress Note Completed : Yes Complete all PRN/Pain response forms? : Yes ED Disassociate Patient from Monitor : Yes Updated Depart Time : Yes ED Belongings sent w patient [id number] : Not applicable Janis Serrato RN - 10/10/2023 17:27 EDT Education Instructions given to : Patient TeachBack Methodology : Explanation Barriers to Learning : None evident Janis Serrato RN - 10/10/2023 17:27 EDT Post-Hospital Education Adult Grid Plan of Care : Verbalizes understanding Janis Serrato RN - 10/10/2023 17:27 EDT ED Assistance Summary Assistance Given? : No Janis Serrato RN - 10/10/2023 17:27 EDT [facility] 07-14-2023 Miscellaneous Notes I have left several VM regarding your appointment on TuesdayJuly 27 at 9:[address] Moyer needs to be in surgery. At this time I will be canceling your appointment and you can call our office to reschedule. Thank you, Paola documented in this encounter [facility] 06-29-2023 Note HNO ID: [id number] Author: Salazar Stallworth DO Service: ? Author Type: Physician Type: Progress Notes Filed: 06/29/2023 9:22 AM Note Text: Salazar Stallworth DO Board Certified Internal Medicine, Lipidology, Metabolic Medicine and Lifestyle Medicine [facility] Date of Evaluation: 06/29/2023 Patient Name: Sarabjit Leach : 1955 IMPRESSION: This is a 68 year old male with self admitted poor lifetime memory presents for follow up on a number of issues. He has not yet accomplished management goals since last visit. I have asked our discharge staff to work with him to obtain all suggested referrals and testing. ASSESSMENT/PLAN (J44.1) COPD exacerbation (HCC) (primary encounter diagnosis) Comment: No change in plan at this time. (K41.90) Non-recurrent unilateral femoral hernia without obstruction or gangrene Comment: scheduling today with general surgeon (R16.0) Hepatomegaly Comment: scheduling today for liver ultrasound Plan: CBC + DIFF, COMP METABOLIC PANEL (N40.1) Benign localized prostatic hyperplasia with lower urinary tract symptoms (LUTS) Comment: noted an elevated PSA in 2008 and again 2018. Recommend recheck and scheduling today with urology Plan: PSA/PROSTSPECAG DIAG, URINALYSIS, WITH MICROSCOPIC (R91.1) Pulmonary nodule Comment: follow with pulmonology. Patient had requested biopsy in April but he did not schedule. Will help with scheduling today. Salazar Stallworth DO Chief Complaint: Patient presents with: Follow Up Subjective Mr. Leach is a 68 year old male who presents for a number of issues. HPI Reports he continues to have with symptomatic femoral hernia with RLQ abdominal pain radiating into right groin. Has not yet seen surgeon or accomplished US liver. Denies N/V/D/C Presents for COPD management. Reports compliance with medication. Denies any side effects. Breathing improved with prednisone. Following with pulmonology. Denies any wheezing, excessive cough, inability to expectorate mucous, SOBOE or SOB. Reports he does have issues with completely emptying bladder and poor stream. Has not yet scheduled with urology. Related he has had elevated PSA in past. PAST MEDICAL HISTORY Diagnosis Date Asthma Chronic obstructive pulmonary disease (COPD) (HCC) GERD (gastroesophageal reflux disease) ALLERGIES Allergen Reactions Bacitracin Rash Social History Tobacco Use Smoking status: Former Packs/day: 1.50 Years: 48.00 Additional pack years: 0.00 Total pack years: 72.00 Types: Cigarettes Quit date: 2014 Years since quittin.9 Smokeless tobacco: Never Vaping Use Vaping Use: Never used Substance Use Topics Alcohol use: No Comment: quit in 1981 Drug use: No Current Outpatient Medications Medication Sig tiotropium (SPIRIVA WITH HANDIHALER) 18 mcg inhalation capsule INHALE THE CONTENTS OF 1 CAPSULE DAILY INSTRUCTED fluticasone-vilanterol (BREO ELLIPTA) 200-25 mcg/dose inhaler USE 1 INHALATION DAILY INSTRUCTED predniSONE (DELTASONE) 10 mg tablet Take 1 tablet by mouth once daily. albuterol HFA (PROAIR HFA) 90 mcg/actuation inhaler 2 Puffs every 4 hours as needed for wheezing/shortness of breath. Take as directed ipratropium-albuterol (DUONEB) 0.5 mg-3 mg(2.5 mg base)/3 mL nebu Inhale 3 mL as instructed every 6 hours as needed for wheezing/shortness of breath. TRIAMCINOLONE ACETONIDE TOPICAL Apply 0.5 % to affected area. cream No current facility-administered medications for this visit. I have confirmed and edited as necessary the chief complaint, medications, past medical, family and social histories obtained by others. REVIEW OF SYSTEMS PAIN ASSESSMENT: Negative for pain, history of chronic pain, or current treatment for a chronic pain condition. GENERAL: No weight loss, malaise or fevers RESPIRATORY: Negative for cough, hemoptysis, wheezing, COPD, dyspnea or shortness of breath CARDIOVASCULAR: Negative for chest pain, leg swelling, hypertension, CHF or palpitations GI: No nausea, vomiting, or diarrhea : Positive for decreased stream Objective BP 100/68 Pulse 64 Temp 97.6 Ht 5' 9 (1.75m) Wt 116 lb (52.6kg) SpO2 100% BMI 17.12 kg/(m2). Last BP 06/29/23 : 100/68 06/23/23 : 112/62 05/02/23 : 100/60 Last Wt 06/29/23 : 52.6 kg (116 lb) 06/23/23 : 52.6 kg (116 lb) 05/02/23 : 50.3 kg (111 lb) Physical Exam Constitutional: General: She is not in acute distress. Eyes: Extraocular Movements: Extraocular movements intact. Pupils: Pupils are equal, round, and reactive to light. Cardiovascular: Rate and Rhythm: Normal rate and regular rhythm. Pulmonary: Effort: Pulmonary effort is normal. Breath sounds: Normal breath sounds. Abdominal: General: Abdomen is flat. Bowel sounds are normal. Palpations: Abdomen is soft. Musculoskeletal: General: Normal range of motion. Cervical back: Normal range of motion (more content not included)... [facility] 06-23-2023 Note HNO ID: [id number] Author: Eduarda Felix MD Service: ? Author Type: Physician Type: Progress Notes Filed: 06/23/2023 11:58 AM Note Text: [facility] established patient follow-up note SERVICE DATE: 06/23/2023 PRIMARY CARE PHYSICIAN: No primary care provider on file. COMMUNICATION WILL BE SENT VIA SHARED MEDICAL RECORDS OR US MAIL. SUBJECTIVE HPI:Sarabjit Leach is a 68 year old male here for follow appointment for COPD. Routine visit and past visit reviewed. Patient was last seen in the office on April around . Comes in for a follow-up. States that his symptoms significantly improved after starting 10 mg of prednisone daily. He is currently on a Breo and Spiriva and as needed albuterol and 10 mg of prednisone. Still continues to have cough with as little phlegm production. Denies any fever chills or night sweats. He has a right upper lobe a stable lung nodule. Patient requested for biopsy in the last visit and order placed but was never scheduled. Denies any weight loss. Denies any other symptoms. Follow up in future anticipated. Discussed with patient. SOCIAL HISTORY: Social History Tobacco Use Smoking status: Former Packs/day: 1.50 Years: 48.00 Additional pack years: 0.00 Total pack years: 72.00 Types: Cigarettes Quit date: 2014 Years since quittin.9 Smokeless tobacco: Never Vaping Use Vaping Use: Never used Substance Use Topics Alcohol use: No Comment: quit in 1981 Drug use: No MEDICATIONS: Prior to Admission Medications (Not in a hospital admission) tiotropium (SPIRIVA WITH HANDIHALER) 18 mcg inhalation capsule INHALE THE CONTENTS OF 1 CAPSULE DAILY INSTRUCTED fluticasone-vilanterol (BREO ELLIPTA) 200-25 mcg/dose inhaler USE 1 INHALATION DAILY INSTRUCTED predniSONE (DELTASONE) 10 mg tablet Take 1 tablet by mouth once daily. albuterol HFA (PROAIR HFA) 90 mcg/actuation inhaler 2 Puffs every 4 hours as needed for wheezing/shortness of breath. Take as directed ipratropium-albuterol (DUONEB) 0.5 mg-3 mg(2.5 mg base)/3 mL nebu Inhale 3 mL as instructed every 6 hours as needed for wheezing/shortness of breath. TRIAMCINOLONE ACETONIDE TOPICAL Apply 0.5 % to affected area. cream CURRENT ALLERGIES: ALLERGIES Allergen Reactions Bacitracin Rash REVIEW OF SYSTEMS Constitutional:NO EVIDENCE OF ACUTE DISTRESS HEENT:Negative for frequent or significant headaches RESPIRATORY: Cough; moist, productive with white sputum, Dyspnea CARDIOVASCULAR: Negative for chest pain, leg swelling or palpitations. GASTROINTESTINAL: Negative for abdominal discomfort, blood in stools or black stools or change in bowel habits GENITOURINARY: No history of dysuria, frequency or incontinence ENVIRONMENTAL TEST TECHNICIAN: NA MUSCULOSKELETAL: Negative for joint pain or swelling, back pain or muscle pain. NEUROLOGIC:Negative for focal numbness or weakness, headaches and dizziness or syncope. SKIN:Negative for lesions, rash, and itching. PSYCHIATRIC: Negative for sleep disturbance, mood disorder and recent psychosocial stressors. HEMATOLOGIC/LYMPHATIC/IMMUNOLOGIC: {HEMATOLOGY/LYMPHATIC/IMMUNOLO ENDOCRINE: Negative for cold or heat intolerance, polyuria, polydipsia and goiter. The remainder of the ROS was negative. PHYSICAL EXAMINATION: VITAL SIGNS: BP 112/62 Ht 5' 9 (1.75m) Wt 116 lb (52.6kg) BMI 17.12 kg/(m2). General appearance: well appearing, alert, and in no acute distress Skin: skin color, texture, turgor normal, no rashes or lesions Eyes: Anicteric sclera. Pupils are equally round and reactive to light. Extraocular movements are intact. ENT: No oral or nasal erythema, bleeding, lesions, striae Heme/Lymph:Negative Lungs: Diminished breath sounds bilaterally. No wheezing or rhonchi Heart: RRR without murmur, gallop, or rubs. No ectopy GI: Normal abdominal exam Musculoskeletal: Extremities normal. No deformities, edema, or skin discoloration. Good capillary refill. Psych: no history of psychiatric problems Neuro: Gait normal. Reflexes normal and symmetric. Sensation grossly intact. DATA: Vaccines as noted EMR Diagnostic tests reviewed for today's visit: Labs: CBC with diff: WBC 8.46 03/16/2023 RBC 4.93 03/16/2023 HGB 14.3 03/16/2023 Hematocrit 44.0 03/16/2023 MCV 89.2 03/16/2023 MCH 29.0 03/16/2023 MCHC 32.5 03/16/2023 RDW-CV 14.1 03/16/2023 Platelet Count 223 03/16/2023 MPV 9.9 03/16/2023 Neutrophils % 82.1 10/05/2022 Lymphocytes % 8.6 10/05/2022 Monocytes % 6.6 10/05/2022 Basophils % 0.7 10/05/2022 Abs Neut (Segs + Bands) 9.96 10/05/2022 Abs [place] 0.80 10/05/2022 Abs Eosin 0.21 10/05/2022 Abs Baso 0.09 10/05/2022 CT chest: 04/22/23: IMPRESSION: Severe emphysema with mild, diffuse bronchiectasis. Stable nodular opacity is seen within the right upper lobe. Other smaller nodular opacities are also stable. Airspace opacities within the lingula have improved in the interval. Secretions within trachea and m (more content not included)... [facility] 06-23-2023 Instructions Eduarda Felix MD - 06/23/2023 11:25 AM EST My Plan and Interventions: 1. Return to office in 3 months. 2. Tests to be ordered today:CT chest in 1 month 3. New medications today:None 4. Special Instructions:call if has concerns 5. Summary of today's visit: COPD 6. Referrals today: None Copy to Referring physician: yes Thank you for allowing me to participate in this patient's care. documented in this encounter [facility] 06-23-2023 History of Present illness Narrative [facility] established patient follow-up note SERVICE DATE: 06/23/2023 PRIMARY CARE PHYSICIAN: No primary care provider on file. COMMUNICATION WILL BE SENT VIA SHARED MEDICAL RECORDS OR US MAIL. SUBJECTIVE HPI:Sarabjit Leach is a 68 year old male here for follow appointment for COPD. Routine visit and past visit reviewed. Patient was last seen in the office on April around . Comes in for a follow-up. States that his symptoms significantly improved after starting 10 mg of prednisone daily. He is currently on a Breo and Spiriva and as needed albuterol and 10 mg of prednisone. Still continues to have cough with as little phlegm production. Denies any fever chills or night sweats. He has a right upper lobe a stable lung nodule. Patient requested for biopsy in the last visit and order placed but was never scheduled. Denies any weight loss. Denies any other symptoms. Follow up in future anticipated. Discussed with patient. SOCIAL HISTORY: Social History Tobacco Use Smoking status: Former Packs/day: 1.50 Years: 48.00 Additional pack years: 0.00 Total pack years: 72.00 Types: Cigarettes Quit date: 2014 Years since quittin.9 Smokeless tobacco: Never Vaping Use Vaping Use: Never used Substance Use Topics Alcohol use: No Comment: quit in 1981 Drug use: No MEDICATIONS: Prior to Admission Medications (Not in a hospital admission) tiotropium (SPIRIVA WITH HANDIHALER) 18 mcg inhalation capsule INHALE THE CONTENTS OF 1 CAPSULE DAILY INSTRUCTED fluticasone-vilanterol (BREO ELLIPTA) 200-25 mcg/dose inhaler USE 1 INHALATION DAILY INSTRUCTED predniSONE (DELTASONE) 10 mg tablet Take 1 tablet by mouth once daily. albuterol HFA (PROAIR HFA) 90 mcg/actuation inhaler 2 Puffs every 4 hours as needed for wheezing/shortness of breath. Take as directed ipratropium-albuterol (DUONEB) 0.5 mg-3 mg(2.5 mg base)/3 mL nebu Inhale 3 mL as instructed every 6 hours as needed for wheezing/shortness of breath. TRIAMCINOLONE ACETONIDE TOPICAL Apply 0.5 % to affected area. cream CURRENT ALLERGIES: ALLERGIES Allergen Reactions Bacitracin Rash REVIEW OF SYSTEMS Constitutional:NO EVIDENCE OF ACUTE DISTRESS HEENT:Negative for frequent or significant headaches RESPIRATORY: Cough; moist, productive with white sputum, Dyspnea CARDIOVASCULAR: Negative for chest pain, leg swelling or palpitations. GASTROINTESTINAL: Negative for abdominal discomfort, blood in stools or black stools or change in bowel habits GENITOURINARY: No history of dysuria, frequency or incontinence ENVIRONMENTAL TEST TECHNICIAN: NA MUSCULOSKELETAL: Negative for joint pain or swelling, back pain or muscle pain. NEUROLOGIC:Negative for focal numbness or weakness, headaches and dizziness or syncope. SKIN:Negative for lesions, rash, and itching. PSYCHIATRIC: Negative for sleep disturbance, mood disorder and recent psychosocial stressors. HEMATOLOGIC/LYMPHATIC/IMMUNOLOGIC: {HEMATOLOGY/LYMPHATIC/IMMUNOLO ENDOCRINE: Negative for cold or heat intolerance, polyuria, polydipsia and goiter. The remainder of the ROS was negative. PHYSICAL EXAMINATION: VITAL SIGNS: BP 112/62 Ht 5' 9 (1.75m) Wt 116 lb (52.6kg) BMI 17.12 kg/(m^2). General appearance: well appearing, alert, and in no acute distress Skin: skin color, texture, turgor normal, no rashes or lesions Eyes: Anicteric sclera. Pupils are equally round and reactive to light. Extraocular movements are intact. ENT: No oral or nasal erythema, bleeding, lesions, striae Heme/Lymph:Negative Lungs: Diminished breath sounds bilaterally. No wheezing or rhonchi Heart: RRR without murmur, gallop, or rubs. No ectopy GI: Normal abdominal exam Musculoskeletal: Extremities normal. No deformities, edema, or skin discoloration. Good capillary refill. Psych: no history of psychiatric problems Neuro: Gait normal. Reflexes normal and symmetric. Sensation grossly intact. DATA: Vaccines as noted EMR Diagnostic tests reviewed for today's visit: Labs: CBC with diff: WBC 8.46 03/16/2023 RBC 4.93 03/16/2023 HGB 14.3 03/16/2023 Hematocrit 44.0 03/16/2023 MCV 89.2 03/16/2023 MCH 29.0 03/16/2023 MCHC 32.5 03/16/2023 RDW-CV 14.1 03/16/2023 Platelet Count 223 03/16/2023 MPV 9.9 03/16/2023 Neutrophils % 82.1 10/05/2022 Lymphocytes % 8.6 10/05/2022 Monocytes % 6.6 10/05/2022 Basophils % 0.7 10/05/2022 Abs Neut (Segs + Bands) 9.96 10/05/2022 Abs [place] 0.80 10/05/2022 Abs Eosin 0.21 10/05/2022 Abs Baso 0.09 10/05/2022 CT chest: 04/22/23: IMPRESSION: Severe emphysema with mild, diffuse bronchiectasis. Stable nodular opacity is seen within the right upper lobe. Other smaller nodular opacities are also stable. Airspace opacities within the lingula have improved in the interval. Secretions within trachea and mainstem bronchi. Prominent, less than 1 cm mediastinal and bilateral hilar lymph nodes, likely reactive. CT chest: 09/29/22: 1. Stellate density in the right upper lobe again noted but it has decreased in size since 06/16/2022 and most likely represents an inflammatory or infectious process. Recommend continued follow-up until it resolves. 2. Several other nodules noted particularly in the left lung which all are fairly stable or decreasing in size. 3. There is a new peribronchial nodule noted in the central portion of the left upper lobe. Would recommend follow-up CT scan in 6 months to reassess this nodule. 4. Stellate and nodular changes at the base of lingula and base left lower lobe. Based on overall appearance of these areas suspect an inflammatory or infectious process. PET scan: 07/08/22: 1. NECK: * NO FDG AVID NEOPLASTIC PROCESS. 2. CHEST: * 0.7 CM INDETERMINATE HYPERMETABOLIC NODULE WITHIN 2.5 X 2 CM SPICULATED PERIBRONCHOVASCULAR RIGHT UPPER LOBE INFILTRATE, AND MILD FDG UPTAKE BY SMALL RIGHT HILAR LYMPH NODE, NEW SINCE 10/12/2021. DIFFERENTIAL POSSIBILITIES INCLUDE DEVELOPING OR RESOLVING PULMONARY INFORMATION/INFECTION/NEOPLASM. SUGGEST PULMONARY CONSULT AND FOLLOW-UP NONCONTRAST CHEST CT IN 3 MONTHS FOR ADDITIONAL EVALUATION. * NON-FDG AVID 0.5 CM RIGHT LOWER LOBE PERIBRONCHOVASCULAR NODULE, 0.5 CM LEFT UPPER LOBE PERIBRONCHOVASCULAR NODULE, LINEAR LEFT UPPER LOBE PERIBRONCHOVASCULAR DENSITY LATERALLY AND 0.5 CM PERIBRONCHOVASCULAR LEFT LOWER LOBE NODULE LATERALLY, BETTER DEMONSTRATED ON RECENT CHEST CT DATED 06/16/2022, PROBABLY INFLAMMATORY IN NATURE. * MILD BIBASILAR LINEAR ATELECTASIS/INFILTRATE (LEFT GREATER THAN RIGHT), MILDLY IMPROVED SINCE 06/16/2022. CT chest: 05/2022: 2. Moderate to advanced emphysematous changes. 1. Interval development of several pulmonary nodules, most pronounced in the right upper lobe. Incidental Finding: Follow-up Acuity: Incidental Finding: Solid >8 mm Routing Code: RI_1 CT chest:10/12/21: 1. Bilateral lower lobe airspace consolidation suggestive of pneumonia. Reactive mediastinal/hilar lymphadenopathy is present. 2. No intraluminal filling defects are seen within the pulmonary arteries to suggest pulmonary artery emboli. Chest xray:10/15/21:Bilateral lower lobe infiltrates concerning for active pneumonia. LDCT: 04/2020: Recommendations: Recommend follow-up low-dose CT scan in 12 months to continue routine screening. Other actionable findings: Hypodensity in the dome of the liver of unclear etiology. This could be correlated with ultrasound to evaluate for possible cyst. Heart echo: PFT:01/2020: IMPRESSION: Spirometry indicates moderately severe obstruction. There is no significant bronchodilator response. There is severe obstruction seen at the level of small airways The TLC is normal. The RV and RV/TLC are elevated indicating air trapping. The diffusing capacity is severely reduced. The diffusing capacity independent of alveolar volume (kCO) is reduced. The presence of a reduced lung diffusing capacity - that does not normalize when measured independent of alveolar volume (kCO) suggests a parenchymal or pulmonary vascular disorder. ASSESSMENT ASSESSMENT/PLAN: 1. Pulmonary emphysema, unspecified emphysema type (HCC) - ICD9: 492.8, ICD10: J43.9 (primary diagnosis) He is currently on Breo, Spiriva and as needed albuterol. Also has DuoNebs at home. Symptoms significantly improved after starting 10 mg of prednisone daily. Continue the same. 2. Lung nodules - ICD9: 793.19, ICD10: R91.8 Has right upper lobe lung nodule which has been stable and slightly decreased in size when compared to the last PET scan done in 2021. Patient requesting biopsy. Will repeat CT in 3 to 4 months for follow-up. - CT CHEST WO IVCON 3. Ex-smoker - ICD9: V15.82, ICD10: Z87.891 Quit smoking 2 -3 years ago 4. Mediastinal adenopathy - ICD9: 785.6, ICD10: R59.0 Stable. Likely reactive Eduarda Felix MD Patient instructions given: See AVS Thank you for allowing me to participate in this patient's care. Patient's questions and concerns were addressed prior to discharge today. Followup discussed. Communication to associated physician sent. SIGNATURE: Eduarda Felix MD PATIENT NAME: Sarabjit Leach DATE: June 23, 2023 TIME: 11:14 AM PAGER/CONTACT #: [phone] documented in this encounter [facility] 05-02-2023 Miscellaneous Notes [facility] Guided Biopsy of lung to be done in [place]. Lemuel Duckworth MA documented in this encounter [facility] 05-02-2023 Note HNO ID: [id number] Author: Eduarda Felix MD Service: ? Author Type: Physician Type: Progress Notes Filed: 05/02/2023 12:46 PM Note Text: [facility] [place] [facility] established patient follow-up note SERVICE DATE: 05/02/2023 PRIMARY CARE PHYSICIAN: No primary care provider on file. COMMUNICATION WILL BE SENT VIA SHARED MEDICAL RECORDS OR US MAIL. SUBJECTIVE HPI:Sarabjit Leach is a 67 year old male here for follow appointment for COPD. Routine visit and past visit reviewed. Patient comes in for follow-up after recent CT scan. Patient states that he has not been feeling well for the last couple of days. Feels very weak and tired. Denies any fever but states that he feels very cold. He is currently on Breo and Spiriva. Also on DuoNebs and albuterol. Feels very SOB and has dyspnea on minimal exertion. Salad from He recently had a CT chest done which showed a stable right upper lobe lung nodule 1.2 cm spiculated. Patient states that he feels very weak and tired and is getting very short of breath on minimal exertion. States that he might go to the emergency room to get admitted in the hospital. Follow up in future anticipated. Discussed with patient. SOCIAL HISTORY: Social History Tobacco Use Smoking status: Former Packs/day: 1.50 Years: 48.00 Additional pack years: 0.00 Total pack years: 72.00 Types: Cigarettes Quit date: 2014 Years since quittin.7 Smokeless tobacco: Never Vaping Use Vaping Use: Never used Substance Use Topics Alcohol use: No Comment: quit in 1981 Drug use: No MEDICATIONS: Prior to Admission Medications (Not in a hospital admission) ipratropium-albuterol (DUONEB) 0.5 mg-3 mg(2.5 mg base)/3 mL nebu Inhale 3 mL as instructed every 6 hours as needed for wheezing/shortness of breath. azithromycin (ZITHROMAX) 250 mg tablet Take 2 tabs on the first day, then one tab daily for 4 days. predniSONE (DELTASONE) 10 mg tablet Take 4 pills daily for 4 days, Then 3 pills daily for 4 days, Then 2 pills daily for 4 days, Then 1 pill daily for 4 days, Then stop. fluticasone-vilanterol (BREO ELLIPTA) 200-25 mcg/dose inhaler USE 1 INHALATION DAILY INSTRUCTED TRIAMCINOLONE ACETONIDE TOPICAL Apply 0.5 % to affected area. cream SPIRIVA WITH HANDIHALER 18 mcg inhalation capsule INHALE THE CONTENTS OF 1 CAPSULE DAILY INSTRUCTED albuterol HFA (PROAIR HFA) 90 mcg/actuation inhaler 2 Puffs every 4 hours as needed for wheezing/shortness of breath. Take as directed CURRENT ALLERGIES: ALLERGIES Allergen Reactions Bacitracin Rash REVIEW OF SYSTEMS Constitutional:NO EVIDENCE OF ACUTE DISTRESS. Feels very tired HEENT:Negative for frequent or significant headaches RESPIRATORY: Dyspnea, Shortness of breath CARDIOVASCULAR: Decreasing exercise tolerence, Negative for chest pain, leg swelling or palpitations. GASTROINTESTINAL: Negative for abdominal discomfort, blood in stools or black stools or change in bowel habits GENITOURINARY: No history of dysuria, frequency or incontinence ENVIRONMENTAL TEST TECHNICIAN: NA MUSCULOSKELETAL: Negative for joint pain or swelling, back pain or muscle pain. NEUROLOGIC:Negative for focal numbness or weakness, headaches and dizziness or syncope. SKIN:Negative for lesions, rash, and itching. PSYCHIATRIC: Negative for sleep disturbance, mood disorder and recent psychosocial stressors. HEMATOLOGIC/LYMPHATIC/IMMUNOLOGIC: {HEMATOLOGY/LYMPHATIC/IMMUNOLO ENDOCRINE: Negative for cold or heat intolerance, polyuria, polydipsia and goiter. The remainder of the ROS was negative. PHYSICAL EXAMINATION: VITAL SIGNS: Ht 5' 9 (1.75m) Wt 111 lb (50.3kg) BMI 16.38 kg/(m2). General appearance: Thin, alert, and in no acute distress Skin: skin color, texture, turgor normal, no rashes or lesions Eyes: Anicteric sclera. Pupils are equally round and reactive to light. Extraocular movements are intact. ENT: No oral or nasal erythema, bleeding, lesions, striae Heme/Lymph:Negative Lungs: Very diminished breath sounds bilaterally, no wheezing or rhonchi Heart: RRR without murmur, gallop, or rubs. No ectopy GI: Normal abdominal exam Musculoskeletal: Extremities normal. No deformities, edema, or skin discoloration. Good capillary refill. Psych: no history of psychiatric problems Neuro: Gait normal. Reflexes normal and symmetric. Sensation grossly intact. DATA: Vaccines as noted EMR Diagnostic tests reviewed for today's visit: Labs: CBC with diff: WBC 8.46 03/16/2023 RBC 4.93 03/16/2023 HGB 14.3 03/16/2023 Hematocrit 44.0 03/16/2023 MCV 89.2 03/16/2023 MCH 29.0 03/16/2023 MCHC 32.5 03/16/2023 RDW-CV 14.1 03/16/2023 Platelet Count 223 03/16/2023 MPV 9.9 03/16/2023 Neutrophils % 82.1 10/05/2022 Lymphocytes % 8.6 10/05/2022 Monocytes % 6.6 10/05/2022 Basophils % 0.7 10/05/2022 Abs Neut (Segs + Bands) 9.96 10/05/2022 Abs [place] 0.80 10/05/2022 Abs Eosin 0.21 10/05/2022 Abs Baso 0.09 10/05/2022 CT chest: 04/22/23: (more content not included)... [facility] 05-02-2023 Instructions Eduarda Felix MD - 05/02/2023 11:31 AM EDT My Plan and Interventions: 1. Return to office in 6 weeks. 2. Tests to be ordered today:Imaging guided biopsy 3. New medications today:Prednisone 10 mg 4. Special Instructions:call if has concerns 5. Summary of today's visit: COPD 6. Referrals today: None Copy to Referring physician: yes Thank you for allowing me to participate in this patient's care. documented in this encounter [facility] 05-02-2023 Nurse Note PULM COPD ASSESSMENT TEST (CAT) SCORE 05/02/2023 COUGH 0 PHLEGM 2 CHEST TIGHTNESS 0 WALKING UP HILL OR FLIGHT OF STEPS 5 ACTIVITIES AT HOME 3 LEAVING HOME DESPITE LUNG CONDITION 0 SLEEPING 3 ENERGY 5 TOTAL SCORE 18 documented in this encounter [facility] 05-02-2023 History of Present illness Narrative [facility] [place] [facility] established patient follow-up note SERVICE DATE: 05/02/2023 PRIMARY CARE PHYSICIAN: No primary care provider on file. COMMUNICATION WILL BE SENT VIA SHARED MEDICAL RECORDS OR US MAIL. SUBJECTIVE HPI:Sarabjit Leach is a 67 year old male here for follow appointment for COPD. Routine visit and past visit reviewed. Patient comes in for follow-up after recent CT scan. Patient states that he has not been feeling well for the last couple of days. Feels very weak and tired. Denies any fever but states that he feels very cold. He is currently on Breo and Spiriva. Also on DuoNebs and albuterol. Feels very SOB and has dyspnea on minimal exertion. Salad from He recently had a CT chest done which showed a stable right upper lobe lung nodule 1.2 cm spiculated. Patient states that he feels very weak and tired and is getting very short of breath on minimal exertion. States that he might go to the emergency room to get admitted in the hospital. Follow up in future anticipated. Discussed with patient. SOCIAL HISTORY: Social History Tobacco Use Smoking status: Former Packs/day: 1.50 Years: 48.00 Additional pack years: 0.00 Total pack years: 72.00 Types: Cigarettes Quit date: 2014 Years since quittin.7 Smokeless tobacco: Never Vaping Use Vaping Use: Never used Substance Use Topics Alcohol use: No Comment: quit in 1981 Drug use: No MEDICATIONS: Prior to Admission Medications (Not in a hospital admission) ipratropium-albuterol (DUONEB) 0.5 mg-3 mg(2.5 mg base)/3 mL nebu Inhale 3 mL as instructed every 6 hours as needed for wheezing/shortness of breath. azithromycin (ZITHROMAX) 250 mg tablet Take 2 tabs on the first day, then one tab daily for 4 days. predniSONE (DELTASONE) 10 mg tablet Take 4 pills daily for 4 days, Then 3 pills daily for 4 days, Then 2 pills daily for 4 days, Then 1 pill daily for 4 days, Then stop. fluticasone-vilanterol (BREO ELLIPTA) 200-25 mcg/dose inhaler USE 1 INHALATION DAILY INSTRUCTED TRIAMCINOLONE ACETONIDE TOPICAL Apply 0.5 % to affected area. cream SPIRIVA WITH HANDIHALER 18 mcg inhalation capsule INHALE THE CONTENTS OF 1 CAPSULE DAILY INSTRUCTED albuterol HFA (PROAIR HFA) 90 mcg/actuation inhaler 2 Puffs every 4 hours as needed for wheezing/shortness of breath. Take as directed CURRENT ALLERGIES: ALLERGIES Allergen Reactions Bacitracin Rash REVIEW OF SYSTEMS Constitutional:NO EVIDENCE OF ACUTE DISTRESS. Feels very tired HEENT:Negative for frequent or significant headaches RESPIRATORY: Dyspnea, Shortness of breath CARDIOVASCULAR: Decreasing exercise tolerence, Negative for chest pain, leg swelling or palpitations. GASTROINTESTINAL: Negative for abdominal discomfort, blood in stools or black stools or change in bowel habits GENITOURINARY: No history of dysuria, frequency or incontinence ENVIRONMENTAL TEST TECHNICIAN: NA MUSCULOSKELETAL: Negative for joint pain or swelling, back pain or muscle pain. NEUROLOGIC:Negative for focal numbness or weakness, headaches and dizziness or syncope. SKIN:Negative for lesions, rash, and itching. PSYCHIATRIC: Negative for sleep disturbance, mood disorder and recent psychosocial stressors. HEMATOLOGIC/LYMPHATIC/IMMUNOLOGIC: {HEMATOLOGY/LYMPHATIC/IMMUNOLO ENDOCRINE: Negative for cold or heat intolerance, polyuria, polydipsia and goiter. The remainder of the ROS was negative. PHYSICAL EXAMINATION: VITAL SIGNS: Ht 5' 9 (1.75m) Wt 111 lb (50.3kg) BMI 16.38 kg/(m^2). General appearance: Thin, alert, and in no acute distress Skin: skin color, texture, turgor normal, no rashes or lesions Eyes: Anicteric sclera. Pupils are equally round and reactive to light. Extraocular movements are intact. ENT: No oral or nasal erythema, bleeding, lesions, striae Heme/Lymph:Negative Lungs: Very diminished breath sounds bilaterally, no wheezing or rhonchi Heart: RRR without murmur, gallop, or rubs. No ectopy GI: Normal abdominal exam Musculoskeletal: Extremities normal. No deformities, edema, or skin discoloration. Good capillary refill. Psych: no history of psychiatric problems Neuro: Gait normal. Reflexes normal and symmetric. Sensation grossly intact. DATA: Vaccines as noted EMR Diagnostic tests reviewed for today's visit: Labs: CBC with diff: WBC 8.46 03/16/2023 RBC 4.93 03/16/2023 HGB 14.3 03/16/2023 Hematocrit 44.0 03/16/2023 MCV 89.2 03/16/2023 MCH 29.0 03/16/2023 MCHC 32.5 03/16/2023 RDW-CV 14.1 03/16/2023 Platelet Count 223 03/16/2023 MPV 9.9 03/16/2023 Neutrophils % 82.1 10/05/2022 Lymphocytes % 8.6 10/05/2022 Monocytes % 6.6 10/05/2022 Basophils % 0.7 10/05/2022 Abs Neut (Segs + Bands) 9.96 10/05/2022 Abs [place] 0.80 10/05/2022 Abs Eosin 0.21 10/05/2022 Abs Baso 0.09 10/05/2022 CT chest: 04/22/23: IMPRESSION: Severe emphysema with mild, diffuse bronchiectasis. Stable nodular opacity is seen within the right upper lobe. Other smaller nodular opacities are also stable. Airspace opacities within the lingula have improved in the interval. Secretions within trachea and mainstem bronchi. Prominent, less than 1 cm mediastinal and bilateral hilar lymph nodes, likely reactive. CT chest: 09/29/22: 1. Stellate density in the right upper lobe again noted but it has decreased in size since 06/16/2022 and most likely represents an inflammatory or infectious process. Recommend continued follow-up until it resolves. 2. Several other nodules noted particularly in the left lung which all are fairly stable or decreasing in size. 3. There is a new peribronchial nodule noted in the central portion of the left upper lobe. Would recommend follow-up CT scan in 6 months to reassess this nodule. 4. Stellate and nodular changes at the base of lingula and base left lower lobe. Based on overall appearance of these areas suspect an inflammatory or infectious process. PET scan: 07/08/22: 1. NECK: * NO FDG AVID NEOPLASTIC PROCESS. 2. CHEST: * 0.7 CM INDETERMINATE HYPERMETABOLIC NODULE WITHIN 2.5 X 2 CM SPICULATED PERIBRONCHOVASCULAR RIGHT UPPER LOBE INFILTRATE, AND MILD FDG UPTAKE BY SMALL RIGHT HILAR LYMPH NODE, NEW SINCE 10/12/2021. DIFFERENTIAL POSSIBILITIES INCLUDE DEVELOPING OR RESOLVING PULMONARY INFORMATION/INFECTION/NEOPLASM. SUGGEST PULMONARY CONSULT AND FOLLOW-UP NONCONTRAST CHEST CT IN 3 MONTHS FOR ADDITIONAL EVALUATION. * NON-FDG AVID 0.5 CM RIGHT LOWER LOBE PERIBRONCHOVASCULAR NODULE, 0.5 CM LEFT UPPER LOBE PERIBRONCHOVASCULAR NODULE, LINEAR LEFT UPPER LOBE PERIBRONCHOVASCULAR DENSITY LATERALLY AND 0.5 CM PERIBRONCHOVASCULAR LEFT LOWER LOBE NODULE LATERALLY, BETTER DEMONSTRATED ON RECENT CHEST CT DATED 06/16/2022, PROBABLY INFLAMMATORY IN NATURE. * MILD BIBASILAR LINEAR ATELECTASIS/INFILTRATE (LEFT GREATER THAN RIGHT), MILDLY IMPROVED SINCE 06/16/2022. CT chest: 05/2022: 2. Moderate to advanced emphysematous changes. 1. Interval development of several pulmonary nodules, most pronounced in the right upper lobe. Incidental Finding: Follow-up Acuity: Incidental Finding: Solid >8 mm Routing Code: RI_1 CT chest:10/12/21: 1. Bilateral lower lobe airspace consolidation suggestive of pneumonia. Reactive mediastinal/hilar lymphadenopathy is present. 2. No intraluminal filling defects are seen within the pulmonary arteries to suggest pulmonary artery emboli. Chest xray:10/15/21:Bilateral lower lobe infiltrates concerning for active pneumonia. LDCT: 04/2020: Recommendations: Recommend follow-up low-dose CT scan in 12 months to continue routine screening. Other actionable findings: Hypodensity in the dome of the liver of unclear etiology. This could be correlated with ultrasound to evaluate for possible cyst. Heart echo: PFT:01/2020: IMPRESSION: Spirometry indicates moderately severe obstruction. There is no significant bronchodilator response. There is severe obstruction seen at the level of small airways The TLC is normal. The RV and RV/TLC are elevated indicating air trapping. The diffusing capacity is severely reduced. The diffusing capacity independent of alveolar volume (kCO) is reduced. The presence of a reduced lung diffusing capacity - that does not normalize when measured independent of alveolar volume (kCO) suggests a parenchymal or pulmonary vascular disorder. ASSESSMENT ASSESSMENT/PLAN: 1. Lung nodules - ICD9: 793.19, ICD10: R91.8 (primary diagnosis) Recent CT chest shows stable lung nodule 1.2 cm spiculated. Suspicious for malignancy given history of smoking. Discussed about close follow-up with repeat CT scan versus lung biopsy. Patient is more inclined to getting biopsy done. Discussed about the high risk of pneumothorax with lung biopsy given significant emphysema but patient states that he would like to take the risk but would like to know if it is cancerous - IMAGING GUIDED BIOPSY LUNG 2. Pulmonary emphysema, unspecified emphysema type (HCC) - ICD9: 492.8, ICD10: J43.9 On Spiriva and Breo Ellipta and as needed albuterol also has DuoNebs at home. Still continuing to feel significant shortness of breath. Will add prednisone 10 mg daily - ALBUTEROL SULFATE HFA 90 MCG/ACTUATION AEROSOL INHALER 3. Chronic obstructive pulmonary disease, unspecified COPD type (HCC) - ICD9: 496, ICD10: J44.9 Plan as above 4. Ex-smoker - ICD9: V15.82, ICD10: Z87.891 Quit smoking recently 5. Mediastinal adenopathy - ICD9: 785.6, ICD10: R59.0 Stable adenopathy on the recent CT chest. Likely reactive. Eduarda Felix MD Patient instructions given: See AVS Thank you for allowing me to participate in this patient's care. Patient's questions and concerns were addressed prior to discharge today. Followup discussed. Communication to associated physician sent. SIGNATURE: Eduarda Felix MD PATIENT NAME: Sarabjit Leach DATE: May 02, 2023 TIME: 11:05 AM PAGER/CONTACT #: [phone] documented in this encounter [facility] 04-04-2023 Miscellaneous Notes Just reviewed his CT abdomen report: He does have a left sided hernia that needs surgical repair. I have placed orders for referral. Shows he has a very large prostate which is keeping him from completely emptying his bladder. I have placed referral to urology for additional evaluation. Lastly shows his liver is larger than normal. I have placed additional orders for blood work and ultrasound of liver to further evaluate this. documented in this encounter [facility] 03-28-2023 Note ED Nursing Discharge Summary Entered On: 03/28/2023 20:49 EDT Performed On: 03/28/2023 19:45 EDT by Kathe Velazquez RN RI Information [id number] ED IV's : Discontinue ED IV Site Assessment : Yes, Completed in IView ED Vitals Completed : Yes ED Final Assessment Completed : Yes ED Progress Note Completed : Yes Complete all PRN/Pain response forms? : Yes ED Disassociate Patient from Monitor : N/A Updated Depart Time : Yes Mode of Discharge : Ambulatory Discharge Transportation : Private vehicle ED Belongings sent w patient [id number] : Not applicable Kathe Velazquez RN - 03/28/2023 20:48 EDT Education Instructions given to : Patient TeachBack Methodology : Explanation, Printed Material Barriers to Learning : Hearing deficit Kathe Velazquez RN - 03/28/2023 20:48 EDT ED Assistance Summary Assistance Given? : No Kathe Velazquez RN - 03/28/2023 20:48 EDT [facility] 03-21-2023 Miscellaneous Notes Please route telephone encounter to the Clerical Pool ([facility] Clerical Pool) Received all from [employer] ([phone]) requesting the order for the CT abd/pelvis be faxed to [employer], [place], [place] @ [phone]. The case number is #[id number]. I verified with patient. He was instructed to call and cancel appointment with [facility] [place] location and that he would be responsible for the results getting to our office. Mary Carmen Mata, Scallop Shucker March 21, 2023 1:13 PM documented in this encounter [facility] 03-16-2023 History of Present illness Narrative Images from the original note were not included. I personally saw and examined the patient. I reviewed the resident's note. I agree with the resident's assessment and plan unless otherwise noted. Signature: Salazar Stallworth DO Date: 03/16/2023 Time: 11:51 AM [facility] Rdedy Yanez DO ASSESSMENT/PLAN: 1. Screening for abdominal aortic aneurysm - ICD9: V81.2, ICD10: Z13.6 (primary diagnosis) 2. Screening for lipid disorders - ICD9: V77.91, ICD10: Z13.220 - LIPID PANEL BASIC 3. Abnormal bruising - ICD9: 782.7, ICD10: R23.3 - CBC - COMP METABOLIC PANEL - URINALYSIS WITH MICROSCOPIC, REFLEX CULTURE 4. Pulmonary nodule - ICD9: 793.11, ICD10: R91.1 - CT CHEST WO IVCON 5. Complicated unilateral incarcerated femoral hernia - ICD9: 552.00, ICD10: K41.30 - Palpable, nontender, nonreducible hernia palpated in the right groin on exam today; appears most consistent with right indirect inguinal hernia - CT ABD/PEL W IVCON - IV CONTRAST (RADIOLOGY PROCEDURE) - ENTERIC CONTRAST (RADIOLOGY PROCEDURE) 6. Other fatigue - ICD9: 780.79, ICD10: R53.83 - TSH BLD Reddy Yanez, SUBJECTIVE: Sarabjit Leach is a 67 year old male here today to discuss the following concerns: Abdominal / Testicular Pain, RLQ Mass: Pt reports that over the last 1.5 years he has had chronic intermittent episodes of RLQ abdominal pain extending down into the right groin and testicles. Pt notes that his pain is exacerbated with sitting and improves with walking. He rates pain as a 1/10 at baseline that worsens to a 3-4/10 pain episodes, and describes pain as a dull aching sensation. Pt expresses concern about a liver cyst , stating that he feels a lymph node in the right groin and is worried this is related to a liver issue. He denies any recent testicular swelling, pain, or redness, and denies any penile symptoms. Fatigue: Pt reports intermittent fatigue over the past several months. He notes that he is still able to get through his day without significant difficulty, but reports poor sleep over the past several months (largely related to difficulty getting back to sleep). Easy Bruising: Pt reports that over the past several months he has developed a significant amount of bruising in the arms and legs. He notes that he has recently had bruises several inches in length develop, and reports that these bruises take a significant amount of time to heal. Pt denies any recent trauma. Pt denies any other concerns at this time. PAST MEDICAL HISTORY Diagnosis Date Asthma Chronic obstructive pulmonary disease (COPD) (HCC) GERD (gastroesophageal reflux disease) PAST SURGICAL HISTORY Procedure Laterality Date CHOLECYSTECTOMY HX ORTHOPEDICS SURGERY HX right hip surgery Social History Tobacco Use Smoking status: Former Packs/day: 1.50 Years: 48.00 Additional pack years: 0.00 Total pack years: 72.00 Types: Cigarettes Quit date: 2014 Years since quittin.6 Smokeless tobacco: Never Vaping Use Vaping Use: Never used Substance Use Topics Alcohol use: No Comment: quit in 1981 Drug use: No FAMILY HISTORY Problem Relation Age of Onset Lung Cancer Mother Lung Cancer Father PAIN EVALUATION 03/16/2023 1021 Pain Level: 2 ALLERGIES Allergen Reactions Bacitracin Rash Medication List prior to visit Current Outpatient Medications Medication Sig ipratropium-albuterol (DUONEB) 0.5 mg-3 mg(2.5 mg base)/3 mL nebu Inhale 3 mL as instructed every 6 hours as needed for wheezing/shortness of breath. azithromycin (ZITHROMAX) 250 mg tablet Take 2 tabs on the first day, then one tab daily for 4 days. predniSONE (DELTASONE) 10 mg tablet Take 4 pills daily for 4 days, Then 3 pills daily for 4 days, Then 2 pills daily for 4 days, Then 1 pill daily for 4 days, Then stop. fluticasone-vilanterol (BREO ELLIPTA) 200-25 mcg/dose inhaler USE 1 INHALATION DAILY INSTRUCTED TRIAMCINOLONE ACETONIDE TOPICAL Apply 0.5 % to affected area. cream SPIRIVA WITH HANDIHALER 18 mcg inhalation capsule INHALE THE CONTENTS OF 1 CAPSULE DAILY INSTRUCTED albuterol HFA (PROAIR HFA) 90 mcg/actuation inhaler 2 Puffs every 4 hours as needed for wheezing/shortness of breath. Take as directed iv contrast (will be provided with radiology test) CT ABD/PEL -Inject, intravenously, once for 1 dose.No IV access, insert saline lock prior to the beginning of sedation, infusion, injection of imaging exam. Discontinue saline lock post exam. If Pt. has a central line or IVAD, may access for administration according to line specific nursing protocol. Once exam is complete flush line and de-access according to line specific nursing protocol in the CT contrast administration guidelines link. enteric contrast (will be provided with radiology test) For CT ABD/PEL W IVCON Routine order Administer, As Directed One Time Only, via Oral, Rectal, both Oral and Rectal, Enteric Tube, Stoma or Indwelling Catheter, Enteric Contrast as designated per enteric contrast guidelines No current facility-administered medications for this visit. I have confirmed and edited as necessary the chief complaint, medications, past medical, family and social histories. Review of Systems Constitutional: Positive for fever (Intermittently). Negative for chills and fatigue. HENT: Positive for sore throat (Chronic x6 years; sporadic). Negative for congestion. Eyes: Negative. Respiratory: Positive for cough (Chronic, intermittent) and shortness of breath (Chronic, attributes to COPD). Cardiovascular: Positive for leg swelling (Intermittent). Negative for chest pain. Gastrointestinal: Positive for abdominal pain (LLQ abdominal pain extending down into right groin and testicles), constipation (Intermittent) and diarrhea (More loose over last 6 months). Negative for blood in stool. Genitourinary: Positive for frequency (Intermittent x6 mo) and testicular pain (Extends down from groin). Negative for dysuria and urgency. Musculoskeletal: Negative for arthralgias and myalgias. Skin: Multiple areas of ecchymosis over the upper extremities without breakage in skin. Neurological: Negative for dizziness and light-headedness. Psychiatric/Behavioral: Negative for dysphoric mood. The patient is not nervous/anxious. All other systems reviewed and are negative. OBJECTIVE: BP 108/74 Pulse 61 Temp 36.3 C (97.4 F) Resp 18 Ht 175.3 cm (5' 9 ) Wt 52.6 kg (116 lb) SpO2 98% BMI 17.13 kg/m Last Wt 03/16/23 : 52.6 kg (116 lb) 01/10/23 : 50.8 kg (112 lb) 10/20/22 : 53.1 kg (117 lb) Last BP 03/16/23 : 108/74 01/10/23 : 107/71 10/20/22 : 102/69 Physical Exam Vitals reviewed. Constitutional: General: He is not in acute distress. Appearance: He is not toxic-appearing. HENT: Head: Normocephalic and atraumatic. Cardiovascular: Rate and Rhythm: Normal rate and regular rhythm. Pulses: Normal pulses. Heart sounds: No murmur heard. No friction rub. No gallop. Pulmonary: Effort: Pulmonary effort is normal. No respiratory distress. Breath sounds: Normal breath sounds. No wheezing, rhonchi or rales. Abdominal: General: Abdomen is flat. Bowel sounds are normal. Palpations: Abdomen is soft. Tenderness: There is no abdominal tenderness. There is no guarding or rebound. Comments: Negative huddleston's sign There is a palpable, nontender, and nonreducible mass in the right inguinal area that becomes prominent with valsalva. Testicular Exam: Normal appearance of the testicles, no erythema, swelling. No torsion present. No significant pain with palpation of the testicles bilaterally. No palpable masses detected with valsalva in the inguinal canal. Normal appearance of the penis. No discharge noted. Musculoskeletal: General: No swelling or tenderness. Normal range of motion. Skin: General: Skin is warm and dry. Capillary Refill: Capillary refill takes less than 2 seconds. Neurological: General: No focal deficit present. Mental Status: He is alert. Mental status is at baseline. Motor: No weakness. Psychiatric: Mood and Affect: Mood normal. Behavior: Behavior normal. PHQ-9 All Questions 03/16/2023 PHQ-9 Score 0 (0-4) minimal depression, (5-9) mild depression, (10-14) moderate depression, (15-19) moderately severe depression, (20-27) severe depression Screening tool completed by patient. Based on the PHQ-2 score and patient interview, patient is not at risk for depression. Screening tool discussed with patient, and I recommended no further intervention at this time. There are no discontinued medications. Return in about 3 months (around 06/16/2023). Discussed the above with the patient and my preceptor using shared decision-making. The patient is in agreement with the diagnostic and treatment plans. Reddy Yanez DO, signed on March 16, 2023 8:20 AM documented in this encounter [facility] 01-27-2023 Miscellaneous Notes Patient called requesting the following refill. Requested Prescriptions Pending Prescriptions Disp Refills ipratropium-albuterol (DUONEB) 0.5 mg-3 mg(2.5 mg base)/3 mL nebu 120 Each 3 Sig: Inhale 3 mL as instructed every 6 hours as needed for wheezing/shortness of breath. Patient Phone numbers: [phone] (home) Request is for script(s) to be escript to pharmacy. Veda PATEL documented in this encounter [facility] 01-10-2023 Instructions Eduarda Felix MD - 01/10/2023 9:13 AM EDT My Plan and Interventions: 1. Return to office in 6 weeks. 2. Tests to be ordered today:none 3. New medications today:Azithromycin, Prednisone 4. Special Instructions:call if has concerns 5. Summary of today's visit: COPD 6. Referrals today: None Copy to Referring physician: yes Thank you for allowing me to participate in this patient's care. documented in this encounter [facility] 01-10-2023 History of Present illness Narrative Respiratory [facility] established patient follow-up note SERVICE DATE: 01/10/2023 PRIMARY CARE PHYSICIAN: No primary care provider on file. COMMUNICATION WILL BE SENT VIA SHARED MEDICAL RECORDS OR US MAIL. SUBJECTIVE HPI:Sarabjit Leach is a 67 year old male here for follow appointment for COPD. Routine visit and past visit reviewed. Patient states that for the last couple of days he feels like he is unable to breathe well and he does not have any energy. Also has significant cough throughout the day with the yellowish phlegm and sometimes clear phlegm. Has been feeling more short of breath and also has wheezing on and off. He denies any fever. Was started on Daliresp in the last visit but he could not tolerate medication secondary to diarrhea and he stopped using it. Also placed on 10 mg of prednisone daily which is stopped. He is currently on Breo and Spiriva and is using albuterol as needed. Denies any fever chills or night sweats. No weight loss. Follow up in future anticipated. Discussed with patient. SOCIAL HISTORY: Social History Tobacco Use Smoking status: Former Packs/day: 1.50 Years: 48.00 Pack years: 72.00 Types: Cigarettes Quit date: 2014 Years since quittin.4 Smokeless tobacco: Never Vaping Use Vaping Use: Never used Substance Use Topics Alcohol use: No Comment: quit in 1981 Drug use: No MEDICATIONS: Prior to Admission Medications (Not in a hospital admission) fluticasone-vilanterol (BREO ELLIPTA) 200-25 mcg/dose inhaler USE 1 INHALATION DAILY INSTRUCTED TRIAMCINOLONE ACETONIDE TOPICAL Apply 0.5 % to affected area. cream predniSONE (DELTASONE) 10 mg tablet Take 1 tablet by mouth once daily. azithromycin (ZITHROMAX) 250 mg tablet Take 2 tabs on the first day, then one tab daily for 4 days. roflumilast (DALIRESP) 250 mcg tablet Take 1 tablet (250 mcg) by mouth once daily. SPIRIVA WITH HANDIHALER 18 mcg inhalation capsule INHALE THE CONTENTS OF 1 CAPSULE DAILY INSTRUCTED ipratropium-albuterol (DUONEB) 0.5 mg-3 mg(2.5 mg base)/3 mL nebu Inhale 3 mL as instructed every 6 hours as needed for wheezing/shortness of breath. albuterol HFA (PROAIR HFA) 90 mcg/actuation inhaler 2 Puffs every 4 hours as needed for wheezing/shortness of breath. Take as directed CURRENT ALLERGIES: ALLERGIES Allergen Reactions Bacitracin Rash REVIEW OF SYSTEMS Constitutional:NO EVIDENCE OF ACUTE DISTRESS HEENT:Negative for frequent or significant headaches RESPIRATORY: Cough; moist, productive with clear, yellow sputum, Dyspnea, Wheezing, Shortness of breath CARDIOVASCULAR: Negative for chest pain, leg swelling or palpitations. GASTROINTESTINAL: Negative for abdominal discomfort, blood in stools or black stools or change in bowel habits GENITOURINARY: No history of dysuria, frequency or incontinence ENVIRONMENTAL TEST TECHNICIAN: NA MUSCULOSKELETAL: Negative for joint pain or swelling, back pain or muscle pain. NEUROLOGIC:Negative for focal numbness or weakness, headaches and dizziness or syncope. SKIN:Negative for lesions, rash, and itching. PSYCHIATRIC: Negative for sleep disturbance, mood disorder and recent psychosocial stressors. HEMATOLOGIC/LYMPHATIC/IMMUNOLOGIC: {HEMATOLOGY/LYMPHATIC/IMMUNOLO ENDOCRINE: Negative for cold or heat intolerance, polyuria, polydipsia and goiter. The remainder of the ROS was negative. PHYSICAL EXAMINATION: VITAL SIGNS: BP 107/71 Pulse 67 Temp (Src) 96.7 (Temporal) Resp 13 Ht 5' 9 (1.75m) Wt 112 lb (50.8kg) SpO2 92% BMI 16.53 kg/(m^2). General appearance: well appearing, alert, and in no acute distress Skin: skin color, texture, turgor normal, no rashes or lesions Eyes: Anicteric sclera. Pupils are equally round and reactive to light. Extraocular movements are intact. ENT: No oral or nasal erythema, bleeding, lesions, striae Heme/Lymph:Negative Lungs: lungs clear to auscultation no wheezing or rhonchi. Diminished breath sounds bilaterally Heart: RRR without murmur, gallop, or rubs. No ectopy GI: Normal abdominal exam Musculoskeletal: Extremities normal. No deformities, edema, or skin discoloration. Good capillary refill. Psych: no history of psychiatric problems Neuro: Gait normal. Reflexes normal and symmetric. Sensation grossly intact. DATA: Vaccines as noted EMR Diagnostic tests reviewed for today's visit: Labs: CBC with diff: WBC 12.14 10/05/2022 RBC 5.24 10/05/2022 HGB 15.2 10/05/2022 Hematocrit 47.4 10/05/2022 MCV 90.5 10/05/2022 MCH 29.0 10/05/2022 MCHC 32.1 10/05/2022 RDW-CV 14.4 10/05/2022 Platelet Count 230 10/05/2022 MPV 9.3 10/05/2022 Neutrophils % 82.1 10/05/2022 Lymphocytes % 8.6 10/05/2022 Monocytes % 6.6 10/05/2022 Basophils % 0.7 10/05/2022 Abs Neut (Segs + Bands) 9.96 10/05/2022 Abs [place] 0.80 10/05/2022 Abs Eosin 0.21 10/05/2022 Abs Baso 0.09 10/05/2022 CT chest: 09/29/22: 1. Stellate density in the right upper lobe again noted but it has decreased in size since 06/16/2022 and most likely represents an inflammatory or infectious process. Recommend continued follow-up until it resolves. 2. Several other nodules noted particularly in the left lung which all are fairly stable or decreasing in size. 3. There is a new peribronchial nodule noted in the central portion of the left upper lobe. Would recommend follow-up CT scan in 6 months to reassess this nodule. 4. Stellate and nodular changes at the base of lingula and base left lower lobe. Based on overall appearance of these areas suspect an inflammatory or infectious process. PET scan: 07/08/22: 1. NECK: * NO FDG AVID NEOPLASTIC PROCESS. 2. CHEST: * 0.7 CM INDETERMINATE HYPERMETABOLIC NODULE WITHIN 2.5 X 2 CM SPICULATED PERIBRONCHOVASCULAR RIGHT UPPER LOBE INFILTRATE, AND MILD FDG UPTAKE BY SMALL RIGHT HILAR LYMPH NODE, NEW SINCE 10/12/2021. DIFFERENTIAL POSSIBILITIES INCLUDE DEVELOPING OR RESOLVING PULMONARY INFORMATION/INFECTION/NEOPLASM. SUGGEST PULMONARY CONSULT AND FOLLOW-UP NONCONTRAST CHEST CT IN 3 MONTHS FOR ADDITIONAL EVALUATION. * NON-FDG AVID 0.5 CM RIGHT LOWER LOBE PERIBRONCHOVASCULAR NODULE, 0.5 CM LEFT UPPER LOBE PERIBRONCHOVASCULAR NODULE, LINEAR LEFT UPPER LOBE PERIBRONCHOVASCULAR DENSITY LATERALLY AND 0.5 CM PERIBRONCHOVASCULAR LEFT LOWER LOBE NODULE LATERALLY, BETTER DEMONSTRATED ON RECENT CHEST CT DATED 06/16/2022, PROBABLY INFLAMMATORY IN NATURE. * MILD BIBASILAR LINEAR ATELECTASIS/INFILTRATE (LEFT GREATER THAN RIGHT), MILDLY IMPROVED SINCE 06/16/2022. CT chest: 05/2022: 2. Moderate to advanced emphysematous changes. 1. Interval development of several pulmonary nodules, most pronounced in the right upper lobe. Incidental Finding: Follow-up Acuity: Incidental Finding: Solid >8 mm Routing Code: RI_1 CT chest:10/12/21: 1. Bilateral lower lobe airspace consolidation suggestive of pneumonia. Reactive mediastinal/hilar lymphadenopathy is present. 2. No intraluminal filling defects are seen within the pulmonary arteries to suggest pulmonary artery emboli. Chest xray:10/15/21:Bilateral lower lobe infiltrates concerning for active pneumonia. LDCT: 04/2020: Recommendations: Recommend follow-up low-dose CT scan in 12 months to continue routine screening. Other actionable findings: Hypodensity in the dome of the liver of unclear etiology. This could be correlated with ultrasound to evaluate for possible cyst. Heart echo: PFT:01/2020: IMPRESSION: Spirometry indicates moderately severe obstruction. There is no significant bronchodilator response. There is severe obstruction seen at the level of small airways The TLC is normal. The RV and RV/TLC are elevated indicating air trapping. The diffusing capacity is severely reduced. The diffusing capacity independent of alveolar volume (kCO) is reduced. The presence of a reduced lung diffusing capacity - that does not normalize when measured independent of alveolar volume (kCO) suggests a parenchymal or pulmonary vascular disorder. ASSESSMENT/PLAN: 1. Chronic obstructive pulmonary disease, unspecified COPD type (HCC) - ICD9: 496, ICD10: J44.9 (primary diagnosis) He is currently on Breo and Spiriva. Complains of worsening of shortness of breath and cough with phlegm production. Was started on Daliresp in the last visit but patient could not tolerate secondary to diarrhea. Daliresp was discontinued. Also stopped taking the prednisone 10 mg daily. 2. COPD exacerbation (HCC) - ICD9: 491.21, ICD10: J44.1 We will give a course of tapering dose of prednisone and azithromycin 3. Ex-smoker - ICD9: V15.82, ICD10: Z87.891 Quit smoking recently. Encouraged on smoking cessation 4. Lung nodules - ICD9: 793.19, ICD10: R91.8 we will follow-up with a repeat CT chest in 6 months Eduarda Felix MD Patient instructions given: See AVS Thank you for allowing me to participate in this patient's care. Patient's questions and concerns were addressed prior to discharge today. Followup discussed. Communication to associated physician sent. SIGNATURE: Eduarda Felix MD PATIENT NAME: Sarabjit Leach DATE: January 10, 2023 TIME: 9:08 AM PAGER/CONTACT #: [phone] documented in this encounter [facility] 01-10-2023 Nurse Note PULM COPD ASSESSMENT TEST (CAT) SCORE 01/10/2023 COUGH 5 PHLEGM 3 CHEST TIGHTNESS 4 WALKING UP HILL OR FLIGHT OF STEPS 5 ACTIVITIES AT HOME 3 LEAVING HOME DESPITE LUNG CONDITION 0 SLEEPING 5 ENERGY 3 TOTAL SCORE 28 documented in this encounter [facility] 11-11-2022 Miscellaneous Notes Pt needs 90 supply. I discontinued the 30 day supply we sent on the documented in this encounter [facility] 10-21-2022 Miscellaneous Notes PA form for Roflumilast faxed to [phone]. documented in this encounter [facility] 10-20-2022 Instructions Eduarda Felix MD - 10/20/2022 1:37 PM EDT My Plan and Interventions: 1. Return to office in 2 months. 2. Tests to be ordered today:none 3. New medications today:Daliresp, Azithromycin, prednisone 4. Special Instructions:call if has concerns 5. Summary of today's visit: COPD 6. Referrals today: None Copy to Referring physician: yes Thank you for allowing me to participate in this patient's care. documented in this encounter [facility] 10-20-2022 History of Present illness Narrative Respiratory [facility] established patient follow-up note SERVICE DATE: 10/20/2022 PRIMARY CARE PHYSICIAN: No primary care provider on file. COMMUNICATION WILL BE SENT VIA SHARED MEDICAL RECORDS OR US MAIL. SUBJECTIVE HPI:Sarabjit Leach is a 67 year old male here for follow appointment for COPD. Routine visit and past visit reviewed. Patient states that he continues to feel short of breath. Unable to take deep breaths and has dyspnea on exertion. He feels like he has burning in the chest. He is currently on a Spiriva and Breo every day and takes albuterol occasionally. He using the nebulizer 3-4 times a week. Also has a cough with a lot of mucus. He brings up clear watery phlegm. Also complains of pain in his both arms mostly on the left arm. Denies any fever chills or night sweats. Follow up in future anticipated. Discussed with patient. SOCIAL HISTORY: Social History Tobacco Use Smoking status: Former Packs/day: 1.50 Years: 48.00 Pack years: 72.00 Types: Cigarettes Quit date: 2014 Years since quittin.2 Smokeless tobacco: Never Vaping Use Vaping Use: Never used Substance Use Topics Alcohol use: No Comment: quit in 1981 Drug use: No MEDICATIONS: Prior to Admission Medications (Not in a hospital admission) TRIAMCINOLONE ACETONIDE TOPICAL Apply 0.5 % to affected area. cream SPIRIVA WITH HANDIHALER 18 mcg inhalation capsule INHALE THE CONTENTS OF 1 CAPSULE DAILY INSTRUCTED predniSONE (DELTASONE) 10 mg tablet Take 1 tablet by mouth once daily. ipratropium-albuterol (DUONEB) 0.5 mg-3 mg(2.5 mg base)/3 mL nebu Inhale 3 mL as instructed every 6 hours as needed for wheezing/shortness of breath. fluticasone-vilanterol (BREO ELLIPTA) 200-25 mcg/dose inhaler Inhale 1 Inhalation as instructed once daily. albuterol HFA (PROAIR HFA) 90 mcg/actuation inhaler 2 Puffs every 4 hours as needed for wheezing/shortness of breath. Take as directed predniSONE (DELTASONE) 10 mg tablet Take 4 tabs daily for 4 days, 3 tabs daily for 4 days, 2 tabs daily for 4 days and 1 tab daily for 4 days (Patient not taking: No sig reported) CURRENT ALLERGIES: ALLERGIES Allergen Reactions Bacitracin Rash REVIEW OF SYSTEMS Constitutional:NO EVIDENCE OF ACUTE DISTRESS HEENT:Negative for frequent or significant headaches RESPIRATORY: Cough; moist, productive with clear, white sputum, Dyspnea, Shortness of breath CARDIOVASCULAR: Decreasing exercise tolerence, Negative for chest pain, leg swelling or palpitations. GASTROINTESTINAL: Negative for abdominal discomfort, blood in stools or black stools or change in bowel habits GENITOURINARY: No history of dysuria, frequency or incontinence ENVIRONMENTAL TEST TECHNICIAN: NA MUSCULOSKELETAL: Negative for joint pain or swelling, back pain or muscle pain. NEUROLOGIC:Negative for focal numbness or weakness, headaches and dizziness or syncope. SKIN:Negative for lesions, rash, and itching. PSYCHIATRIC: Negative for sleep disturbance, mood disorder and recent psychosocial stressors. HEMATOLOGIC/LYMPHATIC/IMMUNOLOGIC: {HEMATOLOGY/LYMPHATIC/IMMUNOLO ENDOCRINE: Negative for cold or heat intolerance, polyuria, polydipsia and goiter. The remainder of the ROS was negative. PHYSICAL EXAMINATION: VITAL SIGNS: BP 102/69 Pulse 54 Temp (Src) 97 (Temporal) Resp 12 Ht 5' 9 (1.75m) Wt 117 lb (53.1kg) SpO2 95% BMI 17.27 kg/(m^2). General appearance: well appearing, alert, and in no acute distress Skin: skin color, texture, turgor normal, no rashes or lesions Eyes: Anicteric sclera. Pupils are equally round and reactive to light. Extraocular movements are intact. ENT: No oral or nasal erythema, bleeding, lesions, striae Heme/Lymph:Negative Lungs: Very diminished breath sounds bilaterally Heart: RRR without murmur, gallop, or rubs. No ectopy GI: Normal abdominal exam Musculoskeletal: Extremities normal. No deformities, edema, or skin discoloration. Good capillary refill. Psych: no history of psychiatric problems Neuro: Gait normal. Reflexes normal and symmetric. Sensation grossly intact. DATA: Vaccines as noted EMR Diagnostic tests reviewed for today's visit: Labs: CBC with diff: WBC 12.14 10/05/2022 RBC 5.24 10/05/2022 HGB 15.2 10/05/2022 Hematocrit 47.4 10/05/2022 MCV 90.5 10/05/2022 MCH 29.0 10/05/2022 MCHC 32.1 10/05/2022 RDW-CV 14.4 10/05/2022 Platelet Count 230 10/05/2022 MPV 9.3 10/05/2022 Neutrophils % 82.1 10/05/2022 Lymphocytes % 8.6 10/05/2022 Monocytes % 6.6 10/05/2022 Basophils % 0.7 10/05/2022 Abs Neut (Segs + Bands) 9.96 10/05/2022 Abs [place] 0.80 10/05/2022 Abs Eosin 0.21 10/05/2022 Abs Baso 0.09 10/05/2022 CT chest: 09/29/22: 1. Stellate density in the right upper lobe again noted but it has decreased in size since 06/16/2022 and most likely represents an inflammatory or infectious process. Recommend continued follow-up until it resolves. 2. Several other nodules noted particularly in the left lung which all are fairly stable or decreasing in size. 3. There is a new peribronchial nodule noted in the central portion of the left upper lobe. Would recommend follow-up CT scan in 6 months to reassess this nodule. 4. Stellate and nodular changes at the base of lingula and base left lower lobe. Based on overall appearance of these areas suspect an inflammatory or infectious process. PET scan: 07/08/22: 1. NECK: * NO FDG AVID NEOPLASTIC PROCESS. 2. CHEST: * 0.7 CM INDETERMINATE HYPERMETABOLIC NODULE WITHIN 2.5 X 2 CM SPICULATED PERIBRONCHOVASCULAR RIGHT UPPER LOBE INFILTRATE, AND MILD FDG UPTAKE BY SMALL RIGHT HILAR LYMPH NODE, NEW SINCE 10/12/2021. DIFFERENTIAL POSSIBILITIES INCLUDE DEVELOPING OR RESOLVING PULMONARY INFORMATION/INFECTION/NEOPLASM. SUGGEST PULMONARY CONSULT AND FOLLOW-UP NONCONTRAST CHEST CT IN 3 MONTHS FOR ADDITIONAL EVALUATION. * NON-FDG AVID 0.5 CM RIGHT LOWER LOBE PERIBRONCHOVASCULAR NODULE, 0.5 CM LEFT UPPER LOBE PERIBRONCHOVASCULAR NODULE, LINEAR LEFT UPPER LOBE PERIBRONCHOVASCULAR DENSITY LATERALLY AND 0.5 CM PERIBRONCHOVASCULAR LEFT LOWER LOBE NODULE LATERALLY, BETTER DEMONSTRATED ON RECENT CHEST CT DATED 06/16/2022, PROBABLY INFLAMMATORY IN NATURE. * MILD BIBASILAR LINEAR ATELECTASIS/INFILTRATE (LEFT GREATER THAN RIGHT), MILDLY IMPROVED SINCE 06/16/2022. CT chest: 05/2022: 2. Moderate to advanced emphysematous changes. 1. Interval development of several pulmonary nodules, most pronounced in the right upper lobe. Incidental Finding: Follow-up Acuity: Incidental Finding: Solid >8 mm Routing Code: RI_1 CT chest:10/12/21: 1. Bilateral lower lobe airspace consolidation suggestive of pneumonia. Reactive mediastinal/hilar lymphadenopathy is present. 2. No intraluminal filling defects are seen within the pulmonary arteries to suggest pulmonary artery emboli. Chest xray:10/15/21:Bilateral lower lobe infiltrates concerning for active pneumonia. LDCT: 04/2020: Recommendations: Recommend follow-up low-dose CT scan in 12 months to continue routine screening. Other actionable findings: Hypodensity in the dome of the liver of unclear etiology. This could be correlated with ultrasound to evaluate for possible cyst. Heart echo: PFT:01/2020: IMPRESSION: Spirometry indicates moderately severe obstruction. There is no significant bronchodilator response. There is severe obstruction seen at the level of small airways The TLC is normal. The RV and RV/TLC are elevated indicating air trapping. The diffusing capacity is severely reduced. The diffusing capacity independent of alveolar volume (kCO) is reduced. The presence of a reduced lung diffusing capacity - that does not normalize when measured independent of alveolar volume (kCO) suggests a parenchymal or pulmonary vascular disorder. ASSESSMENT: ASSESSMENT/PLAN: 1. Chronic obstructive pulmonary disease, unspecified COPD type (HCC) - ICD9: 496, ICD10: J44.9 (primary diagnosis) Continues to be very symptomatic even on Breo and Spiriva. Will start him on a prednisone 10 mg daily. Was given prednisone 10 mg daily in the last visit but patient thought it was a tapering dose and he finished in 10 days. Continues to have a cough with excessive phlegm production. Will give course of antibiotic azithromycin for 5 days and also will start on Daliresp 250 mcg daily. Discussed about the side effects of the medication. Patient understands the side effects and would like to give it a try. If able to tolerate will increase the dose to 500 mcg - PREDNISONE 10 MG TABLET 2. Lung nodules - ICD9: 793.19, ICD10: R91.8 CT chest shows a stellate right upper lobe lung nodule but decreased in size since May most likely representing inflammatory versus infectious etiology. We will repeat a CT scan in 6 months for follow-up - CT CHEST WO IVCON 3. Ex-smoker - ICD9: V15.82, ICD10: Z87.891 Quit smoking recently. Encouraged on a smoking cessation. Eduarda Felix MD Patient instructions given: See AVS Thank you for allowing me to participate in this patient's care. Patient's questions and concerns were addressed prior to discharge today. Followup discussed. Communication to associated physician sent. SIGNATURE: Eduarda Felix MD PATIENT NAME: Sarabjit Leach DATE: October 20, 2022 TIME: 1:30 PM PAGER/CONTACT #: [phone] documented in this encounter [facility] 09-01-2022 Miscellaneous Notes Attempted to reach patient regarding Lung Nodule Tumor Board recommendations - no answer, left message. documented in this encounter [facility] 09-01-2022 History of Present illness Narrative MULTI DISCIPLINARY LUNG CANCER SCREENING / LUNG NODULE TUMOR BOARD: September 01, 2022 Clinicians Present: Dr. Efraín Kenny , Dr. Colten Godwin , Dr. Ezio Maya, Milton Gamez, Ezio Maya, Daniela Dyson, Isis Howell, Radha Laureano, Mariam Sandhu, Tonio Walter, Norma Shah, Sendy Kiersten Cooley, Mariya Reno, Daysi Flores Sarabjit Leach [id number] LUNG FINDINGS: PET Results 07/08/2022: There is 0.7 cm hypermetabolic nodule max SUV 4.8, 0.7 cm mildly hypermetabolic right hilar lymph node max SUV 2.8. Outcome: Sarabjit Leach's case was reviewed by the physicians and advanced practice providers in attendance. Based on [facility] Pulmonary Nodule Carepath follow-up with [facility] is recommended. The collaborative recommendation is CONSISTENT with the carepath and plan is for three month follow up imaging with CT Chest. These recommendations will be communicated by the presenting physicians. The recommendation of the tumor board is based upon the information and personnel available at the time of the tumor board presentation and discussion. This recommendation is not mandatory, as the treating physician and other specialists may be in possession of additional information or have alternative viewpoints that could lead to another treatment plan for a particular patient. Isis Mcdaniels APRN.CNP September 01, 2022 12:43 PM documented in this encounter [facility] 07-08-2022 History of Present illness Narrative RADIOLOGY SERVICE PROGRESS NOTE SERVICE DATE: 07/08/2022 SERVICE TIME: 7:27 AM PATIENT IDENTITY VERIFICATION COMPLETED USING TWO (2) STANDARD IDENTIFIERS: Name and Date of confirmed by patient verbally FALL SCREENING: Has the patient had 2 falls in the last year or 1 fall with injury or currently using an Ambulatory Assistive Device (Walker, Cane, Wheelchair, Crutches, etc.)? No PATIENT GENDER DATA: .male ALLERGIES: Reviewed and unchanged MEDICATIONS REVIEWED: Yes PATIENT RELEVANT IMPLANT DATA REVIEWED: Not Applicable CREATININE: Creatinine Date Value Ref Range Status 10/16/2021 0.76 0.73 - 1.22 mg/dL Final 10/15/2021 0.72 (L) 0.73 - 1.22 mg/dL Final 10/14/2021 0.61 (L) 0.73 - 1.22 mg/dL Final Estimated Glomerular Filtration Rate Date Value Ref Range Status 10/16/2021 98 >=60 mL/min/1.73m Final Comment: Estimated Glomerular Filtration Rate (eGFR) is calculated using the 2020 CKD-EPI creatinine equation. This equation utilizes serum creatinine, sex, and age as parameters. The creatinine assay has traceable calibration to isotope dilution-mass spectrometry. Refer to KDIGO guidelines for clinical interpretation. In patients with unstable renal function, e.g. those with acute kidney injury, the eGFR may not accurately reflect actual GFR. P.O.C.T. RESULTS: N/A July 08, [address] PERFORMED: No IV SITE: Ambulatory: A peripheral IV was started in the Right antecubital site with a Angio cath: 24 gauge. POST EXAM PIV STATUS: Discontinued PROCEDURE TYPE: 8.2 mCi FDG ADMINISTRATION TIME: 704 JM PATIENT DISCHARGED TO: Ambulatory patient, left [place] department area. A Diagnostic radioactive procedure has taken place, with no further precautions necessary other than routine body substance precautions. More information regarding radiation safety can be found using this link: [email or web address] SIGNATURE: JANEL Clemons) PATIENT NAME: Sarabjit Leach DATE: July 08, 2022 TIME: 7:27 AM PAGER/CONTACT #: documented in this encounter [facility] 06-22-2022 Miscellaneous Notes Pt notified of results, pt asked if he had anything to worry about right now, I advised him that we don't want to speculate either way at this time, we need more information from more testing. Patient that CT chest shows multiple lung nodules. Largest one in the right upper lobe up to 2.6 cm. Would recommend PET scan. Order placed. Please schedule documented in this encounter [facility] 06-07-2022 Instructions Eduarda Felix MD - 06/07/2022 8:49 AM EST My Plan and Interventions: 1. Return to office in 2 months. 2. Tests to be ordered today:Ct chest 3. New medications today:Prednisone 4. Special Instructions:call if has concerns 5. Summary of today's visit: COPD 6. Referrals today: None Copy to Referring physician: yes Thank you for allowing me to participate in this patient's care. documented in this encounter [facility] 06-07-2022 History of Present illness Narrative ESTABLISHED PATIENT FOLLOW-UP SERVICE DATE: 06/07/2022 PRIMARY CARE PHYSICIAN: No primary care provider on file. SUBJECTIVE HPI:Sarabjit Leach is a 67 year old male here for follow appointment for COPD. Routine visit and past visit reviewed. Patient states that he has been feeling more short of breath and having dyspnea on exertion. Occasionally has cough. He is on Breo Ellipta and Spiriva but he did not refill the Breo. Has been using only Spiriva. Occasionally using the DuoNebs. He denies any fever chills or night sweats. He has oxygen but using currently. Follow up in future anticipated. Discussed with patient. SOCIAL HISTORY: Social History Tobacco Use Smoking status: Former Packs/day: 1.50 Years: 48.00 Pack years: 72.00 Types: Cigarettes Quit date: 2014 Years since quittin.8 Smokeless tobacco: Never Vaping Use Vaping Use: Never used Substance Use Topics Alcohol use: No Comment: quit in 1981 Drug use: No MEDICATIONS: Prior to Admission Medications (Not in a hospital admission) ipratropium-albuterol (DUONEB) 0.5 mg-3 mg(2.5 mg base)/3 mL nebu Inhale 3 mL as instructed every 6 hours as needed for wheezing/shortness of breath. fluticasone-vilanterol (BREO ELLIPTA) 200-25 mcg/dose inhaler Inhale 1 Inhalation as instructed once daily. tiotropium (SPIRIVA WITH HANDIHALER) 18 mcg inhalation capsule Inhale 1 capsule as instructed once daily. albuterol HFA (PROAIR HFA) 90 mcg/actuation inhaler 2 Puffs every 4 hours as needed for wheezing/shortness of breath. Take as directed predniSONE (DELTASONE) 10 mg tablet Take 4 tabs daily for 4 days, 3 tabs daily for 4 days, 2 tabs daily for 4 days and 1 tab daily for 4 days (Patient not taking: Reported on 03/02/2022) CURRENT ALLERGIES: ALLERGIES Allergen Reactions Bacitracin Rash REVIEW OF SYSTEMS Constitutional:NO EVIDENCE OF ACUTE DISTRESS HEENT:Negative for frequent or significant headaches RESPIRATORY: Dyspnea, Shortness of breath CARDIOVASCULAR: Negative for chest pain, leg swelling or palpitations. GASTROINTESTINAL: Negative for abdominal discomfort, blood in stools or black stools or change in bowel habits GENITOURINARY: No history of dysuria, frequency or incontinence ENVIRONMENTAL TEST TECHNICIAN: NA MUSCULOSKELETAL: Negative for joint pain or swelling, back pain or muscle pain. NEUROLOGIC:Negative for focal numbness or weakness, headaches and dizziness or syncope. SKIN:Negative for lesions, rash, and itching. PSYCHIATRIC: Negative for sleep disturbance, mood disorder and recent psychosocial stressors. HEMATOLOGIC/LYMPHATIC/IMMUNOLOGIC: {HEMATOLOGY/LYMPHATIC/IMMUNOLO ENDOCRINE: Negative for cold or heat intolerance, polyuria, polydipsia and goiter. The remainder of the ROS was negative. PHYSICAL EXAMINATION: VITAL SIGNS: BP 128/69 Pulse 62 Temp 97.2 Resp 12 Ht 5' 9 (1.75m) Wt 121 lb 1.6 oz (54.9kg) SpO2 100% BMI 17.88 kg/(m^2). General appearance: well appearing, alert, and in no acute distress Skin: skin color, texture, turgor normal, no rashes or lesions Eyes: Anicteric sclera. Pupils are equally round and reactive to light. Extraocular movements are intact. ENT: No oral or nasal erythema, bleeding, lesions, striae Heme/Lymph:Negative Lungs: lungs clear to auscultation no wheezing or rhonchi. Very diminished breath sounds bilaterally Heart: RRR without murmur, gallop, or rubs. No ectopy GI: Normal abdominal exam Musculoskeletal: Extremities normal. No deformities, edema, or skin discoloration. Good capillary refill. Psych: no history of psychiatric problems Neuro: Gait normal. Reflexes normal and symmetric. Sensation grossly intact. DATA: Vaccines as noted EMR CT chest:10/12/21: 1. Bilateral lower lobe airspace consolidation suggestive of pneumonia. Reactive mediastinal/hilar lymphadenopathy is present. 2. No intraluminal filling defects are seen within the pulmonary arteries to suggest pulmonary artery emboli. Chest xray:10/15/21:Bilateral lower lobe infiltrates concerning for active pneumonia. LDCT: 04/2020: Recommendations: Recommend follow-up low-dose CT scan in 12 months to continue routine screening. Other actionable findings: Hypodensity in the dome of the liver of unclear etiology. This could be correlated with ultrasound to evaluate for possible cyst. Heart echo: PFT:01/2020: IMPRESSION: Spirometry indicates moderately severe obstruction. There is no significant bronchodilator response. There is severe obstruction seen at the level of small airways The TLC is normal. The RV and RV/TLC are elevated indicating air trapping. The diffusing capacity is severely reduced. The diffusing capacity independent of alveolar volume (kCO) is reduced. The presence of a reduced lung diffusing capacity - that does not normalize when measured independent of alveolar volume (kCO) suggests a parenchymal or pulmonary vascular disorder. ASSESSMENT: 1. Chronic obstructive pulmonary disease, unspecified COPD type (HCC) - ICD9: 496, ICD10: J44.9 (primary diagnosis) Is on Breo Ellipta and Spiriva and also on a DuoNebs but ran out of Breo. Has been feeling more short of breath and has dyspnea on exertion. - PREDNISONE 10 MG TABLET 2. Mediastinal adenopathy - ICD9: 785.6, ICD10: R59.0 CT chest from September shows some mediastinal and hilar adenopathy. Will repeat CT for follow-up. Most likely reactive - CT CHEST WO IVCON 3.Ex-smoker [Z87.891] Quit smoking in 2014. Eduarda Felix MD Patient instructions given: See AVS Thank you for allowing me to participate in this patient's care. Patient's questions and concerns were addressed prior to discharge today. Followup discussed. Communication to associated physician sent. SIGNATURE: Eduarda Felix MD PATIENT NAME: Sarabjit Leach DATE: June 07, 2022 TIME: 8:43 AM PAGER/CONTACT #: [phone] documented in this encounter [facility] 06-07-2022 Nurse Note PULM COPD ASSESSMENT TEST (CAT) SCORE 06/07/2022 COUGH 3 PHLEGM 1 CHEST TIGHTNESS 3 WALKING UP HILL OR FLIGHT OF STEPS 5 ACTIVITIES AT HOME 2 LEAVING HOME DESPITE LUNG CONDITION 0 SLEEPING 0 ENERGY 2 TOTAL SCORE 16 documented in this encounter [facility] 03-02-2022 Nurse Note PULM COPD ASSESSMENT TEST (CAT) SCORE 10/22/2021 12/03/2021 03/02/2022 COUGH 2 3 1 PHLEGM 4 3 2 CHEST TIGHTNESS 4 3 3 WALKING UP HILL OR FLIGHT OF STEPS 5 1 5 ACTIVITIES AT HOME 1 2 1 LEAVING HOME DESPITE LUNG CONDITION 0 0 0 SLEEPING 2 3 2 ENERGY 4 4 4 TOTAL SCORE 22 19 18 documented in this encounter [facility] 03-02-2022 Instructions Eduarda Felix MD - 03/02/2022 8:53 AM EDT My Plan and Interventions: 1. Return to office in 3 months. 2. Tests to be ordered today:None 3. New medications today:None 4. Special Instructions:call if has concerns 5. Summary of today's visit: COPD 6. Referrals today: Lung cancer screening Copy to Referring physician: yes Thank you for allowing me to participate in this patient's care. documented in this encounter [facility] 03-02-2022 History of Present illness Narrative ESTABLISHED PATIENT FOLLOW-UP SERVICE DATE: 03/02/2022 PRIMARY CARE PHYSICIAN: No primary care provider on file. SUBJECTIVE HPI:Sarabjit Leach is a 66 year old male here for follow appointment for COPD. Routine visit and past visit reviewed. Patient states that overall he is feeling well. Occasionally has burning sensation inside his lungs and has a shortness of breath on exertion. Occasionally has cough. Rarely uses albuterol. He is compliant with his inhalers Breo Ellipta and Spiriva. He was using duo nebs when he was on oxygen but currently he is using it rarely. Denies any recent exacerbations. Overall he feels well. Follow up in future anticipated. Discussed with patient. SOCIAL HISTORY: Social History Tobacco Use Smoking status: Former Packs/day: 1.50 Years: 48.00 Pack years: 72.00 Types: Cigarettes Quit date: 2014 Years since quittin.6 Smokeless tobacco: Never Vaping Use Vaping Use: Never used Substance Use Topics Alcohol use: No Comment: quit in 1981 Drug use: No MEDICATIONS: Prior to Admission Medications (Not in a hospital admission) ipratropium-albuterol (DUONEB) 0.5 mg-3 mg(2.5 mg base)/3 mL nebu Inhale 3 mL as instructed every 6 hours as needed for wheezing/shortness of breath. fluticasone-vilanterol (BREO ELLIPTA) 200-25 mcg/dose inhaler Inhale 1 Inhalation as instructed once daily. tiotropium (SPIRIVA WITH HANDIHALER) 18 mcg inhalation capsule Inhale 1 capsule as instructed once daily. predniSONE (DELTASONE) 10 mg tablet Take 4 tabs daily for 4 days, 3 tabs daily for 4 days, 2 tabs daily for 4 days and 1 tab daily for 4 days albuterol HFA (PROAIR HFA) 90 mcg/actuation inhaler 2 Puffs every 4 hours as needed for wheezing/shortness of breath. Take as directed CURRENT ALLERGIES: ALLERGIES Allergen Reactions Bacitracin Rash REVIEW OF SYSTEMS Constitutional:NO EVIDENCE OF ACUTE DISTRESS HEENT:Negative for frequent or significant headaches, No changes in hearing or vision, no nose bleeds or other nasal problems RESPIRATORY: Dyspnea, burning sensation in the chest CARDIOVASCULAR: Negative for chest pain, leg swelling or palpitations. GASTROINTESTINAL: Negative for abdominal discomfort, blood in stools or black stools or change in bowel habits GENITOURINARY: No history of dysuria, frequency or incontinence ENVIRONMENTAL TEST TECHNICIAN: NA MUSCULOSKELETAL: Negative for joint pain or swelling, back pain or muscle pain. NEUROLOGIC:Negative for focal numbness or weakness, headaches and dizziness or syncope. SKIN:Negative for lesions, rash, and itching. PSYCHIATRIC: Negative for sleep disturbance, mood disorder and recent psychosocial stressors. HEMATOLOGIC/LYMPHATIC/IMMUNOLOGIC: {HEMATOLOGY/LYMPHATIC/IMMUNOLO ENDOCRINE: Negative for cold or heat intolerance, polyuria, polydipsia and goiter. The remainder of the ROS was negative. PHYSICAL EXAMINATION: VITAL SIGNS: BP 142/65 Pulse 50 Temp 97.3 Resp 16 Ht 5' 9 (1.75m) Wt 116 lb (52.6kg) SpO2 97% BMI 17.12 kg/(m^2). General appearance: well appearing, alert, and in no acute distress Skin: skin color, texture, turgor normal, no rashes or lesions Eyes: Anicteric sclera. Pupils are equally round and reactive to light. Extraocular movements are intact. ENT: No oral or nasal erythema, bleeding, lesions, striae Heme/Lymph:Negative Lungs: Very diminished breath sounds bilaterally Heart: RRR without murmur, gallop, or rubs. No ectopy GI: Normal abdominal exam Musculoskeletal: Extremities normal. No deformities, edema, or skin discoloration. Good capillary refill. Psych: no history of psychiatric problems Neuro: Gait normal. Reflexes normal and symmetric. Sensation grossly intact. DATA: Vaccines as noted EMR CT chest:10/12/21: 1. Bilateral lower lobe airspace consolidation suggestive of pneumonia. Reactive mediastinal/hilar lymphadenopathy is present. 2. No intraluminal filling defects are seen within the pulmonary arteries to suggest pulmonary artery emboli. Chest xray:10/15/21:Bilateral lower lobe infiltrates concerning for active pneumonia. LDCT: 04/2020: Recommendations: Recommend follow-up low-dose CT scan in 12 months to continue routine screening. Other actionable findings: Hypodensity in the dome of the liver of unclear etiology. This could be correlated with ultrasound to evaluate for possible cyst. Heart echo: PFT:01/2020: IMPRESSION: Spirometry indicates moderately severe obstruction. There is no significant bronchodilator response. There is severe obstruction seen at the level of small airways The TLC is normal. The RV and RV/TLC are elevated indicating air trapping. The diffusing capacity is severely reduced. The diffusing capacity independent of alveolar volume (kCO) is reduced. The presence of a reduced lung diffusing capacity - that does not normalize when measured independent of alveolar volume (kCO) suggests a parenchymal or pulmonary vascular disorder. ASSESSMENT ASSESSMENT/PLAN: 1. Chronic obstructive pulmonary disease, unspecified COPD type (HCC) - ICD9: 496, ICD10: J44.9 (primary diagnosis) Symptoms well controlled. Currently on Breo Ellipta and Spiriva and also has as needed albuterol. Continue the same treatment. Will refer to lung cancer screening clinic - CONSULT LUNG CANCER SCREENING CLINIC 2. Ex-smoker - ICD9: V15.82, ICD10: Z87.891 Quit smoking in 2015. Encouraged on smoking cessation. Eduarda Felix MD Patient instructions given: See AVS Thank you for allowing me to participate in this patient's care. Patient's questions and concerns were addressed prior to discharge today. Followup discussed. Communication to associated physician sent. SIGNATURE: Eduarda Felix MD PATIENT NAME: Sarabjit Leach DATE: March 02, 2022 TIME: 8:47 AM PAGER/CONTACT #: [phone] documented in this encounter [facility] 02-08-2022 Instructions Baldev Greenwood PA-C - 02/08/2022 2:55 PM EDT ASSESSMENT/PLAN: 1. Cellulitis of skin - ICD9: 682.9, ICD10: L03.90 (primary diagnosis) - Begin treatment with Cephalaxin (Keflex) - No lymphangetic streaking, this was defined for patient to watch for and to seek medical care immediately if appears - Follow up for recheck in two days if not improving - CEPHALEXIN 500 MG CAPSULE: take with food Do not itch or pick the area Go immediately to the ER for: Worsening symptoms, increased in size, increased redness, increased swelling, streaking from the infected area, fever, nausea or vomiting, purulent drainage, increased pain, change in range of motion of affected joints. 2. Rash - ICD9: 782.1, ICD10: R21 -possibly some degree of contact dermatitis -use hydrocortisone to help with itching. May also use claritin OTC -avoid itching If symptoms do not improve in 3-5 days, contact your Primary Care Provider. If symptoms progressively worsen, report to ER for evaluation. Patient verbalized understanding of plan. Please follow up with Primary Care Provider or with a Specialist if consulted for current condition. Go to the ER immediately if you have any of the following symptoms: Chest pain, shortness of breath, severe headache, high fever, nausea, vomiting, abdominal pain, dizziness/light headedness, feeling like you are going to pass out, weakness, or for any other new or worsening symptoms. [facility] [address] [place], [place] [address] Emergency Department Diagnosis: Assessment CELLULITIS: Your exam shows you have an infection of the skin called cellulitis. This infection usually develops after an injury, cut, bite, or sting, but may occur without any known cause. Usually there is a localized area of redness, swelling, and pain which gets constantly bigger unless treatment is started. If cellulitis is severe or does not respond to initial treatment, hospital care with antibiotic injections may be needed. Treatment of cellulitis includes antibiotics along with resting and elevating the affected area until the infection improves. You should apply moist, warm compresses to the area for 30 minutes 4 times daily also. Please see your doctor if the pain and swelling from your infection are not better after two days of treatment. Call your doctor or go to the emergency department right away if you develop fever, chills, or other serious problems. You may require a tetanus booster if you are not current with your inmunizations. documented in this encounter [facility] 02-08-2022 History of Present illness Narrative Images from the original note were not included. This note was created using [employer]. Subjective Sarabjit Leach is a 66 year old male. [facility] VISIT CC: 66 year old male Patient presents with: Derm Problem: bilateral forearms and wrist red circular patches x 4 years HPIVivi Xie is a 66 year old male with past medical history of asthma, COPD, GERD who presents for evaluation of the above chief complaint. Patient presents for concerns of cellulitis to the bilateral forearms. Patient states about 4 days ago he developed some redness around abrasions on his forearms. 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 Patient states the area also feels pruritic, he has been using hydrocortisone with some relief. He denies other areas of rash or redness. Denies fever, chills, vomiting, diarrhea. PMH significant for : PAST MEDICAL HISTORY Diagnosis Date Asthma Chronic obstructive pulmonary disease (COPD) (HCC) GERD (gastroesophageal reflux disease) PAST SURGICAL HISTORY Procedure Laterality Date CHOLECYSTECTOMY HX ORTHOPEDICS SURGERY HX right hip surgery ALLERGIES Bacitracin MEDICATIONS ipratropium-albuterol (DUONEB) 0.5 mg-3 mg(2.5 mg base)/3 mL nebu Inhale 3 mL as instructed every 6 hours as needed for wheezing/shortness of breath. fluticasone-vilanterol (BREO ELLIPTA) 200-25 mcg/dose inhaler Inhale 1 Inhalation as instructed once daily. tiotropium (SPIRIVA WITH HANDIHALER) 18 mcg inhalation capsule Inhale 1 capsule as instructed once daily. predniSONE (DELTASONE) 10 mg tablet Take 4 tabs daily for 4 days, 3 tabs daily for 4 days, 2 tabs daily for 4 days and 1 tab daily for 4 days albuterol HFA (PROAIR HFA) 90 mcg/actuation inhaler 2 Puffs every 4 hours as needed for wheezing/shortness of breath. Take as directed FAMILY HISTORY Problem Relation Age of Onset Lung Cancer Mother Lung Cancer Father Social History Tobacco Use Smoking status: Former Smoker Packs/day: 1.50 Years: 48.00 Pack years: 72.00 Types: Cigarettes Quit date: 2014 Years since quittin.5 Smokeless tobacco: Never Used Vaping Use Vaping Use: Never used Substance Use Topics Alcohol use: No Comment: quit in 1981 Drug use: No No other acute complaints or symptoms at this time. No LMP for male patient. Tobacco Use: 1.5 packs/day, for 48 years. Quit 07/25/2014. Types: Cigarettes Review of Systems Constitutional: Negative for chills and fever. HENT: Negative for congestion, rhinorrhea and sore throat. Respiratory: Negative for cough. Gastrointestinal: Negative for abdominal pain, diarrhea, nausea and vomiting. Musculoskeletal: Negative for myalgias. Skin: Positive for color change and wound. Negative for rash. Neurological: Negative for weakness and headaches. Objective BP 136/80 Pulse (!) 58 Temp 36.2 C (97.2 F) (Temporal) Resp 18 Wt 52.3 kg (115 lb 3.2 oz) SpO2 96% BMI 17.01 kg/m Physical Exam Vitals reviewed. Constitutional: General: He is not in acute distress. Appearance: Normal appearance. He is well-developed, well-groomed and underweight. He is not ill-appearing. Comments: Patient is thin. Cardiovascular: Rate and Rhythm: Normal rate and regular rhythm. Pulses: Radial pulses are 2+ on the right side and 2+ on the left side. Heart sounds: Normal heart sounds. Pulmonary: Effort: Pulmonary effort is normal. Breath sounds: Normal breath sounds and air entry. Skin: General: Skin is warm and dry. Findings: Rash present. Neurological: Mental Status: He is alert and oriented to person, place, and time. Psychiatric: Mood and Affect: Mood normal. Behavior: Behavior is cooperative. Assessment and Plan ASSESSMENT/PLAN: 1. Cellulitis of skin - ICD9: 682.9, ICD10: L03.90 (primary diagnosis) - Begin treatment with Cephalaxin (Keflex) - No lymphangetic streaking, this was defined for patient to watch for and to seek medical care immediately if appears - Follow up for recheck in two days if not improving - CEPHALEXIN 500 MG CAPSULE: take with food Do not itch or pick the area Go immediately to the ER for: Worsening symptoms, increased in size, increased redness, increased swelling, streaking from the infected area, fever, nausea or vomiting, purulent drainage, increased pain, change in range of motion of affected joints. 2. Rash - ICD9: 782.1, ICD10: R21 -possibly some degree of contact dermatitis vs eczema -use hydrocortisone to help with itching. May also use claritin OTC -avoid itching If symptoms do not improve in 3-5 days, contact your Primary Care Provider. If symptoms progressively worsen, report to ER for evaluation. Patient verbalized understanding of plan. Please follow up with Primary Care Provider or with a Specialist if consulted for current condition. Go to the ER immediately if you have any of the following symptoms: Chest pain, shortness of breath, severe headache, high fever, nausea, vomiting, abdominal pain, dizziness/light headedness, feeling like you are going to pass out, weakness, or for any other new or worsening symptoms. documented in this encounter [facility] 01-21-2022 Miscellaneous Notes Faxed completed paperwork back to [employer] Paperwork done. Disability paperwork needs completed as soon as possible. Thank you. documented in this encounter [facility] 12-03-2021 Procedure note Associated Order(s): OXIMETRY WITH AMBULATION RESPIRATORY THERAPY OXIMETRY WITH AMBULATION Oximetry with Ambulation Test for This Encounter O2 Device O2 Adapter NC O2 Flow SpO2% HR Activity Ft Walked (ft) Time (min) Avg Speed (MPH) R/A 99 61 Resting R/A 97 70 Walking, usual pace 480 3 1.82 R/A 100 57 Resting R/A 96 73 Walking, fastest pace 620 3 2.35 General Information Pulse Oximetry Site Total Time Spent O2 Supply Carrier Walking Assistance/Device Forehead 30 NAME: ReadOz PATIENT NAME: Sarabjit Leach DATE: December 03, 2021 TIME: 11:59 AM Comment: documented in this encounter [facility] 12-03-2021 History of Present illness Narrative PULM FUNCTION SMARTBLOCK: Provider: Eduarda Felix MD Oximetry - Ambulation: 1 System: [id number] documented in this encounter [facility] 12-03-2021 Instructions Eduarda Felix MD - 12/03/2021 11:35 AM EDT My Plan and Interventions: 1. Return to office in 3 months 2. Tests to be ordered today:Oximetry 3. New medications today:None 4. Special Instructions:call if has concerns 5. Summary of today's visit: COPD 6. Referrals today: none Copy to Referring physician: yes Thank you for allowing me to participate in this patient's care. documented in this encounter [facility] 12-03-2021 History of Present illness Narrative ESTABLISHED PATIENT FOLLOW-UP SERVICE DATE: 12/03/2021 PRIMARY CARE PHYSICIAN: No primary care provider on file. SUBJECTIVE HPI:Sarabjit Leach is a 66 year old male here for follow appointment for COPD and hypoxic respiratory failure. Routine visit and past visit reviewed. Last seen in the office in September 2021. Patient was a treated for COPD exacerbation bilateral pneumonia. In the last visit he was given a prolonged taper of prednisone as his symptoms got worse after discharge from the hospital. Comes in for follow-up today. States that overall he feels much better. States his oxygen saturations remained around 97 to 98% when he is at home on oxygen. He is compliant with his inhalers Breo and Spiriva. He denies any fever chills or night sweats. Follow up in future anticipated. Discussed with patient. SOCIAL HISTORY: Social History Tobacco Use Smoking status: Former Smoker Packs/day: 1.50 Years: 48.00 Pack years: 72.00 Types: Cigarettes Quit date: 2014 Years since quittin.3 Smokeless tobacco: Never Used Vaping Use Vaping Use: Never used Substance Use Topics Alcohol use: No Comment: quit in 1981 Drug use: No MEDICATIONS: Prior to Admission Medications (Not in a hospital admission) ipratropium-albuterol (DUONEB) 0.5 mg-3 mg(2.5 mg base)/3 mL nebu, Inhale 3 mL as instructed every 6 hours as needed for wheezing/shortness of breath. fluticasone-vilanterol (BREO ELLIPTA) 200-25 mcg/dose inhaler, Inhale 1 Inhalation as instructed once daily. tiotropium (SPIRIVA WITH HANDIHALER) 18 mcg inhalation capsule, Inhale 1 capsule as instructed once daily. predniSONE (DELTASONE) 10 mg tablet, Take 4 tabs daily for 4 days, 3 tabs daily for 4 days, 2 tabs daily for 4 days and 1 tab daily for 4 days albuterol HFA (PROAIR HFA) 90 mcg/actuation inhaler, 2 Puffs every 4 hours as needed for wheezing/shortness of breath. Take as directed CURRENT ALLERGIES: ALLERGIES Allergen Reactions Bacitracin Rash REVIEW OF SYSTEMS Constitutional:NO EVIDENCE OF ACUTE DISTRESS HEENT:Negative for frequent or significant headaches, No changes in hearing or vision, no nose bleeds or other nasal problems RESPIRATORY: Cough; moist, Dyspnea CARDIOVASCULAR: Decreasing exercise tolerence, Negative for chest pain, leg swelling or palpitations. GASTROINTESTINAL: Negative for abdominal discomfort, blood in stools or black stools or change in bowel habits GENITOURINARY: No history of dysuria, frequency or incontinence ENVIRONMENTAL TEST TECHNICIAN: NA MUSCULOSKELETAL: Negative for joint pain or swelling, back pain or muscle pain. NEUROLOGIC:Negative for focal numbness or weakness, headaches and dizziness or syncope. SKIN:Negative for lesions, rash, and itching. PSYCHIATRIC: Negative for sleep disturbance, mood disorder and recent psychosocial stressors. HEMATOLOGIC/LYMPHATIC/IMMUNOLOGIC: {HEMATOLOGY/LYMPHATIC/IMMUNOLO ENDOCRINE: Negative for cold or heat intolerance, polyuria, polydipsia and goiter. The remainder of the ROS was negative. PHYSICAL EXAMINATION: VITAL SIGNS: BP 113/60 Pulse 57 Temp 97 Resp 12 Ht 5' 9 (1.75m) Wt 119 lb (54.0kg) SpO2 94% BMI 17.57 kg/(m^2). General appearance: well appearing, alert and in no acute distress Skin: skin color, texture, turgor normal, no rashes or lesions Eyes: Anicteric sclera. Pupils are equally round and reactive to light. Extraocular movements are intact. ENT: No oral or nasal erythema, bleeding, lesions, striae Heme/Lymph:Negative Lungs: Very diminished breath sounds bilaterally Heart: RRR without murmur, gallop, or rubs. No ectopy GI: Normal abdominal exam Musculoskeletal: Extremities normal. No deformities, edema, or skin discoloration. Good capillary refill. Psych: no history of psychiatric problems, no history of depression Neuro: Gait normal. Reflexes normal and symmetric. Sensation grossly intact. DATA: Vaccines as noted EMR Diagnostic tests reviewed for today's visit: CT chest:10/12/21: 1. Bilateral lower lobe airspace consolidation suggestive of pneumonia. Reactive mediastinal/hilar lymphadenopathy is present. 2. No intraluminal filling defects are seen within the pulmonary arteries to suggest pulmonary artery emboli. Chest xray:10/15/21:Bilateral lower lobe infiltrates concerning for active pneumonia. LDCT: 04/2020: Recommendations: Recommend follow-up low-dose CT scan in 12 months to continue routine screening. Other actionable findings: Hypodensity in the dome of the liver of unclear etiology. This could be correlated with ultrasound to evaluate for possible cyst. Heart echo: PFT:01/2020: IMPRESSION: Spirometry indicates moderately severe obstruction. There is no significant bronchodilator response. There is severe obstruction seen at the level of small airways The TLC is normal. The RV and RV/TLC are elevated indicating air trapping. The diffusing capacity is severely reduced. The diffusing capacity independent of alveolar volume (kCO) is reduced. The presence of a reduced lung diffusing capacity - that does not normalize when measured independent of alveolar volume (kCO) suggests a parenchymal or pulmonary vascular disorder. ASSESSMENT: ASSESSMENT/PLAN: 1. Chronic obstructive pulmonary disease, unspecified COPD type (HCC) - ICD9: 496, ICD10: J44.9 (primary diagnosis) Is on Breo Ellipta and Spiriva. Symptoms well controlled. Recently completed course of steroids. Continue the same inhalers. - OXIMETRY WITH AMBULATION 2. Ex-smoker - ICD9: V15.82, ICD10: Z87.891 Quit smoking in 2015. Encouraged on smoking cessation. Will need repeat a CT chest/low-dose CT for lung cancer screening 3. Acute respiratory failure with hypoxia (HCC) - ICD9: 518.81, ICD10: J96.01 Oximetry with ambulation done today and patient did not require oxygen. Hypoxia resolved. Eduarda Felix MD Patient instructions given: See AVS Thank you for allowing me to participate in this patient's care. Patient's questions and concerns were addressed prior to discharge today. Followup discussed. Communication to associated physician sent. SIGNATURE: Eduarda Felix MD PATIENT NAME: Sarabjit Leach DATE: December 03, 2021 TIME: 11:30 AM PAGER/CONTACT #: [phone] documented in this encounter [facility] 12-03-2021 Nurse Note PULM COPD ASSESSMENT TEST (CAT) SCORE 12/03/2021 COUGH 3 PHLEGM 3 CHEST TIGHTNESS 3 WALKING UP HILL OR FLIGHT OF STEPS 1 ACTIVITIES AT HOME 2 LEAVING HOME DESPITE LUNG CONDITION 0 SLEEPING 3 ENERGY 4 TOTAL SCORE 19 documented in this encounter [facility] 11-23-2021 Miscellaneous Notes Pt notified will discuss with Dr in office on 12/03/21. Luz Barajas RN Tell patient that chest x-ray shows improvement in pneumonia Pt called and wants to know if we are getting the results of the home monitoring . I told him we are not getting results because we did not order it. When asked who ordered the monitoring her said he thinks his insurance did. Pt wants to make sure that we know this monitoring is showing that my oxygen levels are always too low when asked what his oxygen saturations are he said they are normally around 97% but sometime drop to 95% and this is when he starts to have trouble breathing and has to take a nap because he gets exhausted. He also notes that a couple of times at night while sleeping his O2 says dropped to 90% . I tried to explain to the patient that this is all within normal limits. He yelled at me so you are not concerned at all about my oxygen being too low? I again tried to explain to the pt that his O2 is not too low, that all of the results he is seeing and reporting to me are within normal acceptable levels. I advised the pt to find out who ordered the home monitoring and find out if they see anything that concerns them. Or to ask his PCP if they ordered the monitoring. He does not have a PCP Dr. Felix is his only Dr. Luz Barajas RN documented in this encounter [facility] 11-20-2021 Miscellaneous Notes Radiology Service Progress Note PATIENT NAME: Sarabjit Leach DATE OF SERVICE: November 20, 2021 TIME: 12:12 PM PATIENT IDENTITY VERIFICATION COMPLETED USING TWO (2) IDENTIFIERS: Name and Date of confirmed by patient verbally and Name and Date of confirmed by identification band. FALL SCREENING: Has the patient had 2 falls in the last year or 1 fall with injury or currently using an Ambulatory Assistive Device (Walker, Cane, Wheelchair, Crutches, etc.)? No PATIENT GENDER DATA: Male PATIENT RELEVANT IMPLANT DATA REVIEWED: Not Applicable RADIOLOGY DEPARTMENT: General X-ray: Exam(s) Completed: Chest X-Ray PERIPHERAL IV DATA: Not applicable SIGNED BY: RT Elbert(R) November 20, 2021 12:12 PM documented in this encounter [facility] 11-18-2021 Miscellaneous Notes Orders for nebulizer signed and faxed back to [facility]. Veda PATEL documented in this encounter [facility] 11-09-2021 Miscellaneous Notes Orders palced Pt called, notes having more trouble breathing, and my lungs feel raw on the inside He would like to get a nebulizer and start doing breathing treatments at home. Luz Barajas RN documented in this encounter [facility] 11-04-2021 Miscellaneous Notes Discontinued previous RX for both medication sent on . Luz Barajas RN Pt needs 90 days supply for insurance. Luz Barajas RN documented in this encounter [facility] 10-22-2021 Instructions Eduarda Felix MD - 10/22/2021 10:58 AM EDT My Plan and Interventions: 1. Return to office in 6 weeks 2. Tests to be ordered today:Chest x ray 3. New medications today:prednisone 4. Special Instructions:call if has concerns 5. Summary of today's visit: Hospital follow up 6. Referrals today: None Copy to Referring physician: yes Thank you for allowing me to participate in this patient's care. documented in this encounter [facility] 10-22-2021 Nurse Note PULM COPD ASSESSMENT TEST (CAT) SCORE 10/22/2021 COUGH 2 PHLEGM 4 CHEST TIGHTNESS 4 WALKING UP HILL OR FLIGHT OF STEPS 5 ACTIVITIES AT HOME 1 LEAVING HOME DESPITE LUNG CONDITION 0 SLEEPING 2 ENERGY 4 TOTAL SCORE 22 documented in this encounter [facility] 10-22-2021 History of Present illness Narrative Patient wants it noted that he believes this respiratory problem was caused by improperly ventilated use of spray paitn, specifically [id number] ESTABLISHED PATIENT FOLLOW-UP SERVICE DATE: 10/22/2021 PRIMARY CARE PHYSICIAN: No primary care provider on file. SUBJECTIVE HPI:Sarabjit eLach is a 66 year old male here for follow appointment after recent admission to the hospital with acute hypoxic respiratory failure COPD exacerbation and bilateral pneumonia. Routine visit and past visit reviewed. Patient was recently admitted to the hospital on 12 October and was a treated for pneumonia with azithromycin and ceftriaxone. He was discharged home on azithromycin and cefdinir and a tapering dose of prednisone. He also required oxygen during the hospitalization. Discharged home on 2 L nasal cannula. Currently remains on 2 L of nasal cannula. Patient states that on the day when he was discharged he felt extremely better and he was also doing incentive spirometer up to 1800 to 2000 cc. But for the last couple of days again his symptoms of shortness of breath has been progressively getting worse and unable to pull much volume on the incentive spirometer. He was only able to bring it up 1000 cc. Denies any worsening of cough. States that the cough seems to be better than before. Occasionally has some cough with phlegm production. Denies any fever chills or night sweats. But only the shortness of breath has been progressively getting worse for the last 2 to 3 days. 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 States that that could be the reason why he developed pneumonia. Follow up in future anticipated. Discussed with patient. SOCIAL HISTORY: Social History Tobacco Use Smoking status: Former Smoker Packs/day: 1.50 Years: 48.00 Pack years: 72.00 Types: Cigarettes Quit date: 2014 Years since quittin.2 Smokeless tobacco: Never Used Vaping Use Vaping Use: Never used Substance Use Topics Alcohol use: No Comment: quit in 1981 Drug use: No MEDICATIONS: Prior to Admission Medications (Not in a hospital admission) SPIRIVA WITH HANDIHALER 18 mcg inhalation capsule, INHALE THE CONTENTS OF 1 CAPSULE ONCE DAILY INSTRUCTED. USE WITH HANDIHALER BREO ELLIPTA 200-25 mcg/dose inhaler, USE 1 INHALATION DAILY INSTRUCTED albuterol HFA (PROAIR HFA) 90 mcg/actuation inhaler, 2 Puffs every 4 hours as needed for wheezing/shortness of breath. Take as directed CURRENT ALLERGIES: ALLERGIES Allergen Reactions Bacitracin Rash REVIEW OF SYSTEMS Constitutional:NO EVIDENCE OF ACUTE DISTRESS HEENT:Negative for frequent or significant headaches RESPIRATORY: Cough; moist, Dyspnea, Shortness of breath CARDIOVASCULAR: Decreasing exercise tolerence, Negative for chest pain, leg swelling or palpitations. GASTROINTESTINAL: Negative for abdominal discomfort, blood in stools or black stools or change in bowel habits GENITOURINARY: No history of dysuria, frequency or incontinence ENVIRONMENTAL TEST TECHNICIAN: NA MUSCULOSKELETAL: Negative for joint pain or swelling, back pain or muscle pain. NEUROLOGIC:Negative for focal numbness or weakness, headaches and dizziness or syncope. SKIN:Negative for lesions, rash, and itching. PSYCHIATRIC: Negative for sleep disturbance, mood disorder and recent psychosocial stressors. HEMATOLOGIC/LYMPHATIC/IMMUNOLOGIC: {HEMATOLOGY/LYMPHATIC/IMMUNOLO ENDOCRINE: Negative for cold or heat intolerance, polyuria, polydipsia and goiter. The remainder of the ROS was negative. PHYSICAL EXAMINATION: VITAL SIGNS: There were no vitals taken for this visit. General appearance: Thin, alert and in no acute distress Skin: skin color, texture, turgor normal, no rashes or lesions Eyes: Anicteric sclera. Pupils are equally round and reactive to light. Extraocular movements are intact. ENT: No oral or nasal erythema, bleeding, lesions, striae Heme/Lymph:Negative Lungs: Very diminished breath sounds bilaterally. Heart: RRR without murmur, gallop, or rubs. No ectopy GI: Normal abdominal exam Musculoskeletal: Extremities normal. No deformities, edema, or skin discoloration. Good capillary refill. Psych: no history of psychiatric problems Neuro: Gait normal. Reflexes normal and symmetric. Sensation grossly intact. DATA: Vaccines as noted EMR Diagnostic tests reviewed for today's visit: Labs: Micro: CT chest:10/12/21: 1. Bilateral lower lobe airspace consolidation suggestive of pneumonia. Reactive mediastinal/hilar lymphadenopathy is present. 2. No intraluminal filling defects are seen within the pulmonary arteries to suggest pulmonary artery emboli. Chest xray:10/15/21:Bilateral lower lobe infiltrates concerning for active pneumonia. LDCT: 04/2020: Recommendations: Recommend follow-up low-dose CT scan in 12 months to continue routine screening. Other actionable findings: Hypodensity in the dome of the liver of unclear etiology. This could be correlated with ultrasound to evaluate for possible cyst. Heart echo: PFT:01/2020: IMPRESSION: Spirometry indicates moderately severe obstruction. There is no significant bronchodilator response. There is severe obstruction seen at the level of small airways The TLC is normal. The RV and RV/TLC are elevated indicating air trapping. The diffusing capacity is severely reduced. The diffusing capacity independent of alveolar volume (kCO) is reduced. The presence of a reduced lung diffusing capacity - that does not normalize when measured independent of alveolar volume (kCO) suggests a parenchymal or pulmonary vascular disorder. Biopsy results: ASSESSMENT ASSESSMENT/PLAN: 1. Pulmonary emphysema, unspecified emphysema type (HCC) - ICD9: 492.8, ICD10: J43.9 (primary diagnosis) He is on Breo Ellipta and also Spiriva. Recently treated for a COPD exacerbation secondary to pneumonia. States that for the last couple of days his shortness of breath has worsened again after completing prednisone. Will give a long tapering dose of prednisone. - TIOTROPIUM BROMIDE 18 MCG CAPSULE WITH INHALATION DEVICE - BREO ELLIPTA 200 MCG-25 MCG/DOSE POWDER FOR INHALATION - ALBUTEROL SULFATE HFA 90 MCG/ACTUATION AEROSOL INHALER 2. Ex-smoker - ICD9: V15.82, ICD10: Z87.891 Quit smoking in 2014 - BREO ELLIPTA 200 MCG-25 MCG/DOSE POWDER FOR INHALATION 3. Bacterial pneumonia - ICD9: 482.9, ICD10: J15.9 Recently treated with azithromycin and ceftriaxone and was discharged home on cefdinir and azithromycin. We will repeat chest x-ray for follow-up. Last x-ray shows bibasilar infiltrates. - XR CHEST 2V FRONTAL/LAT 4. Hospital discharge follow-up - ICD9: V67.59, ICD10: Z09 Recently admitted to the hospital with acute hypoxic respiratory failure COPD exacerbation and bacterial pneumonia comes in for follow-up. Overall feeling better but states that the shortness of breath has been worsening for the last couple of days initially he felt better after discharge from the hospital. Again will lessen the course of prednisone. 5. Acute respiratory failure with hypoxia (HCC) [J96.01]: Discharged home on 2 L of oxygen. Continue oxygen to maintain saturations above 90%. Eduarda Felix MD Patient instructions given: See AVS Thank you for allowing me to participate in this patient's care. Patient's questions and concerns were addressed prior to discharge today. Followup discussed. Communication to associated physician sent. SIGNATURE: Eduarda Felix MD PATIENT NAME: Sarabjit Leach DATE: October 22, 2021 TIME: 10:37 AM PAGER/CONTACT #: [phone] documented in this encounter [facility] 05-06-2021 Hospital Discharge instructions Patient Education 05/06/2021 00:09:34 Treating Uveitis Treating Uveitis Uveitis is inflammation of the part of the eye called the uvea. The uvea sits just inside your eye s white outer layer (the sclera). Uveitis can cause pain and sensitivity to light. Often the eye gets red. Vision may get blurry. You may see spots floating in your eye. Uveitis can affect one or both eyes. You must be treated right away to control the inflammation and to keep your eyesight. Your eye doctor will prescribe medicine to ease pain and other symptoms. If a health condition caused your uveitis, you may also need to be treated for that. Relieving the symptoms With treatment, symptoms often go away in a few days. To help ease your symptoms, your eye doctor: Will use eye drops to enlarge (dilate) your pupil. This helps ease pain. This will make your eyes sensitive to light, so wear sunglasses while taking the dilating drops. May prescribe eye drops, ointment, or medicines by mouth (oral). These can help reduce swelling and inflammation. Use these as directed. Ask about any side effects. May inject medicine around or into your eye. Treating the underlying cause If the cause is known, your treatment will depend on the underlying condition. But the cause of uveitis is often not known. In this case, your eye doctor will likely treat you with anti-inflammatory eye drops, oral medicine, or shots. Uveitis is often linked with inflammatory problems in other parts of the body. These include some kinds of arthritis and inflammatory bowel disease. If needed, you may be referred to another provider. He or she can check you for any health problems linked to the uveitis. This provider may also oversee treatment with powerful oral medicines. [id number] [employer]. [address] [place], [place] [id number]. All rights reserved. This information is not intended as a substitute for professional medical care. Always follow your healthcare professional's instructions. Follow Up Care 05/05/2021 23:34:37 With:[facility] Address: [address] [place] [phone] (1) When:2-[address] [facility] 04-02-2021 History of Present illness Narrative Radiology Service Progress Note PATIENT NAME: Sarabjit Leach DATE OF SERVICE: April 02, 2021 TIME: 8:24 PM PATIENT IDENTITY VERIFICATION COMPLETED USING TWO (2) IDENTIFIERS: Name and Date of confirmed by patient verbally. FALL SCREENING: Has the patient had 2 falls in the last year or 1 fall with injury or currently using an Ambulatory Assistive Device (Walker, Cane, Wheelchair, Crutches, etc.)? No PATIENT GENDER DATA: Male PATIENT RELEVANT IMPLANT DATA REVIEWED: Not Applicable RADIOLOGY DEPARTMENT: General X-ray: Exam(s) Completed: Chest X-Ray PERIPHERAL IV DATA: Not applicable SIGNED BY: RT Gabrielle(R) April 02, 2021 8:24 PM documented in this encounter [facility] 03-25-2021 History of Present illness Narrative Radiology Service Progress Note PATIENT NAME: Sarabjit Leach DATE OF SERVICE: March 25, 2021 TIME: 10:41 AM PATIENT IDENTITY VERIFICATION COMPLETED USING TWO (2) IDENTIFIERS: Name and Date of confirmed by patient verbally. FALL SCREENING: Has the patient had 2 falls in the last year or 1 fall with injury or currently using an Ambulatory Assistive Device (Walker, Cane, Wheelchair, Crutches, etc.)? No PATIENT GENDER DATA: Male PATIENT RELEVANT IMPLANT DATA REVIEWED: Not Applicable RADIOLOGY DEPARTMENT: General X-ray: Exam(s) Completed: Chest X-Ray PERIPHERAL IV DATA: Not applicable SIGNED BY: RT Gabrielle(R) March 25, 2021 10:41 AM documented in this encounter [facility] 11-21-2020 History of Present illness Narrative Radiology Service Progress Note PATIENT NAME: Sarabjit Leach DATE OF SERVICE: November 21, 2020 TIME: 5:39 PM PATIENT IDENTITY VERIFICATION COMPLETED USING TWO (2) IDENTIFIERS: Name and Date of confirmed by patient verbally. FALL SCREENING: Has the patient had 2 falls in the last year or 1 fall with injury or currently using an Ambulatory Assistive Device (Walker, Cane, Wheelchair, Crutches, etc.)? No PATIENT GENDER DATA: Male PATIENT RELEVANT IMPLANT DATA REVIEWED: Not Applicable RADIOLOGY DEPARTMENT: General X-ray: Exam(s) Completed: Chest X-Ray PERIPHERAL IV DATA: Not applicable SIGNED BY: RT Jeremy(R) November 21, 2020 5:39 PM documented in this encounter [facility] 01-18-2020 History of Past i llness Narrative Problem Noted Date Diagnosed Date Resolved Date Exertional dyspnea 01/18/2020 3 Chest pain 01/17/2020 06/29/2023 Dermatitis, unspecified 08/29/201812/2022 documented as of this encounter (statuses as of 07/04/2023) [facility] History of Past illness Narrative* Problem Noted Date Diagnosed Date Resolved Date Exertional dyspnea 01/18/2020 3 Chest pain 01/17/2020 06/29/2023 Dermatitis, unspecified 08/29/201812/2022 documented as of this encounter (statuses as of 07/15/2023) [facility] History of Past illness Narrative* Problem Noted Date Diagnosed Date Resolved Date Exertional dyspnea 01/18/2020 3 Chest pain 01/17/2020 06/29/2023 Dermatitis, unspecified 08/29/201812/2022 documented as of this encounter (statuses as of 10/28/2023) [facility] History of Past illness Narrative* Problem Noted Date Diagnosed Date Resolved Date Exertional dyspnea 01/18/2020 3 Chest pain 01/17/2020 06/29/2023 Dermatitis, unspecified 08/29/201812/2022 documented as of this encounter (statuses as of 11/02/2023) [facility] No data available for this section [facility] Evaluation note* Diagnosis Pulmonary emphysema, unspecified emphysema type (HCC)- Primary Ex-smoker Personal history of tobacco use, presenting hazards to health Bacterial pneumonia Bacterial pneumonia, unspecified Hospital discharge follow-up Other follow-up examination Acute respiratory failure with hypoxia (HCC) Acute respiratory failure documented in this encounter [facility] note* Diagnosis Pulmonary emphysema, unspecified emphysema type (HCC) Ex-smoker Personal history of tobacco use, presenting hazards to health [facility] Diagnosis Pulmonary emphysema, unspecified emphysema type (HCC)- Primary [facility]* Diagnosis Bacterial pneumonia Bacterial pneumonia, unspecified [facility]* Diagnosis Chronic obstructive pulmonary disease, unspecified COPD type (HCC) [facility] Diagnosis Chronic obstructive pulmonary disease, unspecified COPD type (HCC)- Primary Ex-smoker Personal history of tobacco use, presenting hazards to health Acute respiratory failure with hypoxia (HCC) Acute respiratory failure [facility]* Diagnosis Cellulitis of skin- Primary Cellulitis and abscess of unspecified site Rash Rash and other nonspecific skin eruption [facility]* Diagnosis Chronic obstructive pulmonary disease, unspecified COPD type (HCC)- Primary Ex-smoker Personal history of tobacco use, presenting hazards to health [facility] Diagnosis Chronic obstructive pulmonary disease, unspecified COPD type (HCC)- Primary Mediastinal adenopathy Enlargement of lymph nodes Ex-smoker Personal history of tobacco use, presenting hazards to health [facility]* Diagnosis Lung nodules- Primary Other nonspecific abnormal finding of lung field [facility]* Diagnosis Lung nodule- Primary Solitary pulmonary nodule [facility]* Diagnosis Lung nodule- Primary Solitary pulmonary nodule [facility]* Diagnosis Chronic obstructive pulmonary disease, unspecified COPD type (HCC)- Primary Lung nodules Other nonspecific abnormal finding of lung field Ex-smoker Personal history of tobacco use, presenting hazards to health [facility] Diagnosis Pulmonary emphysema, unspecified emphysema type (HCC) Ex-smoker Personal history of tobacco use, presenting hazards to health [facility] Diagnosis Chronic obstructive pulmonary disease, unspecified COPD type (HCC)- Primary COPD exacerbation (HCC) Obstructive chronic bronchitis with exacerbation Ex-smoker Personal history of tobacco use, presenting hazards to health Lung nodules Other nonspecific abnormal finding of lung field [facility]* Diagnosis Screening for abdominal aortic aneurysm- Primary Screening for other and unspecified cardiovascular conditions Screening for lipid disorders Abnormal bruising Other symptoms involving skin and integumentary tissues Pulmonary nodule Solitary pulmonary nodule Complicated unilateral incarcerated femoral hernia Unilateral or unspecified femoral hernia with obstruction Other fatigue [facility]* Diagnosis Hepatomegaly- Primary Femoral hernia of left side without obstruction or gangrene Enlarged prostate with urinary obstruction Hypertrophy of prostate with urinary obstruction and other lower urinary tract symptoms (LUTS) Special screening examination for viral disease Special screening examination for unspecified viral disease Hyperglycemia Other abnormal glucose [facility] Diagnosis Lung nodules Other nonspecific abnormal finding of lung field [facility] Diagnosis Lung nodules- Primary Other nonspecific abnormal finding of lung field Pulmonary emphysema, unspecified emphysema type (HCC) Chronic obstructive pulmonary disease, unspecified COPD type (HCC) Ex-smoker Personal history of tobacco use, presenting hazards to health Mediastinal adenopathy Enlargement of lymph nodes [facility]* Diagnosis Pulmonary emphysema, unspecified emphysema type (HCC) Ex-smoker Personal history of tobacco use, presenting hazards to health [facility]* Diagnosis Pulmonary emphysema, unspecified emphysema type (HCC)- Primary Lung nodules Other nonspecific abnormal finding of lung field Ex-smoker Personal history of tobacco use, presenting hazards to health Mediastinal adenopathy Enlargement of lymph nodes [facility]* Diagnosis Benign localized prostatic hyperplasia with lower urinary tract symptoms (LUTS)- Primary Benign localized hyperplasia of prostate with urinary obstruction and other lower urinary tract symptoms (LUTS) Elevated PSA Elevated prostate specific antigen (PSA) [facility]* Diagnosis Lung nodules Other nonspecific abnormal finding of lung field [facility]* Diagnosis Pulmonary emphysema, unspecified emphysema type (HCC)- Primary Ex-smoker Personal history of tobacco use, presenting hazards to health Lung nodule Solitary pulmonary nodule Acute bronchitis, unspecified organism [facility]* Diagnosis Lung nodule- Primary Solitary pulmonary nodule [facility]* Diagnosis Pulmonary emphysema, unspecified emphysema type (HCC)- Primary Lung nodule Solitary pulmonary nodule Ex-smoker Personal history of tobacco use, presenting hazards to health [facility]* Diagnosis Left-sided chest pain Cough [facility]* Diagnosis Asthma with COPD with exacerbation (HCC) Chronic obstructive asthma with exacerbation Cough [facility] Diagnosis Viral URI Acute upper respiratory infections of unspecified site [facility] Lung nodule Solitary pulmonary nodule [facility] Instruction Text Follow up with your doctor. OTC meds as needed. Follow up with your doctor. OTC meds as needed. [facility] Reason for referral (narrative)* Outpatient Procedure (Routine) - Closed Specialty Diagnoses / Procedures Referred By Andrey loja Referred To Contact [facility] Diagnoses Chronic obstructive pulmonary disease, unspecified COPD type (HCC) Procedures OXIMETRY WITH AMBULATION NONINVASIVE EAR/PULSE OXIMETRY MULTIPLE DETER Eduarda Felix MD [address] [place] [address] Respiratory [place] [address] [place] [address] Referral ID Status Reason Start Date Expiration Date V isits Requested Visits Authorized [id number] Closed Auto-Generate d Referral 12/03/2021 07/24/2022 1 1 [facility] for referral (narrative)* Diagnostic Procedure Only (Routine) - Pending Review Specialty Diagnoses / Procedures Referred By Andrey loja Referred To Contact MOLECULAR & FUNCTIONAL IMAGING Diagnoses Lung nodules Procedures NM PET/CT SKULL-THIGH INITIAL PET IMAGING CT ATTENUATION SKULL BASE MID-THIGH Eduarda Felix MD [address] [place] [address] Molecular & Functional Imaging [address] [place] [address] Referral ID Status Reason Start Date Expiration Date Visits Requested Visits Authorized [id number] Pending Review Auto-Generat ed Referral 2 07/22/2023 1 1 [facility] for referral (narrative)* Diagnostic Procedure Only (Routine) - Pending Review Specialty Diagnoses / Procedures Referred By Contac t Referred To Contact US IMAGING Diagnoses Hepatomegaly Procedures US ABD LIVER VASCULAR US ABDOMINAL REAL TIME W/IMAGE LIMITED DUP-SCAN ARTL ISAMAR ABDL/PEL/SCROT&/RPR ORGN COM Salazar Stallworth DO [address] [place] [address] [place] [address] Referral ID Status Reason Start Date Expiration Date Visits Requested Visits Authorized [id number] Pending Review Auto-Generat ed Referral 04/04/2023 2024 1 1 * Diagnostic Procedure Only (Routine) - Pending Review Specialty Diagnoses / Procedures Referred By Contac t Referred To Contact US IMAGING Diagnoses Hepatomegaly Procedures US ELASTOGRAPHY LIVER ULTRASOUND ELASTOGRAPHY PARENCHYMA Salazar Stallworth DO [address] [place] [address] Us Imaging [id number] Referral ID Status Reason Start Date Expiration Date Visits Requested Visits Authorized [id number] Pending Review Auto-Generat ed Referral 04/04/2023 2024 1 1 * Consult, Test, Treat (Routine) - Authorized Specialty Diagnoses / Procedures Referred By Contac t Referred To Contact General Surgery Diagnoses Femoral hernia of left side without obstruction or gangrene Procedures CONSULT TO GENERAL SURGERY OFFICE/OUTPATIENT [facility] 60-74 MINUTES Salazar Stallworth DO [address] [place] [address] Referral ID Status Reason Start Date Expiration Date Visits Requested Visits Authorized [id number] Authorized PCP Requested Referral 04/04/2023 04/03/2024 1 1 * Consult, Test, Treat (Routine) - Authorized Specialty Diagnoses / Procedures Referred By Contac t Referred To Contact Urology Diagnoses Enlarged prostate with urinary obstruction Procedures CONSULT TO UROLOGY OFFICE/OUTPATIENT [facility] 60-74 MINUTES Salazar Stallworth DO [address] [place] [address] Referral ID Status Reason Start Date Expiration Date Visits Requested Visits Authorized [id number] Authorized PCP Requested Referral 04/04/2023 04/03/2024 1 1 [facility] for referral (narrative)* Outpatient Procedure (Routine) - Authorized Specialty Diagnoses / Procedures Referred By Contac t Referred To [facility] Diagnoses Pulmonary emphysema, unspecified emphysema type (HCC) Procedures LUNG DIFFUSION CAPACITY (DLCO) DIFFUSING CAPACITY Eduarda Felix MD [address] [place] [address] [address] [place] [address] [address] Referral ID Status Reason Start Date Expiration Date Visits Requested Visits Authorized [id number] Authorized Auto-Generat ed Referral 03/19/2024 04/18/2025 1 1 * Outpatient Procedure (Routine) - Pending Review Specialty Diagnoses / Procedures Referred By Contac t Referred To [facility] Diagnoses Pulmonary emphysema, unspecified emphysema type (HCC) Procedures LUNG VOLUMES Eduarda Felix MD [address] [place] [address] [address] [place] [address] [address] Referral ID Status Reason Start Date Expiration Date Visits Requested Visits Authorized [id number] Pending Review Auto-Generat ed Referral 03/19/2024 04/18/2025 1 1 * Outpatient Procedure (Routine) - Authorized Specialty Diagnoses / Procedures Referred By Contac t Referred To [facility] Diagnoses Pulmonary emphysema, unspecified emphysema type (HCC) Procedures OXIMETRY WITH AMBULATION NONINVASIVE EAR/PULSE OXIMETRY MULTIPLE DETER Eduarda Felix MD [address] [place] [address] Respiratory [place] [address] [place], [place] [id number] Referral ID Status Reason Start Date Expiration Date Visits Requested Visits Authorized [id number] Authorized Auto-Generat ed Referral 03/19/2024 04/18/2025 1 1 * Outpatient Procedure (Routine) - Authorized Specialty Diagnoses / Procedures Referred By Andrey loja Referred To Contact [facility] Diagnoses Pulmonary emphysema, unspecified emphysema type (HCC) Procedures SPIROMETRY - BASELINE AND POST DILATOR BRNCDILAT RSPSE SPMTRY PRE&POST-BRNCDILAT ADMN Eduarda Felix MD [address] [place] [address] Respiratory [place] [address] [place], [place] [id number] Referral ID Status Reason Start Date Expiration Date Visits Requested Visits Authorized [id number] Authorized Auto-Generat ed Referral 03/19/2024 04/18/2025 1 1 [facility] for visit Narrative* Diagnostic Procedure Only (Routine) - Closed Specialty Diagnoses / Procedures Referred By Andrey loja Referred To Contact MOLECULAR & FUNCTIONAL IMAGING Diagnoses Lung nodules Procedures NM PET/CT SKULL-THIGH INITIAL PET IMAGING CT ATTENUATION SKULL BASE MID-THIGH Eduarda Felix MD [address] [place] [address] Molecular & Functional Imaging [address] [place] [address] Referral ID Status Reason Start Date Expiration Date V isits Requested Visits Authorized [id number] Closed Auto-Generate d Referral 06/22/2022 08/07/2022 1 1 [facility] Summary Purpose Family History No Family History Records FoundNo Family History Records FoundNo Family History Records FoundNo Family History Records FoundNo Family History Records FoundNo Family History Records FoundNo Family History Records FoundNo Family History Records FoundNo Family History Records FoundNo Family History Records FoundNo Family History Records FoundNo Family History Records FoundNo Family History Records Found Advance Directives Documents on File Type Date Recorded 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 Advance Directive(s) 10/12/2021 12:20 PM Advance Directive(s) 01/18/2020 8:42 PM Advance Directive(s) 12/24/2017 5:12 PM Documents on File Type Date Recorded 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 Advance Directive(s) 10/12/2021 12:20 PM Advance Directive(s) 01/18/2020 8:42 PM Advance Directive(s) 12/24/2017 5:12 PM Reason for Referral Specialty Diagnoses / Procedures Referred By Contac t Referred To Contact Urology Diagnoses Elevated PSA Benign localized prostatic hyperplasia with lower urinary tract symptoms (LUTS) Procedures CONSULT TO UROLOGY OFFICE/OUTPATIENT [facility] HIGH MDM 60-74 MINUTES Salazar Stallworth DO [address] [place] [address] Referral ID Status Reason Start Date Expiration Date Visits Requested Visits Authorized [id number] Authorized PCP Requested Referral 07/03/2024 1 1 Specialty Diagnoses / Procedures Referred By Contac t Referred To Contact CT IMAGING Diagnoses Complicated unilateral incarcerated femoral hernia Procedures CT ABD/PEL W IVCON CT ABD & PELVIS W/CONTRAST Salazar Stallworth DO [address] [place] [address] Ct Imaging [id number] Referral ID Status Reason Start Date Expiration Date Visits Requested Visits Authorized [id number] Pending Review Auto-Generat ed Referral 03/16/2023 04/14/2024 1 1 Specialty Diagnoses / Procedures Referred By Contac t Referred To Contact CT IMAGING Diagnoses Lung nodules Procedures CT CHEST WO IVCON DIAGNOSTIC COMPUTED TOMOGRAPHY THORAX W/O CNTRST Eduarda Felix MD [address] [place] [address] [address] [place] [address] Ct Imaging Referral ID Status Reason Start Date Expiration Date Visits Requested Visits Authorized [id number] Pending Review Auto-Generat ed Referral 04/22/2023 11/19/2023 1 1 Specialty Diagnoses / Procedures Referred By Contac t Referred To Contact Eduarda Felix MD [address] [place] [address] [address] [place] [address] Referral ID Status Reason Start Date Expiration Date V isits Requested Visits Authorized [id number] Pending Review 1 1 Specialty Diagnoses / Procedures Referred By Contac t Referred To Contact CT IMAGING Diagnoses Lung nodule Procedures CT CHEST WO IVCON DIAGNOSTIC COMPUTED TOMOGRAPHY THORAX W/O CNTRST Isis Mcdaniels, CARAMEL CUTTER MACHINE.CHIEF OF STAFF [address] [place] [address] Ct Imaging Referral ID Status Reason Start Date Expiration Date Visits Requested Visits Authorized [id number] Pending Review Auto-Generat ed Referral 09/01/2022 10/01/2023 1 1 Specialty Diagnoses / Procedures Referred By Contac t Referred To Contact CT IMAGING Diagnoses Mediastinal adenopathy Procedures CT CHEST WO IVCON DIAGNOSTIC COMPUTED TOMOGRAPHY THORAX [place] [address] [place] [address] [address] [place] [address] Ct Imaging Referral ID Status Reason Start Date Expiration Date Visits Requested Visits Authorized [id number] Authorized Auto-Generat ed Referral 2 07/22/2022 1 1 Specialty Diagnoses / Procedures Referred By Contac t Referred To Contact Diagnoses Pulmonary emphysema, unspecified emphysema type (HCC) Eduarda Felix MD [address] [place] [address] Referral ID Status Reason Start Date Expiration Date Visits Re quested Visits Authorized [id number] Closed 1 1 Additional Source Comments (unrecognized sect ion and content) No Status Records FoundNo Status Records FoundNo Status Records FoundNo Status Records FoundNo Status Records FoundNo Status Records FoundNo Status Records FoundNo Status Records FoundNo Status Records FoundNo Status Records FoundNo Status Records FoundNo Status Records FoundNo Status Records Found INFORMATION SOURCE (unrecogn ized section and content) DATE CREATED AUTHOR 01/13/2018 [employer] DATE CREATED AUTHOR AUTHOR'S ORGANIZ ATION 09/12/2018 [employer] DATE CREATED AUTHOR AUTHOR'S ORGANIZ ATION 01/05/2019 [facility] DATE CREATED AUTHOR AUTHOR'S ORGANIZ ATION 05/07/2020 [facility] ([place]) DATE CREATED AUTHOR AUTHOR'S ORGANIZ ATION 12/24/2020 [facility] DATE CREATED AUTHOR AUTHOR'S ORGANIZ ATION 07/04/2021 [facility] DATE CREATED AUTHOR AUTHOR'S ORGANIZ ATION 07/20/2021 [employer] DATE CREATED AUTHOR AUTHOR'S ORGANIZ ATION 06/26/2023 [facility] DATE CREATED AUTHOR AUTHOR'S ORGANIZ ATION 07/01/2023 [facility] DATE CREATED AUTHOR AUTHOR'S ORGANIZ ATION 10/13/2023 [facility] DATE CREATED AUTHOR AUTHOR'S ORGANIZ ATION 02/07/2024 [facility] DATE CREATED AUTHOR AUTHOR'S ORGANIZ ATION 03/20/2024 [facility] DATE CREATED AUTHOR AUTHOR'S ORGANIZ ATION 05/10/2024 [facility] Source Comments (unrecognize d section and content) In the event this informatio n is protected by the Federal Confidentiality of Alcohol and Drug Abuse Patient Records regulations: The Federal rules restrict any use of the information to criminally investigate or prosecute any alcohol or drug abuse patient.[facility] the event this information is protected by the Federal Confidentiality of Alcohol and Drug Abuse Patient Records regulations: The Federal rules restrict any use of the information to criminally investigate or prosecute any alcohol or drug abuse patient.[facility] the event this information is protected by the Federal Confidentiality of Alcohol and Drug Abuse Patient Records regulations: The Federal rules restrict any use of the information to criminally investigate or prosecute any alcohol or drug abuse patient.[facility] the event this information is protected by the Federal Confidentiality of Alcohol and Drug Abuse Patient Records regulations: The Federal rules restrict any use of the information to criminally investigate or prosecute any alcohol or drug abuse patient.[facility] the event this information is protected by the Federal Confidentiality of Alcohol and Drug Abuse Patient Records regulations: The Federal rules restrict any use of the information to criminally investigate or prosecute any alcohol or drug abuse patient.[facility] the event this information is protected by the Federal Confidentiality of Alcohol and Drug Abuse Patient Records regulations: The Federal rules restrict any use of the information to criminally investigate or prosecute any alcohol or drug abuse patient.[facility] the event this information is protected by the Federal Confidentiality of Alcohol and Drug Abuse Patient Records regulations: The Federal rules restrict any use of the information to criminally investigate or prosecute any alcohol or drug abuse patient.[facility] the event this information is protected by the Federal Confidentiality of Alcohol and Drug Abuse Patient Records regulations: The Federal rules restrict any use of the information to criminally investigate or prosecute any alcohol or drug abuse patient.[facility] the event this information is protected by the Federal Confidentiality of Alcohol and Drug Abuse Patient Records regulations: The Federal rules restrict any use of the information to criminally investigate or prosecute any alcohol or drug abuse patient.[facility]In the event this information is protected by the Federal Confidentiality of Alcohol and Drug Abuse Patient Records regulations: The Federal rules restrict any use of the information to criminally investigate or prosecute any alcohol or drug abuse patient.[facility] Hospital[facility] the event this information is protected by the Federal Confidentiality of Alcohol and Drug Abuse Patient Records regulations: The Federal rules restrict any use of the information to criminally investigate or prosecute any alcohol or drug abuse patient.[facility] HospitalIn the event this information is protected by the Federal Confidentiality of Alcohol and Drug Abuse Patient Records regulations: The Federal rules restrict any use of the information to criminally investigate or prosecute any alcohol or drug abuse patient.[facility] HospitalIn the event this information is protected by the Federal Confidentiality of Alcohol and Drug Abuse Patient Records regulations: The Federal rules restrict any use of the information to criminally investigate or prosecute any alcohol or drug abuse patient.[facility] HospitalIn the event this information is protected by the Federal Confidentiality of Alcohol and Drug Abuse Patient Records regulations: The Federal rules restrict any use of the information to criminally investigate or prosecute any alcohol or drug abuse patient.[facility] HospitalIn the event this information is protected by the Federal Confidentiality of Alcohol and Drug Abuse Patient Records regulations: The Federal rules restrict any use of the information to criminally investigate or prosecute any alcohol or drug abuse patient.[facility] HospitalIn the event this information is protected by the Federal Confidentiality of Alcohol and Drug Abuse Patient Records regulations: The Federal rules restrict any use of the information to criminally investigate or prosecute any alcohol or drug abuse patient.[facility] HospitalIn the event this information is protected by the Federal Confidentiality of Alcohol and Drug Abuse Patient Records regulations: The Federal rules restrict any use of the information to criminally investigate or prosecute any alcohol or drug abuse patient.[facility] HospitalIn the event this information is protected by the Federal Confidentiality of Alcohol and Drug Abuse Patient Records regulations: The Federal rules restrict any use of the information to criminally investigate or prosecute any alcohol or drug abuse patient.[facility] HospitalIn the event this information is protected by the Federal Confidentiality of Alcohol and Drug Abuse Patient Records regulations: The Federal rules restrict any use of the information to criminally investigate or prosecute any alcohol or drug abuse patient.[facility] HospitalIn the event this information is protected by the Federal Confidentiality of Alcohol and Drug Abuse Patient Records regulations: The Federal rules restrict any use of the information to criminally investigate or prosecute any alcohol or drug abuse patient.[facility] HospitalIn the event this information is protected by the Federal Confidentiality of Alcohol and Drug Abuse Patient Records regulations: The Federal rules restrict any use of the information to criminally investigate or prosecute any alcohol or drug abuse patient.[facility] HospitalIn the event this information is protected by the Federal Confidentiality of Alcohol and Drug Abuse Patient Records regulations: The Federal rules restrict any use of the information to criminally investigate or prosecute any alcohol or drug abuse patient.[facility] HospitalIn the event this information is protected by the Federal Confidentiality of Alcohol and Drug Abuse Patient Records regulations: The Federal rules restrict any use of the information to criminally investigate or prosecute any alcohol or drug abuse patient.[facility] HospitalIn the event this information is protected by the Federal Confidentiality of Alcohol and Drug Abuse Patient Records regulations: The Federal rules restrict any use of the information to criminally investigate or prosecute any alcohol or drug abuse patient.[facility] HospitalIn the event this information is protected by the Federal Confidentiality of Alcohol and Drug Abuse Patient Records regulations: The Federal rules restrict any use of the information to criminally investigate or prosecute any alcohol or drug abuse patient.[facility] HospitalIn the event this information is protected by the Federal Confidentiality of Alcohol and Drug Abuse Patient Records regulations: The Federal rules restrict any use of the information to criminally investigate or prosecute any alcohol or drug abuse patient.[facility] HospitalIn the event this information is protected by the Federal Confidentiality of Alcohol and Drug Abuse Patient Records regulations: The Federal rules restrict any use of the information to criminally investigate or prosecute any alcohol or drug abuse patient.[facility] HospitalIn the event this information is protected by the Federal Confidentiality of Alcohol and Drug Abuse Patient Records regulations: The Federal rules restrict any use of the information to criminally investigate or prosecute any alcohol or drug abuse patient.[facility] HospitalIn the event this information is protected by the Federal Confidentiality of Alcohol and Drug Abuse Patient Records regulations: The Federal rules restrict any use of the information to criminally investigate or prosecute any alcohol or drug abuse patient.[facility] HospitalIn the event this information is protected by the Federal Confidentiality of Alcohol and Drug Abuse Patient Records regulations: The Federal rules restrict any use of the information to criminally investigate or prosecute any alcohol or drug abuse patient.[facility] HospitalIn the event this information is protected by the Federal Confidentiality of Alcohol and Drug Abuse Patient Records regulations: The Federal rules restrict any use of the information to criminally investigate or prosecute any alcohol or drug abuse patient.[facility] HospitalIn the event this information is protected by the Federal Confidentiality of Alcohol and Drug Abuse Patient Records regulations: The Federal rules restrict any use of the information to criminally investigate or prosecute any alcohol or drug abuse patient.[facility] HospitalIn the event this information is protected by the Federal Confidentiality of Alcohol and Drug Abuse Patient Records regulations: The Federal rules restrict any use of the information to criminally investigate or prosecute any alcohol or drug abuse patient.[facility] HospitalIn the event this information is protected by the Federal Confidentiality of Alcohol and Drug Abuse Patient Records regulations: The Federal rules restrict any use of the information to criminally investigate or prosecute any alcohol or drug abuse patient.[facility] HospitalIn the event this information is protected by the Federal Confidentiality of Alcohol and Drug Abuse Patient Records regulations: The Federal rules restrict any use of the information to criminally investigate or prosecute any alcohol or drug abuse patient.[facility] HospitalIn the event this information is protected by the Federal Confidentiality of Alcohol and Drug Abuse Patient Records regulations: The Federal rules restrict any use of the information to criminally investigate or prosecute any alcohol or drug abuse patient.[facility] HospitalIn the event this information is protected by the Federal Confidentiality of Alcohol and Drug Abuse Patient Records regulations: The Federal rules restrict any use of the information to criminally investigate or prosecute any alcohol or drug abuse patient.[facility] HospitalIn the event this information is protected by the Federal Confidentiality of Alcohol and Drug Abuse Patient Records regulations: The Federal rules restrict any use of the information to criminally investigate or prosecute any alcohol or drug abuse patient.[facility] HospitalIn the event this information is protected by the Federal Confidentiality of Alcohol and Drug Abuse Patient Records regulations: The Federal rules restrict any use of the information to criminally investigate or prosecute any alcohol or drug abuse patient.[facility] HospitalIn the event this information is protected by the Federal Confidentiality of Alcohol and Drug Abuse Patient Records regulations: The Federal rules restrict any use of the information to criminally investigate or prosecute any alcohol or drug abuse patient.[facility] Reason for Visit (unrecogniz ed section and content) Reason Comments COPD Reason Onset Date Comments Refill Request 11/04/2021 Reason Comments Patient Question Orders Reason Comments FYI-No Action Needed Reason Comments Patient Question Results Reason Comments Spirometry Specialty Diagnoses / Procedures Referred By Contac t Referred To Contact [facility] Diagnoses Chronic obstructive pulmonary disease, unspecified COPD type (HCC) Procedures OXIMETRY WITH AMBULATION NONINVASIVE EAR/PULSE OXIMETRY MULTIPLE DETER Eduarda Felix MD [address] [place] [address] Respiratory [place] [address] [place] [address] Referral ID Status Reason Start Date Expiration Date V isits Requested Visits Authorized [id number] Closed Auto-Generate d Referral 12/03/2021 07/24/2022 1 1 Reason Comments Disability Evaluation Reason Comments Derm Problem bilateral forearms a nd wrist red circular patches x 4 years Reason Comments COPD Reason Comments COPD Shortness of Breath Reason Comments Results Reason Comments Patient Update Reason Comments Insurance Authorization Reason Comments COPD Reason Onset Date Comments Refill Request 11/11/2022 Reason Onset Date Comments Refill Request 01/27/2023 Reason Comments New Patient Reason Comments Patient Update Ct abd/pelvis Specialty Diagnoses / Procedures Referred By Contac t Referred To Contact CT [facility] Diagnoses Lung nodules Procedures CT CHEST WO IVCON DIAGNOSTIC COMPUTED TOMOGRAPHY THORAX W/O Eduarda Miguel MD [address] [place] [address] [place] [address] Referral ID Status Reason Start Date Expiration Date V isits Requested Visits Authorized [id number] Closed Auto-Generated Referral Patient Cleared - Qualified 100% FAS 04/22/2023 07/24/2023 1 1 Reason Comments COPD Follow up Reason Onset Date Comments Refill Request 06/15/2023 Reason Comments 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 Referral ID Status Reason Start Date Expiration Date V isits Requested Visits Authorized [id number] Closed Auto-Generate d Referral 07/23/2023 07/22/2024 1 1 Reason Comments Nodule Reason Comments CT question Reason Comments Nodule COPD Specialty Diagnoses / Procedures Referred By Contac t Referred To Contact CT IMAGING Diagnoses Lung nodule Procedures CT CHEST WO IVCON DIAGNOSTIC COMPUTED TOMOGRAPHY THORAX W/O Eduarda Miguel MD [address] [place] [address] [place] [address] Referral ID Status Reason Start Date Expiration Date V isits Requested Visits Authorized [id number] Closed Auto-Generate d Referral 05/09/2024 02/09/2025 1 1 Care Teams (unrecognized sec tion and content) Extractor And Wringer Operator Relationship Specialty Start Date End Date Salazar Stallworth DO [address] [id number] PCP - General Internal Medicine 06/29/23 Extractor And Wringer Operator Relationship Specialty Start Date End Date Salazar Stallworth DO [address] [id number] PCP - General Internal Medicine 06/29/23 Extractor And Wringer Operator Relationship Specialty Start Date End Date Salazar Stallworth DO [address] [phone] PCP - General Internal Medicine 06/29/23 Extractor And Wringer Operator Relationship Specialty Start Date End Date Salazar Stallworth DO [address] [id number] PCP - General Internal Medicine 06/29/23 Extractor And Wringer Operator Relationship Specialty Start Date End Date Salazar Stallworth DO [address] [id number] PCP - General Internal Medicine 06/29/23 Extractor And Wringer Operator Relationship Specialty Start Date End Date Salazar Stallworth DO [address] [id number] PCP - General Internal Medicine 06/29/23 Eduarda Felix MD [address] [place], [place] [address] Pulmonary Disease 03/09/24 Extractor And Wringer Operator Relationship Specialty Start Date End Date Salazar Stallworth DO 1 [facility] [address] [place] [address] PCP - General Internal Medicine 06/29/23 Eduarda Felix MD [address] [place] [address] [address] [place] [address] Pulmonary Disease 03/09/24 Roula Matias RN Primary Care Accident Report Clerk 05/08/24 Extractor And Wringer Operator Relationship Specialty Start Date End Date Salazar Stallworth DO [address] [id number] PCP - General Internal Medicine 06/29/23 Eduarda Felix MD [address] [place] [id number] Pulmonary Disease 03/09/24 Roula Matias RN Primary Care Accident Report Clerk 05/08/24 FOR RECORDS PERTAINING TO PATIENTS WHO ARE OR HAVE BEEN ENROLLED IN A CHEMICAL DEPENDENCY/SUBSTANCEABUSE PROGRAM, SOME INFORMATION MAY BE OMITTED. This clinical summary was aggregated from multiple sources. Caution should be exercised in using it in the provision of clinical care. This summary normalizes information from multiple sources, and as a consequence, information in this document may materially change the coding, format and clinical context of patient data. In addition, data may be omitted in some cases. CLINICAL DECISIONS SHOULD BE BASED ON THE PRIMARY CLINICAL RECORDS. [employer] provides no warranty or guarantee of the accuracy or completeness of information in this document.
--- NOTE | 2024-05-17 08:23 | CL.IE_ITS ---
Patient: +SARABJIT ESQUIVEL Study Date: 05/17/2024 Performing: Osmani Ham MD : 1955 Age: 69 Gender: male PROCEDURES PERFORMED [id number])INSERTION OF LOOP RECORDER INDICATIONS Syncope PROCEDURE DETAILS The patient was brought to the Catheterization Lab in the postabsorptive nonsedated state. Informed consent was obtained prior to the procedure. Local anesthetic was given subcutaneously to the left upper chest area with Lidocaine 2%. Incision was made to the left upper chest. The patient tolerated the procedure well. Estimated Blood Loss: 1 ml's IMPLANTED / EX-PLANTED DEVICES model number [id number] s/n [id number] [employer] DEVICE PARAMETERS CONCLUSIONS / RECOMMENDATIONS Device Conclusions: Successful implantation of a patient activated loop recorder. Device Recommendations: Follow up with Primary Care Physician PROCEDURE MEDICATIONS Oxygen: 2 L/min via nasal cannula Signed By Osmani Ham MD On 05/17/2024 08:22:29 Osmani Ham MD
--- NOTE | 2024-05-17 09:52 | NURSING ---
patient presented with home new home 30 day event monitor. Patient here today with implanted loop recorder. Patient to follow up with Dr. Garcia with cardiology. Spoke with Dr. Garcia about need for event monitor. At this time since patient has internal recorder there is no need for event monitor. Radha with cardiology made aware order to be canceled and monitor will be sent back at this time. Patient made aware and agrees with plan.
== END 2024-05-17 09:45 | disposition home or self-care (01) ==
PROVIDERS: Referring Provider Internal Medicine Cardiovascular Disease; Visit Provider Internal Medicine Cardiovascular Disease
DX: R55 Syncope and collapse (principal); J44.9 Chronic obstructive pulmonary disease, unspecified; R79.89 Other specified abnormal findings of blood chemistry; Z79.51 Long term (current) use of inhaled steroids; Z87.891 Personal history of nicotine dependence
CPT/HCPCS: 33285